=== PATIENT | female | born 1960 | race African-American/Black ===

== ENCOUNTER 2018-04-02 19:12 | Inpatient (IN) | payer MEDICARE, MEDICAID ==
[2018-04-02] MEDS ORDERED: NITROGLYCERIN 2% OINTMENT 1 GM PACKET TP ONE (20:19)
--- NOTE | 2018-04-02 21:07 | RADIOLOGY REPORT (SQ) ---
EXAM DESCRIPTION: XR CHEST 1 VIEW COMPLETED DATE/TME: 04/02/2018 20:09 CLINICAL HISTORY: 57 years, Female, sob No prior studies available at this institution for comparison. Findings: Heart is moderately enlarged. There is a right lower lobe consolidation. Mild right pleural effusion. No pneumothorax. IMPRESSION: Right lower lobe consolidation and mild right pleural effusion.
[2018-04-02 21:14] LABS: ABSOLUTE EOSINOPHILS # (AUTO) 0.1 10^3/uL (0.0-0.6); ABSOLUTE LYMPHOCYTES (AUTO) 0.7 10^3/uL (0.5-4.7); ABSOLUTE MONOCYTES (AUTO) 0.4 10^3/uL (0.1-1.4); ABSOLUTE NEUT (AUTO) 3.1 10^3/uL (1.7-8.2); BASOPHILS % (AUTO) 0.6 % (0-2); HEMATOCRIT 35.3 % (36.0-47.0); HEMOGLOBIN 11.5 g/dL (12.0-15.5); LYMPHOCYTES % (AUTO) 16.1 % (13-45); MEAN CORPUSCULAR HEMOGLOBIN 26.6 pg (27.0-33.4); MEAN CORPUSCULAR HGB CONC 32.6 g/dL (32.0-36.0); MEAN CORPUSCULAR VOLUME 82 fl (80-97); MONOCYTES % (AUTO) 8.2 % (3-13); PLATELET COUNT 220 10^3/uL (150-450); RED BLOOD COUNT 4.33 10^6/uL (3.72-5.28); RED CELL DISTRIBUTION WIDTH 20.8 % (11.5-14.0); SEGMENTED NEUTROPHILS % (AUTO) 72.1 % (42-78); TOTAL CELLS COUNTED % (AUTO) 100 %; WHITE BLOOD COUNT 4.3 10^3/uL (4.0-10.5)
--- NOTE | 2018-04-02 22:39 | EKG REPORT ---
SEVERITY:- ABNORMAL ECG - SINUS RHYTHM FIRST DEGREE AV BLOCK PROBABLE LEFT ATRIAL ABNORMALITY RBBB AND LAFB : Confirmed by: Soledad Peck 02-Apr-2018 22:38:20
[2018-04-02] MEDS ORDERED: NITROGLYCERIN 2% OINTMENT 1 GM PACKET ONE (22:59)
[2018-04-02] MEDS ORDERED: FUROSEMIDE INJ/PF 40 MG/4 ML SDV IV ONE (23:30)
[2018-04-02] MEDS ORDERED: ALPRAZOLAM 0.25 MG TABLET PO ONE (23:30)
[2018-04-02 23:39] LABS: ALANINE AMINOTRANSFERASE 32 U/L (9-52); ALBUMIN 3.9 g/dL (3.5-5.0); ALKALINE PHOSPHATASE 561 U/L (38-126); ANION GAP 15 (5-19); ASPARTATE AMINO TRANSFERASE 28 U/L (14-36); BILIRUBIN,DIRECT 0.5 mg/dL (0.0-0.4); BILIRUBIN,TOTAL 0.9 mg/dL (0.2-1.3); BLOOD UREA NITROGEN 49 mg/dL (7-20); CALCIUM 9.2 mg/dL (8.4-10.2); CARBON DIOXIDE 28 mmol/L (22-30); CHLORIDE 101 mmol/L (98-107); CREATINE KINASE 92 U/L (30-135); GLUCOSE 138 mg/dL (75-110); POTASSIUM 4.6 mmol/L (3.6-5.0); SODIUM 143.5 mmol/L (137-145); TOTAL PROTEIN 6.9 g/dL (6.3-8.2)
[2018-04-02 23:50] LABS: CREATINE KINASE MB 3.24 ng/mL (<4.55)
[2018-04-02 23:54] LABS: TROPONIN I 0.049 ng/mL
[2018-04-03] MEDS ORDERED: CLONIDINE HCL 0.2 MG TABLET PO ONE (00:06)
[2018-04-03] MEDS ORDERED: LABETALOL HCL INJ 20 MG/4 ML DISP.SYRIN IV ONE (00:07)
--- NOTE | 2018-04-03 00:18 | ER Document Report ---
ED General - General Chief Complaint: General Weakness Stated Complaint: GENERALIZED WEAKNESS Time Seen by Provider: 04/02/18 20:09 Mode of Arrival: Medic Information source: Patient Notes: This is a 57-year-old female with a history of hypertension, insulin requiring diabetes, end-stage renal disease (on hemodialysis) who recently relocated to this area. Patient is brought in by EMS for weakness and shortness of breath. Patient moved here over the weekend and had missed dialysis on Saturday. On Saturday (the day of presentation) the patient was dialyzed at [place] and she was dialyzed 3.5 L removed. Patient states she was short of breath after dialysis and was sent to the emergency room. Patient denies chest pain. O2 sats were noted to be in the upper 80s status post dialysis. TRAVEL OUTSIDE OF THE [place] IN LAST 30 DAYS: No - HPI Onset: Just prior to arrival Onset/Duration: Gradual Quality of pain: No pain Severity: None Pain Level: Denies Associated symptoms: Shortness of breath. denies: Chest pain, Fever Exacerbated by: Denies Relieved by: Denies Similar symptoms previously: Yes Recently seen / treated by doctor: Yes - Related Data Allergies/Adverse Reactions: No Known Allergies Allergy (Unverified 04/02/18 20:27) Past Medical History - General Information source: Patient, Relative - Social History Smoking Status: Never Smoker Cigarette use (# per day): No Chew tobacco use (# tins/day): No Frequency of alcohol use: None Drug Abuse: None Lives with: Family Family History: None Patient has suicidal ideation: No Patient has homicidal ideation: No - Past Medical History Cardiac Medical History: Reports: Hx Congestive Heart Failure, Hx Hypertension Renal/ Medical History: Denies: Hx Peritoneal Dialysis Past Surgical History: Reports: Hx Hysterectomy, Hx Vascular Surgery Review of Systems - Review of Systems Constitutional: denies: Chills, Fever EENT: No symptoms reported Cardiovascular: denies: Chest pain, Palpitations, Heart racing Respiratory: Short of breath Gastrointestinal: No symptoms reported Genitourinary: See HPI Female Genitourinary: No symptoms reported Musculoskeletal: No symptoms reported Skin: No symptoms reported Hematologic/Lymphatic: No symptoms reported Neurological/Psychological: No symptoms reported Physical Exam - Vital signs Vitals: Pulse Ox 87 L 04/02/18 19:15 Notes: Physical exam: GENERAL: Patient is alert, she does appear short of breath. Oxygen saturation is 92% on 2 L. HEAD: Atraumatic, normocephalic. EYES: Pupils equal round and reactive to light, extraocular movements intact, sclera anicteric, conjunctiva are normal. ENT: TMs normal, nares patent, oropharynx clear without exudates. Moist mucous membranes. NECK: Normal range of motion, supple without obvious mass or JVD. LUNGS: Decreased breath sounds at the right base. HEART: Regular rate and rhythm without murmurs, rubs or gallops. ABDOMEN: Soft, normoactive bowel sounds. No tenderness to palpation. No guarding, no rebound. No masses appreciated. EXTREMITIES: Normal range of motion, no pitting or edema. No clubbing or cyanosis. NEUROLOGICAL: Cranial nerves II through XII grossly intact. Normal speech, moving all extremities. PSYCH: Normal mood, normal affect. SKIN: Warm, Dry, normal turgor, no rashes or lesions noted. Bedside ultrasound: Shows a large right pleural effusion Course - Re-evaluation Re-evalutation: Note: Patient has been treated with supplemental oxygen, IV labetalol, IV Lasix, nitrates, clonidine. Right femoral triple-lumen was placed under ultrasound guidance. 04/03/18 01:10 [facility] was contacted for transfer: There are not accepting transfers at this time and they expect greater than 24 hours. [facility] in [place] was contacted for transfer: There waiting list is over 24 hours long. [facility] was contacted for transfer. I spoke to Rahul and the transfer is accepted but the wait may be 24 hours. Demographics for the patient was sent to [phone] I discussed the above with Dr. Jaime who will accept the patient to the [facility] until transfer comes through. The plan will be to continue blood pressure management, contacting interventional for possible fusion drainage tomorrow, cardiac monitoring and serial enzymes. 04/03/18 01:49 - Vital Signs Vital signs: Temp Pulse Resp BP Pulse Ox 97.6 F 29 H 168/85 H 93 04/02/18 21:11 04/03/18 01:31 04/03/18 01:31 04/03/18 01:31 - Laboratory Result Diagrams: 04/02/18 21:00 04/02/18 23:12 Laboratory results interpreted by me: 04/02/18 04/02/18 21:00 23:12 Hgb 11.5 L Hct 35.3 L MCH 26.6 L RDW 20.8 H BUN 49 H Creatinine 6.24 H Est GFR ( Amer) 8 L Est GFR (Non-Af Amer) 7 L Glucose 138 H Direct Bilirubin 0.5 H Alkaline Phosphatase 561 H - Diagnostic Test Radiology reviewed: Image reviewed, Reports reviewed - X-ray shows a large right pleural effusion - EKG Interpretation by Nh Rate: Normal Rhythm: NSR - EKG shows sinus rhythm with a ventricular rate of 82, left anterior hemiblock, right bundle branch block, no acute elevations or depressions. Procedures - Central Line Right Femoral Time completed: 00:17 Consent obtained: Yes Central line pre-insertion: Sterile PPE donned, Chloraprep applied, Sterile drapes applied Central line size (Fr.): 18 Central line lumen type: Triple Anesthetic type: 1% Lidocaine mL's of anesthesia: 4 Ultrasound guided: Yes CM at insertion site: 21 Line secured with sutures: Yes Central line post-insertion: Blood return from lumens, Biopatch applied, Sutured , Sterile dressing applied, Other - Patient confirmed with ultrasound. Number of attempts: 1 Complications: No Notes: 04/03/18 00:18 MSBT (maximum sterile barrier technique) followed including cap, mask, sterile gloves, large sterile sheet, hand hygiene, sterile ultrasound probe sleeve, sterile saline for probe visualization, liberal ChloraPrep for cutaneous antisepsis both during procedure set up and immediately before Biopatch application, line stabilization with suture and sterile Tegaderm placement. Critical Care Note - Critical Care Note Total time excluding time spent on procedures (mins): 60 Discharge - Discharge Clinical Impression: Dyspnea, Large right pleural effusion, Accelerated hypertension Condition: Stable Disposition: ADMITTED OBSERVATION Admitting Provider: Hospitalist - Dr. Jaime Unit Admitted: [facility]
[2018-04-03] MEDS ORDERED: NITROGLYCERIN 5 MG (0.2 MG/HR) PATCH.TD24 TD ONE (01:25)
[2018-04-03] MEDS ORDERED: LACTULOSE SYRUP 20 GM/30 ML UDCUP PO ONE (03:05)
[2018-04-03 03:55] LABS: ARTERIAL BLOOD BASE EXCESS 1.6 mmol/L; ARTERIAL BLOOD FIO2 30%; ARTERIAL BLOOD H2CO3 1.42 mmol/L (1.05-1.35); ARTERIAL BLOOD HCO3 27.2 mmol/L (20-24); ARTERIAL BLOOD O2 SATURATION 94.1 % (94-98); ARTERIAL BLOOD PCO2 47.3 mmHg (35-45); ARTERIAL BLOOD PH 7.38 (7.35-7.45); ARTERIAL BLOOD PO2 72.3 mmHg (80-100); ARTERIAL BLOOD TOTAL CO2 28.6 mmol/L (21-25)
[2018-04-03] MEDS ORDERED: KETOROLAC TROMETHAMINE 0.45% 4 DROP/0.4 ML DROPERETTE OU PRN (05:30)
[2018-04-03] MEDS: LANSOPRAZOLE 30 MG TAB.RAP.DR PO SCH (05:44)
[2018-04-03] MEDS: HYDRALAZINE HCL 50 MG TABLET PO SCH ×3 (05:44→17:33)
[2018-04-03] MEDS: CLONIDINE HCL 0.2 MG TABLET PO SCH ×3 (05:44→21:58)
[2018-04-03] MEDS: HEPARIN SOD (PORCINE) 5,000 UNIT/ML 1 ML SYRINGE SUBCUT SCH ×3 (05:44→21:57)
[2018-04-03] MEDS ORDERED: HYDRALAZINE HCL 10 MG TABLET PO SCH (06:00)
--- NOTE | 2018-04-03 06:01 | PDOC H&P ---
History of Present Illness Admission Date/PCP: 04/03/18 01:19 Patient complains of: Shortness of breath History of Present Illness: HAL MERCHANT is a 57 year old female with a past medical history of hypertension, diabetes, anxiety and end-stage renal failure hemodialysis dependent Saturday. Patient is unable to provide history and is accompanied by her son who has relocated her from [facility] to [facility] over the weekend. Per the patient's son she was dialyzed at [place] on Saturday with 3.5 L off. Patient subsequently developed shortness of breath with generalized weakness and brought to the emergency room for evaluation. She is found to have hypertensive emergency in the 200 systolic range and a large right-sided pleural effusion. She receives Nitropaste, clonidine, ER provider contacts [facility] as nephrology is unavailable at our facility. She is placed on a transfer list at [facility] and referred to the hospitalist for admission. She denies chest pain, palpitations, nausea or vomiting. Past Medical History Cardiac Medical History: Reports: Congestive Heart Failure, Hypertension Psychiatric Medical History: Reports: Depression - anxiety, General Anxiety Disorder Past Surgical History Past Surgical History: Reports: Hysterectomy, Vascular Surgery Social History Information Source: Relative, Emergency Med Personnel Lives with: Family Smoking Status: Never Smoker Frequency of Alcohol Use: None Hx Recreational Drug Use: No Drugs: None Hx Prescription Drug Abuse: No - Advance Directive Resuscitation Status: Full Code Family History Family History: Hypertension Parental Family History Reviewed: No Children Family History Reviewed: No Sibling(s) Family History Reviewed.: No Medication/Allergy Home Medications: Amlodipine Besylate 10 mg PO DAILY 04/03/18 Atorvastatin Calcium 20 mg PO DAILY 04/03/18 Diazepam 5 mg PO QIDP PRN 04/03/18 Dicyclomine HCl 20 mg PO ACHS 04/03/18 Ergocalciferol (Vitamin D2) [Vitamin D2] 50,000 unit PO SA 04/03/18 Ferric Citrate [Auryxia] 2 tab PO AC 04/03/18 Gabapentin 300 mg PO QHS 04/03/18 Hydralazine HCl 100 mg PO TID 04/03/18 Ketorolac Tromethamine 1 drop OU QIDP PRN 04/03/18 Loperamide HCl [Imodium A-D] 2 mg PO Q6HP PRN 04/03/18 Mirtazapine 15 mg PO QHS 04/03/18 Olanzapine [Zyprexa Zydis 5 Mg Odt Tablet] 5 mg PO QHS 04/03/18 Omeprazole 40 mg PO DAILY 04/03/18 Sevelamer Carbonate 800 mg PO AC 04/03/18 Allergies/Adverse Reactions: No Known Allergies Allergy (Unverified 04/02/18 20:27) Review of Systems ROS unobtainable: Due to mental status Physical Exam Vital Signs: Temp Pulse Resp BP Pulse Ox 97.7 F 63 32 H 153/72 H 95 04/03/18 03:39 04/03/18 03:39 04/03/18 03:39 04/03/18 03:39 04/03/18 03:39 Intake & Output 04/01/18 04/02/18 04/03/18 11:59 11:59 11:59 Intake Total 0 Output Total 0 Balance 0 Weight 74.7 kg General appearance: PRESENT: disheveled, obese, severe distress Head exam: PRESENT: atraumatic, normocephalic Eye exam: PRESENT: conjunctiva pink, EOMI, PERRLA. ABSENT: scleral icterus Ear exam: PRESENT: normal external ear exam Mouth exam: PRESENT: moist, tongue midline Neck exam: PRESENT: full ROM, JVD. ABSENT: lymphadenopathy Respiratory exam: PRESENT: accessory muscle use, crackles, decreased breath sounds, retraction, tachypnea. ABSENT: stridor, symmetrical Cardiovascular exam: PRESENT: gallop, +S1, +S2, systolic murmur Pulses: PRESENT: normal dorsalis pedis pul Vascular exam: PRESENT: normal capillary refill GI/Abdominal exam: PRESENT: normal bowel sounds, soft. ABSENT: distended, guarding, mass, organolmegaly, rebound, tenderness Rectal exam: PRESENT: deferred Extremities exam: PRESENT: full ROM, +1 edema. ABSENT: calf tenderness, clubbing, pedal edema Neurological exam: PRESENT: alert, altered, awake, oriented to person, oriented to place, oriented to time, CN II-XII grossly intact Psychiatric exam: PRESENT: anxious, unusual affect. ABSENT: homicidal ideation , suicidal ideation Skin exam: PRESENT: dry, intact, warm. ABSENT: cyanosis, rash Results Laboratory Results: 04/03/18 03:45 Carbonic Acid 1.42 H HCO3/H2CO3 Ratio 19:1 ABG pH 7.38 ABG pCO2 47.3 H ABG pO2 72.3 L ABG HCO3 27.2 H ABG O2 Saturation 94.1 ABG Base Excess 1.6 FiO2 30% Impressions: Chest X-Ray 04/02/18 20:09 IMPRESSION: Right lower lobe consolidation and mild right pleural effusion. Assessment & Plan - Diagnosis (1) Hypertensive emergency Is this a current diagnosis for this admission?: Yes Plan: IMCU admission, nitrates, optimize clonidine, hydralazine and Norvasc pending dialysis. (2) End stage renal failure on dialysis Is this a current diagnosis for this admission?: Yes Plan: Nephrology unavailable at [facility], patient remains accepted on transfer list at [facility]. (3) Pleural effusion on right Is this a current diagnosis for this admission?: Yes Plan: Consult ultrasound-guided thoracentesis, follow-up fluid analysis. (4) Diabetes Is this a current diagnosis for this admission?: Yes Plan: Humalog sliding scale. Obtain medication reconciliation - Time Time Spent: 50 to 70 Minutes - Inpatient Certification Medical Necessity: Need Close Monitoring Due to Risk of Patient Decompensation
[2018-04-03 06:22] LABS: INTERNATIONAL RATION (INR) 1.22
[2018-04-03 06:26] LABS: ANION GAP 11 (5-19); BLOOD UREA NITROGEN 49 mg/dL (7-20); CALCIUM 9.4 mg/dL (8.4-10.2); CARBON DIOXIDE 30 mmol/L (22-30); CHLORIDE 101 mmol/L (98-107); GLUCOSE 138 mg/dL (75-110); POTASSIUM 4.6 mmol/L (3.6-5.0); SODIUM 142.4 mmol/L (137-145)
[2018-04-03] MEDS: AMLODIPINE BESYLATE 5 MG TABLET PO SCH ×2 (11:02→17:33)
[2018-04-03] MEDS: SEVELAMER HCL 800 MG TABLET PO SCH ×4 (11:02→15:09)
--- NOTE | 2018-04-03 14:20 | RADIOLOGY REPORT (SQ) ---
EXAM DESCRIPTION: CHEST SINGLE VIEW COMPLETED DATE/TIME: 04/03/2018 1:53 pm REASON FOR STUDY: S/P RT THORACENTESIS COMPARISON: 04/02/2018. . EXAM PARAMETERS: NUMBER OF VIEWS: One view. TECHNIQUE: Single frontal radiographic view of the chest acquired. RADIATION DOSE: NA LIMITATIONS: None. FINDINGS: LUNGS AND PLEURA: Residual right pleural effusion with improvement. No pneumothorax. MEDIASTINUM AND HILAR STRUCTURES: No masses. Contour normal. HEART AND VASCULAR STRUCTURES: Cardiomegaly. No jaycee pulmonary edema. BONES: No acute findings. HARDWARE: None in the chest. OTHER: No other significant finding. IMPRESSION: No pneumothorax. Improved right pleural effusion. Cardiomegaly. TECHNICAL DOCUMENTATION: JOB ID: [id number] [employer]- All Rights Reserved Reading location - IP/workstation name: [email or web address]
[2018-04-03 14:40] LABS: FLUID APPEARANCE OPAQUE; FLUID COLOR PINK; FLUID SOURCE LUNG; FLUID TYPE PLEURAL; FLUID VISCOSITY SLIGHTLY VISCOUS
--- NOTE | 2018-04-03 15:29 | RADIOLOGY REPORT (SQ) ---
EXAM DESCRIPTION: U/S THORACENTESIS WITH IMAGING COMPLETED DATE/TIME: 04/03/2018 1:41 pm REASON FOR STUDY: large R pleural eff COMPARISON: None. LIMITATIONS: None. PROCEDURE: Procedure, risks, benefit, and alternative explained to patient who then gave written con sent. The posterior right chest wall was marked using ultrasound guidance. A time-out was called fo r correct marking verification. Chest prepped and draped using sterile technique. Local anesthesia a chieved using thick ml of 1% lidocaine injection. A 6fr Safe-T- Centesis set was introduced into the right pleural space. Fluid was aspirated. The catheter was removed and the entry site was covered with sterile bandage. No immediate complications noted. No pneumothorax on immediate post thoracente sis chest film, dictated separately. Images acquired during the procedure were stored on PACS. FINDINGS: ENTRY SITE: Right posterior pleural space FLUID VOLUME: 850 mL FLUID ANALYSIS: Yes sent for testing as per Dr. Jaime OTHER: Fluid sent to the lab for testing. IMPRESSION: SUCCESSFUL THORACENTESIS USING ULTRASOUND GUIDANCE. COMMENT: Patient medication list reviewed: Yes- Quality ID# [id number]:Eligible professional attests to doc umenting in the medical record they obtained, updated, or reviewed the patient's current medications. TECHNICAL DOCUMENTATION: JOB ID: [id number] [employer]- All Rights Reserved Reading location - IP/workstation name: [email or web address]
--- NOTE | 2018-04-03 16:01 | RADIOLOGY REPORT (SQ) ---
EXAM DESCRIPTION: CHEST SINGLE VIEW COMPLETED DATE/TIME: 04/03/2018 3:46 pm REASON FOR STUDY: 2 HOURS S/P RT THORACENTESIS COMPARISON: Chest films 04/02/2018, 04/03/2018 EXAM PARAMETERS: NUMBER OF VIEWS: One view. TECHNIQUE: Single frontal radiographic view of the chest acquired. RADIATION DOSE: NA LIMITATIONS: None. FINDINGS: 2 hours post thoracentesis. No pneumothorax. LUNGS AND PLEURA: Persistent collapse and consolidation in the right middle and lower lobe with eleva mohan right hemidiaphragm. No pneumothorax post right thoracentesis. Right upper lobe clear. Left lung clear. No left pleural effusion or pneumothorax. MEDIASTINUM AND HILAR STRUCTURES: No masses. Contour normal. HEART AND VASCULAR STRUCTURES: Marked cardiomegaly. BONES: No acute findings. HARDWARE: None in the chest. OTHER: No other significant finding. IMPRESSION: No pneumothorax post right thoracentesis. Persistent collapse and consolidation right middle and lower lobe with elevated right hemidiaphragm TECHNICAL DOCUMENTATION: JOB ID: [id number] [employer]- All Rights Reserved Reading location - IP/workstation name: [email or web address]
--- NOTE | 2018-04-03 16:27 | PDOC CONSULTATION ---
History of Present Illness Admission Date/PCP: 04/03/18 01:19 History of Present Illness: HAL MERCHANT is a 57 year old female with a past medical history of hypertension, diabetes, anxiety and end-stage renal failure, hemodialysis dependent on Saturday, Saturday, and Saturday. She was sent to the ER via EMS by the [facility]. Patient is a new patient to Dr. Yin and in. She suddenly transferred from [place], [place] to [facility] here. She was transferred over the weekend without having a manager social work for [facility] her. She missed dialysis on Saturday due to not having a center to dialyze at. She came in yesterday for her first dialysis treatment. When she was there she was found to have an oxygen saturation of 86. According to the nurse, she had diminished lung sounds in the bases of her lungs. She was placed on 2L of oxygen via [place]. At that time she was saturating at 92 and had 3.5L of fluid pulled off during dialysis. She was taken off the oxygen and saturation dropped to 86. She was altered at the time so she was sent to the ER via EMS. In the ER she was in a hypertensive emergency in the 200 systolic range and a large right-sided pleural effusion was seen on x-ray. She was given nitropaste and clonidine. Patient was brought to the IMCU and placed on bipap. Today she is scheduled to have a thoracentesis. At the time of examination she was short of breath. She denied chest pain, n/v/d/c. Later this afternoon according to her nurseTanesha, the patient is no longer having labored breathing after . Past Medical History Psychiatric Medical History: Reports: Depression - anxiety, General Anxiety Disorder Past Surgical History Past Surgical History: Reports: Hysterectomy, Vascular Surgery Social History Lives with: Family Smoking Status: Never Smoker Frequency of Alcohol Use: None Hx Recreational Drug Use: No Drugs: None Hx Prescription Drug Abuse: No - Advance Directive Resuscitation Status: Full Code Family History Parental Family History Reviewed: No Children Family History Reviewed: Unknown Sibling(s) Family History Reviewed.: Unknown Medication/Allergy Home Medications: Amlodipine Besylate 10 mg PO DAILY 04/03/18 Atorvastatin Calcium 20 mg PO DAILY 04/03/18 Diazepam 5 mg PO QIDP PRN 04/03/18 Dicyclomine HCl 20 mg PO ACHS 04/03/18 Ergocalciferol (Vitamin D2) [Vitamin D2] 50,000 unit PO SA 04/03/18 Ferric Citrate [Auryxia] 2 tab PO AC 04/03/18 Gabapentin 300 mg PO QHS 04/03/18 Hydralazine HCl 100 mg PO TID 04/03/18 Ketorolac Tromethamine 1 drop OU QIDP PRN 04/03/18 Loperamide HCl [Imodium A-D] 2 mg PO Q6HP PRN 04/03/18 Mirtazapine 15 mg PO QHS 04/03/18 Olanzapine [Zyprexa Zydis 5 Mg Odt Tablet] 5 mg PO QHS 04/03/18 Omeprazole 40 mg PO DAILY 04/03/18 Sevelamer Carbonate 800 mg PO AC 04/03/18 Allergies/Adverse Reactions: No Known Allergies Allergy (Unverified 04/03/18 09:39) Review of Systems Constitutional: ABSENT: chills, fever(s) Cardiovascular: PRESENT: dyspnea on exertion, orthropnea. ABSENT: chest pain, edema, palpitations Respiratory: PRESENT: cough, dyspnea. ABSENT: sputum Gastrointestinal: ABSENT: diarrhea, nausea, vomiting Genitourinary: ABSENT: dysuria Neurological: PRESENT: confusion, weakness. ABSENT: dizziness, numbness Physical Exam Vital Signs: Temp Pulse Resp BP Pulse Ox 97.6 F 62 23 H 168/91 H 97 04/03/18 11:49 04/03/18 11:49 04/03/18 14:20 04/03/18 11:49 04/03/18 14:20 Intake & Output 04/02/18 04/03/18 04/04/18 06:59 06:59 06:59 Intake Total 0 50 Output Total 0 Balance 0 50 Weight 74.7 kg General appearance: PRESENT: mild distress, well-developed, well-nourished Neck exam: ABSENT: JVD, tracheal deviation Respiratory exam: PRESENT: decreased breath sounds. ABSENT: clear to auscultation mai, crackles, rales, rhonchi, wheezes Cardiovascular exam: PRESENT: RRR, +S1, +S2 GI/Abdominal exam: PRESENT: soft. ABSENT: tenderness Extremities exam: ABSENT: pedal edema, tenderness, +1 edema, +2 edema Musculoskeletal exam: PRESENT: normal inspection. ABSENT: tenderness Neurological exam: PRESENT: altered, awake. ABSENT: oriented to person, oriented to place, oriented to situation Skin exam: PRESENT: dry, intact, warm. ABSENT: cyanosis Results Laboratory Results: 04/03/18 05:45 04/03/18 04/03/18 04/03/18 03:45 05:45 13:30 Carbonic Acid 1.42 H HCO3/H2CO3 Ratio 19:1 ABG pH 7.38 ABG pCO2 47.3 H ABG pO2 72.3 L ABG HCO3 27.2 H ABG O2 Saturation 94.1 ABG Base Excess 1.6 FiO2 30% Sodium 142.4 Potassium 4.6 Chloride 101 Carbon Dioxide 30 Anion Gap 11 BUN 49 H Creatinine 6.49 H Est GFR ( Amer) 8 L Est GFR (Non-Af Amer) 7 L Glucose 138 H Calcium 9.4 Fluid Type PLEURAL Fluid Source LUNG Fluid Color PINK Fluid Appearance OPAQUE Fluid Viscosity SLIGHTLY VISCOUS Fluid WBC 0 Fluid RBC [id number] 04/03/18 05:45 Troponin I 0.065 Impressions: Chest X-Ray 04/03/18 00:00 IMPRESSION: No pneumothorax. Improved right pleural effusion. Cardiomegaly. Assessment & Plan - Diagnosis (1) End stage renal failure on dialysis Is this a current diagnosis for this admission?: Yes Plan: after further evaluation there is no indication SUBSTATION MANAGER today. Will look to have her set up for SUBSTATION MANAGER tomorrow. (2) Hypertensive emergency Is this a current diagnosis for this admission?: Yes Plan: improving, will keep on monitoring, looks to recently had her clonidine increased. Recommend keeping bp between 140 to 160 systolic for the next few days and then decreasing her to 130s area. (3) Pleural effusion on right Is this a current diagnosis for this admission?: Yes Plan: getting a thoracentesis later this afternoon. Awaiting fluid analysis results. (4) Diabetes Is this a current diagnosis for this admission?: Yes
--- NOTE | 2018-04-03 16:36 | Progress Note ---
Provider Note Provider Note: Assumed care this morning. Patient was admitted earlier today for HTN urgency with blood pressures in the 200/100s and was also found to have a right sided pleural effusion. Saw patient this morning prior to thoracentesis. She complains of SOB but is saturating well on nasal cannula. Blood pressures have improved in the 160/90s. Switched to BIPAP and she slightly felt better. Patient re-evaluated after thoracentesis this afternoon and she is much more comfortable. Will send for pleural fluids studies. Will check an echocardiogram. Nephrology has seen patient. She is scheduled to get her next dialysis tomorrow.
--- NOTE | 2018-04-03 18:05 | XCELERA REPORT ---
[address] [address] Transthoracic Echocardiogram Report Name: HAL MERCHANT Age: 57 yrs Gender: Female : 1960 Patient Status: Inpatient Patient Location: [address] [place] [address] Study Date: 04/03/2018 02:31 PM Height: 64 in Weight: 164 lb BSA: 1.8 m2 Procedure: A complete two-dimensional transthoracic echocardiogram was performed (2D, M-mode, spectral and color flow Doppler). The study was technically adequate with some images being suboptimal in quality. Reason For Study: HTN emergency,congestion,hx of CHF Ordering Physician: CONNOR SOMMER Performed By: Ines Bartlett Interpretation Summary Left ventricular systolic function is low normal. There is moderate concentric left ventricular hypertrophy. Doppler measurements suggest pseudonormalized left ventricular relaxation, which is associated with grade II/IV or mild to moderate diastolic dysfunction The left ventricle is grossly normal size. Wall motion cannot be accurately commented on, but no definite regional wall motion abnormalities noted. The right ventricle is mildly dilated. The right ventricular systolic function is normal. The left atrium is mildly dilated. The right atrium is mildly dilated. There is a mild to moderate amount of mitral regurgitation There is no mitral valve stenosis. No aortic regurgitation is present. There is no aortic valve stenosis There is a mild to moderate amount of tricuspid regurgitation There is servere pulmonary hypertension by echo The aortic root is not well visualized but is probably normal size. The inferior vena cava appeared normal and decreased < 50% with respiration (RAP 10-15 mmHg) Small pericardial effusion. There are no echocardiographic or Doppler indications for cardiac tamponade MMode/2D Measurements & Calculations RVDd: 4.6 cm LVIDd: 5.3 cm FS: 36.5 % Ao root diam: 2.5 cm IVSd: 1.0 cm LVIDs: 3.4 cm EDV(Teich): 136.3 ml Ao root area: 5.0 cm2 LVPWd: 1.0 cm ESV(Teich): 46.7 ml LA dimension: 3.8 cm EF(Teich): 65.7 % Doppler Measurements & Calculations MV E max paul: MV P1/2t max paul: Ao V2 max: LV V1 max P.5 cm/sec 77.5 cm/sec 182.3 cm/sec 6.7 mmHg MV A max paul: MV P1/2t: 139.1 msec Ao max PG: LV V1 max: 119.9 cm/sec MVA(P1/2t): 1.6 cm2 13.3 mmHg 129.8 cm/sec MV E/A: 0.67 MV dec slope: 163.2 cm/sec2 MV dec time: 0.46 sec PA V2 max: PI end-d paul: TR max paul: MV P1/2t-pr_phl: 83.4 cm/sec 151.5 cm/sec 365.1 cm/sec 139.1 msec PA max P.8 mmHg TR max P.3 mmHg Left Ventricle The left ventricle is grossly normal size. There is moderate concentric left ventricular hypertrophy. Left ventricular systolic function is low normal. Doppler measurements suggest pseudonormalized left ventricular relaxation, which is associated with grade II/IV or mild to moderate diastolic dysfunction. Wall motion cannot be accurately commented on, but no definite regional wall motion abnormalities noted. Right Ventricle The right ventricle is mildly dilated. There is normal right ventricular wall thickness. The right ventricular systolic function is normal. Atria The right atrium is mildly dilated. The left atrium is mildly dilated. Interarterial septum not well visualized and not well dopplered. Cannot comment on ASD/PFO presence. Mitral Valve The mitral valve leaflets are sclerotic, but show no functional abnormalities. There is no mitral valve stenosis. There is a mild to moderate amount of mitral regurgitation. Aortic Valve The aortic valve is normal in structure and functions normally. There is no aortic valve stenosis. No aortic regurgitation is present. Tricuspid Valve The tricuspid valve is not well visualized, but is grossly normal. There is no tricuspid stenosis. There is a mild to moderate amount of tricuspid regurgitation. There is servere pulmonary hypertension by echo. Best estimated right ventricular systolic pressure is elevated at >60mmHg. Pulmonic Valve The pulmonic valve is not well visualized. Great Vessels The aortic root is not well visualized but is probably normal size. The inferior vena cava appeared normal and decreased < 50% with respiration (RAP 10-15 mmHg). Effusions Small pericardial effusion. There are no echocardiographic or Doppler indications for cardiac tamponade. : CONNOR SOMMER > Soledad Peck
--- NOTE | 2018-04-03 20:02 | PDOC CONSULTATION ---
Consultation Consult Date: 04/03/18 Attending physician:: CONNOR CANTU Consult reason:: Pleural effusion History of Present Illness Admission Date/PCP: 04/03/18 01:19 Patient complains of: Shortness of breath History of Present Illness: HAL MERCHANT is a 57 year old femalewith a past medical history of hypertension , diabetes, anxiety and end-stage renal failure hemodialysis dependent Saturday. Patient is unable to provide history and is accompanied by her son who has [facility] over the weekend. Per the patient's son she was dialyzed at [place] on Saturday with 3.5 L off. Patient subsequently developed shortness of breath with generalized weakness and brought to the emergency room for evaluation. She is found to have hypertensive emergency in the 200 systolic range and a large right-sided pleural effusion. She receives Nitropaste, clonidine, ER provider contacts tertiary [facility] as nephrology is unavailable at our facility. She is placed on a transfer list at [facility] and referred to the hospitalist for admission. She denies chest pain, palpitations, nausea or vomiting. Patient has been noted to have pleural effusion and underwent thoracentesis. I been asked to evaluate patient for possible underlying CHF. Patient did have a 2D echocardiogram, results of which were reviewed. Patient noted to have normal LVEF, moderate to severe pulmonary hypertension, chronic diastolic dysfunction. IVC noted to be borderline dilated and did not decrease in diameter adequately with respiration. This is suggestive of elevated right- sided pressure. Past Medical History Cardiac Medical History: Reports: Congestive Heart Failure, Hypertension Psychiatric Medical History: Reports: Depression - anxiety, General Anxiety Disorder Past Surgical History Past Surgical History: Reports: Hysterectomy, Vascular Surgery Social History Information Source: Patient Lives with: Family Smoking Status: Never Smoker Frequency of Alcohol Use: None Hx Recreational Drug Use: No Drugs: None Hx Prescription Drug Abuse: No - Advance Directive Resuscitation Status: Full Code Family History Family History: Hypertension Parental Family History Reviewed: Yes Children Family History Reviewed: Yes Sibling(s) Family History Reviewed.: Yes Medication/Allergy Home Medications: Amlodipine Besylate 10 mg PO DAILY 04/03/18 Atorvastatin Calcium 20 mg PO DAILY 04/03/18 Diazepam 5 mg PO QIDP PRN 04/03/18 Dicyclomine HCl 20 mg PO ACHS 04/03/18 Ergocalciferol (Vitamin D2) [Vitamin D2] 50,000 unit PO SA 04/03/18 Ferric Citrate [Auryxia] 2 tab PO AC 04/03/18 Gabapentin 300 mg PO QHS 04/03/18 Hydralazine HCl 100 mg PO TID 04/03/18 Ketorolac Tromethamine 1 drop OU QIDP PRN 04/03/18 Loperamide HCl [Imodium A-D] 2 mg PO Q6HP PRN 04/03/18 Mirtazapine 15 mg PO QHS 04/03/18 Olanzapine [Zyprexa Zydis 5 Mg Odt Tablet] 5 mg PO QHS 04/03/18 Omeprazole 40 mg PO DAILY 04/03/18 Sevelamer Carbonate 800 mg PO AC 04/03/18 Allergies/Adverse Reactions: No Known Allergies Allergy (Unverified 04/03/18 09:39) Review of Systems Review of Systems: Please see history of present illness and past medical history as wall. Constitutional: No fever or chills reported. Head : No recent chronic headaches, recent head injury. Eyes: No recent eye pain, diplopia, redness, discharge, acute visual changes. Ears: No recent chronic ear pain, acute hearing loss, ear discharge. Oral cavity: No recent ulcerations, bleeding, oral cavity discomfort. Neck: No recent acute neck pain reported. Hematologic: No recent easy bruising or bleeding. Lymphatic: No recent lymph node enlargement reported. Cardiovascular system review: See history of present illness. Respiratory system review: No hemoptysis or blood clots in the lungs reported. Mild Shortness of breath on exertion Gastrointestinal system review: Negative for any recent acute hematemesis, melena. Genitourinary system review: No recent acute or chronic hematuria, flank pain, UTI etc. reported. Skin system review: Negative for any recent abnormal bruising, no rash, no pruritus reported. Neurologic: No prior history of strokes, mini strokes, seizure disorder. Psychologic: No history of major psychosis or major depression reported. Musculoskeletal: Minor aches and pains reported. No acute joint swelling reported. Endocrine: No recent polyuria, polydipsia, recent heat or cold intolerance. Physical Exam Vital Signs: Temp Pulse Resp BP Pulse Ox 97.4 F 61 22 H 170/72 H 99 04/03/18 15:39 04/03/18 15:39 04/03/18 16:20 04/03/18 15:39 04/03/18 16:20 Intake & Output 04/02/18 04/03/18 04/04/18 06:59 06:59 06:59 Intake Total 0 50 Output Total 0 Balance 0 50 Weight 74.7 kg Exam: GENERAL: well-nourished and in no acute distress. Alert and oriented x3. Patient not very interested in conversation. She claims to be very weak and lethargic. HEAD: Atraumatic, normocephalic. EYES: Pupils equal round and reactive to light, extraocular movements intact, sclera anicteric, conjunctiva are normal. ENT: TMs normal, nares patent, oropharynx clear without exudates. Moist mucous membranes. No oral ulcerations or bleeding gums noted NECK: supple without lymphadenopathy. Trachea is central. No cervical or axillary lymphadenopathy noted. Carotids are 2+, JVD WNL LUNGS: Respiration seems nonlabored, no significant accessory muscle action noted. Right basal dullness, diminished breath sounds right base noted. Left side fairly clear. CHEST: Palpation of the chest wall shows no significant chest wall tenderness. HEART: [place] PATIENT ACCOUNT SPECIALIST, No PSH, 1/6 DIAMOND aortic area, 1/6 henry systolic murmur mitral area, no rubs, no gallops. ABDOMEN: Soft, no significant tenderness appreciated, normoactive bowel sounds. No guarding, no rebound. No rigidity noted . No masses appreciated. EXTREMITIES: Pedal pulses are 1-2+, no calf tenderness noted. No clubbing or cyanosis. Trace to 1+ pedal edema noted NEUROLOGICAL: Focused neurological exam showed no significant neurologic deficit. Normal speech, no focal weakness appreciated. Patient complains of generalized weakness and lethargy and did not really quite participating a full neurologic exam. PSYCH: Normal mood, normal affect. Judgment and insight not checked SKIN: No significant ecchymosis, skin is noted to be warm. MUSCULOSKELETAL EXAM: No significant acute joint swelling noted. Results Laboratory Results: 04/03/18 05:45 04/03/18 04/03/18 04/03/18 03:45 05:45 13:30 Carbonic Acid 1.42 H HCO3/H2CO3 Ratio 19:1 ABG pH 7.38 ABG pCO2 47.3 H ABG pO2 72.3 L ABG HCO3 27.2 H ABG O2 Saturation 94.1 ABG Base Excess 1.6 FiO2 30% Sodium 142.4 Potassium 4.6 Chloride 101 Carbon Dioxide 30 Anion Gap 11 BUN 49 H Creatinine 6.49 H Est GFR ( Amer) 8 L Est GFR (Non-Af Amer) 7 L Glucose 138 H Calcium 9.4 Fluid Type PLEURAL Fluid Source LUNG Fluid Color PINK Fluid Appearance OPAQUE Fluid Viscosity SLIGHTLY VISCOUS Fluid WBC 0 Fluid [place] [id number] 04/03/18 04/03/18 05:45 18:19 Troponin I 0.065 0.327 EKG Comments: Chest x-ray shows cardiomegaly, right-sided pleural effusion. Cannot rule out underlying atelectasis or pneumonia. Impressions: Chest X-Ray 04/03/18 00:00 IMPRESSION: No pneumothorax post right thoracentesis. Persistent collapse and consolidation right middle and lower lobe with elevated right hemidiaphragm Thoracentesis Ultrasound 04/03/18 00:00 IMPRESSION: SUCCESSFUL THORACENTESIS USING ULTRASOUND GUIDANCE. Assessment & Plan - Diagnosis (1) Pleural effusion on right Is this a current diagnosis for this admission?: Yes (2) Diabetes Qualifiers: Diabetes mellitus type: type 2 Diabetes mellitus manager terminal insulin use: unspecified assisted insulin use status Diabetes mellitus complication status : with unspecified complications Qualified Code(s): E11.8 - Type 2 diabetes mellitus with unspecified complications Is this a current diagnosis for this admission?: Yes (3) End stage renal failure on dialysis Is this a current diagnosis for this admission?: Yes (4) Hypertensive emergency Is this a current diagnosis for this admission?: Yes (5) Elevated troponin I level Is this a current diagnosis for this admission?: Yes - Notes Notes: Right-sided pleural effusion: Patient is status post thoracentesis, findings are pending. Cannot rule out underlying atelectasis, pneumonia etc. Would recommend a CT chest or CT angiogram for further evaluation and management. May consider pulmonary evaluation. Diabetes: Currently being well managed by hospitalist. End-stage renal disease on dialysis: Clinical exam suggest fluid overload. Recommend fluid removal on dialysis. Hypertensive emergency: Blood pressure is still high. Recommend adding nitrates and hydralazine. Elevated troponin I level: Agree with repeating EKGs. Currently can be explained by severe hypertension on presentation, possible right-sided CHF. Patient currently not complaining of chest pain. In the absence of significant EKG changes would not treat as ACS. Discussed with Dr. cantu. - Time Time Spent: 30 to 50 Minutes - More than 50% of the time spent coordinating care , discussing management plans with involved caregivers. Management plans discussed with involved personnels. Medical decision making was of moderate to high complexity, patient's has multiple comorbidities. Medications reviewed and adjusted accordingly: Yes
[2018-04-03] MEDS ORDERED: NITROGLYCERIN 2% OINTMENT 1 GM PACKET TP ONE (20:15)
--- NOTE | 2018-04-03 21:50 | EKG REPORT ---
SEVERITY:- ABNORMAL ECG - SINUS RHYTHM FIRST DEGREE AV BLOCK PROBABLE LEFT ATRIAL ABNORMALITY RIGHT BUNDLE BRANCH BLOCK : Confirmed by: Soledad Peck 03-Apr-2018 21:49:38
--- NOTE | 2018-04-03 21:50 | EKG REPORT ---
SEVERITY:- ABNORMAL ECG - SINUS RHYTHM FIRST DEGREE AV BLOCK PROBABLE LEFT ATRIAL ABNORMALITY RBBB AND LAFB : Confirmed by: Soledad Peck 03-Apr-2018 21:49:52
[2018-04-03] MEDS: OLANZAPINE 5 MG TAB.RAPDIS PO SCH (21:57)
[2018-04-03] MEDS: GABAPENTIN 300 MG CAPSULE PO SCH (21:58)
[2018-04-03] MEDS: MIRTAZAPINE 15 MG TABLET PO SCH (21:58)
[2018-04-03] MEDS: ATORVASTATIN CALCIUM 20 MG TABLET PO SCH (21:58)
[2018-04-04] MEDS: INSULIN LISPRO 100 UNIT/ML 3 ML VIAL SUBCUT SCH ×5 (00:51→15:37)
[2018-04-04] MEDS: HYDRALAZINE HCL 50 MG TABLET PO SCH ×4 (00:54→17:08)
[2018-04-04 01:10] LABS: CREATINE KINASE MB 2.87 ng/mL (<4.55); TROPONIN I 0.277 ng/mL
[2018-04-04] MEDS: LANSOPRAZOLE 30 MG TAB.RAP.DR PO SCH (06:07)
[2018-04-04] MEDS: HEPARIN SOD (PORCINE) 5,000 UNIT/ML 1 ML SYRINGE SUBCUT SCH ×3 (06:07→21:09)
[2018-04-04 06:10] LABS: HEMATOCRIT 32.5 % (36.0-47.0); HEMOGLOBIN 10.5 g/dL (12.0-15.5); MEAN CORPUSCULAR HEMOGLOBIN 26.6 pg (27.0-33.4); MEAN CORPUSCULAR HGB CONC 32.3 g/dL (32.0-36.0); MEAN CORPUSCULAR VOLUME 82 fl (80-97); PLATELET COUNT 144 10^3/uL (150-450); RED BLOOD COUNT 3.94 10^6/uL (3.72-5.28); RED CELL DISTRIBUTION WIDTH 20.3 % (11.5-14.0); WHITE BLOOD COUNT 3.4 10^3/uL (4.0-10.5)
[2018-04-04 06:29] LABS: ANION GAP 11 (5-19); BLOOD UREA NITROGEN 68 mg/dL (7-20); CALCIUM 8.9 mg/dL (8.4-10.2); CARBON DIOXIDE 29 mmol/L (22-30); CHLORIDE 100 mmol/L (98-107); GLUCOSE 112 mg/dL (75-110); POTASSIUM 5.5 mmol/L (3.6-5.0); SODIUM 139.7 mmol/L (137-145)
[2018-04-04 06:41] LABS: CREATINE KINASE MB 2.01 ng/mL (<4.55); TROPONIN I 0.247 ng/mL
[2018-04-04] MEDS: CLONIDINE HCL 0.2 MG TABLET PO SCH ×3 (08:11→21:08)
[2018-04-04] MEDS: SEVELAMER HCL 800 MG TABLET PO SCH ×3 (08:12→17:08)
[2018-04-04] MEDS: AMLODIPINE BESYLATE 5 MG TABLET PO SCH ×2 (11:07→17:08)
--- NOTE | 2018-04-04 12:45 | PDOC PROGRESS REPORT ---
Subjective Progress Note for:: 04/04/18 Reason For Visit: Patient seen on dialysis today .Undergoing dialysis without any issues. She is s /p Right Thoracentesis and feels better.Still drowsy but easily arousable and responds appropriately to questions. She denies any chest pains, dyspnea, fever or chills. Labs nd medications were reviewed with her nad treating lead designer. Physical Exam Vital Signs: Temp Pulse Resp BP Pulse Ox 97.3 F 66 22 H 133/66 H 97 04/04/18 07:32 04/04/18 07:32 04/04/18 07:32 04/04/18 07:32 04/04/18 07:32 Intake & Output 04/03/18 04/04/18 04/05/18 06:59 06:59 06:59 Intake Total 0 50 118 Output Total 0 0 Balance 0 50 118 Weight 74.7 kg 83.4 kg General appearance: PRESENT: no acute distress Respiratory exam: PRESENT: clear to auscultation mai, crackles. ABSENT: chest wall tenderness Cardiovascular exam: PRESENT: RRR, +S1, +S2 GI/Abdominal exam: PRESENT: soft. ABSENT: organomegaly, tenderness Extremities exam: ABSENT: pedal edema Neurological exam: PRESENT: altered, oriented to person, oriented to place Psychiatric exam: PRESENT: appropriate affect Skin exam: ABSENT: erythema, rash Results Laboratory Results: 04/04/18 05:55 04/04/18 05:55 04/03/18 04/04/18 04/04/18 13:30 05:55 05:55 WBC 3.4 L RBC 3.94 Hgb 10.5 L Hct 32.5 L MCV 82 MCH 26.6 L MCHC 32.3 RDW 20.3 H Plt Count 144 L Sodium 139.7 Potassium 5.5 H Chloride 100 Carbon Dioxide 29 Anion Gap 11 BUN 68 H Creatinine 8.31 H Est GFR ( Amer) 6 L Est GFR (Non-Af Amer) 5 L Glucose 112 H Calcium 8.9 Fluid Type PLEURAL Fluid Source LUNG Fluid Color PINK Fluid Appearance OPAQUE Fluid Viscosity SLIGHTLY VISCOUS Fluid WBC 0 Fluid RBC [id number] 04/03/18 04/03/18 04/03/18 05:45 18:19 18:19 Creatine Kinase CK-MB (CK-2) 3.07 Troponin I 0.065 0.327 04/03/18 04/04/1804/04/18 18:19 00:05 05:55 Creatine Kinase 60 48 CK-MB (CK-2) 2.87 Troponin I 0.277 04/04/18 05:55 Creatine Kinase CK-MB (CK-2) 2.01 Troponin I 0.247 Impressions: Chest X-Ray 04/03/18 00:00 IMPRESSION: No pneumothorax post right thoracentesis. Persistent collapse and consolidation right middle and lower lobe with elevated right hemidiaphragm Thoracentesis Ultrasound 04/03/18 00:00 IMPRESSION: SUCCESSFUL THORACENTESIS USING ULTRASOUND GUIDANCE. Assessment & Plan - Diagnosis (1) End stage renal failure on dialysis Is this a current diagnosis for this admission?: Yes Plan: Seen on dialysis. Its being supervised to ensure a safe and smooth procedure. Vs are stable .orders reviewed with treating lead designer. Plan to remove 3-4 L as tolerated. (2) Hypertension Plan: Controlled. (3) Diabetes Qualifiers: Diabetes mellitus type: type 2 Diabetes mellitus mcfp insulin use: unspecified terminologist insulin use status Diabetes mellitus complication status : with unspecified complications Qualified Code(s): E11.8 - Type 2 diabetes mellitus with unspecified complications Is this a current diagnosis for this admission?: Yes Plan: Adv tight sugar control. (4) Pleural effusion on right Is this a current diagnosis for this admission?: Yes Plan: S/P thoracentesis. (5) CHF (congestive heart failure) Plan: Diastolic with Pulmonary hypertension.
--- NOTE | 2018-04-04 13:26 | PDOC PROGRESS REPORT ---
Subjective Progress Note for:: 04/04/18 Subjective:: HAL MERCHANT is a 57 year old female with a past medical history of hypertension, diabetes, anxiety and end-stage renal failure hemodialysis dependent Saturday. Patient is unable to provide history and is accompanied by her son who has relocated her from [facility] to [facility] over the weekend. Per the patient's son she was dialyzed at [place] on Saturday with 3.5 L off. Patient subsequently developed shortness of breath with generalized weakness and brought to the emergency room for evaluation. She is found to have hypertensive emergency in the 200 systolic range and a large right-sided pleural effusion. She receives Nitropaste, clonidine, ER provider contacts tertiary care hospital as nephrology is unavailable at our facility. She is placed on a transfer list at [facility] and referred to the hospitalist for admission. Patient received dialysis today tolerated the procedure well. Currently complaining of abdominal pain in the midepigastric region consistent with heartburn. Denies any chest pain or pressure. Desires to eat. Patient seems somewhat drowsy but does perk up at times particularly when asking for food. Reason For Visit: PLEURAL EFF, HTN URGENCY, ESRD Physical Exam Vital Signs: Temp Pulse Resp BP Pulse Ox 97.3 F 66 22 H 133/66 H 97 04/04/18 07:32 04/04/18 07:32 04/04/18 07:32 04/04/18 07:32 04/04/18 07:32 Intake & Output 04/03/18 04/04/18 04/05/18 06:59 06:59 06:59 Intake Total 0 50 118 Output Total 0 0 Balance 0 50 118 Weight 74.7 kg 83.4 kg General appearance: PRESENT: no acute distress, well-developed, well-nourished Eye exam: PRESENT: conjunctiva pink, EOMI, PERRLA. ABSENT: scleral icterus Neck exam: ABSENT: carotid bruit, JVD, lymphadenopathy, thyromegaly Respiratory exam: PRESENT: clear to auscultation mai. ABSENT: rales, rhonchi, wheezes Cardiovascular exam: PRESENT: RRR. ABSENT: diastolic murmur, rubs, systolic murmur GI/Abdominal exam: PRESENT: normal bowel sounds, soft. ABSENT: distended, guarding, mass, organolmegaly, rebound, tenderness Extremities exam: PRESENT: full ROM, other - AV fistula right arm. ABSENT: calf tenderness, clubbing, pedal edema Neurological exam: PRESENT: alert - But somewhat sleepy responds to questions appropriately, awake, CN II-XII grossly intact. ABSENT: motor sensory deficit Skin exam: PRESENT: dry, intact, warm. ABSENT: cyanosis, rash Results Laboratory Results: 04/04/18 05:55 04/04/18 05:55 04/03/18 04/04/18 04/04/18 13:30 05:55 05:55 WBC 3.4 L RBC 3.94 Hgb 10.5 L Hct 32.5 L MCV 82 MCH 26.6 L MCHC 32.3 RDW 20.3 H Plt Count 144 L Sodium 139.7 Potassium 5.5 H Chloride 100 Carbon Dioxide 29 Anion Gap 11 BUN 68 H Creatinine 8.31 H Est GFR ( Amer) 6 L Est GFR (Non-Af Amer) 5 L Glucose 112 H Calcium 8.9 Fluid Type PLEURAL Fluid Source LUNG Fluid Color PINK Fluid Appearance OPAQUE Fluid Viscosity SLIGHTLY VISCOUS Fluid WBC 0 Fluid RBC [id number] 04/03/18 04/03/18 04/03/18 05:45 18:19 18:19 Creatine Kinase CK-MB (CK-2) 3.07 Troponin I 0.065 0.327 04/03/18 04/04/18 04/04/18 18:19 00:05 05:55 Creatine Kinase 60 48 CK-MB (CK-2) 2.87 Troponin I 0.277 04/04/18 05:55 Creatine Kinase CK-MB (CK-2) 2.01 Troponin I 0.247 Impressions: Chest X-Ray 04/03/18 00:00 IMPRESSION: No pneumothorax post right thoracentesis. Persistent collapse and consolidation right middle and lower lobe with elevated right hemidiaphragm Thoracentesis Ultrasound 04/03/18 00:00 IMPRESSION: SUCCESSFUL THORACENTESIS USING ULTRASOUND GUIDANCE. Assessment & Plan - Diagnosis (1) Acute on chronic diastolic heart failure Is this a current diagnosis for this admission?: Yes Plan: Patient improved status post dialysis now normotensive. Continue present medications anticipate discharge if patient remains stable in 24 hours. (2) Diabetes Qualifiers: Diabetes mellitus type: type 2 Diabetes mellitus termite technician insulin use: unspecified termite technician insulin use status Diabetes mellitus complication status : with unspecified complications Qualified Code(s): E11.8 - Type 2 diabetes mellitus with unspecified complications Is this a current diagnosis for this admission?: Yes Plan: Continue sliding scale coverage hemoglobin A1c (3) End stage renal failure on dialysis Is this a current diagnosis for this admission?: Yes Plan: Management as per nephrology (4) Hypertension Is this a current diagnosis for this admission?: Yes Plan: Currently normotensive status post dialysis continue current medications monitor and adjust going forward. (5) Pleural effusion on right Is this a current diagnosis for this admission?: Yes Plan: Status post thoracentesis 850 mL's pleural fluid removed (6) Dyspepsia Is this a current diagnosis for this admission?: Yes Plan: Begin Pepcid - Time Time Spent with patient: 25-34 minutes - Plan Summary Plan Summary: Consult physical therapy
--- NOTE | 2018-04-04 13:46 | RADIOLOGY REPORT (SQ) ---
EXAM DESCRIPTION: CHEST SINGLE VIEW COMPLETED DATE/TIME: 04/04/2018 1:36 pm REASON FOR STUDY: re-eval pleural effusion,s/p thoracentesis COMPARISON: 04/03/2016 EXAM PARAMETERS: NUMBER OF VIEWS: One view. TECHNIQUE: Single frontal radiographic view of the chest acquired. RADIATION DOSE: NA LIMITATIONS: None. FINDINGS: LUNGS AND PLEURA: Right pleural effusion is grossly unchanged. Underlying atelectasis or pneumonia cannot be excluded. MEDIASTINUM AND HILAR STRUCTURES: No masses. Contour normal. HEART AND VASCULAR STRUCTURES: Stable in appearance. BONES: No acute findings. HARDWARE: None in the chest. OTHER: No other significant finding. IMPRESSION: No interval change. TECHNICAL DOCUMENTATION: JOB ID: [id number] [employer]- All Rights Reserved Reading location - IP/workstation name: [email or web address]
[2018-04-04 13:51] LABS: CREATINE KINASE MB 2.08 ng/mL (<4.55); TROPONIN I 0.22 ng/mL
[2018-04-04] MEDS: FAMOTIDINE 20 MG TABLET PO SCH ×2 (17:07→21:08)
[2018-04-04] MEDS: ATORVASTATIN CALCIUM 20 MG TABLET PO SCH (21:08)
[2018-04-04] MEDS: GABAPENTIN 300 MG CAPSULE PO SCH (21:08)
[2018-04-04] MEDS: OLANZAPINE 5 MG TAB.RAPDIS PO SCH (21:08)
[2018-04-04] MEDS: MIRTAZAPINE 15 MG TABLET PO SCH (21:08)
--- NOTE | 2018-04-04 22:45 | PDOC PROGRESS REPORT ---
Subjective Progress Note for:: 04/04/18 Subjective:: Patient was seen on dialysis. Patient denied any chest, neck discomfort or any significant shortness of breath. Patient seems very reluctant to carry on any conversation. Patient is claiming generalized weakness. Reason For Visit: PLEURAL EFF, HTN URGENCY, ESRD Physical Exam Vital Signs: Temp Pulse Resp BP Pulse Ox 98.5 F 65 20 153/72 H 96 04/04/18 19:56 04/04/18 19:56 04/04/18 19:56 04/04/18 19:56 04/04/18 19:56 Intake & Output 04/03/18 04/04/18 04/05/18 06:59 06:59 06:59 Intake Total 0 50 592 Output Total 0 0 3500 Balance 0 50 -2908 Weight 74.7 kg 83.4 kg Exam: GENERAL: well-nourished and in no acute distress. Alert and oriented x3 HEAD: Atraumatic, normocephalic. EYES: KARIME, sclera anicteric, conjunctiva are normal. ENT: Moist mucous membranes. No oral ulcerations or bleeding gums noted. No obvious ear, nose or throat abnormalities noted. NECK: supple without lymphadenopathy. Trachea is central. No cervical or axillary lymphadenopathy noted. Carotids are 2+, JVD 10 cm. LUNGS: R basal significant dullness noted on percussion. Bibasal crackles noted. CHEST: Palpation of the chest wall shows no significant chest wall tenderness. 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 ABDOMEN: Soft, no significant tenderness appreciated, normoactive bowel sounds. No guarding, no rebound. No rigidity noted . No masses appreciated. EXTREMITIES: Pedal pulses are 1-2+, no calf tenderness noted. No clubbing or cyanosis. 1+ pedal edema noted NEUROLOGICAL: Focused neurological exam showed no significant neurologic deficit. Normal speech, no focal weakness appreciated. PSYCH: Normal mood, normal affect. Judgment and insight not checked SKIN: No significant ecchymosis, skin is noted to be warm. MUSCULOSKELETAL EXAM: No significant acute joint swelling noted. Results Laboratory Results: 04/04/18 05:55 04/04/18 05:55 04/04/18 04/04/18 04/04/18 05:55 05:55 05:55 WBC 3.4 L RBC 3.94 Hgb 10.5 L Hct 32.5 L MCV 82 MCH 26.6 L MCHC 32.3 RDW 20.3 H Plt Count 144 L Sodium 139.7 Potassium 5.5 H Chloride 100 Carbon Dioxide 29 Anion Gap 11 BUN 68 H Creatinine 8.31 H Est GFR ( Amer) 6 L Est GFR (Non-Af Amer) 5 L Glucose 112 H Calcium 8.9 TSH 4.00 04/03/18 04/03/18 04/03/18 05:45 18:19 18:19 Creatine Kinase CK-MB (CK-2) 3.07 Troponin I 0.065 0.327 04/03/18 04/04/18 04/04/18 18:19 00:05 05:55 Creatine Kinase 60 48 CK-MB (CK-2) 2.87 Troponin I 0.277 04/04/18 04/04/18 04/04/18 05:55 12:58 12:58 Creatine Kinase 49 CK-MB (CK-2) 2.01 2.08 Troponin I 0.247 0.220 EKG Comments: Sinus rhythm, left axis deviation, possible right bundle branch block pattern versus RVH ST-T wave changes are noted Impressions: Thoracentesis Ultrasound 04/03/18 00:00 IMPRESSION: SUCCESSFUL THORACENTESIS USING ULTRASOUND GUIDANCE. Chest X-Ray 04/04/18 07:00 IMPRESSION: No interval change. Assessment & Plan - Diagnosis (1) Pleural effusion on right Is this a current diagnosis for this admission?: Yes (2) Diabetes Qualifiers: Diabetes mellitus type: type 2 Diabetes mellitus skilled nursing insulin use: unspecified skilled nursing insulin use status Diabetes mellitus complication status : with unspecified complications Qualified Code(s): E11.8 - Type 2 diabetes mellitus with unspecified complications Is this a current diagnosis for this admission?: Yes (3) End stage renal failure on dialysis Is this a current diagnosis for this admission?: Yes (4) Hypertensive emergency Is this a current diagnosis for this admission?: Yes (5) Elevated troponin I level Is this a current diagnosis for this admission?: Yes - Notes Notes: Have scheduled patient for a nuclear stress test because of positive troponin I especially since patient has significant cardiac risk factors. Right-sided pleural effusion: Patient is status post thoracentesis, findings are pending. Cannot rule out underlying atelectasis, pneumonia etc. Would recommend a CT chest or CT angiogram for further evaluation and management. May consider pulmonary evaluation. Diabetes: Currently being well managed by hospitalist. End-stage renal disease on dialysis: Clinical exam suggest fluid overload. Recommend fluid removal on dialysis. Hypertensive emergency: Blood pressure is still high. Recommend adding nitrates and hydralazine. Elevated troponin I level: Agree with repeating EKGs. Currently can be explained by severe hypertension on presentation, possible right-sided CHF. Patient currently not complaining of chest pain. In the absence of significant EKG changes would not treat as ACS. - Time Time with patient: Greater than 35 minutes - More than 50% of the time spent coordinating care, discussing management plans with involved caregivers. Management plans discussed with involved personnels. Medical decision making was of moderate to high complexity, patient's has multiple comorbidities. Medications reviewed and adjusted accordingly: Yes
[2018-04-05] MEDS: HYDRALAZINE HCL 50 MG TABLET PO SCH ×4 (00:22→18:28)
[2018-04-05] MEDS: CLONIDINE HCL 0.2 MG TABLET PO SCH ×3 (05:08→22:51)
[2018-04-05] MEDS: LANSOPRAZOLE 30 MG TAB.RAP.DR PO SCH (05:08)
[2018-04-05] MEDS: HEPARIN SOD (PORCINE) 5,000 UNIT/ML 1 ML SYRINGE SUBCUT SCH ×3 (05:09→22:52)
[2018-04-05 05:31] LABS: ABSOLUTE EOSINOPHILS # (AUTO) 0.1 10^3/uL (0.0-0.6); ABSOLUTE LYMPHOCYTES (AUTO) 0.9 10^3/uL (0.5-4.7); ABSOLUTE MONOCYTES (AUTO) 0.5 10^3/uL (0.1-1.4); ABSOLUTE NEUT (AUTO) 2.8 10^3/uL (1.7-8.2); BASOPHILS % (AUTO) 0.7 % (0-2); EOSINOPHILS % (AUTO) 2.8 % (0-6); HEMATOCRIT 33.1 % (36.0-47.0); HEMOGLOBIN 10.7 g/dL (12.0-15.5); LYMPHOCYTES % (AUTO) 19.9 % (13-45); MEAN CORPUSCULAR HEMOGLOBIN 26.7 pg (27.0-33.4); MEAN CORPUSCULAR HGB CONC 32.4 g/dL (32.0-36.0); MEAN CORPUSCULAR VOLUME 82 fl (80-97); MONOCYTES % (AUTO) 10.6 % (3-13); PLATELET COUNT 140 10^3/uL (150-450); RED BLOOD COUNT 4.02 10^6/uL (3.72-5.28); RED CELL DISTRIBUTION WIDTH 19.8 % (11.5-14.0); TOTAL CELLS COUNTED % (AUTO) 100 %; WHITE BLOOD COUNT 4.3 10^3/uL (4.0-10.5)
[2018-04-05 05:52] LABS: ANION GAP 9 (5-19); CALCIUM 8.7 mg/dL (8.4-10.2); CARBON DIOXIDE 32 mmol/L (22-30); CHLORIDE 98 mmol/L (98-107); GLUCOSE 155 mg/dL (75-110); POTASSIUM 4.9 mmol/L (3.6-5.0); SODIUM 138.9 mmol/L (137-145)
[2018-04-05 06:44] LABS: BLOOD UREA NITROGEN 43 mg/dL (7-20)
[2018-04-05] MEDS: SEVELAMER HCL 800 MG TABLET PO SCH ×3 (10:59→18:28)
[2018-04-05] MEDS: INSULIN LISPRO 100 UNIT/ML 3 ML VIAL SUBCUT SCH ×3 (10:59→18:28)
[2018-04-05] MEDS: FAMOTIDINE 20 MG TABLET PO SCH ×2 (11:09→22:51)
[2018-04-05] MEDS: AMLODIPINE BESYLATE 5 MG TABLET PO SCH ×2 (11:09→18:28)
--- NOTE | 2018-04-05 11:57 | RADIOLOGY REPORT (SQ) ---
EXAM DESCRIPTION: CHEST SINGLE VIEW COMPLETED DATE/TIME: 04/05/2018 9:59 am REASON FOR STUDY: CHF follow-up pleural effusion follow-up COMPARISON: Concurrent CT chest and earlier EXAM PARAMETERS: NUMBER OF VIEWS: One view. TECHNIQUE: Single frontal radiographic view of the chest acquired. RADIATION DOSE: NA LIMITATIONS: None. FINDINGS: LUNGS AND PLEURA: Moderate size right pleural effusion with associated right basilar opaci ty, enlarged to prior chest radiograph grade. Blunting of the left costophrenic angle. Linear atele ctasis of the left lingula. No focal consolidation left lung. No pneumothorax. MEDIASTINUM AND HILAR STRUCTURES: No masses. Contour normal. HEART AND VASCULAR STRUCTURES: Heart normal in size. Normal vasculature. Calcifications of aortic k nob. BONES: No acute findings. HARDWARE: Vascular graft of the right axilla. OTHER: No other significant finding. IMPRESSION: 1. Moderate size right pleural effusion with associated right basilar opacity, enlarged since prior c hest radiograph. 2. Trace left pleural effusion. TECHNICAL DOCUMENTATION: JOB ID: [id number] [employer]- All Rights Reserved Reading location - IP/workstation name: [email or web address]
--- NOTE | 2018-04-05 13:03 | RADIOLOGY REPORT (SQ) ---
EXAM DESCRIPTION: CT CHEST WITHOUT COMPLETED DATE/TIME: 04/05/2018 10:54 am REASON FOR STUDY: Pleural effusion COMPARISON: None. TECHNIQUE: CT scan performed of the chest without intravenous contrast. Images reviewed with lung, soft tissue and bone windows. Reconstructed coronal and sagittal MPR images reviewed. All images st ored on PACS. All CT scanners at this facility use dose modulation, iterative reconstruction, and/or weight based d osing when appropriate to reduce radiation dose to as low as reasonably achievable (ALARA). [facility]: Dose Right [facility]: CareDose [facility]: Dose Right [facility]: Teradose 4D [facility]: [employer] RADIATION DOSE: CT Rad equipment meets quality standard of care and radiation dose reduction techniq ues were employed. CTDIvol: 9.1 mGy. DLP: 328 mGy-cm. mGy. LIMITATIONS: No technical limitations. FINDINGS: LUNGS AND PLEURA: Right pleural effusion volume estimated 2 L. There is compressive atele ctasis right lower lobe. Subsegmental atelectasis left lower lobe. HILAR AND MEDIASTINAL STRUCTURES: No identified masses or abnormal nodes. No obvious aneurysm. HEART AND VASCULAR STRUCTURES: Cardiomegaly. No pericardial effusion. UPPER ABDOMEN: No significant findings. Limited exam. THYROID AND OTHER SOFT TISSUES: No masses. No adenopathy. BONES: No acute findings. HARDWARE: None in the chest. OTHER: No other significant findings. IMPRESSION: Moderate right pleural effusion. TECHNICAL DOCUMENTATION: JOB ID: [id number] Quality ID # [id number]: Final reports with documentation of one or more dose reduction techniques (e.g., Au tomated exposure control, adjustment of the mA and/or kV according to patient size, use of iterative reconstruction technique) 2010 [employer]- All Rights Reserved Reading location - IP/workstation name: [email or web address]
[2018-04-05] MEDS ORDERED: AMINOPHYLLINE INJ/PF 250 MG/10 ML SDV IV ONE (14:05)
[2018-04-05] MEDS ORDERED: REGADENOSON INJ 0.4 MG/5 ML DISP.SYRIN IV ONE (14:05)
--- NOTE | 2018-04-05 14:19 | EKG REPORT ---
SEVERITY:- ABNORMAL ECG - SINUS RHYTHM FIRST DEGREE AV BLOCK PROBABLE LEFT ATRIAL ABNORMALITY RIGHT BUNDLE BRANCH BLOCK : Confirmed by: Soledad Peck 05-Apr-2018 14:18:47
--- NOTE | 2018-04-05 14:19 | EKG REPORT ---
SEVERITY:- ABNORMAL ECG - SINUS RHYTHM FIRST DEGREE AV BLOCK PROBABLE LEFT ATRIAL ABNORMALITY RIGHT BUNDLE BRANCH BLOCK : Confirmed by: Soledad Peck 05-Apr-2018 14:18:58
--- NOTE | 2018-04-05 15:25 | DRAGON STRESS TEST REPORT ---
INTRAVENOUS LEXISCAN CARDIOLITE STRESS TEST USING SINGLE PHOTON EMMISION COMPUTERIZED TOMOGRAPHIC. DATE OF PROCEDURE: February 03, 2018, INDICATION : Positive troponin I, chest discomfort CARDIAC RISK FACTORS: Diabetes, hypertension, end-stage renal disease difficult study. RESTING EKG: Sinus rhythm, left axis deviation, right bundle branch block STRESS EKG: No significant ST segment changes noted with LexiScan bolus REASON FOR TERMINATION: Protocol. PROCEDURE REPORT: Baseline heart rate 68 beats per minute with blood pressure of 142/75. Patient had no significant complaints. Patient was bolused with Lexiscan 0.4 mg intravenously followed by saline bolus. Heart rate at 2 minutes post bolus 83 with a blood pressure of 125/63. 3 minutes post bolus heart rate 80 with blood pressure of 129/59. No significant EKG changes were noted. Patient had no significant complaints during the procedure or postprocedure. CONCLUSIONS: Normal EKG and hemodynamic response to IV LexiScan. NUCLEAR DATA: At rest the patient was given 12.11 millicuries of technetium 99 sestamibi injected intravenously. As per protocol rest gated SPECT images were obtained. On day of stress test, the patient was given intravenous LexiScan at a dose of 0.4 mg in 5 mL intravenously, followed by flush with normal saline. Subsequently the stress dose of 27.6 millicuries of technetium 99 sestamibi was injected intravenously. As per protocol stress gated images were obtained. NUCLEAR INTERPRETATION: Both raw and processed data were used for interpretation. Visual, qualitative, computer-generated quantitative data was used. There was good myocardial uptake of technetium compound. Motion artifact and soft tissue attenuations were noted. Increased visceral uptake was noted. No definitive areas of transient perfusion defect noted, No definitive areas of fixed perfusion defect or scars noted. Mild decreased uptake was noted in the mid anterior wall in both rest and stress images which are felt to be related to breast attenuation artifact. No corresponding wall motion abnormalities were noted. A mild fixed defect however cannot be entirely ruled out. EKG gated imaging showed LV EF at 46 %, rest and stress gated EF similar visually. T. I D. ratio was 1.10. Lung heart ratio noted to be within normal limits 0.38. No significant extracardiac and abnormal radiotracer activities were noted. RV free wall uptake was noted to be WNL. IMPRESSION: Also refer to comments under nuclear interpretation. Also test results needs to be interpreted in the context of pretest probability. 1. No definitive areas of transient perfusion defect noted. 2. There is no definitive scintigraphic evidence of myocardial infarction/scar. 3. EKG gated imaging shows left ventricular ejection fraction of approx. 46 %. 4. Clinical correlation requested as worse disease and or balanced ischemia could be missed. In approximately 10% of the cases Lexiscan may not cause adequate vasodilatory stress. RECOMMENDATIONS: Aggressive risk factor modification and medical management. Further evaluation may be needed if continued symptoms or other high risk indicators are noted on clinical evaluation. Close cardiology follow-up is also recommended. Clinical correlation with echocardiogram derived ejection fraction. Inability to exercise by itself can lead to increased cardiovascular event risks. Consider cardiology consultation and or follow-up if clinically indicated. I am available for cardiology evaluation and consultation if requested by the physician primary care sports medicine, unless patient already has a life enrichment specialist. Dr. Laura Peck. MRCP Board certified in cardiology and sleep medicine. Board certified in nuclear cardiology, adult echocardiography. JOSE C
--- NOTE | 2018-04-05 15:52 | PDOC PROGRESS REPORT ---
Subjective Progress Note for:: 04/05/18 Subjective:: HAL MERCHANT is a 57 year old female with a past medical history of hypertension, CHF, diabetes, anxiety and end-stage renal failure hemodialysis dependent on MWF who was admitted for progressive SOB and generalized weakness. She was noted to be severely hypertensive with pulmonary congestion and was also noted to have a large right sided pleural effusion. She underwent right sided thoracentesis on 04/04/18 and had 850 cc drained. She had dialysis yesterday. She did get significant relief after the thoracentesis. No acute event overnight. She says her SOB has significantly improved after the thoracentesis but she says her breathing is not at her baseline yet. No chest pain or palpitations. She says she still feels very weak today. Reason For Visit: PLEURAL EFF, HTN URGENCY, ESRD Physical Exam Vital Signs: Temp Pulse Resp BP Pulse Ox 98.1 F 70 18 156/72 H 93 04/05/18 11:20 04/05/18 11:20 04/05/18 11:20 04/05/18 11:20 04/05/18 11:20 Intake & Output 04/04/18 04/05/18 04/06/18 06:59 06:59 06:59 Intake Total 50 1183 Output Total 0 3500 Balance 50 -2317 Weight 183 lb 13.848 oz 184 lb 1.376 oz General appearance: PRESENT: no acute distress, well-developed, well-nourished Head exam: PRESENT: atraumatic, normocephalic Eye exam: PRESENT: conjunctiva pink, EOMI, PERRLA. ABSENT: scleral icterus Ear exam: PRESENT: normal external ear exam Mouth exam: PRESENT: moist, tongue midline Neck exam: ABSENT: carotid bruit, JVD, lymphadenopathy, thyromegaly Respiratory exam: PRESENT: decreased breath sounds - decreased on the right mid to base, rales - occasional rales on the bases. ABSENT: rhonchi, wheezes Cardiovascular exam: PRESENT: RRR. ABSENT: diastolic murmur, rubs, systolic murmur Pulses: PRESENT: normal dorsalis pedis pul GI/Abdominal exam: PRESENT: normal bowel sounds, soft. ABSENT: distended, guarding, mass, organolmegaly, rebound, tenderness Rectal exam: PRESENT: deferred Neurological exam: PRESENT: alert, awake, oriented to person, oriented to place Results Laboratory Results: 04/05/18 05:10 04/05/18 05:10 04/05/18 04/05/18 05:10 05:10 WBC 4.3 RBC 4.02 Hgb 10.7 L Hct 33.1 L MCV 82 MCH 26.7 L MCHC 32.4 RDW 19.8 H Plt Count 140 L Seg Neutrophils % 66.0 Lymphocytes % 19.9 Monocytes % 10.6 Eosinophils % 2.8 Basophils % 0.7 Absolute Neutrophils 2.8 Absolute Lymphocytes 0.9 Absolute Monocytes 0.5 Absolute Eosinophils 0.1 Absolute Basophils 0.0 Sodium 138.9 Potassium 4.9 Chloride 98 Carbon Dioxide 32 H Anion Gap 9 BUN 43 H D Creatinine 6.09 H Est GFR ( Amer) 9 L Est GFR (Non-Af Amer) 7 L Glucose 155 H Calcium 8.7 Magnesium 2.1 04/03/18 04/03/18 04/03/18 05:45 18:19 18:19 Creatine Kinase CK-MB (CK-2) 3.07 Troponin I 0.065 0.327 04/03/18 04/04/18 04/04/18 18:19 00:05 05:55 Creatine Kinase 60 48 CK-MB (CK-2) 2.87 Troponin I 0.277 04/04/18 04/04/18 04/04/18 05:55 12:58 12:58 Creatine Kinase 49 CK-MB (CK-2) 2.01 2.08 Troponin I 0.247 0.220 Impressions: Thoracentesis Ultrasound 04/03/18 00:00 IMPRESSION: SUCCESSFUL THORACENTESIS USING ULTRASOUND GUIDANCE. Chest CT 04/05/18 00:00 IMPRESSION: Moderate right pleural effusion. Chest X-Ray 04/05/18 07:00 IMPRESSION: 1. Moderate size right pleural effusion with associated right basilar opacity, enlarged since prior chest radiograph. 2. Trace left pleural effusion. Assessment & Plan - Diagnosis (1) Hypertensive emergency Is this a current diagnosis for this admission?: Yes Plan: Blood pressures have improved. Continue amlodipine and hydrazine. Will add Lopressor. (2) Pleural effusion on right Is this a current diagnosis for this admission?: Yes Plan: Patient had thoracentesis on 04/04/18 and had 850 cc drained. Pleural effusion could be parapneumonic or CHF-related.Pleural fluid studies are still pending as pleural fluid LDH, albumin/protein are send out labs. Repeat chest x-ray today shows recurrence and increasing right sided pleural effusion. Patient is not in distress at this time and is saturating well on room air now. She says her breathing has significantly improved but is not at her baseline yet. Patient may need a repeat thoracentesis. Will continue to reassess respiratory status. (3) Pneumonia Qualifiers: Laterality: right Is this a current diagnosis for this admission?: Yes Plan: Initial chest x-ray showed right lower lobe consolidation. Patient has large right sided pleural effusion. She has been empirically started on Rocephin. (4) CHF (congestive heart failure) Is this a current diagnosis for this admission?: Yes Plan: Echo shows mildly low EF (50%) with grade 2 diastolic dysfunction. EF on nuclear study is 45%. Lopressor added. (5) End stage renal failure on dialysis Is this a current diagnosis for this admission?: Yes Plan: Nephrology following. She is getting dialysis MWF. (6) Elevated troponin I level Is this a current diagnosis for this admission?: Yes Plan: Troponins have trended down (max at 0.3). No signs of infarction on EKG. Patient is not complaining of any chest pain. Cardiology following. Stress test was negative. Elevated troponins were likely related to ESRD and demand from severe hypertension. 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 Continue sliding scale coverage for now. - Time Time Spent with patient: 25-34 minutes
[2018-04-05] MEDS ORDERED: CEFTRIAXONE 1 GM/D5W RTU 1 GM/50 ML RTUPB IV SCH (17:00)
[2018-04-05 17:17] LABS: ALBUMIN BODY FLUID 1.9 g/dL (.); TOTAL PROTEIN BODY FLUID 3.4 g/dL (.)
[2018-04-05] MEDS: CEFTRIAXONE SODIUM 1,000 MG in DEXTROSE 5%-WATER 50 ML IV SCH (18:29)
--- NOTE | 2018-04-05 19:42 | PDOC PROGRESS REPORT ---
Subjective Progress Note for:: 04/05/18 Subjective:: Patient today underwent nuclear stress test because of elevated troponin I. Patient was seen prior to nuclear stress test, during stress test and also afterwards. Patient denied any chest, neck discomfort or any significant shortness of breath. Patient seems very reluctant to carry on any conversation. Patient is claiming generalized weakness. Reason For Visit: PLEURAL EFF, HTN URGENCY, ESRD Physical Exam Vital Signs: Temp Pulse Resp BP Pulse Ox 97.5 F 64 18 137/62 H 93 04/05/18 15:28 04/05/18 15:28 04/05/18 15:28 04/05/18 15:28 04/05/18 15:28 Intake & Output 04/04/18 04/05/18 04/06/18 06:59 06:59 06:59 Intake Total 50 1183 50 Output Total 0 3500 Balance 50 -2317 50 Weight 83.4 kg 83.5 kg Exam: GENERAL: well-nourished and in no acute distress. Alert and oriented x3 patient still feels lethargic and sleepy. HEAD: Atraumatic, normocephalic. EYES: KARIME, sclera anicteric, conjunctiva are normal. ENT: Moist mucous membranes. No oral ulcerations or bleeding gums noted. No obvious ear, nose or throat abnormalities noted. NECK: supple without lymphadenopathy. Trachea is central. No cervical or axillary lymphadenopathy noted. Carotids are 2+, JVD WNL LUNGS: Breath sounds clear bilaterally. Right basal significant dullness noted on percussion. Diminished breath sounds right base. CHEST: Palpation of the chest wall shows no significant chest wall tenderness. 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 ABDOMEN: Soft, no significant tenderness appreciated, normoactive bowel sounds. No guarding, no rebound. No rigidity noted . No masses appreciated. EXTREMITIES: Pedal pulses are 1-2+, no calf tenderness noted. No clubbing or cyanosis. negative pedal edema noted NEUROLOGICAL: Focused neurological exam showed no significant neurologic deficit. Normal speech, no focal weakness appreciated. PSYCH: Normal mood, normal affect. Judgment and insight not checked. SKIN: No significant ecchymosis, skin is noted to be warm. MUSCULOSKELETAL EXAM: No significant acute joint swelling noted. Results Laboratory Results: 04/05/18 05:10 04/05/18 05:10 04/03/18 04/05/18 04/05/18 13:30 05:10 05:10 WBC 4.3 RBC 4.02 Hgb 10.7 L Hct 33.1 L MCV 82 MCH 26.7 L MCHC 32.4 RDW 19.8 H Plt Count 140 L Seg Neutrophils % 66.0 Lymphocytes % 19.9 Monocytes % 10.6 Eosinophils % 2.8 Basophils % 0.7 Absolute Neutrophils 2.8 Absolute Lymphocytes 0.9 Absolute Monocytes 0.5 Absolute Eosinophils 0.1 Absolute Basophils 0.0 Sodium 138.9 Potassium 4.9 Chloride 98 Carbon Dioxide 32 H Anion Gap 9 BUN 43 H D Creatinine 6.09 H Est GFR ( Amer) 9 L Est GFR (Non-Af Amer) 7 L Glucose 155 H Calcium 8.7 Magnesium 2.1 Fluid Total Protein 3.4 Fluid Albumin 1.9 Fluid LDH 123 04/03/18 04/03/18 04/03/18 05:45 18:19 18:19 Creatine Kinase CK-MB (CK-2) 3.07 Troponin I 0.065 0.327 04/03/18 04/04/18 04/04/18 18:19 00:05 05:55 Creatine Kinase 60 48 CK-MB (CK-2) 2.87 Troponin I 0.277 04/04/18 04/04/18 04/04/18 05:55 12:58 12:58 Creatine Kinase 49 CK-MB (CK-2) 2.01 2.08 Troponin I 0.247 0.220 EKG Comments: Showed sinus rhythm. Impressions: Thoracentesis Ultrasound 04/03/18 00:00 IMPRESSION: SUCCESSFUL THORACENTESIS USING ULTRASOUND GUIDANCE. Chest CT 04/05/18 00:00 IMPRESSION: Moderate right pleural effusion. Chest X-Ray 04/05/18 07:00 IMPRESSION: 1. Moderate size right pleural effusion with associated right basilar opacity, enlarged since prior chest radiograph. 2. Trace left pleural effusion. 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 EKG gated LVEF at 46%. Could be falsely low showing because of LVH. May consider repeat thoracentesis. 2D echo results were reviewed. Patient questions were answered regarding stress test and also 2D echocardiogram. Right-sided pleural effusion: Patient is status post thoracentesis, findings are pending. Cannot rule out underlying atelectasis, pneumonia etc. Would recommend a CT chest or CT angiogram for further evaluation and management. May consider pulmonary evaluation. Diabetes: Currently being well managed by hospitalist. End-stage renal disease on dialysis: Clinical exam suggest fluid overload. Recommend fluid removal on dialysis. Hypertensive emergency: Blood pressure is still high. Recommend adding nitrates and hydralazine. Elevated troponin I level: Agree with repeating EKGs. Currently can be explained by severe hypertension on presentation, possible right-sided CHF. Patient currently not complaining of chest pain. In the absence of significant EKG changes would not treat as ACS. Also note that nuclear stress test was negative. Discussed with Dr. cantu. - Time Time with patient: Greater than 35 minutes - Patient was seen multiple times. Total time exceeds 40 minutes. In the morning nuclear stress test procedure, risks benefits, alternatives were discussed. Patient seen during the stress test. Patient also seen after stress test when results were discussed with the patient in detail. Patient's questions were answered. Nuclear stress test results were discussed with the patient. Patient was informed that no definitive evidence of pharmacologic stress-induced ischemia noted. No definite fixed defects were noted. Patient informed that occasionally significant single vessel disease or balanced ischemia could be missed. However based on the current study results, would recommend aggressive risk factor modification and medical therapy. It may also be worthwhile to consider evaluation or empiric management of other causes of chest pain. Should no other cause be found and if persistent in having chest pain, then cardiac catheterization should be considered. Right now, recommendations are for aggressive risk factor modification and medical management. Medications reviewed and adjusted accordingly: Yes
[2018-04-05] MEDS: OLANZAPINE 5 MG TAB.RAPDIS PO SCH (22:51)
[2018-04-05] MEDS: GABAPENTIN 300 MG CAPSULE PO SCH (22:51)
[2018-04-05] MEDS: ATORVASTATIN CALCIUM 20 MG TABLET PO SCH (22:51)
[2018-04-05] MEDS: MIRTAZAPINE 15 MG TABLET PO SCH (22:51)
[2018-04-06] MEDS: HYDRALAZINE HCL 50 MG TABLET PO SCH ×4 (00:29→18:51)
[2018-04-06 06:01] LABS: ABSOLUTE EOSINOPHILS # (AUTO) 0.1 10^3/uL (0.0-0.6); ABSOLUTE LYMPHOCYTES (AUTO) 0.7 10^3/uL (0.5-4.7); ABSOLUTE MONOCYTES (AUTO) 0.5 10^3/uL (0.1-1.4); ABSOLUTE NEUT (AUTO) 3.2 10^3/uL (1.7-8.2); BASOPHILS % (AUTO) 0.5 % (0-2); EOSINOPHILS % (AUTO) 2.9 % (0-6); HEMATOCRIT 34.1 % (36.0-47.0); LYMPHOCYTES % (AUTO) 15.7 % (13-45); MEAN CORPUSCULAR HEMOGLOBIN 26.5 pg (27.0-33.4); MEAN CORPUSCULAR HGB CONC 32.4 g/dL (32.0-36.0); MEAN CORPUSCULAR VOLUME 82 fl (80-97); PLATELET COUNT 135 10^3/uL (150-450); RED BLOOD COUNT 4.17 10^6/uL (3.72-5.28); RED CELL DISTRIBUTION WIDTH 20.3 % (11.5-14.0); SEGMENTED NEUTROPHILS % (AUTO) 70.9 % (42-78); TOTAL CELLS COUNTED % (AUTO) 100 %; WHITE BLOOD COUNT 4.6 10^3/uL (4.0-10.5)
[2018-04-06 06:20] LABS: ALANINE AMINOTRANSFERASE 26 U/L (9-52); ALBUMIN 3.1 g/dL (3.5-5.0); ALKALINE PHOSPHATASE 418 U/L (38-126); ANION GAP 11 (5-19); ASPARTATE AMINO TRANSFERASE 15 U/L (14-36); BILIRUBIN,DIRECT 0.5 mg/dL (0.0-0.4); BILIRUBIN,TOTAL 0.5 mg/dL (0.2-1.3); BLOOD UREA NITROGEN 56 mg/dL (7-20); CALCIUM 8.2 mg/dL (8.4-10.2); CARBON DIOXIDE 30 mmol/L (22-30); CHLORIDE 96 mmol/L (98-107); GLUCOSE 159 mg/dL (75-110); SODIUM 137.4 mmol/L (137-145); TOTAL PROTEIN 5.4 g/dL (6.3-8.2)
[2018-04-06] MEDS: LANSOPRAZOLE 30 MG TAB.RAP.DR PO SCH (06:26)
[2018-04-06] MEDS: CLONIDINE HCL 0.2 MG TABLET PO SCH ×3 (06:26→22:53)
[2018-04-06] MEDS: INSULIN LISPRO 100 UNIT/ML 3 ML VIAL SUBCUT SCH ×3 (08:29→16:54)
[2018-04-06] MEDS: SEVELAMER HCL 800 MG TABLET PO SCH ×3 (08:29→17:21)
--- NOTE | 2018-04-06 09:15 | RADIOLOGY REPORT (SQ) ---
EXAM DESCRIPTION: CHEST SINGLE VIEW COMPLETED DATE/TIME: 04/06/2018 9:06 am REASON FOR STUDY: increased shortness of breath, pleural effusion COMPARISON: 04/05/2018 and early EXAM PARAMETERS: NUMBER OF VIEWS: One view. TECHNIQUE: Single frontal radiographic view of the chest acquired. RADIATION DOSE: NA LIMITATIONS: Patient's chin obscures a portion of the lung apices FINDINGS: LUNGS AND PLEURA: Unchanged moderate sized right pleural effusion with associated right ba silar opacity. Blunting of the left costophrenic angle, corresponding to atelectasis seen on prior C T. No new airspace opacities. No pneumothorax. MEDIASTINUM AND HILAR STRUCTURES: No masses. Contour normal. HEART AND VASCULAR STRUCTURES: Unchanged cardiomegaly. Calcifications of the aortic knob. Central p ulmonary vasculature is normal. BONES: No acute findings. HARDWARE: None in the chest. OTHER: No other significant finding. IMPRESSION: No interval change. TECHNICAL DOCUMENTATION: JOB ID: [id number] [employer]- All Rights Reserved Reading location - IP/workstation name: [email or web address]
[2018-04-06] MEDS: FAMOTIDINE 20 MG TABLET PO SCH ×2 (09:29→22:53)
[2018-04-06] MEDS: AMLODIPINE BESYLATE 5 MG TABLET PO SCH ×2 (09:29→18:51)
--- NOTE | 2018-04-06 10:28 | PDOC PROGRESS REPORT ---
Subjective Progress Note for:: 04/06/18 Subjective:: HAL MERCHANT is a 57 year old female with a past medical history of hypertension, CHF, diabetes, anxiety and end-stage renal failure hemodialysis dependent on MWF who was admitted for progressive SOB and generalized weakness. She was noted to be severely hypertensive with pulmonary congestion and was also noted to have a large right sided pleural effusion. She underwent right sided thoracentesis on 04/04/18 and had 850 cc drained. She had dialysis yesterday. She did get significant relief after the thoracentesis. Early this morning patient complained of worsening SOB. Repeat imaging does show recurrence of right sided pleural effusion. Will reconsult radiology for a repeat thoracentesis. Currently saturating well on BIPAP. Denies chest pain. Reason For Visit: PLEURAL EFF, HTN URGENCY, ESRD Physical Exam Vital Signs: Temp Pulse Resp BP Pulse Ox 97.7 F 73 21 H 150/72 H 99 04/06/18 07:56 04/06/18 07:56 04/06/18 08:00 04/06/18 07:56 04/06/18 08:00 Intake & Output 04/05/18 04/06/18 04/07/18 06:59 06:59 06:59 Intake Total 1183 524 Output Total 3500 Balance -2317 524 Weight 184 lb 1.376 oz 179 lb 3.773 oz General appearance: PRESENT: mild distress, thin Head exam: PRESENT: atraumatic, normocephalic Eye exam: PRESENT: conjunctiva pink, EOMI, PERRLA. ABSENT: scleral icterus Ear exam: PRESENT: normal external ear exam Mouth exam: PRESENT: moist, tongue midline Respiratory exam: PRESENT: decreased breath sounds - decreased breath sounds on the RLF mid to base, rhonchi - occasional rhonchi on the bases. ABSENT: rales, wheezes Cardiovascular exam: PRESENT: RRR, systolic murmur. ABSENT: diastolic murmur, rubs GI/Abdominal exam: PRESENT: normal bowel sounds, soft. ABSENT: distended, guarding, mass, organolmegaly, rebound, tenderness Rectal exam: PRESENT: deferred Neurological exam: PRESENT: alert, awake, oriented to person, oriented to place Results Laboratory Results: 04/06/18 05:45 04/06/18 05:45 04/03/18 04/06/18 04/06/18 13:30 05:45 05:45 WBC 4.6 RBC 4.17 Hgb 11.0 L Hct 34.1 L MCV 82 MCH 26.5 L MCHC 32.4 RDW 20.3 H Plt Count 135 L Seg Neutrophils % 70.9 Lymphocytes % 15.7 Monocytes % 10.0 Eosinophils % 2.9 Basophils % 0.5 Absolute Neutrophils 3.2 Absolute Lymphocytes 0.7 Absolute Monocytes 0.5 Absolute Eosinophils 0.1 Absolute Basophils 0.0 Sodium 137.4 Potassium 5.0 Chloride 96 L Carbon Dioxide 30 Anion Gap 11 BUN 56 H Creatinine 7.10 H Est GFR ( Amer) 7 L Est GFR (Non-Af Amer) 6 L Glucose 159 H Calcium 8.2 L Total Bilirubin 0.5 AST 15 ALT 26 Alkaline Phosphatase 418 H Total Protein 5.4 L Albumin 3.1 L Fluid Total Protein 3.4 Fluid Albumin 1.9 Fluid LDH 123 04/03/18 04/03/18 04/03/18 05:45 18:19 18:19 Creatine Kinase CK-MB (CK-2) 3.07 Troponin I 0.065 0.327 04/03/18 04/04/18 04/04/18 18:19 00:05 05:55 Creatine Kinase 60 48 CK-MB (CK-2) 2.87 Troponin I 0.277 04/04/18 04/04/18 04/04/18 05:55 12:58 12:58 Creatine Kinase 49 CK-MB (CK-2) 2.01 2.08 Troponin I 0.247 0.220 Impressions: Thoracentesis Ultrasound 04/03/18 00:00 IMPRESSION: SUCCESSFUL THORACENTESIS USING ULTRASOUND GUIDANCE. Chest CT 04/05/18 00:00 IMPRESSION: Moderate right pleural effusion. Chest X-Ray 04/06/18 08:27 IMPRESSION: No interval change. Assessment & Plan - Diagnosis (1) Hypertensive emergency Is this a current diagnosis for this admission?: Yes Plan: Resolved. Blood pressures have improved to the 150/90s. Continue amlodipine and hydrazine. Lopressor added. (2) Pleural effusion on right Is this a current diagnosis for this admission?: Yes Plan: Patient had thoracentesis on 04/04/18 and had 850 cc drained. Initial pleural fluid analysis is consistent with transudative effusion and could be CHF- related. Repeat chest x-ray today shows recurrence of right sided pleural effusion. She reports of worsening SOB today. Will reconsult radiology for repeat thoracentesis. (3) Pneumonia Qualifiers: Laterality: right Is this a current diagnosis for this admission?: Yes Plan: Initial chest x-ray showed right lower lobe consolidation. Patient has large right sided pleural effusion. She has been empirically started on Rocephin. (4) CHF (congestive heart failure) Is this a current diagnosis for this admission?: Yes Plan: Echo shows mildly low EF (50%) with grade 2 diastolic dysfunction. EF on nuclear study is 45%. Lopressor added. (5) End stage renal failure on dialysis Is this a current diagnosis for this admission?: Yes Plan: Nephrology following. She is getting dialysis MWF. (6) Elevated troponin I level Is this a current diagnosis for this admission?: Yes Plan: Troponins have trended down (max at 0.3). No signs of infarction on EKG. Patient is not complaining of any chest pain. Cardiology following. Stress test was negative. Elevated troponins were likely related to ESRD and demand from severe hypertension. (7) Diabetes Qualifiers: Diabetes mellitus type: type 2 Diabetes mellitus long term care pharmacist insulin use: unspecified long term care pharmacist insulin use status Diabetes mellitus complication status : with unspecified complications Qualified Code(s): E11.8 - Type 2 diabetes mellitus with unspecified complications Is this a current diagnosis for this admission?: Yes Plan: Hba1c is 7.9%. Continue sliding scale coverage for now. - Time Time Spent with patient: 25-34 minutes
[2018-04-06] MEDS: METOPROLOL TARTRATE 25 MG TABLET PO SCH ×2 (12:04→22:53)
--- NOTE | 2018-04-06 16:39 | RADIOLOGY REPORT (SQ) ---
EXAM DESCRIPTION: U/S THORACENTESIS WITH IMAGING COMPLETED DATE/TIME: 04/06/2018 4:30 pm REASON FOR STUDY: increasded shortness of breath. Pleural effusion COMPARISON: Chest x-ray dated 03/27/2018. LIMITATIONS: None. PROCEDURE: Procedure, risks, benefit, and alternative explained to patient who then gave written con sent. The posterior right chest wall was marked using ultrasound guidance. A time-out was called fo r correct marking verification. Chest prepped and draped using sterile technique. Local anesthesia a chieved using 8 ml of 1% lidocaine injection. A 6fr Safe-T- Centesis set was introduced into the rig ht pleural space. Fluid was aspirated. The catheter was removed and the entry site was covered with sterile bandage. No immediate complications noted. Images acquired during the procedure were stored on PACS. FINDINGS: ENTRY SITE: posterior right chest. FLUID VOLUME: 800 cc FLUID ANALYSIS: Alexandra colored OTHER: Therapeutic only IMPRESSION: SUCCESSFUL THORACENTESIS USING ULTRASOUND GUIDANCE. COMMENT: Patient medication list reviewed: Yes- Quality ID# [id number]:Eligible professional attests to doc umenting in the medical record they obtained, updated, or reviewed the patient's current medications. TECHNICAL DOCUMENTATION: JOB ID: [id number] [employer]- All Rights Reserved Reading location - IP/workstation name: [facility]-[email or web address]
--- NOTE | 2018-04-06 16:48 | PDOC PROGRESS REPORT ---
Subjective Progress Note for:: 04/06/18 Subjective:: Patient noted to be more short of breath than usual. Her last dialysis was on last Saturday. Patient could not tell how much fluid was removed. Patient had nuclear stress test yesterday. These results were reviewed. No significant ischemia noted. EKG gated imaging shows mildly depressed LVEF. Patient denied any chest, neck discomfort or any significant shortness of breath. Patient seems very reluctant to carry on any conversation. Patient is claiming generalized weakness. Reason For Visit: PLEURAL EFF, HTN URGENCY, ESRD Physical Exam Vital Signs: Temp Pulse Resp BP Pulse Ox 98.3 F 58 L 28 H 112/55 L 98 04/06/18 15:41 04/06/18 15:41 04/06/18 15:41 04/06/18 15:41 04/06/18 15:41 Intake & Output 04/05/18 04/06/18 04/07/18 06:59 06:59 06:59 Intake Total 1183 524 177 Output Total 3500 Balance -2317 524 177 Weight 83.5 kg 81.3 kg Exam: GENERAL: well-nourished and in mild respiratory distress. Alert and oriented x3 HEAD: Atraumatic, normocephalic. EYES: KARIME, sclera anicteric, conjunctiva are normal. ENT: Moist mucous membranes. No oral ulcerations or bleeding gums noted. No obvious ear, nose or throat abnormalities noted. NECK: supple without lymphadenopathy. Trachea is central. No cervical or axillary lymphadenopathy noted. Carotids are 2+, JVD up to angle of jaw. LUNGS: Diminished breath sounds right base with significant significant dullness noted on percussion. CHEST: Palpation of the chest wall shows no significant chest wall tenderness. 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 ABDOMEN: Soft, no significant tenderness appreciated, normoactive bowel sounds. No guarding, no rebound. No rigidity noted . No masses appreciated. EXTREMITIES: Pedal pulses are 1-2+, no calf tenderness noted. No clubbing or cyanosis. negative pedal edema noted NEUROLOGICAL: Focused neurological exam showed no significant neurologic deficit. Normal speech, no focal weakness appreciated. PSYCH: Normal mood, normal affect. Judgment and insight within normal limits. SKIN: No significant ecchymosis, skin is noted to be warm. MUSCULOSKELETAL EXAM: No significant acute joint swelling noted. Results Laboratory Results: 04/06/18 05:45 04/06/18 05:45 04/03/18 04/06/18 04/06/18 13:30 05:45 05:45 WBC 4.6 RBC 4.17 Hgb 11.0 L Hct 34.1 L MCV 82 MCH 26.5 L MCHC 32.4 RDW 20.3 H Plt Count 135 L Seg Neutrophils % 70.9 Lymphocytes % 15.7 Monocytes % 10.0 Eosinophils % 2.9 Basophils % 0.5 Absolute Neutrophils 3.2 Absolute Lymphocytes 0.7 Absolute Monocytes 0.5 Absolute Eosinophils 0.1 Absolute Basophils 0.0 Sodium 137.4 Potassium 5.0 Chloride 96 L Carbon Dioxide 30 Anion Gap 11 BUN 56 H Creatinine 7.10 H Est GFR ( Amer) 7 L Est GFR (Non-Af Amer) 6 L Glucose 159 H Calcium 8.2 L Total Bilirubin 0.5 AST 15 ALT 26 Alkaline Phosphatase 418 H Total Protein 5.4 L Albumin 3.1 L Fluid Total Protein 3.4 Fluid Albumin 1.9 Fluid LDH 123 04/03/18 04/03/18 04/03/18 05:45 18:19 18:19 Creatine Kinase CK-MB (CK-2) 3.07 Troponin I 0.065 0.327 04/03/18 04/04/18 04/04/18 18:19 00:05 05:55 Creatine Kinase 60 48 CK-MB (CK-2) 2.87 Troponin I 0.277 04/04/18 04/04/18 04/04/18 05:55 12:58 12:58 Creatine Kinase 49 CK-MB (CK-2) 2.01 2.08 Troponin I 0.247 0.220 EKG Comments: Telemetry shows sinus rhythm. No significant tacky or bradycardia arrhythmia noted. Impressions: Chest CT 04/05/18 00:00 IMPRESSION: Moderate right pleural effusion. Chest X-Ray 04/06/18 08:27 IMPRESSION: No interval change. 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 Diabetes mellitus complication status : with unspecified complications Qualified Code(s): E11.8 - Type 2 diabetes mellitus with unspecified complications Is this a current diagnosis for this admission?: Yes (3) End stage renal failure on dialysis Is this a current diagnosis for this admission?: Yes (4) Hypertensive emergency Is this a current diagnosis for this admission?: Yes (5) Elevated troponin I level Is this a current diagnosis for this admission?: Yes (6) CHF (congestive heart failure) Qualifiers: Heart failure type: diastolic Is this a current diagnosis for this admission?: Yes - Notes Notes: Congestive heart failure: Patient has elevated JVP. Patient also has severe pulmonary hypertension. Combination of diastolic heart failure and right-sided heart failure. Patient was noted to have excess fluid intake. Nurse instructed to limit fluid intake. Patient also instructed to limit fluid intake. Patient to definitely needs significant fluid removal on dialysis tomorrow. May need pressure support with levophed on Midodrin if needed for low blood pressure occurring during dialysis. Patient decompensate, may consider positive pressure noninvasive ventilation, urgent dialysis, vasodilator therapy with nitroglycerin etc. Right-sided pleural effusion: Patient to have repeat thoracentesis today. Chest x-ray shows right pleural effusion which seems large. May consider pulmonary evaluation. Diabetes: Currently being well managed by hospitalist. End-stage renal disease on dialysis: Clinical exam suggest fluid overload. Recommend fluid removal on dialysis. Hypertensive emergency: Blood pressure is still high. Recommend adding nitrates and hydralazine. Elevated troponin I level: Currently can be explained by severe hypertension on presentation, possible right-sided CHF. Patient currently not complaining of chest pain. Nuclear stress test also negative for any pharmacologic stress- induced ischemia. Discussed with Dr. cantu. - Time Time with patient: Greater than 35 minutes - More than 50% of the time spent coordinating care, discussing management plans with involved caregivers. Management plans discussed with involved personnels. Medical decision making was of moderate to high complexity, patient's has multiple comorbidities. Medications reviewed and adjusted accordingly: Yes
[2018-04-06] MEDS: CEFTRIAXONE SODIUM 1,000 MG in DEXTROSE 5%-WATER 50 ML IV SCH (17:20)
[2018-04-06] MEDS ORDERED: KETOROLAC TROMETHAMINE INJ/PF 30 MG/1 ML SDV IV ONE (17:36)
[2018-04-06] MEDS ORDERED: ACETAMINOPHEN 325 MG TABLET PO PRN (17:38)
--- NOTE | 2018-04-06 19:40 | RADIOLOGY REPORT (SQ) ---
EXAM DESCRIPTION: CHEST SINGLE VIEW COMPLETED DATE/TIME: 04/06/2018 4:39 pm REASON FOR STUDY: POST THORA COMPARISON: CT previous day. NUMBER OF VIEWS: One view. TECHNIQUE: Single frontal radiographic image of the chest acquired. LIMITATIONS: None. FINDINGS: LUNGS AND PLEURA: Decrease in volume of right pleural effusion. No pneumothorax. MEDIASTINUM AND HEART: Stable heart size and mediastinal structures. BONY STRUCTURES: No acute findings. HARDWARE: None. OTHER: No other significant finding. IMPRESSION: No pneumothorax. TECHNICAL DOCUMENTATION: JOB ID: [id number] Reading location - IP/workstation name[email or web address]
--- NOTE | 2018-04-06 19:42 | RADIOLOGY REPORT (SQ) ---
EXAM DESCRIPTION: CHEST SINGLE VIEW COMPLETED DATE/TIME: 04/06/2018 6:42 pm REASON FOR STUDY: POST THORA RIGHT SIDED 2 HOUR POST FOR 1830 COMPARISON: Earlier the same day. NUMBER OF VIEWS: One view. TECHNIQUE: Single frontal radiographic image of the chest acquired. LIMITATIONS: None. FINDINGS: LUNGS AND PLEURA: Stable appearance. No pneumothorax. MEDIASTINUM AND HEART: Stable heart size and mediastinal structures. BONY STRUCTURES: No acute findings. HARDWARE: None. OTHER: No other significant finding. IMPRESSION: No pneumothorax. TECHNICAL DOCUMENTATION: JOB ID: [id number] Reading location - IP/workstation name: [email or web address]
[2018-04-06] MEDS: ATORVASTATIN CALCIUM 20 MG TABLET PO SCH (22:53)
[2018-04-06] MEDS: GABAPENTIN 300 MG CAPSULE PO SCH (22:53)
[2018-04-06] MEDS: OLANZAPINE 5 MG TAB.RAPDIS PO SCH (22:54)
[2018-04-06] MEDS: MIRTAZAPINE 15 MG TABLET PO SCH (22:54)
[2018-04-07] MEDS: HYDRALAZINE HCL 50 MG TABLET PO SCH ×4 (05:18→17:34)
[2018-04-07] MEDS: LANSOPRAZOLE 30 MG TAB.RAP.DR PO SCH (05:28)
[2018-04-07] MEDS: CLONIDINE HCL 0.2 MG TABLET PO SCH ×3 (05:28→21:29)
[2018-04-07 06:17] LABS: ANION GAP 14 (5-19); BLOOD UREA NITROGEN 74 mg/dL (7-20); CALCIUM 8.6 mg/dL (8.4-10.2); CARBON DIOXIDE 27 mmol/L (22-30); CHLORIDE 95 mmol/L (98-107); GLUCOSE 152 mg/dL (75-110); POTASSIUM 5.4 mmol/L (3.6-5.0); SODIUM 135.5 mmol/L (137-145)
--- NOTE | 2018-04-07 06:55 | EKG REPORT ---
SEVERITY:- ABNORMAL ECG - SINUS RHYTHM FIRST DEGREE AV BLOCK PROBABLE LEFT ATRIAL ABNORMALITY RIGHT BUNDLE BRANCH BLOCK LATERAL INFARCT, OLD vs LAHB RELATED LAHB : Confirmed by: Soledad Peck 07-Apr-2018 06:55:02
[2018-04-07 08:53] LABS: HEMATOCRIT 33.8 % (36.0-47.0); MEAN CORPUSCULAR HEMOGLOBIN 26.7 pg (27.0-33.4); MEAN CORPUSCULAR HGB CONC 32.6 g/dL (32.0-36.0); MEAN CORPUSCULAR VOLUME 82 fl (80-97); PLATELET COUNT 155 10^3/uL (150-450); RED BLOOD COUNT 4.14 10^6/uL (3.72-5.28); RED CELL DISTRIBUTION WIDTH 20.3 % (11.5-14.0); WHITE BLOOD COUNT 5.3 10^3/uL (4.0-10.5)
[2018-04-07] MEDS: INSULIN LISPRO 100 UNIT/ML 3 ML VIAL SUBCUT SCH ×3 (09:53→17:33)
--- NOTE | 2018-04-07 11:48 | RADIOLOGY REPORT (SQ) ---
EXAM DESCRIPTION: U/S NON-OB PELVIS W/O DOP COMPLETED DATE/TIME: 04/07/2018 9:13 am REASON FOR STUDY: PAIN COMPARISON: None. TECHNIQUE: Dynamic and static grayscale images acquired of the pelvis via transabdominal approach an d recorded on PACS. Additional selected color Doppler and spectral images recorded. LIMITATIONS: None. FINDINGS: Patient reports prior hysterectomy. No abnormal soft tissue masses or fluid visualized in the pelvis. IMPRESSION: NO SONOGRAPHIC ABNORMALITY VISUALIZED IN THE PELVIS. TECHNICAL DOCUMENTATION: JOB ID: [id number] [employer]- All Rights Reserved Rev-10/25 Reading location - IP/workstation name: [facility]-[email or web address]
--- NOTE | 2018-04-07 11:50 | RADIOLOGY REPORT (SQ) ---
EXAM DESCRIPTION: U/S ABDOMEN COMPLETE W/DOPPLER COMPLETED DATE/TIME: 04/07/2018 9:20 am REASON FOR STUDY: significantly elevated alk phos COMPARISON: None. TECHNIQUE: Dynamic and static grayscale images acquired of the abdomen and recorded on PACS. Additio nal selected color Doppler and spectral images recorded. LIMITATIONS: None. FINDINGS: PANCREAS: No masses. Visualized pancreatic duct normal caliber. LIVER: No masses. Echotexture normal. LIVER VASCULATURE: Normal directional flow of the main portal vein and hepatic veins. GALLBLADDER: Contracted and poorly visualized. Marked thickening of the wall. ULTRASOUND-DETECTED VARGAS'S SIGN: Negative. INTRAHEPATIC DUCTS AND COMMON DUCT: CBD and intrahepatic ducts normal caliber. No filling defects. INFERIOR VENA CAVA: Normal flow. AORTA: No aneurysm. RIGHT KIDNEY: Normal size. Normal echogenicity. No solid or suspicious masses. No hydronephros is. No calcifications. LEFT KIDNEY: Normal size. Normal echogenicity. No solid or suspicious masses. No hydronephrosi s. No calcifications. SPLEEN: Normal size. No solid masses. PERITONEAL AND PLEURAL SPACES: No ascites. Large right pleural effusion. OTHER: No other significant finding. IMPRESSION: 1. LIMITED VISUALIZATION OF THE GALLBLADDER WHICH IS CONTRACTED. THERE IS MARKED THICKENING OF THE G ALLBLADDER WALL WHICH MAY BE ARTIFACT DUE TO CONTRACTION ALTHOUGH INFLAMMATORY PROCESS OR EDEMA CANNO T BE EXCLUDED. NO OTHER ABNORMAL FINDINGS IN THE VISUALIZED UPPER ABDOMEN. 2. LARGE RIGHT PLEURAL EFFUSION. TECHNICAL DOCUMENTATION: JOB ID: [id number] [employer]- All Rights Reserved Reading location - IP/workstation name: [email or web address]
[2018-04-07] MEDS: SEVELAMER HCL 800 MG TABLET PO SCH ×3 (13:04→17:34)
[2018-04-07] MEDS: AMLODIPINE BESYLATE 5 MG TABLET PO SCH ×2 (13:10→21:30)
[2018-04-07] MEDS: HEPARIN SOD (PORCINE) 5,000 UNIT/ML 1 ML SYRINGE SUBCUT SCH ×2 (13:10→21:30)
[2018-04-07] MEDS: METOPROLOL TARTRATE 25 MG TABLET PO SCH ×2 (13:10→21:29)
[2018-04-07] MEDS: FAMOTIDINE 20 MG TABLET PO SCH (13:10)
--- NOTE | 2018-04-07 14:20 | PDOC PROGRESS REPORT ---
Subjective Progress Note for:: 04/07/18 Reason For Visit: Seen today on dialysis.She is undergoing dialysis without any issues.She had another paracentesis yesterday.She denies any fever or chills.Labs and medications were reviewed with her and treating basket grader. Physical Exam Vital Signs: Temp Pulse Resp BP Pulse Ox 97.9 F 71 18 159/67 H 90 L 04/07/18 12:42 04/07/18 12:42 04/07/18 12:42 04/07/18 12:42 04/07/18 13:26 Intake & Output 04/06/18 04/07/18 04/08/18 06:59 06:59 06:59 Intake Total 524 751 177 Output Total 25 Balance 524 726 177 Weight 81.3 kg 76.6 kg General appearance: PRESENT: no acute distress Respiratory exam: PRESENT: clear to auscultation mai, crackles Cardiovascular exam: PRESENT: RRR, +S1, +S2 GI/Abdominal exam: PRESENT: soft. ABSENT: organomegaly, tenderness Extremities exam: PRESENT: pedal edema Neurological exam: PRESENT: alert, awake, oriented to person Psychiatric exam: PRESENT: depressed Skin exam: ABSENT: erythema, rash Results Laboratory Results: 04/07/18 08:30 04/07/18 05:35 04/07/18 04/07/18 04/07/18 05:35 05:35 08:30 WBC Cancelled 5.3 RBC Cancelled 4.14 Hgb Cancelled 11.0 L Hct Cancelled 33.8 L MCV Cancelled 82 MCH Cancelled 26.7 L MCHC Cancelled 32.6 RDW Cancelled 20.3 H Plt Count Cancelled 155 Sodium 135.5 L Potassium 5.4 H Chloride 95 L Carbon Dioxide 27 Anion Gap 14 BUN 74 H Creatinine 8.55 H Est GFR ( Amer) 6 L Est GFR (Non-Af Amer) 5 L Glucose 152 H Calcium 8.6 04/03/18 13:30 Pleural Fluid - Right Pleural Effusion Gram Stain - Final 04/03/18 13:30 Pleural Fluid - Right Pleural Effusion Body Fluid Culture - Final NO AEROBIC OR ANAEROBIC ORGANISMS RECOVERED 04/03/18 04/03/18 04/03/18 05:45 18:19 18:19 Creatine Kinase CK-MB (CK-2) 3.07 Troponin I 0.065 0.327 04/03/18 04/04/18 04/04/18 18:19 00:05 05:55 Creatine Kinase 60 48 CK-MB (CK-2) 2.87 Troponin I 0.277 04/04/18 04/04/18 04/04/18 05:55 12:58 12:58 Creatine Kinase 49 CK-MB (CK-2) 2.01 2.08 Troponin I 0.247 0.220 Impressions: Chest CT 04/05/18 00:00 IMPRESSION: Moderate right pleural effusion. Chest X-Ray 04/06/18 08:27 IMPRESSION: No interval change. Thoracentesis Ultrasound 04/06/18 10:02 IMPRESSION: SUCCESSFUL THORACENTESIS USING ULTRASOUND GUIDANCE. Pelvis Ultrasound 04/07/18 00:00 IMPRESSION: NO SONOGRAPHIC ABNORMALITY VISUALIZED IN THE PELVIS. Abdomen Ultrasound 04/07/18 17:42 IMPRESSION: 1. LIMITED VISUALIZATION OF THE GALLBLADDER WHICH IS CONTRACTED. THERE IS MARKED THICKENING OF THE GALLBLADDER WALL WHICH MAY BE ARTIFACT DUE TO CONTRACTION ALTHOUGH INFLAMMATORY PROCESS OR EDEMA CANNOT BE EXCLUDED. NO OTHER ABNORMAL FINDINGS IN THE VISUALIZED UPPER ABDOMEN. 2. LARGE RIGHT PLEURAL EFFUSION. Assessment & Plan - Diagnosis (1) End stage renal failure on dialysis Is this a current diagnosis for this admission?: Yes Plan: Seen on dialysis. Its being supervised to ensure a safe and smooth procedure. Vs are stable .orders reviewed with treating basket grader. Plan to remove 4-5 L as tolerated. (2) Hypertension Is this a current diagnosis for this admission?: Yes Plan: Uncontrolled.See response to UF and dialysis. 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 (4) Pleural effusion on right Is this a current diagnosis for this admission?: Yes Plan: S/P thoracentesis. (5) CHF (congestive heart failure) Qualifiers: Heart failure type: diastolic Is this a current diagnosis for this admission?: Yes Plan: Diastolic with Pulmonary hypertension. (6) Hyperkalemia Plan: Should respond to dialysis.Monitor.
--- NOTE | 2018-04-07 15:02 | PDOC PROGRESS REPORT ---
Subjective Progress Note for:: 04/07/18 Subjective:: HAL MERCHANT is a 57 year old female with a past medical history of hypertension, CHF, diabetes, anxiety and end-stage renal failure hemodialysis dependent on MWF who was admitted for progressive SOB and generalized weakness. She was noted to be severely hypertensive with pulmonary congestion and was also noted to have a large right sided pleural effusion. She underwent right sided thoracentesis on 04/04/18 and had 850 cc drained. She had dialysis on Saturday and had 3.5 L removed. She had recurrence of large right sided pleural effusion. She underwent a repeat thoracentesis yesterday 04/06/18 and had 800 cc drained. She did get significant relief after the 2nd thoracentesis. No acute event overnight. She went for dialysis this morning. She currently denies acute SOB and is saturating well on 2 lpm via NC but feels she is not at her baseline breathing status. She still complains of weakness. She denies chest pain. Denies abdominal pain, melena or hematochezia. Reason For Visit: PLEURAL EFF, HTN URGENCY, ESRD Physical Exam Vital Signs: Temp Pulse Resp BP Pulse Ox 98.3 F 67 20 147/63 H 99 04/07/18 07:33 04/07/18 07:33 04/07/18 07:33 04/07/18 07:33 04/07/18 07:33 Intake & Output 04/06/18 04/07/18 04/08/18 06:59 06:59 06:59 Intake Total 524 751 Output Total 25 Balance 524 726 Weight 179 lb 3.773 oz 168 lb 13.985 oz General appearance: PRESENT: no acute distress Head exam: PRESENT: atraumatic, normocephalic Eye exam: PRESENT: conjunctiva pink, EOMI, PERRLA. ABSENT: scleral icterus Ear exam: PRESENT: normal external ear exam Mouth exam: PRESENT: moist, tongue midline Neck exam: ABSENT: carotid bruit, JVD, lymphadenopathy, thyromegaly Respiratory exam: PRESENT: decreased breath sounds - decreased BS mid to base on the right lung field. ABSENT: rales, wheezes Cardiovascular exam: PRESENT: RRR. ABSENT: diastolic murmur, rubs, systolic murmur Pulses: PRESENT: normal dorsalis pedis pul GI/Abdominal exam: PRESENT: normal bowel sounds, soft. ABSENT: distended, guarding, mass, organolmegaly, rebound, tenderness Rectal exam: PRESENT: deferred Neurological exam: PRESENT: alert, awake, oriented to person, oriented to place , oriented to time Results Laboratory Results: 04/07/18 08:30 04/07/18 05:35 04/07/18 04/07/18 04/07/18 05:35 05:35 08:30 WBC Cancelled 5.3 RBC Cancelled 4.14 Hgb Cancelled 11.0 L Hct Cancelled 33.8 L MCV Cancelled 82 MCH Cancelled 26.7 L MCHC Cancelled 32.6 RDW Cancelled 20.3 H Plt Count Cancelled 155 Sodium 135.5 L Potassium 5.4 H Chloride 95 L Carbon Dioxide 27 Anion Gap 14 BUN 74 H Creatinine 8.55 H Est GFR ( Amer) 6 L Est GFR (Non-Af Amer) 5 L Glucose 152 H Calcium 8.6 04/03/18 04/03/18 04/03/18 05:45 18:19 18:19 Creatine Kinase CK-MB (CK-2) 3.07 Troponin I 0.065 0.327 04/03/18 04/04/18 04/04/18 18:19 00:05 05:55 Creatine Kinase 60 48 CK-MB (CK-2) 2.87 Troponin I 0.277 04/04/18 04/04/18 04/04/18 05:55 12:58 12:58 Creatine Kinase 49 CK-MB (CK-2) 2.01 2.08 Troponin I 0.247 0.220 Impressions: Chest CT 04/05/18 00:00 IMPRESSION: Moderate right pleural effusion. Chest X-Ray 04/06/18 08:27 IMPRESSION: No interval change. Thoracentesis Ultrasound 04/06/18 10:02 IMPRESSION: SUCCESSFUL THORACENTESIS USING ULTRASOUND GUIDANCE. Assessment & Plan - Diagnosis (1) Hypertensive emergency Is this a current diagnosis for this admission?: Yes Plan: Resolved. Blood pressures have improved to the 150-160/70s. Continue amlodipine , hydrazine and Lopressor added. (2) Pleural effusion on right Is this a current diagnosis for this admission?: Yes Plan: Patient had thoracentesis on 04/04/18 and had 850 cc drained. Pleural fluid analysis is consistent with transudative effusion and could be related to CHF or volume overload from ESRD. She had recurrence of right sided effusion and underwent a 2nd thoracentesis yesterday 04/06/18 and had 800 cc drained. She had dialysis today and had 4.8 L removed. She usually gets 3.5L out from her previous dialysis. Will repeat chest x-ray today and see if there is recurrence of right sided effusion. (3) Pneumonia Qualifiers: Laterality: right Is this a current diagnosis for this admission?: Yes Plan: Initial chest x-ray showed right lower lobe consolidation. Patient has large right sided pleural effusion. Continue Rocephin. (4) CHF (congestive heart failure) Qualifiers: Heart failure type: diastolic Is this a current diagnosis for this admission?: Yes Plan: Echo shows mildly low EF (50%) with grade 2 diastolic dysfunction. EF on nuclear study is 45%. Lopressor added. Patient is getting dialysis as well MWF. (5) End stage renal failure on dialysis Is this a current diagnosis for this admission?: Yes Plan: Nephrology following. She is getting dialysis MWF. (6) Elevated troponin I level Is this a current diagnosis for this admission?: Yes Plan: Troponins have trended down (max at 0.3). No signs of infarction on EKG. Patient is not complaining of any chest pain. Cardiology following. Stress test was pursued and was negative. Elevated troponins were likely related to ESRD and demand from severe hypertension. (7) Diabetes Qualifiers: Diabetes mellitus type: type 2 Diabetes mellitus mcfp insulin use: unspecified mcfp insulin use status Diabetes mellitus complication status : with unspecified complications Qualified Code(s): E11.8 - Type 2 diabetes mellitus with unspecified complications Is this a current diagnosis for this admission?: Yes Plan: Hba1c is 7.9%. Continue sliding scale coverage for now. Sugars are well- controlled. (8) Elevated alkaline phosphatase level Is this a current diagnosis for this admission?: Yes Plan: Patient has isolated elevation of ALP with other liver enzymes being normal. Sent out for subtyping of Alk Phos (intestinal, bone, hepatic isoenzymes). Will proceed with skeletal survey pending results of isoenzymes. Abdominal US also ordered. - Time Time Spent with patient: 25-34 minutes
[2018-04-07] MEDS: CEFTRIAXONE SODIUM 1,000 MG in DEXTROSE 5%-WATER 50 ML IV SCH (17:34)
[2018-04-07] MEDS ORDERED: DICYCLOMINE HCL 10 MG CAPSULE PO ONE (18:30)
[2018-04-07] MEDS: ATORVASTATIN CALCIUM 20 MG TABLET PO SCH (21:29)
[2018-04-07] MEDS: GABAPENTIN 300 MG CAPSULE PO SCH (21:29)
[2018-04-07] MEDS: OLANZAPINE 5 MG TAB.RAPDIS PO SCH (21:31)
[2018-04-07] MEDS: MIRTAZAPINE 15 MG TABLET PO SCH (21:31)
--- NOTE | 2018-04-07 23:19 | PDOC PROGRESS REPORT ---
Subjective Progress Note for:: 04/07/18 Subjective:: Patient was seen on dialysis. Patient denied any chest, neck discomfort or any significant shortness of breath. Patient seems very reluctant to carry on any conversation. Patient is claiming generalized weakness. Reason For Visit: PLEURAL EFF, HTN URGENCY, ESRD Physical Exam Vital Signs: Temp Pulse Resp BP Pulse Ox 98.3 F 67 20 147/63 H 99 04/07/18 07:33 04/07/18 07:33 04/07/18 07:33 04/07/18 07:33 04/07/18 07:33 Intake & Output 04/06/18 04/07/18 04/08/18 06:59 06:59 06:59 Intake Total 524 751 Output Total 25 Balance 524 726 Weight 81.3 kg 76.6 kg Exam: GENERAL: well-nourished and in mild respiratory distress. Alert and oriented x3 HEAD: Atraumatic, normocephalic. EYES: KARIME, sclera anicteric, conjunctiva are normal. ENT: Moist mucous membranes. No oral ulcerations or bleeding gums noted. No obvious ear, nose or throat abnormalities noted. NECK: supple without lymphadenopathy. Trachea is central. No cervical or axillary lymphadenopathy noted. Carotids are 2+, JVD up to 14cm. LUNGS: Diminished breath sounds right base with significant significant dullness noted on percussion. CHEST: Palpation of the chest wall shows no significant chest wall tenderness. 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 ABDOMEN: Soft, no significant tenderness appreciated, normoactive bowel sounds. No guarding, no rebound. No rigidity noted . No masses appreciated. EXTREMITIES: Pedal pulses are 1-2+, no calf tenderness noted. No clubbing or cyanosis. 1+ pedal edema noted NEUROLOGICAL: Focused neurological exam showed no significant neurologic deficit. Normal speech, no focal weakness appreciated. PSYCH: Normal mood, normal affect. Judgment and insight within normal limits. SKIN: No significant ecchymosis, skin is noted to be warm. MUSCULOSKELETAL EXAM: No significant acute joint swelling noted. Results Laboratory Results: 04/07/18 08:30 04/07/18 05:35 04/07/18 04/07/18 04/07/18 05:35 05:35 08:30 WBC Cancelled 5.3 RBC Cancelled 4.14 Hgb Cancelled 11.0 L Hct Cancelled 33.8 L MCV Cancelled 82 MCH Cancelled 26.7 L MCHC Cancelled 32.6 RDW Cancelled 20.3 H Plt Count Cancelled 155 Sodium 135.5 L Potassium 5.4 H Chloride 95 L Carbon Dioxide 27 Anion Gap 14 BUN 74 H Creatinine 8.55 H Est GFR ( Amer) 6 L Est GFR (Non-Af Amer) 5 L Glucose 152 H Calcium 8.6 04/03/18 04/03/18 04/03/18 05:45 18:19 18:19 Creatine Kinase CK-MB (CK-2) 3.07 Troponin I 0.065 0.327 04/03/18 04/04/18 04/04/18 18:19 00:05 05:55 Creatine Kinase 60 48 CK-MB (CK-2) 2.87 Troponin I 0.277 04/04/18 04/04/18 04/04/18 05:55 12:58 12:58 Creatine Kinase 49 CK-MB (CK-2) 2.01 2.08 Troponin I 0.247 0.220 EKG Comments: SR Impressions: Chest CT 04/05/18 00:00 IMPRESSION: Moderate right pleural effusion. Chest X-Ray 04/06/18 08:27 IMPRESSION: No interval change. Thoracentesis Ultrasound 04/06/18 10:02 IMPRESSION: SUCCESSFUL THORACENTESIS USING ULTRASOUND GUIDANCE. 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 insulin use: unspecified ocean transportation intermediary insulin use status Diabetes mellitus complication status : with unspecified complications Qualified Code(s): E11.8 - Type 2 diabetes mellitus with unspecified complications Is this a current diagnosis for this admission?: Yes (3) End stage renal failure on dialysis Is this a current diagnosis for this admission?: Yes (4) Hypertensive emergency Is this a current diagnosis for this admission?: Yes (5) Elevated troponin I level Is this a current diagnosis for this admission?: Yes - Notes Notes: Congestive heart failure: Patient has elevated JVP. Patient also has severe pulmonary hypertension. Combination of diastolic heart failure and right-sided heart failure. Patient was noted to have excess fluid intake. Nurse instructed to limit fluid intake. Patient also instructed to limit fluid intake. Patient to definitely needs significant fluid removal on dialysis. Dialysis nurse was instructed. May need pressure support with levophed on Midodrin if needed for low blood pressure occurring during dialysis. Right-sided pleural effusion: Patient to have repeat thoracentesis. U/S shows right pleural effusion which seems large. May consider pulmonary evaluation. Diabetes: Currently being well managed by hospitalist. End-stage renal disease on dialysis: Clinical exam suggest fluid overload. Recommend fluid removal on dialysis. Hypertensive emergency: Blood pressure is still high. Recommend adding nitrates and hydralazine. Elevated troponin I level: Currently can be explained by severe hypertension on presentation, possible right-sided CHF. Patient currently not complaining of chest pain. Nuclear stress test also negative for any pharmacologic stress- induced ischemia. Discussed with Dr. cantu. - Time Time with patient: Greater than 35 minutes - CODE STATUS was discussed, patient remains full code. Surrogate decision-maker unchanged. Multiple medical problems were addressed. More than 50% of the time spent coordinating care, discussing management plans with involved caregivers. Management plans discussed with involved personnels. Medical decision making was of moderate to high complexity, patient's has multiple comorbidities. Medications reviewed and adjusted accordingly: Yes
[2018-04-08] MEDS: HYDRALAZINE HCL 50 MG TABLET PO SCH ×5 (00:13→23:43)
[2018-04-08] MEDS: LANSOPRAZOLE 30 MG TAB.RAP.DR PO SCH (05:15)
[2018-04-08] MEDS: CLONIDINE HCL 0.2 MG TABLET PO SCH ×3 (05:16→23:02)
[2018-04-08] MEDS ORDERED: HYDROCODONE/ACETAMINOPHEN 5-325 MG TABLET PO ONE (05:53)
[2018-04-08] MEDS ORDERED: HYDROCODONE/ACETAMINOPHEN 5-325 MG TABLET ONE (06:16)
--- NOTE | 2018-04-08 07:31 | PDOC PROGRESS REPORT ---
Subjective Progress Note for:: 04/08/18 Subjective:: HAL MERCHANT is a 57 year old female with a past medical history of hypertension, CHF, diabetes, anxiety and end-stage renal failure on HD on MWF who was admitted for progressive SOB and generalized weakness. She was noted to be severely hypertensive with pulmonary congestion and large right sided pleural effusion. s/p right sided thoracentesis on 04/04/18 and had 850 cc drained. HD on 2017 and 04/07/2018. She had recurrence of large right sided pleural effusion. s/p repeat thoracentesis 04/06/18 and had 800 cc drained. She did get significant relief after the 2nd thoracentesis. 04/08/2018. No acute events overnight. On my encounter patient is comfortably resting in her bed and inquiring when she can go home. She did not seem to be in any acute distress. She is p.o. tolerant. She is complaining of persistent chronic gastric abdominal pain. She states that she has been worked up for gastroparesis and IBS as outpatient and both had been ruled out. She denies any nausea, vomiting, diarrhea, constipation, shortness of breath, chest pain or any urinary symptoms. Reason For Visit: PLEURAL EFF, HTN URGENCY, ESRD Physical Exam Vital Signs: Temp Pulse Resp BP Pulse Ox 98.6 F 64 16 152/63 H 93 04/08/18 04:26 04/08/18 04:26 04/08/18 04:26 04/08/18 04:26 04/08/18 04:26 Intake & Output 04/07/18 04/08/18 04/09/18 06:59 06:59 06:59 Intake Total 751 327 Output Total 25 9740 Balance 726 -6523 Weight 76.6 kg 73.9 kg General appearance: PRESENT: no acute distress, well-developed, well-nourished Head exam: PRESENT: atraumatic, normocephalic Eye exam: PRESENT: conjunctiva pink, EOMI, PERRLA. ABSENT: scleral icterus Ear exam: PRESENT: normal external ear exam Mouth exam: PRESENT: moist, tongue midline Neck exam: ABSENT: carotid bruit, JVD, lymphadenopathy, thyromegaly Respiratory exam: PRESENT: crackles - Left lower lobe., decreased breath sounds - Right lower lobe, unlabored. ABSENT: rales, rhonchi, wheezes Cardiovascular exam: PRESENT: RRR. ABSENT: diastolic murmur, rubs, systolic murmur Pulses: PRESENT: normal dorsalis pedis pul Vascular exam: PRESENT: normal capillary refill GI/Abdominal exam: PRESENT: normal bowel sounds, soft. ABSENT: distended, guarding, mass, organolmegaly, rebound, tenderness Rectal exam: PRESENT: deferred Extremities exam: PRESENT: full ROM. ABSENT: calf tenderness, clubbing, pedal edema Neurological exam: PRESENT: alert, awake, oriented to person, oriented to place , oriented to time, oriented to situation, CN II-XII grossly intact. ABSENT: motor sensory deficit Psychiatric exam: PRESENT: appropriate affect, normal mood. ABSENT: homicidal ideation, suicidal ideation Skin exam: PRESENT: dry, intact, warm. ABSENT: cyanosis, rash Results Laboratory Results: 04/07/18 08:30 04/07/18 05:35 04/07/18 04/07/18 05:35 08:30 WBC Cancelled 5.3 RBC Cancelled 4.14 Hgb Cancelled 11.0 L Hct Cancelled 33.8 L MCV Cancelled 82 MCH Cancelled 26.7 L MCHC Cancelled 32.6 RDW Cancelled 20.3 H Plt Count Cancelled 155 04/03/18 13:30 Pleural Fluid - Right Pleural Effusion Gram Stain - Final 04/03/18 13:30 Pleural Fluid - Right Pleural Effusion Body Fluid Culture - Final NO AEROBIC OR ANAEROBIC ORGANISMS RECOVERED 04/03/18 04/03/18 04/03/18 05:45 18:19 18:19 Creatine Kinase CK-MB (CK-2) 3.07 Troponin I 0.065 0.327 04/03/18 04/04/18 04/04/18 18:19 00:05 05:55 Creatine Kinase 60 48 CK-MB (CK-2) 2.87 Troponin I 0.277 04/04/18 04/04/18 04/04/18 05:55 12:58 12:58 Creatine Kinase 49 CK-MB (CK-2) 2.01 2.08 Troponin I 0.247 0.220 Impressions: Chest CT 04/05/18 00:00 IMPRESSION: Moderate right pleural effusion. Chest X-Ray 04/06/18 08:27 IMPRESSION: No interval change. Thoracentesis Ultrasound 04/06/18 10:02 IMPRESSION: SUCCESSFUL THORACENTESIS USING ULTRASOUND GUIDANCE. Pelvis Ultrasound 04/07/18 00:00 IMPRESSION: NO SONOGRAPHIC ABNORMALITY VISUALIZED IN THE PELVIS. Abdomen Ultrasound 04/07/18 17:42 IMPRESSION: 1. LIMITED VISUALIZATION OF THE GALLBLADDER WHICH IS CONTRACTED. THERE IS MARKED THICKENING OF THE GALLBLADDER WALL WHICH MAY BE ARTIFACT DUE TO CONTRACTION ALTHOUGH INFLAMMATORY PROCESS OR EDEMA CANNOT BE EXCLUDED. NO OTHER ABNORMAL FINDINGS IN THE VISUALIZED UPPER ABDOMEN. 2. LARGE RIGHT PLEURAL EFFUSION. Assessment & Plan - Diagnosis (1) Hypertensive emergency Is this a current diagnosis for this admission?: Yes Plan: Resolved. Blood pressures have improved to the 150-160/70s. Continue amlodipine , hydrazine and Lopressor added. (2) End stage renal failure on dialysis Is this a current diagnosis for this admission?: Yes Plan: On dialysis on MWF. Monitor volume status and electrolytes. Fluid restriction and renal diet. Negative fluid balance Nephrology following. (3) Pleural effusion on right Is this a current diagnosis for this admission?: Yes Plan: Recurrent. Pleural protein/serum protein 0.6, likely exudative could be a combination of volume overload due to CHF/ESRD or underlying malignancy. CT chest negative for any malignancy. Status post 2 thoracentesis on 04/03/2018 and 04/06/2018. Cytology on pleural fluid from thoracentesis on 03/24/2018 shows benign mesothelial cells, macrophages and blood, negative for inflammation, atypia or malignancy. Chest x-ray on 04/08/2018 positive for persistent right-sided pleural effusion. Consult pulmonology for further recommendation. (4) CHF (congestive heart failure) Qualifiers: Heart failure type: diastolic Is this a current diagnosis for this admission?: Yes Plan: Heart failure with preserved ejection fraction based on echo done on grade 04/03. Switch Lopressor 12.5 twice daily to carvedilol 12.5 twice daily for better blood pressure control. Up titrate as tolerated. Volume restriction, strict in and out, cardiac/renal/diabetic diet. Negative fluid balance Hemodialysis on MWF. (5) Diabetes Qualifiers: Diabetes mellitus type: type 2 Diabetes mellitus mcc insulin use: unspecified mcc insulin use status Diabetes mellitus complication status : with unspecified complications Qualified Code(s): E11.8 - Type 2 diabetes mellitus with unspecified complications Is this a current diagnosis for this admission?: Yes Plan: DM type II. Controlled. Hemoglobin A1c on admission 7.9%. Lantus 8 units nightly. Monitoring scale insulin. Diabetic/renal/cardiac diet. Follow-up with PCP. (6) Elevated alkaline phosphatase level Is this a current diagnosis for this admission?: Yes Plan: Unidentified cause. LFTs within normal limits. Pending labs for subtyping of Alk Phos (intestinal, bone, hepatic isoenzymes). Proceed with skeletal survey pending results of isoenzymes. Abdominal ultrasound inconclusive. (7) Pneumonia Qualifiers: Laterality: right Is this a current diagnosis for this admission?: Yes Plan: Likely community-acquired pneumonia. Chest x-ray on admission with right lower lobe consolidation and pleural effusion Cultures negative. Rocephin day 5. Saturating 93% on 2 L of supplemental oxygen. Respiratory rate 7-22 per minute (8) Anemia in CKD (chronic kidney disease) Qualifiers: Chronic kidney disease stage: on chronic dialysis Qualified Code(s): N18.6 - End stage renal disease; D63.1 - Anemia in chronic kidney disease; D63.1 - Anemia in chronic kidney disease; Z99.2 - Dependence on renal dialysis; Z99.2 - Dependence on renal dialysis; Z99.2 - Dependence on renal dialysis; Z99.2 - Dependence on renal dialysis Is this a current diagnosis for this admission?: Yes Plan: Normocytic. H&H stable. Denies any external sources of bleeding. Monitor H&H. Nephrology on board. (9) Hyperkalemia Is this a current diagnosis for this admission?: Yes Plan: Due to underlying end-stage renal disease. Potassium 5.0 today. CMP tomorrow. Hemodialysis Saturday. Nephrology following. Continue renal diet. (10) Secondary hyperparathyroidism (of renal origin) Is this a current diagnosis for this admission?: Yes Plan: On sevelamer. Nephrology following.
[2018-04-08] MEDS: INSULIN LISPRO 100 UNIT/ML 3 ML VIAL SUBCUT SCH ×3 (08:51→18:02)
[2018-04-08] MEDS: SEVELAMER HCL 800 MG TABLET PO SCH ×3 (08:51→18:02)
--- NOTE | 2018-04-08 09:03 | RADIOLOGY REPORT (SQ) ---
EXAM DESCRIPTION: CHEST SINGLE VIEW COMPLETED DATE/TIME: 04/08/2018 8:36 am REASON FOR STUDY: reassess pleural eff COMPARISON: 04/06/2018. EXAM PARAMETERS: NUMBER OF VIEWS: One view. TECHNIQUE: Single frontal radiographic view of the chest acquired. RADIATION DOSE: NA LIMITATIONS: None. FINDINGS: LUNGS AND PLEURA: Large right pleural effusion, unchanged. No pneumothorax. Possible sma ll left pleural effusion. MEDIASTINUM AND HILAR STRUCTURES: No masses. Contour normal. HEART AND VASCULAR STRUCTURES: Cardiomegaly unchanged. BONES: No acute findings. HARDWARE: None in the chest. Right axillary stent. OTHER: No other significant finding. IMPRESSION: LARGE RIGHT PLEURAL EFFUSION. NO SIGNIFICANT CHANGE. TECHNICAL DOCUMENTATION: JOB ID: [id number] [employer]- All Rights Reserved Reading location - IP/workstation name: [email or web address]
[2018-04-08] MEDS: FAMOTIDINE 20 MG TABLET PO SCH (09:55)
[2018-04-08] MEDS: METOPROLOL TARTRATE 25 MG TABLET PO SCH (09:55)
[2018-04-08] MEDS: AMLODIPINE BESYLATE 5 MG TABLET PO SCH ×2 (10:00→23:02)
[2018-04-08 10:21] LABS: ABSOLUTE EOSINOPHILS # (AUTO) 0.1 10^3/uL (0.0-0.6); ABSOLUTE MONOCYTES (AUTO) 0.5 10^3/uL (0.1-1.4); ABSOLUTE NEUT (AUTO) 3.4 10^3/uL (1.7-8.2); BASOPHILS % (AUTO) 0.5 % (0-2); EOSINOPHILS % (AUTO) 2.3 % (0-6); HEMATOCRIT 33.7 % (36.0-47.0); HEMOGLOBIN 10.7 g/dL (12.0-15.5); MEAN CORPUSCULAR HEMOGLOBIN 26.5 pg (27.0-33.4); MEAN CORPUSCULAR HGB CONC 31.9 g/dL (32.0-36.0); MEAN CORPUSCULAR VOLUME 83 fl (80-97); MONOCYTES % (AUTO) 9.9 % (3-13); PLATELET COUNT 158 10^3/uL (150-450); RED BLOOD COUNT 4.05 10^6/uL (3.72-5.28); SEGMENTED NEUTROPHILS % (AUTO) 68.3 % (42-78); TOTAL CELLS COUNTED % (AUTO) 100 %
[2018-04-08 10:41] LABS: ALANINE AMINOTRANSFERASE 23 U/L (9-52); ALBUMIN 3.2 g/dL (3.5-5.0); ALKALINE PHOSPHATASE 397 U/L (38-126); ANION GAP 12 (5-19); ASPARTATE AMINO TRANSFERASE 22 U/L (14-36); BILIRUBIN,DIRECT 0.6 mg/dL (0.0-0.4); BILIRUBIN,TOTAL 0.6 mg/dL (0.2-1.3); BLOOD UREA NITROGEN 59 mg/dL (7-20); CALCIUM 8.9 mg/dL (8.4-10.2); CARBON DIOXIDE 29 mmol/L (22-30); CHLORIDE 96 mmol/L (98-107); GLUCOSE 208 mg/dL (75-110)
[2018-04-08] MEDS: HEPARIN SOD (PORCINE) 5,000 UNIT/ML 1 ML SYRINGE SUBCUT SCH ×2 (14:47→23:03)
[2018-04-08] MEDS: CARVEDILOL 12.5 MG TABLET PO SCH ×2 (15:00→23:03)
[2018-04-08] MEDS: CEFTRIAXONE SODIUM 1,000 MG in DEXTROSE 5%-WATER 50 ML IV SCH (18:02)
--- NOTE | 2018-04-08 20:16 | PDOC PROGRESS REPORT ---
Subjective Progress Note for:: 04/08/18 Subjective:: Patient was seen this morning. At the time she was sitting up in her bed in no acute distress. She denies chest pain, SOB, diarrhea or constipation. She does have persistent nausea and vomiting from gastroparesis. Reason For Visit: PLEURAL EFF, HTN URGENCY, ESRD Physical Exam Vital Signs: Temp Pulse Resp BP Pulse Ox 98.3 F 61 16 121/62 98 04/08/18 15:07 04/08/18 15:07 04/08/18 15:07 04/08/18 15:07 04/08/18 15:07 Intake & Output 04/07/18 04/08/18 04/09/18 06:59 06:59 06:59 Intake Total 751 327 458 Output Total 25 4850 0 Balance 726 -0424 458 Weight 76.6 kg 73.9 kg General appearance: PRESENT: no acute distress, well-developed, well-nourished Mouth exam: PRESENT: moist, neck supple Neck exam: PRESENT: full ROM. ABSENT: JVD Respiratory exam: PRESENT: crackles, decreased breath sounds. ABSENT: accessory muscle use, clear to auscultation mai, rales, rhonchi, wheezes Cardiovascular exam: PRESENT: RRR, +S1, +S2 GI/Abdominal exam: PRESENT: soft. ABSENT: organomegaly, tenderness Extremities exam: ABSENT: pedal edema, tenderness, +1 edema, +2 edema Musculoskeletal exam: PRESENT: normal inspection. ABSENT: tenderness Neurological exam: PRESENT: alert, awake, oriented to person, oriented to place , oriented to time, oriented to situation Skin exam: PRESENT: dry, intact, warm Results Laboratory Results: 04/08/18 10:00 04/08/18 10:00 04/08/18 04/08/18 10:00 10:00 WBC 5.0 RBC 4.05 Hgb 10.7 L Hct 33.7 L MCV 83 MCH 26.5 L MCHC 31.9 L RDW 20.0 H Plt Count 158 Seg Neutrophils % 68.3 Lymphocytes % 19.0 Monocytes % 9.9 Eosinophils % 2.3 Basophils % 0.5 Absolute Neutrophils 3.4 Absolute Lymphocytes 1.0 Absolute Monocytes 0.5 Absolute Eosinophils 0.1 Absolute Basophils 0.0 Sodium 137.0 Potassium 5.0 Chloride 96 L Carbon Dioxide 29 Anion Gap 12 BUN 59 H Creatinine 6.89 H Est GFR ( Amer) 7 L Est GFR (Non-Af Amer) 6 L Glucose 208 H Calcium 8.9 Total Bilirubin 0.6 AST 22 ALT 23 Alkaline Phosphatase 397 H Total Protein 6.0 L Albumin 3.2 L 04/03/18 04/03/18 04/03/18 05:45 18:19 18:19 Creatine Kinase CK-MB (CK-2) 3.07 Troponin I 0.065 0.327 04/03/18 04/04/18 04/04/18 18:19 00:05 05:55 Creatine Kinase 60 48 CK-MB (CK-2) 2.87 Troponin I 0.277 04/04/18 04/04/18 04/04/18 05:55 12:58 12:58 Creatine Kinase 49 CK-MB (CK-2) 2.01 2.08 Troponin I 0.247 0.220 Impressions: Chest CT 04/05/18 00:00 IMPRESSION: Moderate right pleural effusion. Thoracentesis Ultrasound 04/06/18 10:02 IMPRESSION: SUCCESSFUL THORACENTESIS USING ULTRASOUND GUIDANCE. Pelvis Ultrasound 04/07/18 00:00 IMPRESSION: NO SONOGRAPHIC ABNORMALITY VISUALIZED IN THE PELVIS. Abdomen Ultrasound 04/07/18 17:42 IMPRESSION: 1. LIMITED VISUALIZATION OF THE GALLBLADDER WHICH IS CONTRACTED. THERE IS MARKED THICKENING OF THE GALLBLADDER WALL WHICH MAY BE ARTIFACT DUE TO CONTRACTION ALTHOUGH INFLAMMATORY PROCESS OR EDEMA CANNOT BE EXCLUDED. NO OTHER ABNORMAL FINDINGS IN THE VISUALIZED UPPER ABDOMEN. 2. LARGE RIGHT PLEURAL EFFUSION. Chest X-Ray 04/08/18 07:00 IMPRESSION: LARGE RIGHT PLEURAL EFFUSION. NO SIGNIFICANT CHANGE. Assessment & Plan - Diagnosis (1) End stage renal failure on dialysis Is this a current diagnosis for this admission?: Yes Plan: Will look to arrange for dialysis tomorrow and remove more fluid (2) Hypertensive emergency Is this a current diagnosis for this admission?: Yes Plan: currently varying, will look to see what her blood pressure is after more fluid is removed tomorrow. (3) Pleural effusion on right Is this a current diagnosis for this admission?: Yes Plan: per pulmanology (4) Diabetes Qualifiers: Diabetes mellitus type: type 2 Diabetes mellitus long line teamster insulin use: unspecified long line teamster insulin use status Diabetes mellitus complication status : with unspecified complications Qualified Code(s): E11.8 - Type 2 diabetes mellitus with unspecified complications Is this a current diagnosis for this admission?: Yes (5) CHF (congestive heart failure) Qualifiers: Heart failure type: diastolic Is this a current diagnosis for this admission?: Yes Plan: will look to remove more fluid tomorrow
--- NOTE | 2018-04-08 20:57 | Progress Note ---
Provider Note Provider Note: CARDIOLOGY PROGRESS NOTE by Dr. Sushma Velazquez on 04/08/2018. SUBJECTIVE: The patient states that her shortness of breath is much improved. She does have orthopnea. But no PND orthopnea or palpitations. There is no chest pain or discomfort. The patient denies any cough or sputum production. There is no arrhythmias seen on the monitor. Blood pressure still not optimally controlled. There is no TIA CVA symptoms. PHYSICAL EXAMINATION: The patient appears to be in no acute distress, but appears to be chronically ill. Selected Entries 04/08/18 11:04 Temperature 98.3 F Temperature Oral Source Pulse Rate 64 Respiratory 20 Rate Blood Pressure 161/68 H Blood Pressure 99 Mean BP Location Left Arm BP Position Sitting O2 Sat by Pulse 92 Oximetry Oxygen Delivery Room Air Method HEAD: Is atraumatic normocephalic. EYES: Pupils are equal round regular react to light accommodation. External ocular movements are normal. There is no clinical pallor. There is no scleral icterus. ENT is negative. Neck scratch that NECK: Is supple. There is no JVD. Carotids are equal there is no bruit there is no lymphadenopathy. Trachea is shifted to the left. There is no goiter. LUNGS: There is absent breath sounds in the right base in the right mid zone . There is no definite rales of CHF. HEART: S1-S2 is heard there is no S3 gallop there is no S4 gallop. There is systolic murmur left sternal border and the apex there is no rub. ABDOMEN: Is soft. Nontender. There is no hepato-splenomegaly. Bowel sounds well heard. EXTREMITIES: Femorals are diminished. There is no femoral bruits. There is no pedal edema. Leg pulses are diminished. There is no DVT or cellulitis. There is no calf tenderness. ENTERPRISE SERVICES MANAGER: The patient is conscious awake alert oriented times with no focal deficit. PSYCHIATRIC: The patient judgment and insight are intact her affect appears to be slightly withdrawn. 04/03/18 04/03/18 04/08/18 13:30 13:30 10:00 WBC 5.0 Hgb 10.7 L Hct 33.7 L Plt Count 158 Sodium Potassium Chloride Carbon Dioxide BUN Creatinine Est GFR ( Amer) Glucose Calcium Total Bilirubin Direct Bilirubin Neonat Total Bilirubin Neonat Direct Bilirubin Neonat Indirect Bili AST ALT Alkaline Phosphatase Total Protein Albumin Fluid Type PLEURAL Fluid Source LUNG Fluid Color PINK Fluid Appearance OPAQUE Fluid Viscosity SLIGHTLY VISCOUS Fluid WBC 0 Fluid RBC 05933 Fluid Total Protein 3.4 Fluid Albumin 1.9 Fluid LDH 123 04/08/18 10:00 WBC Hgb Hct Plt Count Sodium 137.0 Potassium 5.0 Chloride 96 L Carbon Dioxide 29 BUN 59 H Creatinine 6.89 H Est GFR ( Amer) 7 L Glucose 208 H Calcium 8.9 Total Bilirubin 0.6 Direct Bilirubin 0.6 H Neonat Total Bilirubin Not Reportable Neonat Direct Bilirubin Not Reportable Neonat Indirect Bili Not Reportable AST 22 ALT 23 Alkaline Phosphatase 397 H Total Protein 6.0 L Albumin 3.2 L Fluid Type Fluid Source Fluid Color Fluid Appearance Fluid Viscosity Fluid WBC Fluid RBC Fluid Total Protein Fluid Albumin Fluid LDH A chest X-ray: Shows a large right pleural effusion. No significant change. This probably is a recurrence after the patient's thoracentesis on 04/06/2001 8. IMPRESSION/RECOMMENDATION: 1. Recurrent pleural effusion on the right.? Etiology. This recurrences after the patient successful right pleural effusion thoracentesis on 06 April. 2 diabetes mellitus type 2. Continue antidiabetic medication. 3. Hypertension: Although the patient does not at present in hypertensive emergency, blood pressure not optimally controlled. 4. END-stage renal failure on dialysis: Continue dialysis. We will aggressively dialyze the patient to see if more fluid can be removed. 5. Elevated troponin I: This is secondary to supply demand mismatch. Note that the patient stress test was negative. This is not not a non-ST elevation [place]. Hence would treat the cause which is pleural effusion and the patient's end -stage renal disease by continuing her dialysis routine. The patient's LV ejection fraction is low normal. Her Cardiolite stress test was negative. She does have severe pulmonary hypertension by echocardiogram, which could be secondary to uncontrolled hypertension. I feel that the cardiac status is stable with other ongoing problems in other systems. Hence would recommend have the patient follow-up with a practice support specialist as an outpatient. Will sign off the case. Medications reviewed. Note 40 minutes spent on this patient more than 50% of time spent in direct patient care. Medical decision making is of moderate complexity. Note the patient is a full code. Her son is a surrogate healthcare decision maker. Thanking you for allowing me to participate in the care of this patient.
[2018-04-08] MEDS ORDERED: INSULIN GLARGINE,HUM.REC.ANLOG 1,000 UNIT/10 ML UNIT SUBCUT SCH ×2 (22:00)
[2018-04-08] MEDS: MIRTAZAPINE 15 MG TABLET PO SCH (23:03)
[2018-04-08] MEDS: ATORVASTATIN CALCIUM 20 MG TABLET PO SCH (23:03)
[2018-04-08] MEDS: GABAPENTIN 300 MG CAPSULE PO SCH (23:03)
[2018-04-08] MEDS: INSULIN GLARGINE,HUM.REC.ANLOG 300 UNIT/3 ML INSULN.PEN SUBCUT SCH (23:04)
[2018-04-08] MEDS: OLANZAPINE 5 MG TAB.RAPDIS PO SCH (23:07)
[2018-04-08 23:37] LABS: ALK PHOS BONE FRACTION 82 % (14-68); ALK PHOS LIVER FRACTION 15 % (18-85); ALKALINE PHOSPHATASE TOTAL 508 IU/L (39-117)
[2018-04-09] MEDS ORDERED: EPOETIN ALFA INJ 20000 UNIT/1 ML VIAL (RENAL) IV PRN (05:00)
[2018-04-09] MEDS: LANSOPRAZOLE 30 MG TAB.RAP.DR PO SCH (05:43)
[2018-04-09 06:34] LABS: ABSOLUTE EOSINOPHILS # (AUTO) 0.1 10^3/uL (0.0-0.6); ABSOLUTE MONOCYTES (AUTO) 0.5 10^3/uL (0.1-1.4); ABSOLUTE NEUT (AUTO) 3.8 10^3/uL (1.7-8.2); BASOPHILS % (AUTO) 0.4 % (0-2); EOSINOPHILS % (AUTO) 2.7 % (0-6); HEMATOCRIT 32.8 % (36.0-47.0); HEMOGLOBIN 10.6 g/dL (12.0-15.5); MEAN CORPUSCULAR HEMOGLOBIN 26.6 pg (27.0-33.4); MEAN CORPUSCULAR HGB CONC 32.2 g/dL (32.0-36.0); MEAN CORPUSCULAR VOLUME 83 fl (80-97); MONOCYTES % (AUTO) 9.2 % (3-13); PLATELET COUNT 149 10^3/uL (150-450); RED BLOOD COUNT 3.97 10^6/uL (3.72-5.28); RED CELL DISTRIBUTION WIDTH 19.9 % (11.5-14.0); SEGMENTED NEUTROPHILS % (AUTO) 69.7 % (42-78); TOTAL CELLS COUNTED % (AUTO) 100 %; WHITE BLOOD COUNT 5.4 10^3/uL (4.0-10.5)
[2018-04-09 06:51] LABS: ALANINE AMINOTRANSFERASE 20 U/L (9-52); ALBUMIN 3.1 g/dL (3.5-5.0); ALKALINE PHOSPHATASE 372 U/L (38-126); ANION GAP 14 (5-19); ASPARTATE AMINO TRANSFERASE 18 U/L (14-36); BILIRUBIN,DIRECT 0.4 mg/dL (0.0-0.4); BILIRUBIN,TOTAL 0.4 mg/dL (0.2-1.3); BLOOD UREA NITROGEN 68 mg/dL (7-20); CALCIUM 8.6 mg/dL (8.4-10.2); CARBON DIOXIDE 27 mmol/L (22-30); CHLORIDE 97 mmol/L (98-107); GLUCOSE 102 mg/dL (75-110); SODIUM 138.3 mmol/L (137-145); TOTAL PROTEIN 5.8 g/dL (6.3-8.2)
[2018-04-09] MEDS: CLONIDINE HCL 0.2 MG TABLET PO SCH ×4 (06:58→23:35)
[2018-04-09] MEDS: HYDRALAZINE HCL 50 MG TABLET PO SCH ×5 (06:58→23:42)
[2018-04-09 07:13] LABS: ALK PHOS INTESTINAL FRACTION 3 % (0-18)
[2018-04-09] MEDS: INSULIN LISPRO 100 UNIT/ML 3 ML VIAL SUBCUT SCH ×3 (08:59→18:26)
[2018-04-09] MEDS: FAMOTIDINE 20 MG TABLET PO SCH (09:06)
[2018-04-09] MEDS: AMLODIPINE BESYLATE 5 MG TABLET PO SCH ×2 (09:06→23:35)
[2018-04-09] MEDS: SEVELAMER HCL 800 MG TABLET PO SCH ×3 (09:06→18:31)
[2018-04-09] MEDS: CARVEDILOL 12.5 MG TABLET PO SCH ×2 (09:07→23:36)
[2018-04-09] MEDS: HEPARIN SOD (PORCINE) 5,000 UNIT/ML 1 ML SYRINGE SUBCUT SCH ×2 (09:07→23:35)
--- NOTE | 2018-04-09 09:14 | CONSULTATION REPORT E ---
Consultation Report NAME: HAL MERCHANT : 1960 AGE: 57Y DATE: 04/08/2018 326 A TO: JUANITA JEAN M.D. FROM: PHI NOLAN M.D. Requesting Physician The patient is a 57-year-old -Citizen Of [place] female who came in on 04/03/2018, about 5 days ago, for increased shortness of breath. The patient moved from [place], [place], down to [place]. She missed her dialysis. Consulted because of a pleural effusion. The patient had a thoracentesis done 3 days later, on 04/06/2018, showing opaque appearance of the viscous pleural effusion. White blood cell count was 0, RBC 11,300. The patient denies any fever or chills. Denies any increasing cough, purulent sputum production, or hemoptysis. She came in primarily for increased shortness of breath. After the thoracentesis, the patient felt better. The patient goes to dialysis 3 days a week, Saturday, Saturday, and Saturday. However, prior to this admission the patient missed her dialysis. PAST MEDICAL HISTORY: 1. History of congestive heart failure. 2. Hypertension. 3. Depression. 4. Anxiety. 5. History of chronic kidney disease on hemodialysis for the last 5-6 years. SOCIAL HISTORY: The patient lives with family. Never smoked. Denies any alcohol abuse or prescription drug abuse. FAMILY HISTORY: Hypertension. HOME MEDICATIONS: 1. Norvasc 10 mg p.o. daily. 2. Lipitor 20 mg p.o. daily. 3. Diazepam. 4. Dicyclomine. 5. Vitamin D. 7. Hydralazine. 8. Topiramate. 9. Mirtazapine. 10. Olanzapine. 11. Omeprazole. 12. Sevelamer carbonate. ALLERGIES: No known drug allergies. REVIEW OF SYSTEMS: CONSTITUTIONAL: No fever or chills. EYES: No conjunctival pallor or eye pain. HEAD/NECK: No neck pain. No neck injury. No headaches. Ears: No ear discharge. Nose/mouth/throat: No nasal discharge, no throat pain, no nosebleed. RESPIRATIONS: Complaint about increasing shortness of breath, but denies any paroxysmal nocturnal dyspnea or hemoptysis or chest tightness. CARDIAC: Denies any angina or heart attack. GASTROINTESTINAL: No nausea, vomiting, or diarrhea. GENITOURINARY: No dysuria. EXTREMITIES: No joint swelling. PHYSICAL EXAMINATION: GENERAL: The patient appears awake. Afebrile. Alert and oriented x3. VITAL SIGNS: Temperature 97.1, T-max of 98.6. Heart rate 60, blood pressure 121/55. Respirations 20, saturation 94% on nasal cannula. EYES: No conjunctival pallor. ENT: No ear drainage. No nasal discharge. HEAD/NECK: No scalp swelling, no neck tenderness, no neck pain. CHEST/LUNGS: No wheezing, no rhonchi, no coarse crackles. CARDIOVASCULAR: S1, S2. ABDOMEN: Flabby. Positive bowel sounds. Soft, nontender. EXTREMITIES: No joint swelling or cellulitis. LABORATORY: CBC done today showed white cells 5, hemoglobin 10.7, hematocrit 33.7, platelet count 758. Chemistry done today showed sodium 137, potassium 5, chloride 97, CO2 is 29, BUN 59, creatinine 6.89. Glucose 208. Calcium 8.1. Total bilirubin 0.6, direct bilirubin 0.6. SGOT 22, SGPT 23. Alkaline phosphatase 297. Total protein 6, albumin 3.2. Pleural fluid again was slightly viscous and opaque; single [place] [address]. Pleural fluid protein 3.4, albumin 1.9, and LDH is 123. Chemistries appeared unremarkable. Pleural fluid showed no signs of gross infection. Increased RBC count may be traumatic. ASSESSMENT: 1. PLEURAL EFFUSION RIGHT SIDE, MOST LIKELY RELATED TO CHRONIC KIDNEY DISEASE. -TRANSUDATIVE PLEURAL EFFUSION BY MODIFIED LIGHT"S CRITERIA AND NO APPARENT EVIDENCE OF PLEURAL INFECTION AT THIS TIME> THE PATIENT IS CURRENTLY ON HEMODIALYSIS. PLAN/RECOMMENDATIONS: 1. Will wait for the rest of the pleural fluid analysis, and wait for the cultures to come in. 2. Recommend to optimize hemodialysis. 3. Will follow the patient. DICTATING PHYSICIAN: JUANITA JEAN MD [facility] [id number] PHY#: [id number] ID: [id number] JOB#: [id number] ACCT: [id number] cc:JUANITA JEAN M.D. > [id number]
--- NOTE | 2018-04-09 10:33 | PDOC PROGRESS REPORT ---
Subjective Progress Note for:: 04/09/18 Subjective:: HAL MERCHANT is a 57 year old female with a past medical history of hypertension, CHF, diabetes, anxiety and end-stage renal failure on HD on MWF who was admitted for progressive SOB and generalized weakness. She was noted to be severely hypertensive with pulmonary congestion and large right sided pleural effusion. s/p right sided thoracentesis on 04/04/18 and had 850 cc drained. HD on 2017 and 04/07/2018. She had recurrence of large right sided pleural effusion. s/p repeat thoracentesis 04/06/18 and had 800 cc drained. She did get significant relief after the 2nd thoracentesis. 04/08/2018. No acute events overnight. On my encounter patient is comfortably resting in her bed and inquiring when she can go home. She did not seem to be in any acute distress. She is p.o. tolerant. She is complaining of persistent chronic gastric abdominal pain. She states that she has been worked up for gastroparesis and IBS as outpatient and both had been ruled out. She denies any nausea, vomiting, diarrhea, constipation, shortness of breath, chest pain or any urinary symptoms. 04/09/2018. No acute events overnight. Patient is resting comfortably in her bed in no apparent distress. Patient is said that she is having increasing shortness of breath on exertion. Her nausea vomiting has been controlled. He is p.o. tolerant. She denies any fever, chest pain, chills, abdominal pain, diarrhea, constipation or any urinary symptoms. Scheduled for hemodialysis today. Reason For Visit: PLEURAL EFF, HTN URGENCY, ESRD Physical Exam Vital Signs: Temp Pulse Resp BP Pulse Ox 97.6 F 60 16 137/69 H 100 04/09/18 08:02 04/09/18 08:02 04/09/18 08:02 04/09/18 08:02 04/09/18 08:02 Intake & Output 04/08/18 04/09/18 04/10/18 06:59 06:59 06:59 Intake Total 327 508 Output Total 4850 25 Balance -4523 483 Weight 73.9 kg 73.8 kg Respiratory exam: PRESENT: crackles - Left lower lobe, decreased breath sounds - Right lower lobe, symmetrical Results Laboratory Results: 04/09/18 05:45 04/09/18 05:45 04/08/18 04/08/18 04/09/18 10:00 10:00 05:45 WBC 5.0 5.4 RBC 4.05 3.97 Hgb 10.7 L 10.6 L Hct 33.7 L 32.8 L MCV 83 83 MCH 26.5 L 26.6 L MCHC 31.9 L 32.2 RDW 20.0 H 19.9 H Plt Count 158 149 L Seg Neutrophils % 68.3 69.7 Lymphocytes % 19.0 18.0 Monocytes % 9.9 9.2 Eosinophils % 2.3 2.7 Basophils % 0.5 0.4 Absolute Neutrophils 3.4 3.8 Absolute Lymphocytes 1.0 1.0 Absolute Monocytes 0.5 0.5 Absolute Eosinophils 0.1 0.1 Absolute Basophils 0.0 0.0 Sodium 137.0 Potassium 5.0 Chloride 96 L Carbon Dioxide 29 Anion Gap 12 BUN 59 H Creatinine 6.89 H Est GFR ( Amer) 7 L Est GFR (Non-Af Amer) 6 L Glucose 208 H Calcium 8.9 Total Bilirubin 0.6 AST 22 ALT 23 Alkaline Phosphatase 397 H Total Protein 6.0 L Albumin 3.2 L 04/09/18 05:45 WBC RBC Hgb Hct MCV MCH MCHC RDW Plt Count Seg Neutrophils % Lymphocytes % Monocytes % Eosinophils % Basophils % Absolute Neutrophils Absolute Lymphocytes Absolute Monocytes Absolute Eosinophils Absolute Basophils Sodium 138.3 Potassium 5.0 Chloride 97 L Carbon Dioxide 27 Anion Gap 14 BUN 68 H Creatinine 8.16 H Est GFR ( Amer) 6 L Est GFR (Non-Af Amer) 5 L Glucose 102 Calcium 8.6 Total Bilirubin 0.4 AST 18 ALT 20 Alkaline Phosphatase 372 H Total Protein 5.8 L Albumin 3.1 L 04/03/18 04/03/18 04/03/18 05:45 18:19 18:19 Creatine Kinase CK-MB (CK-2) 3.07 Troponin I 0.065 0.327 04/03/18 04/04/18 04/04/18 18:19 00:05 05:55 Creatine Kinase 60 48 CK-MB (CK-2) 2.87 Troponin I 0.277 04/04/18 04/04/18 04/04/18 05:55 12:58 12:58 Creatine Kinase 49 CK-MB (CK-2) 2.01 2.08 Troponin I 0.247 0.220 Impressions: Chest CT 04/05/18 00:00 IMPRESSION: Moderate right pleural effusion. Thoracentesis Ultrasound 04/06/18 10:02 IMPRESSION: SUCCESSFUL THORACENTESIS USING ULTRASOUND GUIDANCE. Pelvis Ultrasound 04/07/18 00:00 IMPRESSION: NO SONOGRAPHIC ABNORMALITY VISUALIZED IN THE PELVIS. Abdomen Ultrasound 04/07/18 17:42 IMPRESSION: 1. LIMITED VISUALIZATION OF THE GALLBLADDER WHICH IS CONTRACTED. THERE IS MARKED THICKENING OF THE GALLBLADDER WALL WHICH MAY BE ARTIFACT DUE TO CONTRACTION ALTHOUGH INFLAMMATORY PROCESS OR EDEMA CANNOT BE EXCLUDED. NO OTHER ABNORMAL FINDINGS IN THE VISUALIZED UPPER ABDOMEN. 2. LARGE RIGHT PLEURAL EFFUSION. Chest X-Ray 04/08/18 07:00 IMPRESSION: LARGE RIGHT PLEURAL EFFUSION. NO SIGNIFICANT CHANGE. Assessment & Plan - Diagnosis (1) Hypertensive emergency Is this a current diagnosis for this admission?: Yes Plan: Resolved. Blood pressures have improved to the 150-160/70s. Continue amlodipine , hydrazine switch Lopressor to carvedilol. (2) End stage renal failure on dialysis Is this a current diagnosis for this admission?: Yes Plan: On dialysis on MWF. Monitor volume status and electrolytes. Fluid restriction and renal diet. Negative fluid balance Nephrology following. (3) Pleural effusion on right Is this a current diagnosis for this admission?: Yes Plan: Recurrent. Pleural protein/serum protein 0.6, likely exudative could be a combination of volume overload due to CHF/ESRD or underlying malignancy. CT chest negative for any malignancy. Status post 2 thoracentesis on 04/03/2018 and 04/06/2018. Cytology on pleural fluid from thoracentesis on 03/24/2018 shows benign mesothelial cells, macrophages and blood, negative for inflammation, atypia or malignancy. Chest x-ray on 04/08/2018 positive for persistent right-sided pleural effusion. Pulmonary following. (4) CHF (congestive heart failure) Qualifiers: Heart failure type: diastolic Is this a current diagnosis for this admission?: Yes Plan: Heart failure with preserved ejection fraction based on echo done on grade 04/03. Switch Lopressor 12.5 twice daily to carvedilol 12.5 twice daily for better blood pressure control. Up titrate as tolerated. Volume restriction, strict in and out, cardiac/renal/diabetic diet. Negative fluid balance Hemodialysis on MWF. 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 Controlled. Fasting blood glucose 102. Hemoglobin A1c on admission 7.9%. Lantus 8 units nightly. Monitoring scale insulin. Diabetic/renal/cardiac diet. Follow-up with PCP. (6) Elevated alkaline phosphatase level Is this a current diagnosis for this admission?: Yes Plan: Unidentified cause. Improving. AST/ALT within normal limits. Alk phos improving Pending labs for subtyping of Alk Phos (intestinal, bone, hepatic isoenzymes). Proceed with skeletal survey pending results of isoenzymes. Abdominal ultrasound inconclusive. (7) Pneumonia Qualifiers: Laterality: right Is this a current diagnosis for this admission?: Yes Plan: Likely community-acquired pneumonia. Chest x-ray on admission with right lower lobe consolidation and pleural effusion Cultures negative. Rocephin day /. Saturating 100% on 2 L of supplemental oxygen. Respiratory rate 7-22 per minute (8) Anemia in CKD (chronic kidney disease) Qualifiers: Chronic kidney disease stage: on chronic dialysis Qualified Code(s): N18.6 - End stage renal disease; D63.1 - Anemia in chronic kidney disease; D63.1 - Anemia in chronic kidney disease; Z99.2 - Dependence on renal dialysis; Z99.2 - Dependence on renal dialysis; Z99.2 - Dependence on renal dialysis; Z99.2 - Dependence on renal dialysis Is this a current diagnosis for this admission?: Yes Plan: Normocytic. H&H stable. Procrit on hemodialysis days. Denies any external sources of bleeding. Monitor H&H. Nephrology on board. (9) Hyperkalemia Is this a current diagnosis for this admission?: Yes Plan: Due to underlying end-stage renal disease. Potassium 5.0 today. CMP tomorrow. Hemodialysis Saturday. Nephrology following. Continue renal diet. (10) Secondary hyperparathyroidism (of renal origin) Is this a current diagnosis for this admission?: Yes Plan: On sevelamer. Nephrology following. Renal diet
[2018-04-09] MEDS ORDERED: EPOETIN ALFA 5,000 UNIT in SYRINGE, DISPOSABLE, 1 EACH IV PRN (14:49)
--- NOTE | 2018-04-09 15:57 | PDOC PROGRESS REPORT ---
Subjective Progress Note for:: 04/09/18 Reason For Visit: Patient seen this morning on dialysis. She is undergoing dialysis without any issues. She still has some shortness of breath if she exerts but denies any history of orthopnea or chest pains. She has complaining of some weakness of her right hand. No complaints of any fever or chills. Labs and medications were reviewed with the patient in the treating dialysis nurse. Physical Exam Vital Signs: Temp Pulse Resp BP Pulse Ox 97.6 F 54 L 16 115/52 L 97 04/09/18 11:11 04/09/18 11:11 04/09/18 11:11 04/09/18 11:11 04/09/18 11:11 Intake & Output 04/08/18 04/09/18 04/10/18 06:59 06:59 06:59 Intake Total 327 508 222 Output Total 4850 25 Balance -4523 483 222 Weight 73.9 kg 73.8 kg General appearance: PRESENT: no acute distress Respiratory exam: PRESENT: clear to auscultation mai, crackles Cardiovascular exam: PRESENT: RRR, +S1, +S2 GI/Abdominal exam: PRESENT: soft. ABSENT: organomegaly, tenderness Extremities exam: PRESENT: pedal edema Neurological exam: PRESENT: alert, awake, oriented to person, oriented to place Psychiatric exam: PRESENT: anxious Skin exam: ABSENT: cyanosis, erythema, rash Results Laboratory Results: 04/09/18 05:45 04/09/18 05:45 04/09/18 04/09/18 05:45 05:45 WBC 5.4 RBC 3.97 Hgb 10.6 L Hct 32.8 L MCV 83 MCH 26.6 L MCHC 32.2 RDW 19.9 H Plt Count 149 L Seg Neutrophils % 69.7 Lymphocytes % 18.0 Monocytes % 9.2 Eosinophils % 2.7 Basophils % 0.4 Absolute Neutrophils 3.8 Absolute Lymphocytes 1.0 Absolute Monocytes 0.5 Absolute Eosinophils 0.1 Absolute Basophils 0.0 Sodium 138.3 Potassium 5.0 Chloride 97 L Carbon Dioxide 27 Anion Gap 14 BUN 68 H Creatinine 8.16 H Est GFR ( Amer) 6 L Est GFR (Non-Af Amer) 5 L Glucose 102 Calcium 8.6 Total Bilirubin 0.4 AST 18 ALT 20 Alkaline Phosphatase 372 H Total Protein 5.8 L Albumin 3.1 L 04/03/18 04/03/18 04/03/18 05:45 18:19 18:19 Creatine Kinase CK-MB (CK-2) 3.07 Troponin I 0.065 0.327 04/03/18 04/04/18 04/04/18 18:19 00:05 05:55 Creatine Kinase 60 48 CK-MB (CK-2) 2.87 Troponin I 0.277 04/04/18 04/04/18 04/04/18 05:55 12:58 12:58 Creatine Kinase 49 CK-MB (CK-2) 2.01 2.08 Troponin I 0.247 0.220 Impressions: Chest CT 04/05/18 00:00 IMPRESSION: Moderate right pleural effusion. Thoracentesis Ultrasound 04/06/18 10:02 IMPRESSION: SUCCESSFUL THORACENTESIS USING ULTRASOUND GUIDANCE. Pelvis Ultrasound 04/07/18 00:00 IMPRESSION: NO SONOGRAPHIC ABNORMALITY VISUALIZED IN THE PELVIS. Abdomen Ultrasound 04/07/18 17:42 IMPRESSION: 1. LIMITED VISUALIZATION OF THE GALLBLADDER WHICH IS CONTRACTED. THERE IS MARKED THICKENING OF THE GALLBLADDER WALL WHICH MAY BE ARTIFACT DUE TO CONTRACTION ALTHOUGH INFLAMMATORY PROCESS OR EDEMA CANNOT BE EXCLUDED. NO OTHER ABNORMAL FINDINGS IN THE VISUALIZED UPPER ABDOMEN. 2. LARGE RIGHT PLEURAL EFFUSION. Chest X-Ray 04/08/18 07:00 IMPRESSION: LARGE RIGHT PLEURAL EFFUSION. NO SIGNIFICANT CHANGE. Assessment & Plan - Diagnosis (1) End stage renal failure on dialysis Is this a current diagnosis for this admission?: Yes Plan: Seen on dialysis. Its being supervised to ensure a safe and smooth procedure. Vs are stable .orders reviewed with treating yarn rewinder. Plan to remove 4-5 L as tolerated. (2) Hypertension Is this a current diagnosis for this admission?: Yes Plan: Controlled.Continue current guidelines. (3) Diabetes Qualifiers: Diabetes mellitus type: type 2 Diabetes mellitus fci insulin use: unspecified fci insulin use status Diabetes mellitus complication status : with unspecified complications Qualified Code(s): E11.8 - Type 2 diabetes mellitus with unspecified complications Is this a current diagnosis for this admission?: Yes Plan: Adv tight sugar control. (4) Pleural effusion on right Is this a current diagnosis for this admission?: Yes Plan: S/P thoracentesis.Clinically it looks like she is reaccumulating and might need more thoracentesis. As per hospitalist. (5) CHF (congestive heart failure) Qualifiers: Heart failure type: diastolic Is this a current diagnosis for this admission?: Yes Plan: Diastolic with Pulmonary hypertension. (6) Hyperkalemia Is this a current diagnosis for this admission?: Yes Plan: Stable.Monitor.
[2018-04-09] MEDS: GABAPENTIN 300 MG CAPSULE PO SCH (23:34)
[2018-04-09] MEDS: MIRTAZAPINE 15 MG TABLET PO SCH (23:35)
[2018-04-09] MEDS: ATORVASTATIN CALCIUM 20 MG TABLET PO SCH (23:35)
[2018-04-09] MEDS: OLANZAPINE 5 MG TAB.RAPDIS PO SCH (23:35)
[2018-04-09] MEDS: INSULIN GLARGINE,HUM.REC.ANLOG 300 UNIT/3 ML INSULN.PEN SUBCUT SCH (23:35)
--- NOTE | 2018-04-09 23:37 | RADIOLOGY REPORT (SQ) ---
EXAM DESCRIPTION: CT HEAD WITHOUT IV CONTRAST COMPLETED DATE/TME: 04/09/2018 00:00 CLINICAL HISTORY: 57 years, Female, stroke sx COMPARISON: None. TECHNIQUE: 197 Images stored on PACS. All CT scanners at this facility use dose modulation, iterative reconstruction, and/or weight based dosing when appropriate to reduce radiation dose to as low as reasonably achievable (ALARA). [facility]: Dose Right [facility]: CareDose [facility]: Dose Right [facility]: Teradose 4D [facility]: Havkraft LIMITATIONS: None. FINDINGS: The globes are intact. The paranasal sinuses and mastoid air cells are unremarkable. No displaced or depressed skull fracture. No intra or extra-axial hemorrhage. CT is limited for evaluation of acute infarct. No CT evidence for large or territorial acute infarct. No mass or midline shift. IMPRESSION: Unremarkable unenhanced CT brain TECHNICAL DOCUMENTATION: Quality ID # 436: Final reports with documentation of one or more dose reduction techniques (e.g., Automated exposure control, adjustment of the mA and/or kV according to patient size, use of iterative reconstruction technique) 2010 [employer]- All Rights Reserved
[2018-04-10] MEDS: CLONIDINE HCL 0.2 MG TABLET PO SCH ×3 (06:21→22:35)
[2018-04-10] MEDS: HYDRALAZINE HCL 50 MG TABLET PO SCH ×3 (06:22→22:35)
[2018-04-10] MEDS: LANSOPRAZOLE 30 MG TAB.RAP.DR PO SCH (06:22)
[2018-04-10 06:46] LABS: ABSOLUTE EOSINOPHILS # (AUTO) 0.1 10^3/uL (0.0-0.6); ABSOLUTE LYMPHOCYTES (AUTO) 0.8 10^3/uL (0.5-4.7); ABSOLUTE MONOCYTES (AUTO) 0.5 10^3/uL (0.1-1.4); BASOPHILS % (AUTO) 0.6 % (0-2); EOSINOPHILS % (AUTO) 2.6 % (0-6); HEMATOCRIT 28.8 % (36.0-47.0); HEMOGLOBIN 9.3 g/dL (12.0-15.5); LYMPHOCYTES % (AUTO) 18.2 % (13-45); MEAN CORPUSCULAR HEMOGLOBIN 26.7 pg (27.0-33.4); MEAN CORPUSCULAR HGB CONC 32.1 g/dL (32.0-36.0); MEAN CORPUSCULAR VOLUME 83 fl (80-97); MONOCYTES % (AUTO) 10.9 % (3-13); PLATELET COUNT 131 10^3/uL (150-450); RED BLOOD COUNT 3.46 10^6/uL (3.72-5.28); RED CELL DISTRIBUTION WIDTH 20.1 % (11.5-14.0); SEGMENTED NEUTROPHILS % (AUTO) 67.7 % (42-78); TOTAL CELLS COUNTED % (AUTO) 100 %; WHITE BLOOD COUNT 4.4 10^3/uL (4.0-10.5)
[2018-04-10 06:56] LABS: ALANINE AMINOTRANSFERASE 18 U/L (9-52); ALBUMIN 3.1 g/dL (3.5-5.0); ALKALINE PHOSPHATASE 352 U/L (38-126); ANION GAP 11 (5-19); ASPARTATE AMINO TRANSFERASE 22 U/L (14-36); BILIRUBIN,DIRECT 0.5 mg/dL (0.0-0.4); BILIRUBIN,TOTAL 0.5 mg/dL (0.2-1.3); BLOOD UREA NITROGEN 51 mg/dL (7-20); CALCIUM 8.5 mg/dL (8.4-10.2); CARBON DIOXIDE 31 mmol/L (22-30); CHLORIDE 96 mmol/L (98-107); GLUCOSE 141 mg/dL (75-110); POTASSIUM 4.7 mmol/L (3.6-5.0); SODIUM 137.6 mmol/L (137-145)
[2018-04-10] MEDS: INSULIN LISPRO 100 UNIT/ML 3 ML VIAL SUBCUT SCH ×6 (07:56→15:55)
[2018-04-10] MEDS: SEVELAMER HCL 800 MG TABLET PO SCH ×3 (08:10→17:05)
--- NOTE | 2018-04-10 10:09 | RADIOLOGY REPORT (SQ) ---
EXAM DESCRIPTION: CHEST SINGLE VIEW COMPLETED DATE/TIME: 04/10/2018 8:56 am REASON FOR STUDY: Pleural effusion COMPARISON: 04/08/2018 EXAM PARAMETERS: NUMBER OF VIEWS: One view. TECHNIQUE: Single frontal radiographic view of the chest acquired. RADIATION DOSE: NA LIMITATIONS: None. FINDINGS: LUNGS AND PLEURA: Large right pleural effusion. MEDIASTINUM AND HILAR STRUCTURES: No masses. Contour normal. HEART AND VASCULAR STRUCTURES: Cardiomegaly. No jaycee pulmonary edema. BONES: No acute findings. HARDWARE: None in the chest. OTHER: No other significant finding. IMPRESSION: Large right pleural effusion. No significant interval change. TECHNICAL DOCUMENTATION: JOB ID: [id number] [employer]- All Rights Reserved Reading location - IP/workstation name: [email or web address]
[2018-04-10] MEDS: AMLODIPINE BESYLATE 5 MG TABLET PO SCH ×2 (10:48→22:34)
[2018-04-10] MEDS: CARVEDILOL 12.5 MG TABLET PO SCH ×2 (10:48→22:35)
[2018-04-10] MEDS: FAMOTIDINE 20 MG TABLET PO SCH (10:49)
[2018-04-10] MEDS: HEPARIN SOD (PORCINE) 5,000 UNIT/ML 1 ML SYRINGE SUBCUT SCH ×2 (10:49→22:36)
[2018-04-10] MEDS: LEVOFLOXACIN 250 MG TABLET PO SCH (10:54)
--- NOTE | 2018-04-10 15:37 | PDOC PROGRESS REPORT ---
Subjective Progress Note for:: 04/10/18 Subjective:: Patient was sitting up in her chair this afternoon. At the time she was eating lunch. She is still wearing oxygen. With the oxygen she denies SOB. The new x- ray from today shows a moderate to large pleural effusion. She denies worsening SOB, chest pain, n/v/d/c Reason For Visit: PLEURAL EFF, HTN URGENCY, ESRD Physical Exam Vital Signs: Temp Pulse Resp BP Pulse Ox 97.8 F 60 18 142/73 H 95 04/10/18 11:27 04/10/18 11:27 04/10/18 11:27 04/10/18 11:27 04/10/18 11:27 Intake & Output 04/09/18 04/10/18 04/11/18 06:59 06:59 06:59 Intake Total 508 796.25 237 Output Total 25 4200 Balance 483 -3403.75 237 Weight 73.8 kg 73 kg General appearance: PRESENT: no acute distress, well-developed, well-nourished Mouth exam: PRESENT: moist, neck supple Neck exam: PRESENT: full ROM. ABSENT: JVD Respiratory exam: PRESENT: crackles, decreased breath sounds, rales. ABSENT: clear to auscultation mai, prolonged expiratory phas Cardiovascular exam: PRESENT: RRR, +S1, +S2 GI/Abdominal exam: PRESENT: soft. ABSENT: organomegaly, tenderness Extremities exam: ABSENT: pedal edema, tenderness, +1 edema, +2 edema Musculoskeletal exam: PRESENT: normal inspection. ABSENT: tenderness Neurological exam: PRESENT: alert, awake, oriented to person, oriented to place , oriented to time, oriented to situation Skin exam: PRESENT: dry, intact, warm Results Laboratory Results: 04/10/18 06:25 04/10/18 06:25 04/10/18 04/10/18 06:25 06:25 WBC 4.4 RBC 3.46 L Hgb 9.3 L Hct 28.8 L MCV 83 MCH 26.7 L MCHC 32.1 RDW 20.1 H Plt Count 131 L Seg Neutrophils % 67.7 Lymphocytes % 18.2 Monocytes % 10.9 Eosinophils % 2.6 Basophils % 0.6 Absolute Neutrophils 3.0 Absolute Lymphocytes 0.8 Absolute Monocytes 0.5 Absolute Eosinophils 0.1 Absolute Basophils 0.0 Sodium 137.6 Potassium 4.7 Chloride 96 L Carbon Dioxide 31 H Anion Gap 11 BUN 51 H Creatinine 6.25 H Est GFR ( Amer) 8 L Est GFR (Non-Af Amer) 7 L Glucose 141 H Calcium 8.5 Total Bilirubin 0.5 AST 22 ALT 18 Alkaline Phosphatase 352 H Total Protein 6.0 L Albumin 3.1 L 04/03/18 04/03/18 04/03/18 05:45 18:19 18:19 Creatine Kinase CK-MB (CK-2) 3.07 Troponin I 0.065 0.327 04/03/18 04/04/18 04/04/18 18:19 00:05 05:55 Creatine Kinase 60 48 CK-MB (CK-2) 2.87 Troponin I 0.277 04/04/18 04/04/18 04/04/18 05:55 12:58 12:58 Creatine Kinase 49 CK-MB (CK-2) 2.01 2.08 Troponin I 0.247 0.220 Impressions: Chest CT 04/05/18 00:00 IMPRESSION: Moderate right pleural effusion. Thoracentesis Ultrasound 04/06/18 10:02 IMPRESSION: SUCCESSFUL THORACENTESIS USING ULTRASOUND GUIDANCE. Pelvis Ultrasound 04/07/18 00:00 IMPRESSION: NO SONOGRAPHIC ABNORMALITY VISUALIZED IN THE PELVIS. Abdomen Ultrasound 04/07/18 17:42 IMPRESSION: 1. LIMITED VISUALIZATION OF THE GALLBLADDER WHICH IS CONTRACTED. THERE IS MARKED THICKENING OF THE GALLBLADDER WALL WHICH MAY BE ARTIFACT DUE TO CONTRACTION ALTHOUGH INFLAMMATORY PROCESS OR EDEMA CANNOT BE EXCLUDED. NO OTHER ABNORMAL FINDINGS IN THE VISUALIZED UPPER ABDOMEN. 2. LARGE RIGHT PLEURAL EFFUSION. Head CT 04/09/18 00:00 IMPRESSION: Unremarkable unenhanced CT brain TECHNICAL DOCUMENTATION: Quality ID # 436: Final reports with documentation of one or more dose reduction techniques (e.g., Automated exposure control, adjustment of the mA and/or kV according to patient size, use of iterative reconstruction technique) 2010 [employer]- All Rights Reserved Chest X-Ray 04/10/18 06:00 IMPRESSION: Large right pleural effusion. No significant interval change. Assessment & Plan - Diagnosis (1) End stage renal failure on dialysis Is this a current diagnosis for this admission?: Yes Plan: will look to arrnage for dialysis tomorrow. 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
--- NOTE | 2018-04-10 16:10 | PDOC PROGRESS REPORT ---
Subjective Progress Note for:: 04/10/18 Subjective:: HAL MERCHANT is a 57 year old female with a past medical history of hypertension, CHF, diabetes, anxiety and end-stage renal failure on HD on MWF who was admitted for progressive SOB and generalized weakness. She was noted to be severely hypertensive with pulmonary congestion and large right sided pleural effusion. s/p right sided thoracentesis on 04/04/18 and had 850 cc drained. HD on 2017 and 04/07/2018. She had recurrence of large right sided pleural effusion. s/p repeat thoracentesis 04/06/18 and had 800 cc drained. She did get significant relief after the 2nd thoracentesis. 04/08/2018. No acute events overnight. On my encounter patient is comfortably resting in her bed and inquiring when she can go home. She did not seem to be in any acute distress. She is p.o. tolerant. She is complaining of persistent chronic gastric abdominal pain. She states that she has been worked up for gastroparesis and IBS as outpatient and both had been ruled out. She denies any nausea, vomiting, diarrhea, constipation, shortness of breath, chest pain or any urinary symptoms. 04/09/2018. No acute events overnight. Patient is resting comfortably in her bed in no apparent distress. Patient is said that she is having increasing shortness of breath on exertion. Her nausea vomiting has been controlled. He is p.o. tolerant. She denies any fever, chest pain, chills, abdominal pain, diarrhea, constipation or any urinary symptoms. Scheduled for hemodialysis today. 04/10/2018. She was complaining of visual changes overnight. A CT head was done which was negative. Upon my encounter patient did not have any visual changes anymore and had resolved. Saying that her shortness of breath and abdominal pain are improving. Denies any fever, chills, nausea, vomiting, diarrhea, constipation or any urinary symptoms. Reason For Visit: PLEURAL EFF, HTN URGENCY, ESRD Physical Exam Vital Signs: Temp Pulse Resp BP Pulse Ox 97.5 F 56 L 18 124/57 L 98 04/10/18 15:34 04/10/18 15:34 04/10/18 15:34 04/10/18 15:34 04/10/18 15:34 Intake & Output 04/09/18 04/10/1818 06:59 06:59 06:59 Intake Total 508 796.25 237 Output Total 25 4200 Balance 483 -3403.75 237 Weight 73.8 kg 73 kg General appearance: PRESENT: no acute distress, well-developed, well-nourished Respiratory exam: PRESENT: crackles - Left lower lung. Improving., decreased breath sounds - Right lower lung.. ABSENT: rales, rhonchi, wheezes Cardiovascular exam: PRESENT: RRR. ABSENT: diastolic murmur, rubs, systolic murmur GI/Abdominal exam: PRESENT: normal bowel sounds, soft, tenderness - Epigastric tenderness.. ABSENT: distended, guarding, mass, organolmegaly, rebound Neurological exam: PRESENT: alert, awake, oriented to person, oriented to place , oriented to time, oriented to situation, CN II-XII grossly intact. ABSENT: motor sensory deficit Skin exam: PRESENT: dry, intact, warm Results Laboratory Results: 04/10/18 06:25 04/10/18 06:25 04/10/18 04/10/18 06:25 06:25 WBC 4.4 RBC 3.46 L Hgb 9.3 L Hct 28.8 L MCV 83 MCH 26.7 L MCHC 32.1 RDW 20.1 H Plt Count 131 L Seg Neutrophils % 67.7 Lymphocytes % 18.2 Monocytes % 10.9 Eosinophils % 2.6 Basophils % 0.6 Absolute Neutrophils 3.0 Absolute Lymphocytes 0.8 Absolute Monocytes 0.5 Absolute Eosinophils 0.1 Absolute Basophils 0.0 Sodium 137.6 Potassium 4.7 Chloride 96 L Carbon Dioxide 31 H Anion Gap 11 BUN 51 H Creatinine 6.25 H Est GFR ( Amer) 8 L Est GFR (Non-Af Amer) 7 L Glucose 141 H Calcium 8.5 Total Bilirubin 0.5 AST 22 ALT 18 Alkaline Phosphatase 352 H Total Protein 6.0 L Albumin 3.1 L 04/03/18 04/03/18 04/03/18 05:45 18:19 18:19 Creatine Kinase CK-MB (CK-2) 3.07 Troponin I 0.065 0.327 04/03/18 04/04/18 04/04/18 18:19 00:05 05:55 Creatine Kinase 60 48 CK-MB (CK-2) 2.87 Troponin I 0.277 04/04/18 04/04/18 04/04/18 05:55 12:58 12:58 Creatine Kinase 49 CK-MB (CK-2) 2.01 2.08 Troponin I 0.247 0.220 Impressions: Chest CT 04/05/18 00:00 IMPRESSION: Moderate right pleural effusion. Thoracentesis Ultrasound 04/06/18 10:02 IMPRESSION: SUCCESSFUL THORACENTESIS USING ULTRASOUND GUIDANCE. Pelvis Ultrasound 04/07/18 00:00 IMPRESSION: NO SONOGRAPHIC ABNORMALITY VISUALIZED IN THE PELVIS. Abdomen Ultrasound 04/07/18 17:42 IMPRESSION: 1. LIMITED VISUALIZATION OF THE GALLBLADDER WHICH IS CONTRACTED. THERE IS MARKED THICKENING OF THE GALLBLADDER WALL WHICH MAY BE ARTIFACT DUE TO CONTRACTION ALTHOUGH INFLAMMATORY PROCESS OR EDEMA CANNOT BE EXCLUDED. NO OTHER ABNORMAL FINDINGS IN THE VISUALIZED UPPER ABDOMEN. 2. LARGE RIGHT PLEURAL EFFUSION. Head CT 04/09/18 00:00 IMPRESSION: Unremarkable unenhanced CT brain TECHNICAL DOCUMENTATION: Quality ID # 436: Final reports with documentation of one or more dose reduction techniques (e.g., Automated exposure control, adjustment of the mA and/or kV according to patient size, use of iterative reconstruction technique) 2010 [employer]- All Rights Reserved Chest X-Ray 04/10/18 06:00 IMPRESSION: Large right pleural effusion. No significant interval change. Assessment & Plan - Diagnosis (1) Hypertensive emergency Is this a current diagnosis for this admission?: Yes Plan: Resolved. Blood pressures have improved to the 150-160/70s. Continue amlodipine , hydrazine switch Lopressor to carvedilol. (2) End stage renal failure on dialysis Is this a current diagnosis for this admission?: Yes Plan: On dialysis on MWF. Monitor volume status and electrolytes. Fluid restriction and renal diet. Negative fluid balance Nephrology following. (3) Pleural effusion on right Is this a current diagnosis for this admission?: Yes Plan: Not improving. Recurrent. Pleural protein/serum protein 0.6, likely exudative could be a combination of volume overload due to CHF/ESRD or underlying malignancy. CT chest negative for any malignancy. Status post 2 thoracentesis on 04/03/2018 and 04/06/2018. Cytology on pleural fluid from thoracentesis on 03/24/2018 shows benign mesothelial cells, macrophages and blood, negative for inflammation, atypia or malignancy. Chest x-ray on 04/08/2018 positive for persistent right-sided pleural effusion. Pulmonary following. (4) CHF (congestive heart failure) Qualifiers: Heart failure type: diastolic Is this a current diagnosis for this admission?: Yes Plan: Heart failure with preserved ejection fraction based on echo done on grade 04/03. Switch Lopressor 12.5 twice daily to carvedilol 12.5 twice daily for better blood pressure control. Up titrate as tolerated. Start Lasix low-dose guided by her vitals. Volume restriction, strict in and out, cardiac/renal/diabetic diet. Negative fluid balance Hemodialysis on MWF. (5) Diabetes Qualifiers: Diabetes mellitus type: type 2 Diabetes mellitus residential insulin use: unspecified residential insulin use status Diabetes mellitus complication status : with unspecified complications Qualified Code(s): E11.8 - Type 2 diabetes mellitus with unspecified complications Is this a current diagnosis for this admission?: Yes Plan: DM type II. Controlled. Fasting blood glucose 102. Hemoglobin A1c on admission 7.9%. Lantus 8 units nightly. Monitoring scale insulin. Diabetic/renal/cardiac diet. Follow-up with PCP. (6) Elevated alkaline phosphatase level Is this a current diagnosis for this admission?: Yes Plan: Unidentified cause. Improving. AST/ALT within normal limits. Alk phos improving Pending labs for subtyping of Alk Phos (intestinal, bone, hepatic isoenzymes). Proceed with skeletal survey pending results of isoenzymes. Abdominal ultrasound inconclusive. (7) Pneumonia Qualifiers: Laterality: right Is this a current diagnosis for this admission?: Yes Plan: Likely community-acquired pneumonia. Chest x-ray on admission with right lower lobe consolidation and pleural effusion Cultures negative. Rocephin day 12/14. Saturating 100% on 2 L of supplemental oxygen. Respiratory rate 7-22 per minute (8) Anemia in CKD (chronic kidney disease) Qualifiers: Chronic kidney disease stage: on chronic dialysis Qualified Code(s): N18.6 - End stage renal disease; D63.1 - Anemia in chronic kidney disease; D63.1 - Anemia in chronic kidney disease; Z99.2 - Dependence on renal dialysis; Z99.2 - Dependence on renal dialysis; Z99.2 - Dependence on renal dialysis; Z99.2 - Dependence on renal dialysis Is this a current diagnosis for this admission?: Yes Plan: Normocytic. H&H stable. Procrit on hemodialysis days. Denies any external sources of bleeding. Monitor H&H. Nephrology on board. (9) Hyperkalemia Is this a current diagnosis for this admission?: Yes Plan: Due to underlying end-stage renal disease. Potassium 4.7 today. CMP tomorrow. Hemodialysis Saturday. Nephrology following. Continue renal diet. (10) Secondary hyperparathyroidism (of renal origin) Is this a current diagnosis for this admission?: Yes Plan: On sevelamer. Nephrology following. Renal diet
[2018-04-10] MEDS: FUROSEMIDE 20 MG TABLET PO SCH (17:05)
[2018-04-10] MEDS: GABAPENTIN 300 MG CAPSULE PO SCH (22:35)
[2018-04-10] MEDS: MIRTAZAPINE 15 MG TABLET PO SCH (22:35)
[2018-04-10] MEDS: ATORVASTATIN CALCIUM 20 MG TABLET PO SCH (22:35)
[2018-04-10] MEDS: INSULIN GLARGINE,HUM.REC.ANLOG 300 UNIT/3 ML INSULN.PEN SUBCUT SCH (22:36)
[2018-04-10] MEDS: OLANZAPINE 5 MG TAB.RAPDIS PO SCH (22:39)
[2018-04-11] MEDS: ACETAMINOPHEN 325 MG TABLET PO PRN (03:51)
[2018-04-11] MEDS ORDERED: EPOETIN ALFA INJ 20000 UNIT/1 ML VIAL (RENAL) IV PRN (05:00)
[2018-04-11] MEDS: LANSOPRAZOLE 30 MG TAB.RAP.DR PO SCH (05:34)
[2018-04-11] MEDS: HYDRALAZINE HCL 50 MG TABLET PO SCH ×3 (05:34→22:01)
[2018-04-11] MEDS: CLONIDINE HCL 0.2 MG TABLET PO SCH ×3 (05:34→22:00)
[2018-04-11 05:59] LABS: ABSOLUTE EOSINOPHILS # (AUTO) 0.1 10^3/uL (0.0-0.6); ABSOLUTE LYMPHOCYTES (AUTO) 0.8 10^3/uL (0.5-4.7); ABSOLUTE MONOCYTES (AUTO) 0.5 10^3/uL (0.1-1.4); ABSOLUTE NEUT (AUTO) 3.2 10^3/uL (1.7-8.2); BASOPHILS % (AUTO) 0.6 % (0-2); EOSINOPHILS % (AUTO) 3.1 % (0-6); HEMATOCRIT 32.3 % (36.0-47.0); HEMOGLOBIN 10.4 g/dL (12.0-15.5); LYMPHOCYTES % (AUTO) 17.8 % (13-45); MEAN CORPUSCULAR HEMOGLOBIN 26.9 pg (27.0-33.4); MEAN CORPUSCULAR HGB CONC 32.3 g/dL (32.0-36.0); MEAN CORPUSCULAR VOLUME 83 fl (80-97); MONOCYTES % (AUTO) 10.3 % (3-13); PLATELET COUNT 149 10^3/uL (150-450); RED BLOOD COUNT 3.88 10^6/uL (3.72-5.28); RED CELL DISTRIBUTION WIDTH 19.8 % (11.5-14.0); SEGMENTED NEUTROPHILS % (AUTO) 68.2 % (42-78); TOTAL CELLS COUNTED % (AUTO) 100 %; WHITE BLOOD COUNT 4.8 10^3/uL (4.0-10.5)
[2018-04-11 06:19] LABS: ALANINE AMINOTRANSFERASE 19 U/L (9-52); ALBUMIN 3.1 g/dL (3.5-5.0); ALKALINE PHOSPHATASE 357 U/L (38-126); ANION GAP 14 (5-19); ASPARTATE AMINO TRANSFERASE 19 U/L (14-36); BILIRUBIN,DIRECT 0.4 mg/dL (0.0-0.4); BILIRUBIN,TOTAL 0.4 mg/dL (0.2-1.3); BLOOD UREA NITROGEN 66 mg/dL (7-20); CALCIUM 8.5 mg/dL (8.4-10.2); CARBON DIOXIDE 28 mmol/L (22-30); CHLORIDE 97 mmol/L (98-107); GLUCOSE 164 mg/dL (75-110); POTASSIUM 4.7 mmol/L (3.6-5.0); SODIUM 139.2 mmol/L (137-145); TOTAL PROTEIN 5.7 g/dL (6.3-8.2)
[2018-04-11] MEDS: OXYCODONE-ACETAMINOPHEN 5-325 MG TABLET PO PRN (06:40)
[2018-04-11] MEDS: INSULIN LISPRO 100 UNIT/ML 3 ML VIAL SUBCUT SCH ×6 (07:06→17:54)
[2018-04-11] MEDS ORDERED: BISACODYL 5 MG TABEC PO PRN (08:12)
[2018-04-11] MEDS: SEVELAMER HCL 800 MG TABLET PO SCH ×3 (08:16→17:54)
--- NOTE | 2018-04-11 10:17 | PDOC PROGRESS REPORT ---
Subjective Progress Note for:: 04/11/18 Subjective:: HAL MERCHANT is a 57 year old female with a past medical history of hypertension, CHF, diabetes, anxiety and end-stage renal failure on HD on MWF who was admitted for progressive SOB and generalized weakness. She was noted to be severely hypertensive with pulmonary congestion and large right sided pleural effusion. s/p right sided thoracentesis on 04/04/18 and had 850 cc drained. HD on 2017 and 04/07/2018. She had recurrence of large right sided pleural effusion. s/p repeat thoracentesis 04/06/18 and had 800 cc drained. She did get significant relief after the 2nd thoracentesis. 04/08/2018. No acute events overnight. On my encounter patient is comfortably resting in her bed and inquiring when she can go home. She did not seem to be in any acute distress. She is p.o. tolerant. She is complaining of persistent chronic gastric abdominal pain. She states that she has been worked up for gastroparesis and IBS as outpatient and both had been ruled out. She denies any nausea, vomiting, diarrhea, constipation, shortness of breath, chest pain or any urinary symptoms. 04/09/2018. No acute events overnight. Patient is resting comfortably in her bed in no apparent distress. Patient is said that she is having increasing shortness of breath on exertion. Her nausea vomiting has been controlled. He is p.o. tolerant. She denies any fever, chest pain, chills, abdominal pain, diarrhea, constipation or any urinary symptoms. Scheduled for hemodialysis today. 04/10/2018. She was complaining of visual changes overnight. A CT head was done which was negative. Upon my encounter patient did not have any visual changes anymore and had resolved. Saying that her shortness of breath and abdominal pain are improving. Denies any fever, chills, nausea, vomiting, diarrhea, constipation or any urinary symptoms. 04/11/2018. No acute events overnight. On my encounter patient seems to be a little stressed. She stating that she is having left lower quadrant abdominal pain and she is also complaining of constipation. Last bowel movement 2 days ago. She is able to pass gas. Shortness of breath states the same still using supplemental oxygen. Denies any fever, chills, nausea, vomiting, diarrhea, constipation or any urinary symptoms. She still making some urine. last urination was yesterday. Reason For Visit: PLEURAL EFF, HTN URGENCY, ESRD Physical Exam Vital Signs: Temp Pulse Resp BP Pulse Ox 98.1 F 62 19 129/57 H 97 04/11/18 07:31 04/11/18 07:31 04/11/18 07:31 04/11/18 07:31 04/11/18 08:32 Intake & Output 04/10/18 04/11/18 04/12/18 06:59 06:59 06:59 Intake Total 796.25 587 Output Total 4200 Balance -3403.75 587 Weight 73 kg 73.9 kg General appearance: PRESENT: mild distress Respiratory exam: PRESENT: decreased breath sounds - Right lower lobe. ABSENT: rales, rhonchi, wheezes - Left lower lobe. GI/Abdominal exam: PRESENT: normal bowel sounds, soft, tenderness - Left lower quadrant. Extremities exam: PRESENT: full ROM. ABSENT: calf tenderness, clubbing, pedal edema Results Laboratory Results: 04/11/18 05:35 04/11/18 05:35 04/11/18 04/11/18 05:35 05:35 WBC 4.8 RBC 3.88 Hgb 10.4 L Hct 32.3 L MCV 83 MCH 26.9 L MCHC 32.3 RDW 19.8 H Plt Count 149 L Seg Neutrophils % 68.2 Lymphocytes % 17.8 Monocytes % 10.3 Eosinophils % 3.1 Basophils % 0.6 Absolute Neutrophils 3.2 Absolute Lymphocytes 0.8 Absolute Monocytes 0.5 Absolute Eosinophils 0.1 Absolute Basophils 0.0 Sodium 139.2 Potassium 4.7 Chloride 97 L Carbon Dioxide 28 Anion Gap 14 BUN 66 H Creatinine 7.20 H Est GFR ( Amer) 7 L Est GFR (Non-Af Amer) 6 L Glucose 164 H Calcium 8.5 Magnesium 2.2 Total Bilirubin 0.4 AST 19 ALT 19 Alkaline Phosphatase 357 H Total Protein 5.7 L Albumin 3.1 L 04/03/18 04/03/18 04/03/18 05:45 18:19 18:19 Creatine Kinase CK-MB (CK-2) 3.07 Troponin I 0.065 0.327 04/03/18 04/04/18 04/04/18 18:19 00:05 05:55 Creatine Kinase 60 48 CK-MB (CK-2) 2.87 Troponin I 0.277 04/04/18 04/04/18 04/04/18 05:55 12:58 12:58 Creatine Kinase 49 CK-MB (CK-2) 2.01 2.08 Troponin I 0.247 0.220 Impressions: Chest CT 04/05/18 00:00 IMPRESSION: Moderate right pleural effusion. Thoracentesis Ultrasound 04/06/18 10:02 IMPRESSION: SUCCESSFUL THORACENTESIS USING ULTRASOUND GUIDANCE. Pelvis Ultrasound 04/07/18 00:00 IMPRESSION: NO SONOGRAPHIC ABNORMALITY VISUALIZED IN THE PELVIS. Abdomen Ultrasound 04/07/18 17:42 IMPRESSION: 1. LIMITED VISUALIZATION OF THE GALLBLADDER WHICH IS CONTRACTED. THERE IS MARKED THICKENING OF THE GALLBLADDER WALL WHICH MAY BE ARTIFACT DUE TO CONTRACTION ALTHOUGH INFLAMMATORY PROCESS OR EDEMA CANNOT BE EXCLUDED. NO OTHER ABNORMAL FINDINGS IN THE VISUALIZED UPPER ABDOMEN. 2. LARGE RIGHT PLEURAL EFFUSION. Head CT 04/09/18 00:00 IMPRESSION: Unremarkable unenhanced CT brain TECHNICAL DOCUMENTATION: Quality ID # 436: Final reports with documentation of one or more dose reduction techniques (e.g., Automated exposure control, adjustment of the mA and/or kV according to patient size, use of iterative reconstruction technique) 2010 [employer]- All Rights Reserved Assessment & Plan - Diagnosis (1) Pleural effusion on right Is this a current diagnosis for this admission?: Yes Plan: Not improving. Recurrent. Pleural protein/serum protein 0.6, likely exudative could be a combination of volume overload due to CHF/ESRD or underlying malignancy. CT chest negative for any malignancy. Status post 2 thoracentesis on 04/03/2018 and 04/06/2018. Cytology on pleural fluid from thoracentesis on 03/24/2018 shows benign mesothelial cells, macrophages and blood, negative for inflammation, atypia or malignancy. Chest x-ray on 04/11/2018 positive for persistent right-sided pleural effusion. Dr. Claire from pulmonary consulted. Considering Bardex catheter placement (2) End stage renal failure on dialysis Is this a current diagnosis for this admission?: Yes Plan: On dialysis on MWF. Started on low-dose Lasix. Titrate up as tolerated guided by vitals. Monitor volume status and electrolytes. Fluid restriction and renal diet. Negative fluid balance Nephrology following. (3) CHF (congestive heart failure) Qualifiers: Heart failure type: diastolic Is this a current diagnosis for this admission?: Yes Plan: Heart failure with preserved ejection fraction based on echo done on grade 04/03. Switch Lopressor 12.5 twice daily to carvedilol 12.5 twice daily for better blood pressure control. Up titrate as tolerated. Start Lasix low-dose guided by her vitals. Volume restriction, strict in and out, cardiac/renal/diabetic diet. Negative fluid balance Hemodialysis on MWF. (4) Diabetes Qualifiers: Diabetes mellitus type: type 2 Diabetes mellitus alf insulin use: unspecified alf insulin use status Diabetes mellitus complication status : with unspecified complications Qualified Code(s): E11.8 - Type 2 diabetes mellitus with unspecified complications Is this a current diagnosis for this admission?: Yes Plan: DM type II. Controlled. Fasting blood glucose 164. Hemoglobin A1c on admission 7.9%. Increase Lantus to 9 units nightly. Continue sliding scale insulin. Diabetic/renal/cardiac diet. Follow-up with PCP. (5) Elevated alkaline phosphatase level Is this a current diagnosis for this admission?: Yes Plan: Unidentified cause. Improving. AST/ALT within normal limits. Alk phos improving Pending labs for subtyping of Alk Phos (intestinal, bone, hepatic isoenzymes). Proceed with skeletal survey pending results of isoenzymes. Abdominal ultrasound inconclusive. (6) Pneumonia Qualifiers: Laterality: right Is this a current diagnosis for this admission?: Yes Plan: Likely community-acquired pneumonia. Chest x-ray on admission with right lower lobe consolidation and pleural effusion Cultures negative. Rocephin day /. DC antibiotics. Saturating 100% on 2 L of supplemental oxygen. Respiratory rate 7-22 per minute (7) Anemia in CKD (chronic kidney disease) Qualifiers: Chronic kidney disease stage: on chronic dialysis Qualified Code(s): N18.6 - End stage renal disease; D63.1 - Anemia in chronic kidney disease; D63.1 - Anemia in chronic kidney disease; Z99.2 - Dependence on renal dialysis; Z99.2 - Dependence on renal dialysis; Z99.2 - Dependence on renal dialysis; Z99.2 - Dependence on renal dialysis Is this a current diagnosis for this admission?: Yes Plan: Normocytic. H&H stable. Procrit on hemodialysis days. Denies any external sources of bleeding. Monitor H&H. Nephrology on board. (8) Hyperkalemia Is this a current diagnosis for this admission?: Yes Plan: Due to underlying end-stage renal disease. Potassium 4.7 today. CMP tomorrow. Hemodialysis Saturday. Nephrology following. Continue renal diet. (9) Secondary hyperparathyroidism (of renal origin) Is this a current diagnosis for this admission?: Yes Plan: On sevelamer. Nephrology following. Renal diet (10) Chronic abdominal pain Is this a current diagnosis for this admission?: Yes Plan: As per patient she has had chronic abdominal pain which has been extensively evaluated but no answer has been found. Continue supportive measures. We will get a CT abdomen to rule out any acute abnormalities. (11) Hypertension Is this a current diagnosis for this admission?: Yes Plan: Controlled. She had initially presented with hypertensive urgency. Continue current meds. Uptitrate Lasix and decrease hydralazine as tolerated.
--- NOTE | 2018-04-11 10:48 | RADIOLOGY REPORT (SQ) ---
EXAM DESCRIPTION: CHEST SINGLE VIEW COMPLETED DATE/TIME: 04/11/2018 10:02 am REASON FOR STUDY: pleural effusion COMPARISON: 04/10/2018 EXAM PARAMETERS: NUMBER OF VIEWS: One view. TECHNIQUE: Single frontal radiographic view of the chest acquired. RADIATION DOSE: NA LIMITATIONS: None. FINDINGS: LUNGS AND PLEURA: Persistent large right pleural effusion with some decrease since the pr ior examination. Persistent airspace disease in the mid-lower lungs bilaterally. No pneumothorax. MEDIASTINUM AND HILAR STRUCTURES: No masses. Contour normal. HEART AND VASCULAR STRUCTURES: Cardiomegaly, unchanged finding. Normal vasculature. BONES: No acute findings. HARDWARE: None in the chest. OTHER: No other significant finding. IMPRESSION: 1. Since the prior examination dated 04/10/2018, some decrease in the persistent large r ight pleural effusion. No change in the airspace disease in the mid-lower lungs. TECHNICAL DOCUMENTATION: JOB ID: [id number] [employer]- All Rights Reserved Reading location - IP/workstation name: [email or web address]
--- NOTE | 2018-04-11 11:31 | RADIOLOGY REPORT (SQ) ---
EXAM DESCRIPTION: CT ABD/PELVIS NO ORAL OR IV COMPLETED DATE/TIME: 04/11/2018 11:06 am REASON FOR STUDY: Worsening chronic abdominal pain COMPARISON: CT chest examination dated 04/05/2018 TECHNIQUE: CT scan of the abdomen and pelvis performed without intravenous or oral contrast. Images reviewed with lung, soft tissue, and bone windows. Reconstructed coronal and sagittal MPR images revi ewed. All images stored on PACS. All CT scanners at this facility use dose modulation, iterative reconstruction, and/or weight based d osing when appropriate to reduce radiation dose to as low as reasonably achievable (ALARA). [facility]: Dose Right [facility]: CareDose [facility]: Dose Right [facility]: Teradose 4D [facility]: [employer] RADIATION DOSE: CT Rad equipment meets quality standard of care and radiation dose reduction techniq ues were employed. CTDIvol: 7.9 mGy. DLP: 440 mGy-cm. LIMITATIONS: None. FINDINGS: LOWER CHEST: Large right pleural effusion and compressive atelectatic changes in the mid and lower right lower lobes with associated air bronchograms. Mild atelectasis in the left lingula a nd left lower lobe. Mild to moderate pericardial effusion. These findings were identified on the pr ior CT chest study dated 04/05/2018. NON-CONTRASTED LIVER, SPLEEN, ADRENALS: Evaluation limited by lack of IV contrast. No identified sign ificant masses. PANCREAS: No masses. No peripancreatic inflammatory changes. GALLBLADDER: Very tiny gallstones are suggested. No inflammatory changes to suggest cholecystitis. RIGHT KIDNEY AND URETER: No suspicious masses. Assessment limited by lack of IV contrast. No signif icant calcifications. No hydronephrosis or hydroureter. LEFT KIDNEY AND URETER: No suspicious masses. Assessment limited by lack of IV contrast. No signifi cant calcifications. No hydronephrosis or hydroureter. AORTA AND RETROPERITONEUM: Mild atherosclerotic changes involving the abdominal aorta and pelvic vas culature. No aneurysm. No retroperitoneal masses or adenopathy. BOWEL AND PERITONEAL CAVITY: Constipation. No obvious masses or inflammatory changes. No free fluid . APPENDIX: Normal. PELVIS, BLADDER, AND ABDOMINAL WALL: Percutaneous catheter right hemipelvis. Prior hysterectomy. N o free fluid. Bladder normal. BONES: Diffuse sclerotic appearance to the osseous structures may be related to renal osteodystrophy in view the patient's given history. Schmorl's nodes along the superior endplates of L2, L3 and T10 vertebrae. OTHER: Small amount of perihepatic free fluid. Subcutaneous edematous changes in the abdomen and pel vis. IMPRESSION: 1. Small amount of free fluid in the right upper quadrant of the abdomen. 2. Very tiny gallstones are suggested. 3. Constipation. 4. No acute process in the abdomen or pelvis. 5. Additional findings as above. COMMENT: Quality ID # 436: Final reports with documentation of one or more dose reduction techniques (e.g., Automated exposure control, adjustment of the mA and/or kV according to patient size, use of iterative reconstruction technique) TECHNICAL DOCUMENTATION: JOB ID: [id number] [employer]- All Rights Reserved Reading location - IP/workstation name: [email or web address]
[2018-04-11] MEDS: FAMOTIDINE 20 MG TABLET PO SCH (11:48)
[2018-04-11] MEDS: DOCUSATE SODIUM 100 MG CAPSULE PO PRN (11:48)
[2018-04-11] MEDS: LEVOFLOXACIN 250 MG TABLET PO SCH (11:48)
[2018-04-11] MEDS: AMLODIPINE BESYLATE 5 MG TABLET PO SCH ×2 (11:48→22:00)
[2018-04-11] MEDS: CARVEDILOL 12.5 MG TABLET PO SCH ×2 (11:49→22:00)
[2018-04-11] MEDS: FUROSEMIDE 20 MG TABLET PO SCH ×2 (11:49→17:54)
[2018-04-11] MEDS: HEPARIN SOD (PORCINE) 5,000 UNIT/ML 1 ML SYRINGE SUBCUT SCH ×2 (11:51→22:01)
[2018-04-11] MEDS ORDERED: POLYETHYLENE GLYCOL 3350 POWDER 17 GM/1 PACKET PO ONE (14:13)
[2018-04-11] MEDS ORDERED: BISACODYL 5 MG TABEC PO SCH (14:15)
--- NOTE | 2018-04-11 14:35 | PDOC PROGRESS REPORT ---
Subjective Progress Note for:: 04/11/18 Subjective:: I am seeing the patient during dialysis treatment this afternoon. She still complains of shortness of breathing which is unchanged compared to the last few days. She has some dry cough. She has a new onset of left lower quadrant abdominal pain for which she has had abdominal CT scan showing constipation. She said her last bowel movement was last Saturday about 2 days ago. She denies any nausea or vomiting. She has some blurring of vision. She is eating okay. So far she is tolerating dialysis well without any problems or complications. Reason For Visit: PLEURAL EFF, HTN URGENCY, ESRD Physical Exam Vital Signs: Temp Pulse Resp BP Pulse Ox 97.7 F 61 18 140/67 H 94 04/11/18 11:28 04/11/18 11:28 04/11/18 11:28 04/11/18 11:28 04/11/18 11:28 Intake & Output 04/10/18 04/11/18 04/12/18 06:59 06:59 06:59 Intake Total 796.25 587 318 Output Total 4200 Balance -3403.75 587 318 Weight 73 kg 73.9 kg Vitals during dialysis: Blood pressure 122/64, blood flow rate of 450 mL/min and dialysate flow rate of 800 and more per minute. Exam: General appearance: PRESENT: no acute distress, cooperative, well-developed, well-nourished Head exam: PRESENT: atraumatic, normocephalic Eye exam: PRESENT: conjunctiva slightly pale, PERRLA. ABSENT: scleral icterus Neck exam: ABSENT: JVD Respiratory exam: PRESENT: Diminished breath sounds on right mid to lower lung menjivar compared to the left side. ABSENT: crackles, rales, rhonchi, unlabored, wheezes Cardiovascular exam: PRESENT: Regular rate rhythm -+S1, +S2. ABSENT: diastolic murmur, systolic murmur GI/Abdominal exam: PRESENT: normal bowel sounds, soft. Mild left lower quadrant tenderness ABSENT: guarding, mass Extremities exam: ABSENT: No edema Neurological exam: PRESENT: alert, awake, oriented to person, place and time. Skin exam: PRESENT: dry, warm, Cardiovascular exam: PRESENT: RRR, +S1, +S2 GI/Abdominal exam: PRESENT: soft. ABSENT: organomegaly, tenderness Results Laboratory Results: 04/11/18 05:35 04/11/18 05:35 04/11/18 04/11/18 05:35 05:35 WBC 4.8 RBC 3.88 Hgb 10.4 L Hct 32.3 L MCV 83 MCH 26.9 L MCHC 32.3 RDW 19.8 H Plt Count 149 L Seg Neutrophils % 68.2 Lymphocytes % 17.8 Monocytes % 10.3 Eosinophils % 3.1 Basophils % 0.6 Absolute Neutrophils 3.2 Absolute Lymphocytes 0.8 Absolute Monocytes 0.5 Absolute Eosinophils 0.1 Absolute Basophils 0.0 Sodium 139.2 Potassium 4.7 Chloride 97 L Carbon Dioxide 28 Anion Gap 14 BUN 66 H Creatinine 7.20 H Est GFR ( Amer) 7 L Est GFR (Non-Af Amer) 6 L Glucose 164 H Calcium 8.5 Magnesium 2.2 Total Bilirubin 0.4 AST 19 ALT 19 Alkaline Phosphatase 357 H Total Protein 5.7 L Albumin 3.1 L 04/03/18 04/03/18 04/03/18 05:45 18:19 18:19 Creatine Kinase CK-MB (CK-2) 3.07 Troponin I 0.065 0.327 04/03/18 04/04/18 04/04/18 18:19 00:05 05:55 Creatine Kinase 60 48 CK-MB (CK-2) 2.87 Troponin I 0.277 04/04/18 04/04/18 04/04/18 05:55 12:58 12:58 Creatine Kinase 49 CK-MB (CK-2) 2.01 2.08 Troponin I 0.247 0.220 Impressions: Chest CT 04/05/18 00:00 IMPRESSION: Moderate right pleural effusion. Thoracentesis Ultrasound 04/06/18 10:02 IMPRESSION: SUCCESSFUL THORACENTESIS USING ULTRASOUND GUIDANCE. Pelvis Ultrasound 04/07/18 00:00 IMPRESSION: NO SONOGRAPHIC ABNORMALITY VISUALIZED IN THE PELVIS. Abdomen Ultrasound 04/07/18 17:42 IMPRESSION: 1. LIMITED VISUALIZATION OF THE GALLBLADDER WHICH IS CONTRACTED. THERE IS MARKED THICKENING OF THE GALLBLADDER WALL WHICH MAY BE ARTIFACT DUE TO CONTRACTION ALTHOUGH INFLAMMATORY PROCESS OR EDEMA CANNOT BE EXCLUDED. NO OTHER ABNORMAL FINDINGS IN THE VISUALIZED UPPER ABDOMEN. 2. LARGE RIGHT PLEURAL EFFUSION. Head CT 04/09/18 00:00 IMPRESSION: Unremarkable unenhanced CT brain TECHNICAL DOCUMENTATION: Quality ID # 436: Final reports with documentation of one or more dose reduction techniques (e.g., Automated exposure control, adjustment of the mA and/or kV according to patient size, use of iterative reconstruction technique) 2010 [employer]- All Rights Reserved Abdomen/Pelvis CT 04/11/18 00:00 IMPRESSION: 1. Small amount of free fluid in the right upper quadrant of the abdomen. 2. Very tiny gallstones are suggested. 3. Constipation. 4. No acute process in the abdomen or pelvis. 5. Additional findings as above. Chest X-Ray 04/11/18 00:00 IMPRESSION: 1. Since the prior examination dated 04/10/2018, some decrease in the persistent large right pleural effusion. No change in the airspace disease in the mid-lower lungs. Assessment & Plan - Diagnosis (1) End stage renal failure on dialysis Is this a current diagnosis for this admission?: Yes Plan: We will do dialysis today for 3 hours, using the patient's AV fistula, with 2 potassium bath, blood flow rate of 450 mL per minute, dialysate flow rate of 800 mL per minute, ultrafiltration 4-5 L as tolerated, no heparin and no Procrit. We will try to do as much as ultrafiltration as we can to help the large pleural effusion although this is not really an effective way to treat it. We will continue to monitor the patient during dialysis treatment with our dialysis nurse monitoring patient. We will continue to support dialysis as long as the patient is here in the hospital. (2) Pleural effusion on right Is this a current diagnosis for this admission?: Yes Plan: Recurrent. Status post 2 thoracentesis already during this admission. Pulmonary has been consulted due to the recurrence for further treatment options. (3) CHF (congestive heart failure) Qualifiers: Heart failure type: diastolic Is this a current diagnosis for this admission?: Yes (4) Anemia in CKD (chronic kidney disease) Qualifiers: Chronic kidney disease stage: on chronic dialysis Qualified Code(s): N18.6 - End stage renal disease; D63.1 - Anemia in chronic kidney disease; D63.1 - Anemia in chronic kidney disease; Z99.2 - Dependence on renal dialysis; Z99.2 - Dependence on renal dialysis; Z99.2 - Dependence on renal dialysis; Z99.2 - Dependence on renal dialysis Is this a current diagnosis for this admission?: Yes Plan: No Procrit indicated today but we will give it as needed on dialysis. (5) Hypertension Is this a current diagnosis for this admission?: Yes Plan: Controlled. - Time Time with patient: 15-25 minutes
[2018-04-11] MEDS: INSULIN GLARGINE,HUM.REC.ANLOG 300 UNIT/3 ML INSULN.PEN SUBCUT SCH (21:59)
[2018-04-11] MEDS: OLANZAPINE 5 MG TAB.RAPDIS PO SCH (22:00)
[2018-04-11] MEDS: MIRTAZAPINE 15 MG TABLET PO SCH (22:00)
[2018-04-11] MEDS: GABAPENTIN 300 MG CAPSULE PO SCH (22:01)
[2018-04-11] MEDS: ATORVASTATIN CALCIUM 20 MG TABLET PO SCH (22:01)
[2018-04-12] MEDS: HYDRALAZINE HCL 50 MG TABLET PO SCH ×3 (05:39→21:07)
[2018-04-12] MEDS: CLONIDINE HCL 0.2 MG TABLET PO SCH ×3 (05:39→21:06)
[2018-04-12] MEDS: LANSOPRAZOLE 30 MG TAB.RAP.DR PO SCH (05:40)
[2018-04-12] MEDS: INSULIN LISPRO 100 UNIT/ML 3 ML VIAL SUBCUT SCH ×6 (08:14→17:19)
[2018-04-12] MEDS: SEVELAMER HCL 800 MG TABLET PO SCH ×3 (08:17→17:19)
[2018-04-12] MEDS: HEPARIN SOD (PORCINE) 5,000 UNIT/ML 1 ML SYRINGE SUBCUT SCH ×2 (10:34→21:08)
[2018-04-12] MEDS: CARVEDILOL 12.5 MG TABLET PO SCH ×2 (10:34→21:06)
[2018-04-12] MEDS: FAMOTIDINE 20 MG TABLET PO SCH (10:34)
[2018-04-12] MEDS: LEVOFLOXACIN 250 MG TABLET PO SCH (10:34)
[2018-04-12] MEDS: AMLODIPINE BESYLATE 5 MG TABLET PO SCH ×2 (10:34→21:07)
[2018-04-12] MEDS: FUROSEMIDE 20 MG TABLET PO SCH ×2 (10:34→17:19)
--- NOTE | 2018-04-12 15:35 | PDOC PROGRESS REPORT ---
Subjective Progress Note for:: 04/12/18 Subjective:: The patient is currently lying in bed. The patient states her shortness of breath overall is much improved. The patient denies any nausea, vomiting, diarrhea, shortness of breath, dizziness, chest pain, heart palpitations, fevers , or chills. The patient has remained afebrile. Blood pressures are in a much better range. The patient voices no other concerns at this time. Review of systems: The rest of the review of systems is negative. Reason For Visit: PLEURAL EFF, HTN URGENCY, ESRD Physical Exam Vital Signs: Temp Pulse Resp BP Pulse Ox 98.7 F 66 18 146/75 H 93 04/12/18 12:14 04/12/18 12:14 04/12/18 12:14 04/12/18 12:14 04/12/18 12:14 Intake & Output 04/10/18 04/11/18 04/12/18 23:59 23:59 23:59 Intake Total 924 868 276 Output Total 0 4300 Balance 924 -3432 276 Weight 73 kg 73.9 kg 71.2 kg On examination the patient is awake, alert, oriented, to person, place, time, and situation. Slightly delayed. The patient is verbal, conversational. Does not appear to be in any acute distress. Skin is warm and dry, no rash, not diaphoretic. HEENT: no JVD. CVS: Heart is regular, no rub. Chest: Is diminished to auscultation. Abdomen: Is soft, bowel sounds present. Extremities: There is no edema. Psychiatric: Odd affect. Neurological: Intact. Results Laboratory Results: 04/11/18 05:35 04/11/18 05:35 04/03/18 04/03/18 04/03/18 05:45 18:19 18:19 Creatine Kinase CK-MB (CK-2) 3.07 Troponin I 0.065 0.327 04/03/18 04/04/18 04/04/18 18:19 00:05 05:55 Creatine Kinase 60 48 CK-MB (CK-2) 2.87 Troponin I 0.277 04/04/18 04/04/18 04/04/18 05:55 12:58 12:58 Creatine Kinase 49 CK-MB (CK-2) 2.01 2.08 Troponin I 0.247 0.220 Impressions: Chest CT 04/05/18 00:00 IMPRESSION: Moderate right pleural effusion. Thoracentesis Ultrasound 04/06/18 10:02 IMPRESSION: SUCCESSFUL THORACENTESIS USING ULTRASOUND GUIDANCE. Pelvis Ultrasound 04/07/18 00:00 IMPRESSION: NO SONOGRAPHIC ABNORMALITY VISUALIZED IN THE PELVIS. Abdomen Ultrasound 04/07/18 17:42 IMPRESSION: 1. LIMITED VISUALIZATION OF THE GALLBLADDER WHICH IS CONTRACTED. THERE IS MARKED THICKENING OF THE GALLBLADDER WALL WHICH MAY BE ARTIFACT DUE TO CONTRACTION ALTHOUGH INFLAMMATORY PROCESS OR EDEMA CANNOT BE EXCLUDED. NO OTHER ABNORMAL FINDINGS IN THE VISUALIZED UPPER ABDOMEN. 2. LARGE RIGHT PLEURAL EFFUSION. Head CT 04/09/18 00:00 IMPRESSION: Unremarkable unenhanced CT brain TECHNICAL DOCUMENTATION: Quality ID # 436: Final reports with documentation of one or more dose reduction techniques (e.g., Automated exposure control, adjustment of the mA and/or kV according to patient size, use of iterative reconstruction technique) 2010 [employer]- All Rights Reserved Abdomen/Pelvis CT 04/11/18 00:00 IMPRESSION: 1. Small amount of free fluid in the right upper quadrant of the abdomen. 2. Very tiny gallstones are suggested. 3. Constipation. 4. No acute process in the abdomen or pelvis. 5. Additional findings as above. Chest X-Ray 04/11/18 00:00 IMPRESSION: 1. Since the prior examination dated 04/10/2018, some decrease in the persistent large right pleural effusion. No change in the airspace disease in the mid-lower lungs. Assessment & Plan - Time Time Spent with patient: 25-34 minutes Medications reviewed and adjusted accordingly: Yes Disposition: The patient is a full code. Pending patient's symptomatology and diagnostic findings will reevaluate in the a.m. the patient can be downgraded to a telemetry bed. - Plan Summary Plan Summary: Assessment & Plan - Diagnosis (1) Pleural effusion on right Is this a current diagnosis for this admission?: Yes Plan: I have spoken with the patient regarding fluid restriction due to be unable to tolerate fluid removal in HD. Recurrent. Pleural protein/serum protein 0.6, likely due to volume overload due to CHF/ESRD or underlying malignancy. CT chest negative for any malignancy. Status post 2 thoracentesis on 04/03/2018 and 04/06/2018. Cytology on pleural fluid from thoracentesis on 03/24/2018 shows benign mesothelial cells, macrophages and blood, negative for inflammation , atypia or malignancy. Chest x-ray on 04/11/2018 positive for persistent right- sided pleural effusion.Dr. Claire from pulmonary consulted. Considering catheter placement (2) End stage renal failure on dialysis Is this a current diagnosis for this admission?: Yes Plan: On dialysis on MWF. Monitor volume status and electrolytes. Fluid restriction and renal diet. Nephrology following. (3) CHF (congestive heart failure) Qualifiers: Heart failure type: diastolic Is this a current diagnosis for this admission?: Yes Plan: Heart failure with preserved ejection fraction based on echo done on grade 04/03. Switch Lopressor 12.5 twice daily to carvedilol 12.5 twice daily for better blood pressure control. Up titrate as tolerated. Volume restriction, strict in and out, cardiac/renal/diabetic diet. 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 Controlled. Fasting blood glucose 164. Hemoglobin A1c on admission 7.9%. Increase Lantus to 9 units nightly. Continue sliding scale insulin. Diabetic/renal/cardiac diet. Follow-up with PCP. (5) Elevated alkaline phosphatase level Is this a current diagnosis for this admission?: Yes Plan: Unidentified cause. Improving. AST/ALT within normal limits. Alk phos improving. Labs for subtyping of Alk Phos suggest bone. Proceed with skeletal survey given isoenzymes after HD Saturday. Abdominal ultrasound inconclusive. (6) Pneumonia Qualifiers: Laterality: right Is this a current diagnosis for this admission?: Yes Plan: Likely community-acquired pneumonia. Chest x-ray on admission with right lower lobe consolidation and pleural effusion Cultures negative. Rocephin day 12/14. DC antibiotics. Saturating 100% on 2 L of supplemental oxygen. Respiratory rate 7-22 per minute (7) Anemia in CKD (chronic kidney disease) Qualifiers: Chronic kidney disease stage: on chronic dialysis Qualified Code(s): N18.6 - End stage renal disease; D63.1 - Anemia in chronic kidney disease; D63.1 - Anemia in chronic kidney disease; Z99.2 - Dependence on renal dialysis; Z99.2 - Dependence on renal dialysis; Z99.2 - Dependence on renal dialysis; Z99.2 - Dependence on renal dialysis Is this a current diagnosis for this admission?: Yes Plan: Normocytic. H&H stable. Procrit on hemodialysis days. Denies any external sources of bleeding. Monitor H&H. Nephrology on board. (8) Hyperkalemia Is this a current diagnosis for this admission?: Yes Plan: Due to underlying end-stage renal disease. Resolved. (9) Secondary hyperparathyroidism (of renal origin) Is this a current diagnosis for this admission?: Yes Plan: On sevelamer. Nephrology following. Renal diet (10) Chronic abdominal pain Is this a current diagnosis for this admission?: Yes Plan: As per patient she has had chronic abdominal pain which has been extensively evaluated but no answer has been found. Continue supportive measures. (11) Hypertension Is this a current diagnosis for this admission?: Yes Plan: Controlled. She had initially presented with hypertensive urgency. Continue current meds. Uptitrate Lasix and decrease hydralazine as tolerated.
[2018-04-12] MEDS: GABAPENTIN 300 MG CAPSULE PO SCH (21:06)
[2018-04-12] MEDS: ATORVASTATIN CALCIUM 20 MG TABLET PO SCH (21:06)
[2018-04-12] MEDS: MIRTAZAPINE 15 MG TABLET PO SCH (21:07)
[2018-04-12] MEDS: INSULIN GLARGINE,HUM.REC.ANLOG 300 UNIT/3 ML INSULN.PEN SUBCUT SCH (22:46)
[2018-04-12] MEDS: OLANZAPINE 5 MG TAB.RAPDIS PO SCH (22:46)
[2018-04-13] MEDS: LANSOPRAZOLE 30 MG TAB.RAP.DR PO SCH (06:28)
[2018-04-13] MEDS: CLONIDINE HCL 0.2 MG TABLET PO SCH ×3 (06:28→21:24)
[2018-04-13] MEDS: HYDRALAZINE HCL 50 MG TABLET PO SCH ×3 (06:28→21:23)
[2018-04-13 07:29] LABS: HEMATOCRIT 32.2 % (36.0-47.0); HEMOGLOBIN 10.7 g/dL (12.0-15.5); MEAN CORPUSCULAR HEMOGLOBIN 27.6 pg (27.0-33.4); MEAN CORPUSCULAR HGB CONC 33.4 g/dL (32.0-36.0); MEAN CORPUSCULAR VOLUME 83 fl (80-97); PLATELET COUNT 168 10^3/uL (150-450); RED BLOOD COUNT 3.89 10^6/uL (3.72-5.28); RED CELL DISTRIBUTION WIDTH 19.9 % (11.5-14.0); WHITE BLOOD COUNT 5.4 10^3/uL (4.0-10.5)
[2018-04-13] MEDS: SEVELAMER HCL 800 MG TABLET PO SCH ×3 (07:37→17:55)
[2018-04-13] MEDS: INSULIN LISPRO 100 UNIT/ML 3 ML VIAL SUBCUT SCH ×6 (07:37→17:55)
[2018-04-13 07:55] LABS: ANION GAP 14 (5-19); BLOOD UREA NITROGEN 77 mg/dL (7-20); CARBON DIOXIDE 25 mmol/L (22-30); CHLORIDE 96 mmol/L (98-107); GLUCOSE 215 mg/dL (75-110); SODIUM 134.6 mmol/L (137-145)
--- NOTE | 2018-04-13 09:37 | PDOC PROGRESS REPORT ---
Subjective Progress Note for:: 04/13/18 Subjective:: HAL MERCHANT is a 57 year old female with a past medical history of hypertension, CHF, diabetes, anxiety and end-stage renal failure on HD on MWF who was admitted for progressive SOB and generalized weakness. She was noted to be severely hypertensive with pulmonary congestion and large right sided pleural effusion. s/p right sided thoracentesis on 04/04/18 and had 850 cc drained. HD on 2017 and 04/07/2018. She had recurrence of large right sided pleural effusion. s/p repeat thoracentesis 04/06/18 and had 800 cc drained. She did get significant relief after the 2nd thoracentesis. 04/08/2018. No acute events overnight. On my encounter patient is comfortably resting in her bed and inquiring when she can go home. She did not seem to be in any acute distress. She is p.o. tolerant. She is complaining of persistent chronic gastric abdominal pain. She states that she has been worked up for gastroparesis and IBS as outpatient and both had been ruled out. She denies any nausea, vomiting, diarrhea, constipation, shortness of breath, chest pain or any urinary symptoms. 04/09/2018. No acute events overnight. Patient is resting comfortably in her bed in no apparent distress. Patient is said that she is having increasing shortness of breath on exertion. Her nausea vomiting has been controlled. He is p.o. tolerant. She denies any fever, chest pain, chills, abdominal pain, diarrhea, constipation or any urinary symptoms. Scheduled for hemodialysis today. 04/10/2018. She was complaining of visual changes overnight. A CT head was done which was negative. Upon my encounter patient did not have any visual changes anymore and had resolved. Saying that her shortness of breath and abdominal pain are improving. Denies any fever, chills, nausea, vomiting, diarrhea, constipation or any urinary symptoms. 04/11/2018. No acute events overnight. On my encounter patient seems to be a little stressed. She stating that she is having left lower quadrant abdominal pain and she is also complaining of constipation. Last bowel movement 2 days ago. She is able to pass gas. Shortness of breath states the same still using supplemental oxygen. Denies any fever, chills, nausea, vomiting, diarrhea, constipation or any urinary symptoms. She still making some urine. last urination was yesterday. 04/13/2018. No acute events overnight. Patient is sitting comfortably in her bed without any supplemental oxygen stating that her shortness of breath is better and her abdominal pain is also controlled. Constipation has improved. Denies any fever, chills, nausea, vomiting, diarrhea, constipation or any urinary symptoms. Reason For Visit: PLEURAL EFF, HTN URGENCY, ESRD Physical Exam Vital Signs: Temp Pulse Resp BP Pulse Ox 97.6 F 60 16 135/61 H 91 L 04/13/18 07:50 04/13/18 07:50 04/13/18 07:50 04/13/18 07:50 04/13/18 07:50 Intake & Output 04/12/18 04/13/18 04/14/18 07:59 06:59 06:59 Intake Total Output Total Balance Weight General appearance: PRESENT: no acute distress, well-developed, well-nourished Head exam: PRESENT: atraumatic, normocephalic Eye exam: PRESENT: conjunctiva pink, EOMI, PERRLA. ABSENT: scleral icterus Ear exam: PRESENT: normal external ear exam Mouth exam: PRESENT: moist, tongue midline Neck exam: ABSENT: carotid bruit, JVD, lymphadenopathy, thyromegaly Respiratory exam: PRESENT: crackles - Left lower lobe, decreased breath sounds - Right lower lobe.. ABSENT: rales, rhonchi, wheezes Cardiovascular exam: PRESENT: RRR. ABSENT: diastolic murmur, rubs, systolic murmur Pulses: PRESENT: normal dorsalis pedis pul Vascular exam: PRESENT: normal capillary refill GI/Abdominal exam: PRESENT: normal bowel sounds, soft. ABSENT: distended, guarding, mass, organolmegaly, rebound, tenderness Rectal exam: PRESENT: deferred Extremities exam: PRESENT: full ROM. ABSENT: calf tenderness, clubbing, pedal edema Neurological exam: PRESENT: alert, awake, oriented to person, oriented to place , oriented to time, oriented to situation, CN II-XII grossly intact. ABSENT: motor sensory deficit Psychiatric exam: PRESENT: appropriate affect, normal mood. ABSENT: homicidal ideation, suicidal ideation Skin exam: PRESENT: dry, intact, warm. ABSENT: cyanosis, rash Results Laboratory Results: 04/13/18 06:45 04/13/18 06:45 04/13/18 04/13/18 06:45 06:45 WBC 5.4 RBC 3.89 Hgb 10.7 L Hct 32.2 L MCV 83 MCH 27.6 MCHC 33.4 RDW 19.9 H Plt Count 168 Sodium 134.6 L Potassium 5.0 Chloride 96 L Carbon Dioxide 25 Anion Gap 14 BUN 77 H Creatinine 7.30 H Est GFR ( Amer) 7 L Est GFR (Non-Af Amer) 6 L Glucose 215 H Calcium 9.0 Magnesium 2.3 04/03/18 04/03/18 04/03/18 05:45 18:19 18:19 Creatine Kinase CK-MB (CK-2) 3.07 Troponin I 0.065 0.327 04/03/18 04/04/18 04/04/18 18:19 00:05 05:55 Creatine Kinase 60 48 CK-MB (CK-2) 2.87 Troponin I 0.277 04/04/18 04/04/18 04/04/18 05:55 12:58 12:58 Creatine Kinase 49 CK-MB (CK-2) 2.01 2.08 Troponin I 0.247 0.220 Impressions: Chest CT 04/05/18 00:00 IMPRESSION: Moderate right pleural effusion. Thoracentesis Ultrasound 04/06/18 10:02 IMPRESSION: SUCCESSFUL THORACENTESIS USING ULTRASOUND GUIDANCE. Pelvis Ultrasound 04/07/18 00:00 IMPRESSION: NO SONOGRAPHIC ABNORMALITY VISUALIZED IN THE PELVIS. Abdomen Ultrasound 04/07/18 17:42 IMPRESSION: 1. LIMITED VISUALIZATION OF THE GALLBLADDER WHICH IS CONTRACTED. THERE IS MARKED THICKENING OF THE GALLBLADDER WALL WHICH MAY BE ARTIFACT DUE TO CONTRACTION ALTHOUGH INFLAMMATORY PROCESS OR EDEMA CANNOT BE EXCLUDED. NO OTHER ABNORMAL FINDINGS IN THE VISUALIZED UPPER ABDOMEN. 2. LARGE RIGHT PLEURAL EFFUSION. Head CT 04/09/18 00:00 IMPRESSION: Unremarkable unenhanced CT brain TECHNICAL DOCUMENTATION: Quality ID # 436: Final reports with documentation of one or more dose reduction techniques (e.g., Automated exposure control, adjustment of the mA and/or kV according to patient size, use of iterative reconstruction technique) 2010 [employer]- All Rights Reserved Abdomen/Pelvis CT 04/11/18 00:00 IMPRESSION: 1. Small amount of free fluid in the right upper quadrant of the abdomen. 2. Very tiny gallstones are suggested. 3. Constipation. 4. No acute process in the abdomen or pelvis. 5. Additional findings as above. Chest X-Ray 04/11/18 00:00 IMPRESSION: 1. Since the prior examination dated 04/10/2018, some decrease in the persistent large right pleural effusion. No change in the airspace disease in the mid-lower lungs. Assessment & Plan - Diagnosis (1) Pleural effusion on right Is this a current diagnosis for this admission?: Yes Plan: Not improving. Recurrent. Pleural protein/serum protein 0.6, likely exudative could be a combination of volume overload due to CHF/ESRD or underlying malignancy. CT chest negative for any malignancy. Status post 2 thoracentesis on 04/03/2018 and 04/06/2018. Cytology on pleural fluid from thoracentesis on 03/24/2018 shows benign mesothelial cells, macrophages and blood, negative for inflammation, atypia or malignancy. Chest x-ray on 04/12/2018 positive for persistent right-sided pleural effusion. Dr. Claire from pulmonary consulted. Pending Pleurx placement. (2) End stage renal failure on dialysis Is this a current diagnosis for this admission?: Yes Plan: On dialysis on MWF. Started on low-dose Lasix. Titrate up as tolerated guided by vitals. Monitor volume status and electrolytes. Fluid restriction and renal diet. Negative fluid balance Nephrology following. (3) CHF (congestive heart failure) Qualifiers: Heart failure type: diastolic Is this a current diagnosis for this admission?: Yes Plan: Heart failure with preserved ejection fraction based on echo done on grade 04/03. Switch Lopressor 12.5 twice daily to carvedilol 12.5 twice daily for better blood pressure control. Up titrate as tolerated. Start Lasix low-dose guided by her vitals. Volume restriction, strict in and out, cardiac/renal/diabetic diet. Negative fluid balance Hemodialysis on MWF. (4) Diabetes Qualifiers: Diabetes mellitus type: type 2 Diabetes mellitus intermediate project manager insulin use: unspecified intermediate project manager insulin use status Diabetes mellitus complication status : with unspecified complications Qualified Code(s): E11.8 - Type 2 diabetes mellitus with unspecified complications Is this a current diagnosis for this admission?: Yes Plan: DM type II. Controlled. Fasting blood glucose 215. Hemoglobin A1c on admission 7.9%. Increase Lantus to 7 units nightly. Continue sliding scale insulin. Diabetic/renal/cardiac diet. Follow-up with PCP. (5) Elevated alkaline phosphatase level Is this a current diagnosis for this admission?: Yes Plan: Predominantly alkaline phosphatase isoenzyme bone. LDH within normal limits. Pleural fluid cytology negative for malignancy. Will obtain PTH and GGT. Elevated alk phosphatase could be secondary to osteodystrophy caused by end- stage renal disease. Will proceed with with skeletal survey pending results of isoenzymes based on PTH and GGT level. Abdominal ultrasound inconclusive. (6) Pneumonia Qualifiers: Laterality: right Is this a current diagnosis for this admission?: Yes Plan: Likely community-acquired pneumonia. Chest x-ray on admission with right lower lobe consolidation and pleural effusion Cultures negative. Rocephin day 12/14. DC antibiotics. Saturating 91% on room air. (7) Anemia in CKD (chronic kidney disease) Qualifiers: Chronic kidney disease stage: on chronic dialysis Qualified Code(s): N18.6 - End stage renal disease; D63.1 - Anemia in chronic kidney disease; D63.1 - Anemia in chronic kidney disease; Z99.2 - Dependence on renal dialysis; Z99.2 - Dependence on renal dialysis; Z99.2 - Dependence on renal dialysis; Z99.2 - Dependence on renal dialysis Is this a current diagnosis for this admission?: Yes Plan: Normocytic. H&H stable. Procrit on hemodialysis days. Denies any external sources of bleeding. Monitor H&H. Nephrology on board. (8) Hyperkalemia Is this a current diagnosis for this admission?: Yes Plan: Due to underlying end-stage renal disease. Potassium 5.0 today. CMP tomorrow. Hemodialysis Saturday. Nephrology following. Continue renal diet. (9) Secondary hyperparathyroidism (of renal origin) Is this a current diagnosis for this admission?: Yes Plan: On sevelamer. Nephrology following. Renal diet (10) Chronic abdominal pain Is this a current diagnosis for this admission?: Yes Plan: Improved. As per patient she has had chronic abdominal pain which has been extensively evaluated but no answer has been found. Continue supportive measures. We will get a CT abdomen to rule out any acute abnormalities. (11) Hypertension Is this a current diagnosis for this admission?: Yes Plan: Controlled. She had initially presented with hypertensive urgency. Continue current meds. Uptitrate Lasix and decrease hydralazine as tolerated.
[2018-04-13] MEDS: FUROSEMIDE 20 MG TABLET PO SCH ×2 (10:21→17:55)
[2018-04-13] MEDS: LEVOFLOXACIN 250 MG TABLET PO SCH (10:21)
[2018-04-13] MEDS: AMLODIPINE BESYLATE 5 MG TABLET PO SCH ×2 (10:21→21:24)
[2018-04-13] MEDS: HEPARIN SOD (PORCINE) 5,000 UNIT/ML 1 ML SYRINGE SUBCUT SCH ×2 (10:22→21:22)
[2018-04-13] MEDS: CARVEDILOL 12.5 MG TABLET PO SCH ×2 (10:22→21:24)
[2018-04-13] MEDS: INSULIN GLARGINE,HUM.REC.ANLOG 300 UNIT/3 ML INSULN.PEN SUBCUT SCH ×2 (10:22→21:21)
[2018-04-13] MEDS: FAMOTIDINE 20 MG TABLET PO SCH (10:22)
--- NOTE | 2018-04-13 11:10 | RADIOLOGY REPORT (SQ) ---
EXAM DESCRIPTION: CHEST SINGLE VIEW COMPLETED DATE/TIME: 04/13/2018 10:51 am REASON FOR STUDY: follow up for Right pleural effusion COMPARISON: 04/11/2018. EXAM PARAMETERS: NUMBER OF VIEWS: One view. TECHNIQUE: Single frontal radiographic view of the chest acquired. RADIATION DOSE: NA LIMITATIONS: None. FINDINGS: LUNGS AND PLEURA: Moderate right pleural effusion which has decreased. Patchy basilar den sities. MEDIASTINUM AND HILAR STRUCTURES: No masses. Contour normal. HEART AND VASCULAR STRUCTURES: Stable cardiomegaly. BONES: No acute findings. HARDWARE: Right axillary stent. OTHER: No other significant finding. IMPRESSION: STABLE CARDIOMEGALY. INTERVAL DECREASE IN THE RIGHT PLEURAL EFFUSION. TECHNICAL DOCUMENTATION: JOB ID: [id number] [employer]- All Rights Reserved Reading location - IP/workstation name: [email or web address]
--- NOTE | 2018-04-13 18:27 | RADIOLOGY REPORT (SQ) ---
EXAM DESCRIPTION: CHEST SINGLE VIEW COMPLETED DATE/TIME: 04/13/2018 4:12 pm REASON FOR STUDY: Assess pleurex catheter placement COMPARISON: Earlier exam same date EXAM PARAMETERS: NUMBER OF VIEWS: One view. TECHNIQUE: Single frontal radiographic view of the chest acquired. RADIATION DOSE: NA LIMITATIONS: None. FINDINGS: LUNGS AND PLEURA: Slightly decreased right pleural effusion. No consolidation. Tiny righ t apical pneumothorax. MEDIASTINUM AND HILAR STRUCTURES: Stable. HEART AND VASCULAR STRUCTURES: Similar cardiomegaly. BONES: No acute findings. HARDWARE: Right-sided Pleurex catheter tip overlies the right medial apex. OTHER: No other significant finding. IMPRESSION: Right-sided Pleurex catheter tip overlies the right medial apex.Tiny right apical pneumo thorax.Slightly decreased right pleural effusion. No consolidation. TECHNICAL DOCUMENTATION: JOB ID: [id number] [place]-72 2010 [employer]- All Rights Reserved Reading location - IP/workstation name: [email or web address]
--- NOTE | 2018-04-13 18:51 | RADIOLOGY REPORT (SQ) ---
EXAM DESCRIPTION: U/S CHEST COMPLETED DATE/TIME: 04/13/2018 1:29 pm REASON FOR STUDY: CHEST TUBE PLACEMENT PLEURAL EFFUSION RT SIDE COMPARISON: None. TECHNIQUE: Dynamic and static grayscale images acquired of the localized site of clinical concern an d recorded on PACS. Additional selected color Doppler and spectral images recorded. SITE OF CONCERN: Right pleural space LIMITATIONS: None. FINDINGS: Large right pleural effusion is identified. OTHER: No other significant finding. IMPRESSION: Large right pleural effusion is identified. TECHNICAL DOCUMENTATION: JOB ID: [id number] [place]-[id number] 2010 [employer]- All Rights Reserved Reading location - IP/workstation name: [email or web address]
[2018-04-13 20:08] LABS: FLUID TYPE PLEURAL
[2018-04-13 20:10] LABS: FLUID APPEARANCE HAZY; FLUID COLOR ORANGE; FLUID SOURCE ABDOMEN
[2018-04-13 20:11] LABS: FLUID VISCOSITY HIGHLY VISCOUS
[2018-04-13] MEDS: OXYCODONE-ACETAMINOPHEN 5-325 MG TABLET PO PRN (21:23)
[2018-04-13] MEDS: OLANZAPINE 5 MG TAB.RAPDIS PO SCH (21:23)
[2018-04-13] MEDS: GABAPENTIN 300 MG CAPSULE PO SCH (21:23)
[2018-04-13] MEDS: ATORVASTATIN CALCIUM 20 MG TABLET PO SCH (21:24)
[2018-04-13] MEDS: MIRTAZAPINE 15 MG TABLET PO SCH (21:24)
--- NOTE | 2018-04-14 03:21 | OPERATIVE REPORT E ---
Operative Report NAME: HAL MERCHANT : 1960 AGE: 57Y DATE OF SURGERY: 04/13/2018 ROOM: 326 PREOPERATIVE DIAGNOSIS: Recurrent right pleural effusion. POSTOPERATIVE DIAGNOSIS: Recurrent right pleural effusion., OPERATION: Placement of right chest PleurX catheter on the right chest. SURGEON: EZIO WILSON M.D. ANESTHESIA: Local. INDICATION: This is a 57-year-old female on hemodialysis and noted to have recurrent right pleural effusion. This effusion has been tapped twice in the past week and is still persistent and, therefore, a PleurX catheter is in order to regularly aspirate the effusion. DESCRIPTION OF PROCEDURE: The patient was placed in the semi left lateral decubitus position. The patient did have a previous ultrasound of the right pleural effusion and it was marked for the most appropriate site for the catheter placement. Next, the right lower chest just below the right breast and laterally was then prepped and draped in the usual sterile fashion. Local anesthesia infiltrated around the area of the sixth intercostal space below the right breast. An 8-mm incision was then made. Next, a counterincision was then made laterally and caudally to about 8 cm towards the area of the sixth intercostal space. Local anesthesia infiltrated, and this time another 8-mm incision was made. The incision was then deepened down towards the area of the pleura. The 2 incisions interval was then anesthetized with 1% lidocaine. Next, a PleurX catheter was then tunneled through both incisions and the felt of the catheter was placed just underneath the skin towards the medial incision site. Next, the lateral incision was then punctured with a needle and the needle removed and a guidewire passed through the sheath towards the chest cavity. Prior to putting the needle, fluid was aspirated, indicating appropriate location. Next, the sheath was removed and a dilator placed over the guidewire. Prior to this, further anesthesia was infiltrated around the area of the pleura. Next, the dilator and sheath were then passed over the guidewire and the guidewire and the dilator were removed, and the catheter threaded through the sheath towards the chest cavity. The sheath was subsequently removed by splitting it and the catheter was placed towards the rib side with the use of smooth forceps. Following this, the catheter was aspirated of fluid easily. Next, the catheter was then anchored to the skin at the insertion site with 2-0 silk. The counterincision was then closed subcuticular using 4-0 Vicryl. Next, the catheter was then aspirated with a vacuum container, aspirating about 1100 mL of serosanguineous fluid. I believe the previous specimen was sent for cytology and apparently there was no evidence of tumor. At any rate, another specimen can be obtained easily with a PleurX tube if needed. Next, a PleurX cap was placed. Sterile dressings placed over the operative site. The patient tolerated procedure well. DICTATING PHYSICIAN: EZIO WILSON M.D. [id number] PHY#: [id number] ID: [id number] JOB#: [id number] ACCT: [id number] cc:EZIO WILSON M.D. >
[2018-04-14] MEDS: HYDRALAZINE HCL 50 MG TABLET PO SCH ×3 (05:08→21:19)
[2018-04-14] MEDS: LANSOPRAZOLE 30 MG TAB.RAP.DR PO SCH (05:08)
[2018-04-14] MEDS: CLONIDINE HCL 0.2 MG TABLET PO SCH ×3 (05:08→21:18)
[2018-04-14 05:32] LABS: HEMATOCRIT 31.2 % (36.0-47.0); HEMOGLOBIN 10.4 g/dL (12.0-15.5); MEAN CORPUSCULAR HEMOGLOBIN 27.3 pg (27.0-33.4); MEAN CORPUSCULAR HGB CONC 33.2 g/dL (32.0-36.0); MEAN CORPUSCULAR VOLUME 82 fl (80-97); PLATELET COUNT 150 10^3/uL (150-450); RED CELL DISTRIBUTION WIDTH 19.7 % (11.5-14.0); WHITE BLOOD COUNT 5.5 10^3/uL (4.0-10.5)
[2018-04-14] MEDS: OXYCODONE-ACETAMINOPHEN 5-325 MG TABLET PO PRN ×3 (05:32→17:29)
[2018-04-14 05:53] LABS: ANION GAP 17 (5-19); BLOOD UREA NITROGEN 91 mg/dL (7-20); CALCIUM 8.8 mg/dL (8.4-10.2); CARBON DIOXIDE 24 mmol/L (22-30); CHLORIDE 93 mmol/L (98-107); GLUCOSE 149 mg/dL (75-110); POTASSIUM 5.5 mmol/L (3.6-5.0); SODIUM 133.9 mmol/L (137-145)
[2018-04-14] MEDS: INSULIN LISPRO 100 UNIT/ML 3 ML VIAL SUBCUT SCH ×6 (11:22→17:30)
[2018-04-14] MEDS: SEVELAMER HCL 800 MG TABLET PO SCH ×3 (11:23→17:30)
[2018-04-14] MEDS: FUROSEMIDE 20 MG TABLET PO SCH ×2 (11:33→17:29)
[2018-04-14] MEDS: CARVEDILOL 12.5 MG TABLET PO SCH ×2 (11:34→21:19)
[2018-04-14] MEDS: AMLODIPINE BESYLATE 5 MG TABLET PO SCH ×2 (11:34→21:19)
[2018-04-14] MEDS: FAMOTIDINE 20 MG TABLET PO SCH (11:34)
[2018-04-14] MEDS: HEPARIN SOD (PORCINE) 5,000 UNIT/ML 1 ML SYRINGE SUBCUT SCH ×2 (11:35→21:21)
[2018-04-14] MEDS: LEVOFLOXACIN 250 MG TABLET PO SCH (11:38)
[2018-04-14 13:25] LABS: ANION GAP 13 (5-19); CALCIUM 8.8 mg/dL (8.4-10.2); CARBON DIOXIDE 30 mmol/L (22-30); CHLORIDE 95 mmol/L (98-107); GLUCOSE 103 mg/dL (75-110); SODIUM 137.8 mmol/L (137-145)
[2018-04-14 13:47] LABS: BLOOD UREA NITROGEN 43 mg/dL (7-20); POTASSIUM 4.2 mmol/L (3.6-5.0)
--- NOTE | 2018-04-14 15:58 | PDOC PROGRESS REPORT ---
Subjective Progress Note for:: 04/14/18 Subjective:: HAL MERCHANT is a 57 year old female with a past medical history of hypertension, CHF, diabetes, anxiety and end-stage renal failure on HD on MWF who was admitted for progressive SOB and generalized weakness. She was noted to be severely hypertensive with pulmonary congestion and large right sided pleural effusion. s/p right sided thoracentesis on 04/04/18 and had 850 cc drained. HD on 2017 and 04/07/2018. She had recurrence of large right sided pleural effusion. s/p repeat thoracentesis 04/06/18 and had 800 cc drained. She did get significant relief after the 2nd thoracentesis. 04/08/2018. No acute events overnight. On my encounter patient is comfortably resting in her bed and inquiring when she can go home. She did not seem to be in any acute distress. She is p.o. tolerant. She is complaining of persistent chronic gastric abdominal pain. She states that she has been worked up for gastroparesis and IBS as outpatient and both had been ruled out. She denies any nausea, vomiting, diarrhea, constipation, shortness of breath, chest pain or any urinary symptoms. 04/09/2018. No acute events overnight. Patient is resting comfortably in her bed in no apparent distress. Patient is said that she is having increasing shortness of breath on exertion. Her nausea vomiting has been controlled. He is p.o. tolerant. She denies any fever, chest pain, chills, abdominal pain, diarrhea, constipation or any urinary symptoms. Scheduled for hemodialysis today. 04/10/2018. She was complaining of visual changes overnight. A CT head was done which was negative. Upon my encounter patient did not have any visual changes anymore and had resolved. Saying that her shortness of breath and abdominal pain are improving. Denies any fever, chills, nausea, vomiting, diarrhea, constipation or any urinary symptoms. 04/11/2018. No acute events overnight. On my encounter patient seems to be a little stressed. She stating that she is having left lower quadrant abdominal pain and she is also complaining of constipation. Last bowel movement 2 days ago. She is able to pass gas. Shortness of breath states the same still using supplemental oxygen. Denies any fever, chills, nausea, vomiting, diarrhea, constipation or any urinary symptoms. She still making some urine. last urination was yesterday. 04/13/2018. No acute events overnight. Patient is sitting comfortably in her bed without any supplemental oxygen stating that her shortness of breath is better and her abdominal pain is also controlled. Constipation has improved. Denies any fever, chills, nausea, vomiting, diarrhea, constipation or any urinary symptoms. 04/14/2018. No acute events overnight. Patient is day 1 post Pleurx catheter placement on the right lung. She is saying that she is feeling much better since the catheter placement. He status post hemodialysis today. Comfortably in the bed not on supplemental oxygen. Very pleasant and cooperative with physical examination. Shortness of breath has improved she is p.o. tolerant. Denies any fever, chills, nausea, diarrhea, constipation urinary symptoms or any diarrhea. Abdominal pain is improving. Reason For Visit: PLEURAL EFF, HTN URGENCY, ESRD Physical Exam Vital Signs: Temp Pulse Resp BP Pulse Ox 97.7 F 59 L 17 127/58 H 90 L 04/14/18 11:33 04/14/18 15:29 04/14/18 11:33 04/14/18 15:29 04/14/18 15:29 Intake & Output 04/13/18 04/14/18 04/15/18 06:59 06:59 06:59 Intake Total 828 Output Total 0 Balance 828 Weight 68 kg General appearance: PRESENT: no acute distress, well-developed, well-nourished Respiratory exam: PRESENT: crackles - Left lower lobe, decreased breath sounds - Right lower lobe . Improving compared to yesterday., other. ABSENT: rales, rhonchi, wheezes GI/Abdominal exam: PRESENT: normal bowel sounds, soft. ABSENT: distended, guarding, mass, organolmegaly, rebound, tenderness Neurological exam: PRESENT: alert, awake, oriented to person, oriented to place , oriented to time, oriented to situation, CN II-XII grossly intact. ABSENT: motor sensory deficit Skin exam: PRESENT: dry, intact, warm. ABSENT: cyanosis, rash Results Laboratory Results: 04/14/18 05:20 04/14/18 12:50 04/13/18 04/13/18 04/14/18 16:30 16:30 05:20 WBC 5.5 RBC 3.80 Hgb 10.4 L Hct 31.2 L MCV 82 MCH 27.3 MCHC 33.2 RDW 19.7 H Plt Count 150 Sodium Potassium Chloride Carbon Dioxide Anion Gap BUN Creatinine Est GFR ( Amer) Est GFR (Non-Af Amer) Glucose Calcium Magnesium Total Protein 3.4 L Fluid Type PLEURAL Fluid Source ABDOMEN Fluid Color ORANGE Fluid Appearance HAZY Fluid Viscosity HIGHLY VISCOUS Fluid WBC 398 Fluid RBC [id number] 04/14/18 04/14/18 05:20 12:50 WBC RBC Hgb Hct MCV MCH MCHC RDW Plt Count Sodium 133.9 L 137.8 Potassium 5.5 H 4.2 D Chloride 93 L 95 L Carbon Dioxide 24 30 Anion Gap 17 13 BUN 91 H 43 H D Creatinine 9.48 H 4.75 H Est GFR ( Amer) 5 L 11 L Est GFR (Non-Af Amer) 4 L 9 L Glucose 149 H 103 Calcium 8.8 8.8 Magnesium 2.2 Total Protein Fluid Type Fluid Source Fluid Color Fluid Appearance Fluid Viscosity Fluid WBC Fluid RBC 04/03/18 04/03/18 04/03/18 05:45 18:19 18:19 Creatine Kinase CK-MB (CK-2) 3.07 Troponin I 0.065 0.327 04/03/18 04/04/18 04/04/18 18:19 00:05 05:55 Creatine Kinase 60 48 CK-MB (CK-2) 2.87 Troponin I 0.277 04/04/18 04/04/18 04/04/18 05:55 12:58 12:58 Creatine Kinase 49 CK-MB (CK-2) 2.01 2.08 Troponin I 0.247 0.220 Impressions: Chest CT 04/05/18 00:00 IMPRESSION: Moderate right pleural effusion. Thoracentesis Ultrasound 04/06/18 10:02 IMPRESSION: SUCCESSFUL THORACENTESIS USING ULTRASOUND GUIDANCE. Pelvis Ultrasound 04/07/18 00:00 IMPRESSION: NO SONOGRAPHIC ABNORMALITY VISUALIZED IN THE PELVIS. Abdomen Ultrasound 04/07/18 17:42 IMPRESSION: 1. LIMITED VISUALIZATION OF THE GALLBLADDER WHICH IS CONTRACTED. THERE IS MARKED THICKENING OF THE GALLBLADDER WALL WHICH MAY BE ARTIFACT DUE TO CONTRACTION ALTHOUGH INFLAMMATORY PROCESS OR EDEMA CANNOT BE EXCLUDED. NO OTHER ABNORMAL FINDINGS IN THE VISUALIZED UPPER ABDOMEN. 2. LARGE RIGHT PLEURAL EFFUSION. Head CT 04/09/18 00:00 IMPRESSION: Unremarkable unenhanced CT brain TECHNICAL DOCUMENTATION: Quality ID # 436: Final reports with documentation of one or more dose reduction techniques (e.g., Automated exposure control, adjustment of the mA and/or kV according to patient size, use of iterative reconstruction technique) 2010 [employer]- All Rights Reserved Abdomen/Pelvis CT 04/11/18 00:00 IMPRESSION: 1. Small amount of free fluid in the right upper quadrant of the abdomen. 2. Very tiny gallstones are suggested. 3. Constipation. 4. No acute process in the abdomen or pelvis. 5. Additional findings as above. Chest Ultrasound 04/13/18 00:00 IMPRESSION: Large right pleural effusion is identified. Chest X-Ray 04/13/18 00:00 IMPRESSION: Right-sided Pleurex catheter tip overlies the right medial apex.Tiny right apical pneumothorax.Slightly decreased right pleural effusion. No consolidation. Assessment & Plan - Diagnosis (1) Pleural effusion on right Is this a current diagnosis for this admission?: Yes Plan: Day 1 post Pleurx catheter placement on the right lung. Effusion has improved. Recurrent. Pleural protein/serum protein 0.6, likely exudative could be a combination of volume overload due to CHF/ESRD or underlying malignancy. CT chest negative for any malignancy. Status post 2 thoracentesis on 04/03/2018 and 04/06/2018 and pulse. Placement on 04/13/2018 Cytology on pleural fluid from thoracentesis on 03/24/2018 shows benign mesothelial cells, macrophages and blood, negative for inflammation, atypia or malignancy. Second cytology from fluid obtained from Pleurx on 04/13/2018 is pending. Chest x-ray post Pleurx placement shows improvement of the right-sided pleural effusion. Patient's family will be educated about Pleurx care. (2) End stage renal failure on dialysis Is this a current diagnosis for this admission?: Yes Plan: On dialysis on MWF. Started on low-dose Lasix. Titrate up as tolerated guided by vitals. Monitor volume status and electrolytes. Fluid restriction and renal diet. Negative fluid balance Nephrology following. (3) CHF (congestive heart failure) Qualifiers: Heart failure type: diastolic Is this a current diagnosis for this admission?: Yes Plan: Heart failure with preserved ejection fraction based on echo done on grade 04/03. Switch Lopressor 12.5 twice daily to carvedilol 12.5 twice daily for better blood pressure control. Up titrate as tolerated. Start Lasix low-dose guided by her vitals. Volume restriction, strict in and out, cardiac/renal/diabetic diet. Negative fluid balance Hemodialysis on MWF. 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 Controlled. Fasting blood glucose 129. Hemoglobin A1c on admission 7.9%. Increase Lantus to 7 units nightly. Continue sliding scale insulin. Diabetic/renal/cardiac diet. Follow-up with PCP. (5) Elevated alkaline phosphatase level Is this a current diagnosis for this admission?: Yes Plan: Predominantly alkaline phosphatase isoenzyme bone. LDH within normal limits. Pleural fluid cytology negative for malignancy. Will obtain PTH and GGT. Elevated alk phosphatase could be secondary to osteodystrophy caused by end- stage renal disease. Will proceed with with skeletal survey pending results of isoenzymes based on PTH and GGT level. Abdominal ultrasound inconclusive. (6) Pneumonia Qualifiers: Laterality: right Is this a current diagnosis for this admission?: Yes Plan: Likely community-acquired pneumonia. Chest x-ray on admission with right lower lobe consolidation and pleural effusion Cultures negative. Rocephin day 7/7. DC antibiotics. Saturating 91% on room air. (7) Anemia in CKD (chronic kidney disease) Qualifiers: Chronic kidney disease stage: on chronic dialysis Qualified Code(s): N18.6 - End stage renal disease; D63.1 - Anemia in chronic kidney disease; D63.1 - Anemia in chronic kidney disease; Z99.2 - Dependence on renal dialysis; Z99.2 - Dependence on renal dialysis; Z99.2 - Dependence on renal dialysis; Z99.2 - Dependence on renal dialysis Is this a current diagnosis for this admission?: Yes Plan: Normocytic. H&H stable. Procrit on hemodialysis days. Denies any external sources of bleeding. Monitor H&H. Nephrology on board. (8) Hyperkalemia Is this a current diagnosis for this admission?: Yes Plan: Due to underlying end-stage renal disease. Potassium 4.7 today . CMP tomorrow. Hemodialysis Saturday. Nephrology following. Continue renal diet. (9) Secondary hyperparathyroidism (of renal origin) Is this a current diagnosis for this admission?: Yes Plan: On sevelamer. Nephrology following. Renal diet (10) Chronic abdominal pain Is this a current diagnosis for this admission?: Yes Plan: Improved. As per patient she has had chronic abdominal pain which has been extensively evaluated but no answer has been found. Continue supportive measures. We will get a CT abdomen to rule out any acute abnormalities. (11) Hypertension Is this a current diagnosis for this admission?: Yes Plan: Controlled. She had initially presented with hypertensive urgency. Continue current meds. Uptitrate Lasix and decrease hydralazine as tolerated.
--- NOTE | 2018-04-14 19:14 | PDOC PROGRESS REPORT ---
Subjective Progress Note for:: 04/14/18 Subjective:: I saw the patient this morning on dialysis at around 8:45 AM. She was just given Percocet so she is somewhat somnolent. She underwent Pleurx catheter placement yesterday and her chest x-ray has significantly improved. She confirms that she is breathing much better today. She still complains of her right eye blurring of vision which she said she has been experiencing for 2 weeks. When I saw her this morning she was tolerating dialysis without any problems. Reason For Visit: PLEURAL EFF, HTN URGENCY, ESRD Physical Exam Vital Signs: Temp Pulse Resp BP Pulse Ox 97.8 F 59 L 16 121/56 L 95 04/14/18 16:26 04/14/18 16:26 04/14/18 16:26 04/14/18 16:26 04/14/18 16:26 Intake & Output 04/13/18 04/14/18 04/15/18 06:59 06:59 06:59 Intake Total 828 474 Output Total 0 650 Balance 828 -176 Weight 68 kg Vitals during dialysis treatment: Blood pressure 119/59, pulse rate of 54, blood flow rate of 450 mL/min and dialysate flow rate of 800 mL/min. Exam: General appearance: PRESENT: no acute distress, cooperative, well-developed, well-nourished Head exam: PRESENT: atraumatic, normocephalic Eye exam: PRESENT: conjunctiva slightly pale, PERRLA. ABSENT: scleral icterus Neck exam: ABSENT: JVD Respiratory exam: PRESENT: Diminished breath sounds. ABSENT: crackles, rales, rhonchi, unlabored, wheezes Cardiovascular exam: PRESENT: Regular rate rhythm -+S1, +S2. Grade 2/6 systolic murmur GI/Abdominal exam: PRESENT: normal bowel sounds, soft. ABSENT: guarding, mass, tenderness Extremities exam: Grade 1 bilateral lower extremities edema Neurological exam: PRESENT: alert, awake, oriented to person, place and time. Skin exam: PRESENT: dry, warm, Cardiovascular exam: PRESENT: RRR, +S1, +S2 GI/Abdominal exam: PRESENT: soft. ABSENT: organomegaly, tenderness Results Laboratory Results: 04/14/18 05:20 04/14/18 12:50 04/13/18 04/13/18 04/14/18 16:30 16:30 05:20 WBC 5.5 RBC 3.80 Hgb 10.4 L Hct 31.2 L MCV 82 MCH 27.3 MCHC 33.2 RDW 19.7 H Plt Count 150 Sodium Potassium Chloride Carbon Dioxide Anion Gap BUN Creatinine Est GFR ( Amer) Est GFR (Non-Af Amer) Glucose Calcium Magnesium Total Protein 3.4 L Fluid Type PLEURAL Fluid Source ABDOMEN Fluid Color ORANGE Fluid Appearance HAZY Fluid Viscosity HIGHLY VISCOUS Fluid WBC 398 Fluid RBC [id number] 04/14/18 04/14/18 05:20 12:50 WBC RBC Hgb Hct MCV MCH MCHC RDW Plt Count Sodium 133.9 L 137.8 Potassium 5.5 H 4.2 D Chloride 93 L 95 L Carbon Dioxide 24 30 Anion Gap 17 13 BUN 91 H 43 H D Creatinine 9.48 H 4.75 H Est GFR ( Amer) 5 L 11 L Est GFR (Non-Af Amer) 4 L 9 L Glucose 149 H 103 Calcium 8.8 8.8 Magnesium 2.2 Total Protein Fluid Type Fluid Source Fluid Color Fluid Appearance Fluid Viscosity Fluid WBC Fluid RBC 04/03/18 04/03/18 04/03/18 05:45 18:19 18:19 Creatine Kinase CK-MB (CK-2) 3.07 Troponin I 0.065 0.327 04/03/18 04/04/18 04/04/18 18:19 00:05 05:55 Creatine Kinase 60 48 CK-MB (CK-2) 2.87 Troponin I 0.277 04/04/18 04/04/18 04/04/18 05:55 12:58 12:58 Creatine Kinase 49 CK-MB (CK-2) 2.01 2.08 Troponin I 0.247 0.220 Impressions: Chest CT 04/05/18 00:00 IMPRESSION: Moderate right pleural effusion. Thoracentesis Ultrasound 04/06/18 10:02 IMPRESSION: SUCCESSFUL THORACENTESIS USING ULTRASOUND GUIDANCE. Pelvis Ultrasound 04/07/18 00:00 IMPRESSION: NO SONOGRAPHIC ABNORMALITY VISUALIZED IN THE PELVIS. Abdomen Ultrasound 04/07/18 17:42 IMPRESSION: 1. LIMITED VISUALIZATION OF THE GALLBLADDER WHICH IS CONTRACTED. THERE IS MARKED THICKENING OF THE GALLBLADDER WALL WHICH MAY BE ARTIFACT DUE TO CONTRACTION ALTHOUGH INFLAMMATORY PROCESS OR EDEMA CANNOT BE EXCLUDED. NO OTHER ABNORMAL FINDINGS IN THE VISUALIZED UPPER ABDOMEN. 2. LARGE RIGHT PLEURAL EFFUSION. Head CT 04/09/18 00:00 IMPRESSION: Unremarkable unenhanced CT brain TECHNICAL DOCUMENTATION: Quality ID # 436: Final reports with documentation of one or more dose reduction techniques (e.g., Automated exposure control, adjustment of the mA and/or kV according to patient size, use of iterative reconstruction technique) 2010 [employer]- All Rights Reserved Abdomen/Pelvis CT 04/11/18 00:00 IMPRESSION: 1. Small amount of free fluid in the right upper quadrant of the abdomen. 2. Very tiny gallstones are suggested. 3. Constipation. 4. No acute process in the abdomen or pelvis. 5. Additional findings as above. Chest Ultrasound 04/13/18 00:00 IMPRESSION: Large right pleural effusion is identified. Chest X-Ray 04/13/18 00:00 IMPRESSION: Right-sided Pleurex catheter tip overlies the right medial apex.Tiny right apical pneumothorax.Slightly decreased right pleural effusion. No consolidation. Assessment & Plan - Diagnosis (1) End stage renal failure on dialysis Is this a current diagnosis for this admission?: Yes Plan: We did dialysis today for 3 hours, using the patient's right AV fistula, with 2 potassium bath, blood flow rate of 450 mL per minute, dialysate flow rate of 800 mL per minute, ultrafiltration 4 L as tolerated, no heparin and no Procrit . Patient's hemodialysis went on uneventfully today. He seems to be more comfortable on dialysis after the Pleurx catheter placement. (2) Pleural effusion on right Is this a current diagnosis for this admission?: Yes Plan: Recurrent, status post 2 thoracentesis. Status post Pleurx catheter placement on 04/13/18. Currently improved radiographically and clinically. (3) CHF (congestive heart failure) Qualifiers: Heart failure type: diastolic Is this a current diagnosis for this admission?: Yes (4) Anemia in CKD (chronic kidney disease) Qualifiers: Chronic kidney disease stage: on chronic dialysis Qualified Code(s): N18.6 - End stage renal disease; D63.1 - Anemia in chronic kidney disease; D63.1 - Anemia in chronic kidney disease; Z99.2 - Dependence on renal dialysis; Z99.2 - Dependence on renal dialysis; Z99.2 - Dependence on renal dialysis; Z99.2 - Dependence on renal dialysis Is this a current diagnosis for this admission?: Yes Plan: Procrit on dialysis as needed. (5) Hypertension Is this a current diagnosis for this admission?: Yes Plan: Controlled. - Time Time with patient: 15-25 minutes
[2018-04-14] MEDS ORDERED: OXYCODONE HCL IR 5 MG TABLET PO ONE (20:45)
[2018-04-14] MEDS: ATORVASTATIN CALCIUM 20 MG TABLET PO SCH (21:19)
[2018-04-14] MEDS: GABAPENTIN 300 MG CAPSULE PO SCH (21:19)
[2018-04-14] MEDS: OLANZAPINE 5 MG TAB.RAPDIS PO SCH (21:19)
[2018-04-14] MEDS: MIRTAZAPINE 15 MG TABLET PO SCH (21:19)
[2018-04-14] MEDS: INSULIN GLARGINE,HUM.REC.ANLOG 300 UNIT/3 ML INSULN.PEN SUBCUT SCH (21:23)
[2018-04-15] MEDS: LANSOPRAZOLE 30 MG TAB.RAP.DR PO SCH (05:57)
[2018-04-15] MEDS: CLONIDINE HCL 0.2 MG TABLET PO SCH ×3 (05:57→21:29)
[2018-04-15] MEDS: HYDRALAZINE HCL 50 MG TABLET PO SCH ×3 (05:57→21:30)
[2018-04-15] MEDS: INSULIN LISPRO 100 UNIT/ML 3 ML VIAL SUBCUT SCH ×6 (08:40→16:43)
[2018-04-15] MEDS: CARVEDILOL 12.5 MG TABLET PO SCH ×2 (09:07→21:30)
[2018-04-15] MEDS: FUROSEMIDE 20 MG TABLET PO SCH ×2 (09:07→17:41)
[2018-04-15] MEDS: HEPARIN SOD (PORCINE) 5,000 UNIT/ML 1 ML SYRINGE SUBCUT SCH ×2 (09:07→21:29)
[2018-04-15] MEDS: FAMOTIDINE 20 MG TABLET PO SCH (09:07)
[2018-04-15] MEDS: AMLODIPINE BESYLATE 5 MG TABLET PO SCH ×2 (09:08→21:29)
[2018-04-15] MEDS: SEVELAMER HCL 800 MG TABLET PO SCH ×3 (09:08→16:43)
--- NOTE | 2018-04-15 10:41 | PROGRESS NOTE E ---
Progress Note NAME: HAL MERCHANT : 1960 AGE: 57Y DATE: 04/14/2018 ROOM: 326 SUBJECTIVE: The patient is a 57-year-old -[place] female with history of chronic kidney disease, on hemodialysis Saturday, Saturday, Saturday, presenting with chronic pleural effusion. She had 2 thoracenteses during this admission; however, per official record, the patient underwent Pleurx catheter placement today, seemed to tolerate the procedure very well. Denies any fever, chills, vomiting, diarrhea. Denies any increased cough or purulent sputum production or chest pain. The patient has had no fever for the last 24 to 48 hours with a temperature of 98.3, T-max of 98.4. OBJECTIVE: VITAL SIGNS: The blood pressure is 117/65, pulse rate 58, respiratory rate 16, saturation is 91% on room air. EYES: No jaundice or pallor. EARS, NOSE, AND THROAT: No ear drainage. No nasal discharge. CHEST AND LUNGS: No wheezing, no rhonchi, no coarse crackles. CARDIOVASCULAR: S1, S2 distinct. Normal rate and regular rhythm. ABDOMEN: Flabby. Positive bowel sounds. Soft, nondistended, nontender. EXTREMITIES: No joint swelling. No cellulitis. LABORATORY: CBC done today showed a white count of 5.5, hemoglobin 10.4, hematocrit 31.2, platelet count is 150. Chemistry done today showed sodium is 157.8, potassium is 4.2, chloride 95, CO2 is 30, BUN 43, creatinine 4.75, glucose 103, and calcium is 8.8. Chest x-ray done today after the Pleurx catheter placement showed improvement in the pleural effusion. The tip of the Pleurx catheter seemed to be all the way up to the right apex, may consider adjusting or redoing the Pleurx catheter a few centimeters. ASSESSMENT: Pleural effusion, obstructive, most likely due to chronic kidney disease. Status post Pleurx catheter placement. Agree with placement of the Pleurx catheter for home drainage. PLAN/RECOMMENDATIONS: 1. Patient has to be educated how to take care of the Pleurx catheter aseptically and how to drain the Pleurx catheter using aseptic techniques. 2. Recommend Pleurx catheter drainage vacuum container every other day or every day depending upon the drainage volume from the Pleurx catheter. 3. If the patient starts complaining about increased shortness of breath, fever, chills, increasing pain in the right chest, patient should be instructed to go back to the hospital for further evaluation for possible Pleurx catheter complications. 4. Recommend Pulmonary Clinic followup in 2 to 3 weeks after hospital discharge. DICTATING PHYSICIAN: JUANITA JEAN MD,MARGO,MPH [id number] PHY#: [id number] ID: [id number] JOB#: [id number] ACCT: [id number] cc: > MTDD
--- NOTE | 2018-04-15 15:15 | PDOC PROGRESS REPORT ---
Subjective Progress Note for:: 04/15/18 Subjective:: HAL MERCHANT is a 57 year old female with a past medical history of hypertension, CHF, diabetes, anxiety and end-stage renal failure hemodialysis dependent on MWF who was admitted for progressive SOB and generalized weakness. She was noted to be severely hypertensive with pulmonary congestion and was also noted to have a large right sided pleural effusion. She underwent right sided thoracentesis on 04/04/18 and had 850 cc drained. She was also continued on hemodialysis throughout this hospital course. She had recurrence of large right sided pleural effusion. She underwent a repeat thoracentesis on 04/06/18 and had 800 cc drained. She eventually underwent placement of a Pleur X catheter on 04/13/18 due to recurrent right sided pleural effusion. No acute event overnight. She denies acute SOB. She is currently saturating well on room air. She denies chest pain. Denies abdominal pain, melena or hematochezia. Patient has been evaluated by PT who has recommended SNF/rehab placement. Reason For Visit: PLEURAL EFF, HTN URGENCY, ESRD Physical Exam Vital Signs: Temp Pulse Resp BP Pulse Ox 98.7 F 64 16 138/61 H 95 04/15/18 12:23 04/15/18 12:23 04/15/18 12:23 04/15/18 12:23 04/15/18 12:23 Intake & Output 04/14/18 04/15/18 04/16/18 06:59 06:59 06:59 Intake Total 828 474 Output Total 0 4750 Balance 828 -4276 Weight 149 lb 14.629 oz 150 lb 5.684 oz General appearance: PRESENT: no acute distress, well-developed, well-nourished Head exam: PRESENT: atraumatic, normocephalic Eye exam: PRESENT: conjunctiva pink, EOMI, PERRLA. ABSENT: scleral icterus Ear exam: PRESENT: normal external ear exam Mouth exam: PRESENT: moist, tongue midline Neck exam: ABSENT: carotid bruit, JVD, lymphadenopathy, thyromegaly Respiratory exam: PRESENT: decreased breath sounds - Slightly decreased breath sounds on the right base, rhonchi. ABSENT: rales, wheezes Cardiovascular exam: PRESENT: RRR. ABSENT: diastolic murmur, rubs, systolic murmur Pulses: PRESENT: normal dorsalis pedis pul GI/Abdominal exam: PRESENT: normal bowel sounds, soft. ABSENT: distended, guarding, mass, organolmegaly, rebound, tenderness Rectal exam: PRESENT: deferred Neurological exam: PRESENT: alert, awake, oriented to person, oriented to place , oriented to time, oriented to situation, CN II-XII grossly intact. ABSENT: motor sensory deficit Results Laboratory Results: 04/14/18 05:20 04/14/18 12:50 04/13/18 04/13/18 04/13/18 16:30 16:30 16:30 Fluid Glucose 178 Fluid Total Protein Fluid LDH 162 Fluid Amylase 20 04/13/18 16:30 Fluid Glucose Fluid Total Protein 3.1 Fluid LDH Fluid Amylase 04/03/18 04/03/18 04/03/18 05:45 18:19 18:19 Creatine Kinase CK-MB (CK-2) 3.07 Troponin I 0.065 0.327 04/03/18 04/04/18 04/04/18 18:19 00:05 05:55 Creatine Kinase 60 48 CK-MB (CK-2) 2.87 Troponin I 0.277 04/04/18 04/04/18 04/04/18 05:55 12:58 12:58 Creatine Kinase 49 CK-MB (CK-2) 2.01 2.08 Troponin I 0.247 0.220 Impressions: Chest CT 04/05/18 00:00 IMPRESSION: Moderate right pleural effusion. Thoracentesis Ultrasound 04/06/18 10:02 IMPRESSION: SUCCESSFUL THORACENTESIS USING ULTRASOUND GUIDANCE. Pelvis Ultrasound 04/07/18 00:00 IMPRESSION: NO SONOGRAPHIC ABNORMALITY VISUALIZED IN THE PELVIS. Abdomen Ultrasound 04/07/18 17:42 IMPRESSION: 1. LIMITED VISUALIZATION OF THE GALLBLADDER WHICH IS CONTRACTED. THERE IS MARKED THICKENING OF THE GALLBLADDER WALL WHICH MAY BE ARTIFACT DUE TO CONTRACTION ALTHOUGH INFLAMMATORY PROCESS OR EDEMA CANNOT BE EXCLUDED. NO OTHER ABNORMAL FINDINGS IN THE VISUALIZED UPPER ABDOMEN. 2. LARGE RIGHT PLEURAL EFFUSION. Head CT 04/09/18 00:00 IMPRESSION: Unremarkable unenhanced CT brain TECHNICAL DOCUMENTATION: Quality ID # 436: Final reports with documentation of one or more dose reduction techniques (e.g., Automated exposure control, adjustment of the mA and/or kV according to patient size, use of iterative reconstruction technique) 2010 [employer] All Rights Reserved Abdomen/Pelvis CT 04/11/18 00:00 IMPRESSION: 1. Small amount of free fluid in the right upper quadrant of the abdomen. 2. Very tiny gallstones are suggested. 3. Constipation. 4. No acute process in the abdomen or pelvis. 5. Additional findings as above. Chest Ultrasound 04/13/18 00:00 IMPRESSION: Large right pleural effusion is identified. Chest X-Ray 04/13/18 00:00 IMPRESSION: Right-sided Pleurex catheter tip overlies the right medial apex.Tiny right apical pneumothorax.Slightly decreased right pleural effusion. No consolidation. Assessment & Plan - Diagnosis (1) Pleural effusion on right Is this a current diagnosis for this admission?: Yes Plan: Patient had thoracentesis on 04/04/18 and had 850 cc drained. Pleural fluid analysis is consistent with transudative effusion and could be related to CHF or volume overload from ESRD. She had recurrence of right sided effusion and underwent a 2nd thoracentesis on 04/06/18 and had 800 cc drained. Cytology is negative for malignancy x 2 and was only remarkable for benign mesothelial cells. She eventually underwent placement of PleurX catheter on 04/13/18. Discussed with nephrology, patient is only able to tolerate up to 4L of fluid removed during dialysis as she becomes hypotensive on attempts to remove more than 4L. (2) Hypertensive emergency Is this a current diagnosis for this admission?: Yes Plan: Resolved. Blood pressures running in the 140/70s. Continue amlodipine, hydralazine, Coreg and clonidine. (3) Pneumonia Qualifiers: Laterality: right Is this a current diagnosis for this admission?: Yes Plan: Resolved right sided pneumonia. Completed 7 days of Rocephin. (4) CHF (congestive heart failure) Qualifiers: Heart failure type: diastolic Is this a current diagnosis for this admission?: Yes Plan: Not in exacerbation. Echo shows mildly low EF (50%) with grade 2 diastolic dysfunction. EF on nuclear study is 45%. On Coreg. Patient is getting dialysis as well MWF. (5) End stage renal failure on dialysis Is this a current diagnosis for this admission?: Yes Plan: Nephrology following. She is getting dialysis MWF. (6) Elevated troponin I level Is this a current diagnosis for this admission?: Yes Plan: Troponins have trended down (max at 0.3). No signs of infarction on EKG. Patient is not complaining of any chest pain. Cardiology following. Stress test was pursued and was negative. Elevated troponins were likely related to ESRD and demand from severe hypertension. 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 Sugars are well-controlled with Lantus 7 u HS. (8) Elevated alkaline phosphatase level Is this a current diagnosis for this admission?: Yes Plan: Patient had isolated elevation of ALP with other liver enzymes being normal. Subtyping of Alk Phos (intestinal, bone, hepatic isoenzymes) showed elevated bone isoenzyme. Pending skeletal survey. If survey comes back negative, this elevation is likely from renal osteodystrophy. - Time Time Spent with patient: 15-24 minutes
--- NOTE | 2018-04-15 15:42 | RADIOLOGY REPORT (SQ) ---
EXAM DESCRIPTION: HUMERUS BILAT 2 OR MORE VIEWS COMPLETED DATE/TIME: 04/15/2018 3:32 pm REASON FOR STUDY: skeletal survey (ruling out MM) COMPARISON: None. NUMBER OF VIEWS: Two views. TECHNIQUE: Two radiographic images were acquired of the right and left humerus to include elbow and shoulder in at least one projection. LIMITATIONS: None. FINDINGS: MINERALIZATION: Normal. BONES: No acute fracture or dislocation. No worrisome bone lesions. SOFT TISSUES: Right axillary arterial stent. OTHER: No other significant finding. IMPRESSION: No acute abnormality. No lytic lesions are appreciated. TECHNICAL DOCUMENTATION: JOB ID: [id number] [employer]- All Rights Reserved Reading location - IP/workstation name: [email or web address]
--- NOTE | 2018-04-15 15:50 | RADIOLOGY REPORT (SQ) ---
EXAM DESCRIPTION: FEMUR BILATERAL 2 VIEWS COMPLETED DATE/TIME: 04/15/2018 3:32 pm REASON FOR STUDY: skeletal survey (ruling out MM) COMPARISON: None. NUMBER OF VIEWS: Two views. TECHNIQUE: Two radiographic images acquired of the right and left femur to include hip and knee in a t least one projection. LIMITATIONS: None. FINDINGS: MINERALIZATION: Normal. BONES: Cannot exclude some small lytic lesions in the proximal and distal left femur. No acute abnor mality. SOFT TISSUES: No obvious swelling or foreign body. OTHER: No other significant finding. IMPRESSION: Cannot exclude some small lytic lesions in the left femur. TECHNICAL DOCUMENTATION: JOB ID: [id number] [employer]- All Rights Reserved Reading location - IP/workstation name: [email or web address]
--- NOTE | 2018-04-15 15:53 | RADIOLOGY REPORT (SQ) ---
EXAM DESCRIPTION: PELVIS AP COMPLETED DATE/TIME: 04/15/2018 3:32 pm REASON FOR STUDY: skeletal survey (ruling out MM) COMPARISON: None. NUMBER OF VIEWS: One view TECHNIQUE: AP Pelvis LIMITATIONS: None. FINDINGS: MINERALIZATION: Normal. HIPS: No acute fracture or dislocation. No worrisome bone lesions. (small lytic lesions suggested in the proximal left femur on the femur series are not well appreciated on this study.) PELVIS AND SACRUM: No acute fracture or dislocation. No worrisome bone lesions. PUBIS AND ISCHIUM: No acute fracture. LOWER LUMBAR SPINE: No significant findings as visualized. SOFT TISSUES: Large amount of stool was present. OTHER: No other significant finding. IMPRESSION: 1. No significant abnormality in the bony pelvis. 2. Constipation. TECHNICAL DOCUMENTATION: JOB ID: [id number] [employer]- All Rights Reserved Reading location - IP/workstation name: [email or web address]
--- NOTE | 2018-04-15 15:55 | RADIOLOGY REPORT (SQ) ---
EXAM DESCRIPTION: CHEST SINGLE VIEW COMPLETED DATE/TIME: 04/15/2018 3:32 pm REASON FOR STUDY: pleural eff COMPARISON: 04/13/2018 EXAM PARAMETERS: NUMBER OF VIEWS: One view. TECHNIQUE: Single frontal radiographic view of the chest acquired. RADIATION DOSE: NA LIMITATIONS: None. FINDINGS: LUNGS AND PLEURA: No significant pleural effusion is suggested at this time. MEDIASTINUM AND HILAR STRUCTURES: No masses. Contour normal. HEART AND VASCULAR STRUCTURES: Cardiomegaly. No pulmonary edema. BONES: Scoliosis. HARDWARE: Right thoracotomy tube remains in place. OTHER: No other significant finding. IMPRESSION: Thoracotomy tube remains in place. No significant pleural fluid is suggested. Cardiome jo ann. Scoliosis. TECHNICAL DOCUMENTATION: JOB ID: [id number] [employer]- All Rights Reserved Reading location - IP/workstation name: [email or web address]
[2018-04-15] MEDS: MIRTAZAPINE 15 MG TABLET PO SCH (21:29)
[2018-04-15] MEDS: GABAPENTIN 300 MG CAPSULE PO SCH (21:29)
[2018-04-15] MEDS: ATORVASTATIN CALCIUM 20 MG TABLET PO SCH (21:29)
[2018-04-15] MEDS: OLANZAPINE 5 MG TAB.RAPDIS PO SCH (21:29)
[2018-04-15] MEDS: INSULIN GLARGINE,HUM.REC.ANLOG 300 UNIT/3 ML INSULN.PEN SUBCUT SCH (21:31)
[2018-04-15] MEDS ORDERED: DEXTROSE 50%-WATER SYRINGE 12.5 GM/25 ML DOSE IV PRN (21:35)
[2018-04-15] MEDS ORDERED: DEXTROSE 50%-WATER SYRINGE 25 GM/50 ML DOSE IV PRN (21:35)
[2018-04-15] MEDS ORDERED: DEXTROSE 40% GEL 15 GM TUBE PO PRN (21:35)
[2018-04-15] MEDS ORDERED: DEXTROSE 40% GEL 15 GM TUBE X 2 PO PRN (21:35)
[2018-04-15] MEDS ORDERED: GLUCAGON,HUMAN RECOMB 1 MG INJ IM PRN (21:35)
[2018-04-15] MEDS: DOCUSATE SODIUM 100 MG CAPSULE PO PRN (21:43)
[2018-04-15] MEDS: INSULIN GLARGINE,HUM.REC.ANLOG 1,000 UNIT/10 ML UNIT SUBCUT ONE ×2 (21:47→21:50)
[2018-04-16] MEDS: OXYCODONE-ACETAMINOPHEN 5-325 MG TABLET PO PRN ×2 (03:21→11:49)
[2018-04-16] MEDS ORDERED: NORMAL SALINE 1000 ML 1,000 ML IV PRN (05:00)
[2018-04-16] MEDS: LANSOPRAZOLE 30 MG TAB.RAP.DR PO SCH (05:29)
[2018-04-16] MEDS: HYDRALAZINE HCL 50 MG TABLET PO SCH ×4 (05:29→22:42)
[2018-04-16] MEDS: CLONIDINE HCL 0.2 MG TABLET PO SCH ×4 (05:29→22:43)
[2018-04-16 06:02] LABS: ABSOLUTE EOSINOPHILS # (AUTO) 0.2 10^3/uL (0.0-0.6); ABSOLUTE LYMPHOCYTES (AUTO) 0.8 10^3/uL (0.5-4.7); ABSOLUTE MONOCYTES (AUTO) 0.5 10^3/uL (0.1-1.4); ABSOLUTE NEUT (AUTO) 3.8 10^3/uL (1.7-8.2); BASOPHILS % (AUTO) 0.5 % (0-2); EOSINOPHILS % (AUTO) 3.2 % (0-6); HEMATOCRIT 30.8 % (36.0-47.0); HEMOGLOBIN 10.4 g/dL (12.0-15.5); LYMPHOCYTES % (AUTO) 15.2 % (13-45); MEAN CORPUSCULAR HEMOGLOBIN 27.7 pg (27.0-33.4); MEAN CORPUSCULAR HGB CONC 33.8 g/dL (32.0-36.0); MEAN CORPUSCULAR VOLUME 82 fl (80-97); MONOCYTES % (AUTO) 8.7 % (3-13); PLATELET COUNT 141 10^3/uL (150-450); RED BLOOD COUNT 3.75 10^6/uL (3.72-5.28); RED CELL DISTRIBUTION WIDTH 19.3 % (11.5-14.0); SEGMENTED NEUTROPHILS % (AUTO) 72.4 % (42-78); TOTAL CELLS COUNTED % (AUTO) 100 %; WHITE BLOOD COUNT 5.3 10^3/uL (4.0-10.5)
[2018-04-16 06:20] LABS: ANION GAP 17 (5-19); BLOOD UREA NITROGEN 80 mg/dL (7-20); CALCIUM 8.9 mg/dL (8.4-10.2); CARBON DIOXIDE 25 mmol/L (22-30); CHLORIDE 94 mmol/L (98-107); GLUCOSE 137 mg/dL (75-110); SODIUM 135.7 mmol/L (137-145)
--- NOTE | 2018-04-16 07:48 | PDOC PROGRESS REPORT ---
Subjective Progress Note for:: 04/16/18 Subjective:: I am seeing the patient on dialysis this morning. She is just complaining of soreness over the Pleurx catheter insertion site. Otherwise she does not really complain of shortness of breath and she is comfortable receiving dialysis. She did gain about 4 kg from Mondays dialysis so were trying as much ultrafiltration if not more today. Reason For Visit: PLEURAL EFF, HTN URGENCY, ESRD Physical Exam Vital Signs: Temp Pulse Resp BP Pulse Ox 98.1 F 65 18 118/56 L 94 04/16/18 03:57 04/16/18 03:57 04/16/18 03:57 04/16/18 03:57 04/16/18 03:57 Intake & Output 04/15/18 04/16/18 04/17/18 06:59 06:59 06:59 Intake Total 474 711 Output Total 4750 300 Balance -4276 411 Weight 68.2 kg 68.1 kg Vitals during dialysis: Blood pressure 121/65, pulse rate of 66, blood flow rate of 450 mL/min and dialysate flow rate of 800 mL/min. Exam: General appearance: PRESENT: no acute distress, cooperative, well-developed, well-nourished Head exam: PRESENT: atraumatic, normocephalic Eye exam: PRESENT: conjunctiva slightly pale, PERRLA. ABSENT: scleral icterus Neck exam: ABSENT: JVD Respiratory exam: PRESENT: Diminished breath sounds. Pleurx catheter in the right lower chest ABSENT: crackles, rales, rhonchi, unlabored, wheezes Cardiovascular exam: PRESENT: Regular rate rhythm -+S1, +S2. Grade 2/6 systolic murmur GI/Abdominal exam: PRESENT: normal bowel sounds, soft. ABSENT: guarding, mass, tenderness Extremities exam: ABSENT: No edema Neurological exam: PRESENT: alert, awake, oriented to person, place and time. Skin exam: PRESENT: dry, warm, Cardiovascular exam: PRESENT: RRR, +S1, +S2 GI/Abdominal exam: PRESENT: soft. ABSENT: organomegaly, tenderness Results Laboratory Results: 04/16/18 05:45 04/16/18 05:45 04/13/18 04/13/18 04/13/18 16:30 16:30 16:30 WBC RBC Hgb Hct MCV MCH MCHC RDW Plt Count Seg Neutrophils % Lymphocytes % Monocytes % Eosinophils % Basophils % Absolute Neutrophils Absolute Lymphocytes Absolute Monocytes Absolute Eosinophils Absolute Basophils Sodium Potassium Chloride Carbon Dioxide Anion Gap BUN Creatinine Est GFR ( Amer) Est GFR (Non-Af Amer) Glucose Calcium Fluid Glucose 178 Fluid Total Protein Fluid LDH 162 Fluid Amylase 20 04/13/18 04/16/18 04/16/18 16:30 05:45 05:45 WBC 5.3 RBC 3.75 Hgb 10.4 L Hct 30.8 L MCV 82 MCH 27.7 MCHC 33.8 RDW 19.3 H Plt Count 141 L Seg Neutrophils % 72.4 Lymphocytes % 15.2 Monocytes % 8.7 Eosinophils % 3.2 Basophils % 0.5 Absolute Neutrophils 3.8 Absolute Lymphocytes 0.8 Absolute Monocytes 0.5 Absolute Eosinophils 0.2 Absolute Basophils 0.0 Sodium 135.7 L Potassium 6.0 H* Chloride 94 L Carbon Dioxide 25 Anion Gap 17 BUN 80 H Creatinine 8.29 H Est GFR ( Amer) 6 L Est GFR (Non-Af Amer) 5 L Glucose 137 H Calcium 8.9 Fluid Glucose Fluid Total Protein 3.1 Fluid LDH Fluid Amylase 04/03/18 04/03/18 04/03/18 05:45 18:19 18:19 Creatine Kinase CK-MB (CK-2) 3.07 Troponin I 0.065 0.327 04/03/18 04/04/18 04/04/18 18:19 00:05 05:55 Creatine Kinase 60 48 CK-MB (CK-2) 2.87 Troponin I 0.277 04/04/18 04/04/18 04/04/18 05:55 12:58 12:58 Creatine Kinase 49 CK-MB (CK-2) 2.01 2.08 Troponin I 0.247 0.220 Impressions: Chest CT 04/05/18 00:00 IMPRESSION: Moderate right pleural effusion. Thoracentesis Ultrasound 04/06/18 10:02 IMPRESSION: SUCCESSFUL THORACENTESIS USING ULTRASOUND GUIDANCE. Pelvis Ultrasound 04/07/18 00:00 IMPRESSION: NO SONOGRAPHIC ABNORMALITY VISUALIZED IN THE PELVIS. Abdomen Ultrasound 04/07/18 17:42 IMPRESSION: 1. LIMITED VISUALIZATION OF THE GALLBLADDER WHICH IS CONTRACTED. THERE IS MARKED THICKENING OF THE GALLBLADDER WALL WHICH MAY BE ARTIFACT DUE TO CONTRACTION ALTHOUGH INFLAMMATORY PROCESS OR EDEMA CANNOT BE EXCLUDED. NO OTHER ABNORMAL FINDINGS IN THE VISUALIZED UPPER ABDOMEN. 2. LARGE RIGHT PLEURAL EFFUSION. Head CT 04/09/18 00:00 IMPRESSION: Unremarkable unenhanced CT brain TECHNICAL DOCUMENTATION: Quality ID # 436: Final reports with documentation of one or more dose reduction techniques (e.g., Automated exposure control, adjustment of the mA and/or kV according to patient size, use of iterative reconstruction technique) 2010 [employer]- All Rights Reserved Abdomen/Pelvis CT 04/11/18 00:00 IMPRESSION: 1. Small amount of free fluid in the right upper quadrant of the abdomen. 2. Very tiny gallstones are suggested. 3. Constipation. 4. No acute process in the abdomen or pelvis. 5. Additional findings as above. Chest Ultrasound 04/13/18 00:00 IMPRESSION: Large right pleural effusion is identified. Chest X-Ray 04/15/18 00:00 IMPRESSION: Thoracotomy tube remains in place. No significant pleural fluid is suggested. Cardiomegaly. Scoliosis. Femur X-Ray 04/15/18 00:00 IMPRESSION: Cannot exclude some small lytic lesions in the left femur. Humerus X-Ray 04/15/18 00:00 IMPRESSION: No acute abnormality. No lytic lesions are appreciated. Pelvis X-Ray 04/15/18 00:00 IMPRESSION: 1. No significant abnormality in the bony pelvis. 2. Constipation. Assessment & Plan - Diagnosis (1) End stage renal failure on dialysis Is this a current diagnosis for this admission?: Yes Plan: We will do dialysis today for 3.5 hours, using the patient's AV fistula, with one potassium bath for the first hour and then to potassium bath, blood flow rate of 450 mL per minute, dialysate flow rate of 800 mL per minute, ultrafiltration 4.5-5 L as tolerated, no heparin and no Procrit . Patient will be monitored toward by our dialysis nurse to make sure that she is tolerating ultrafiltration. (2) Pleural effusion on right Is this a current diagnosis for this admission?: Yes Plan: Recurrent, status post 2 thoracentesis. Status post Pleurx catheter placement on 04/13/18. Currently improved radiographically and clinically. (3) CHF (congestive heart failure) Qualifiers: Heart failure type: diastolic Is this a current diagnosis for this admission?: Yes (4) Anemia in CKD (chronic kidney disease) Qualifiers: Chronic kidney disease stage: on chronic dialysis Qualified Code(s): N18.6 - End stage renal disease; D63.1 - Anemia in chronic kidney disease; D63.1 - Anemia in chronic kidney disease; Z99.2 - Dependence on renal dialysis; Z99.2 - Dependence on renal dialysis; Z99.2 - Dependence on renal dialysis; Z99.2 - Dependence on renal dialysis Is this a current diagnosis for this admission?: Yes Plan: Procrit on dialysis as needed. She does not need Procrit today. (5) Hypertension Is this a current diagnosis for this admission?: Yes Plan: Controlled. - Time Time with patient: 15-25 minutes
[2018-04-16] MEDS: INSULIN LISPRO 100 UNIT/ML 3 ML VIAL SUBCUT SCH ×3 (11:37→17:20)
[2018-04-16] MEDS: SEVELAMER HCL 800 MG TABLET PO SCH ×3 (11:38→17:21)
[2018-04-16] MEDS: FUROSEMIDE 20 MG TABLET PO SCH ×2 (11:49→17:21)
[2018-04-16] MEDS: CARVEDILOL 12.5 MG TABLET PO SCH ×2 (11:50→22:42)
[2018-04-16] MEDS: FAMOTIDINE 20 MG TABLET PO SCH (11:50)
[2018-04-16] MEDS: AMLODIPINE BESYLATE 5 MG TABLET PO SCH ×2 (11:50→22:42)
[2018-04-16] MEDS: HEPARIN SOD (PORCINE) 5,000 UNIT/ML 1 ML SYRINGE SUBCUT SCH ×2 (11:57→22:40)
--- NOTE | 2018-04-16 15:14 | PDOC PROGRESS REPORT ---
Subjective Progress Note for:: 04/16/18 Subjective:: HAL MERCHANT is a 57 year old female with a past medical history of hypertension, CHF, diabetes, anxiety and end-stage renal failure hemodialysis dependent on MWF who was admitted for progressive SOB and generalized weakness. She was noted to be severely hypertensive with pulmonary congestion and was also noted to have a large right sided pleural effusion. She underwent right sided thoracentesis on 04/04/18 and had 850 cc drained. She was also continued on hemodialysis throughout this hospital course. She had recurrence of large right sided pleural effusion. She underwent a repeat thoracentesis on 04/06/18 and had 800 cc drained. She eventually underwent placement of a Pleur X catheter on 04/13/18 due to recurrent right sided pleural effusion. No acute event overnight. Patient just had dialysis this morning. She denies SOB. She is currently saturating well on room air. She denies chest pain. Denies abdominal pain, melena or hematochezia. She is deemed fit for discharge and is just awaiting SNF/rehab placement. Reason For Visit: PLEURAL EFF, HTN URGENCY, ESRD Physical Exam Vital Signs: Temp Pulse Resp BP Pulse Ox 98.2 F 72 16 123/62 98 04/16/18 12:52 04/16/18 12:52 04/16/18 12:52 04/16/18 12:52 04/16/18 12:52 Intake & Output 04/15/18 04/16/18 04/17/18 06:59 06:59 06:59 Intake Total 474 711 175 Output Total 4750 300 5000 Balance -4272 411 -2372 Weight 150 lb 5.684 oz 150 lb 2.157 oz General appearance: PRESENT: no acute distress, well-developed, well-nourished Head exam: PRESENT: atraumatic, normocephalic Eye exam: PRESENT: conjunctiva pink, EOMI, PERRLA. ABSENT: scleral icterus Ear exam: PRESENT: normal external ear exam Mouth exam: PRESENT: moist, tongue midline Neck exam: ABSENT: carotid bruit, JVD, lymphadenopathy, thyromegaly Respiratory exam: PRESENT: clear to auscultation mai. ABSENT: rales, rhonchi, wheezes Cardiovascular exam: PRESENT: RRR. ABSENT: diastolic murmur, rubs, systolic murmur Pulses: PRESENT: normal dorsalis pedis pul GI/Abdominal exam: PRESENT: normal bowel sounds, soft. ABSENT: distended, guarding, mass, organolmegaly, rebound, tenderness Rectal exam: PRESENT: deferred Neurological exam: PRESENT: alert, awake, oriented to person, oriented to place , oriented to time, oriented to situation, CN II-XII grossly intact. ABSENT: motor sensory deficit Results Laboratory Results: 04/16/18 05:45 04/16/18 05:45 04/16/18 04/16/18 05:45 05:45 WBC 5.3 RBC 3.75 Hgb 10.4 L Hct 30.8 L MCV 82 MCH 27.7 MCHC 33.8 RDW 19.3 H Plt Count 141 L Seg Neutrophils % 72.4 Lymphocytes % 15.2 Monocytes % 8.7 Eosinophils % 3.2 Basophils % 0.5 Absolute Neutrophils 3.8 Absolute Lymphocytes 0.8 Absolute Monocytes 0.5 Absolute Eosinophils 0.2 Absolute Basophils 0.0 Sodium 135.7 L Potassium 6.0 H* Chloride 94 L Carbon Dioxide 25 Anion Gap 17 BUN 80 H Creatinine 8.29 H Est GFR ( Amer) 6 L Est GFR (Non-Af Amer) 5 L Glucose 137 H Calcium 8.9 04/03/18 04/03/18 04/03/18 05:45 18:19 18:19 Creatine Kinase CK-MB (CK-2) 3.07 Troponin I 0.065 0.327 04/03/18 04/04/18 04/04/18 18:19 00:05 05:55 Creatine Kinase 60 48 CK-MB (CK-2) 2.87 Troponin I 0.277 04/04/18 04/04/18 04/04/18 05:55 12:58 12:58 Creatine Kinase 49 CK-MB (CK-2) 2.01 2.08 Troponin I 0.247 0.220 Impressions: Chest CT 04/05/18 00:00 IMPRESSION: Moderate right pleural effusion. Thoracentesis Ultrasound 04/06/18 10:02 IMPRESSION: SUCCESSFUL THORACENTESIS USING ULTRASOUND GUIDANCE. Pelvis Ultrasound 04/07/18 00:00 IMPRESSION: NO SONOGRAPHIC ABNORMALITY VISUALIZED IN THE PELVIS. Abdomen Ultrasound 04/07/18 17:42 IMPRESSION: 1. LIMITED VISUALIZATION OF THE GALLBLADDER WHICH IS CONTRACTED. THERE IS MARKED THICKENING OF THE GALLBLADDER WALL WHICH MAY BE ARTIFACT DUE TO CONTRACTION ALTHOUGH INFLAMMATORY PROCESS OR EDEMA CANNOT BE EXCLUDED. NO OTHER ABNORMAL FINDINGS IN THE VISUALIZED UPPER ABDOMEN. 2. LARGE RIGHT PLEURAL EFFUSION. Head CT 04/09/18 00:00 IMPRESSION: Unremarkable unenhanced CT brain TECHNICAL DOCUMENTATION: Quality ID # 436: Final reports with documentation of one or more dose reduction techniques (e.g., Automated exposure control, adjustment of the mA and/or kV according to patient size, use of iterative reconstruction technique) 2010 [employer]- All Rights Reserved Abdomen/Pelvis CT 04/11/18 00:00 IMPRESSION: 1. Small amount of free fluid in the right upper quadrant of the abdomen. 2. Very tiny gallstones are suggested. 3. Constipation. 4. No acute process in the abdomen or pelvis. 5. Additional findings as above. Chest Ultrasound 04/13/18 00:00 IMPRESSION: Large right pleural effusion is identified. Chest X-Ray 04/15/18 00:00 IMPRESSION: Thoracotomy tube remains in place. No significant pleural fluid is suggested. Cardiomegaly. Scoliosis. Femur X-Ray 04/15/18 00:00 IMPRESSION: Cannot exclude some small lytic lesions in the left femur. Humerus X-Ray 04/15/18 00:00 IMPRESSION: No acute abnormality. No lytic lesions are appreciated. Pelvis X-Ray 04/15/18 00:00 IMPRESSION: 1. No significant abnormality in the bony pelvis. 2. Constipation. Assessment & Plan - Diagnosis (1) Pleural effusion on right Is this a current diagnosis for this admission?: Yes Plan: Resolving. Patient had thoracentesis on 04/04/18 and had 850 cc drained. Pleural fluid analysis is consistent with transudative effusion likely related to her ESRD. She had recurrence of right sided effusion and underwent a 2nd thoracentesis on 04/06/18 and had 800 cc drained. Cytology is negative for malignancy x 2 and was only remarkable for benign mesothelial cells. She eventually underwent placement of PleurX catheter on 04/13/18. (2) Hypertensive emergency Is this a current diagnosis for this admission?: Yes Plan: Resolved. Blood pressures running in the 120/70s. Continue amlodipine, hydralazine, Coreg and clonidine. (3) Pneumonia Qualifiers: Laterality: right Is this a current diagnosis for this admission?: Yes Plan: Resolved right sided pneumonia. Completed 7 days of Rocephin. (4) CHF (congestive heart failure) Qualifiers: Heart failure type: diastolic Is this a current diagnosis for this admission?: Yes Plan: Not in exacerbation. Echo shows mildly low EF (50%) with grade 2 diastolic dysfunction. EF on nuclear study is 45%. On Coreg. Patient is getting dialysis as well MWF. (5) End stage renal failure on dialysis Is this a current diagnosis for this admission?: Yes Plan: Nephrology following. She is getting dialysis MWF. (6) Elevated troponin I level Is this a current diagnosis for this admission?: Yes Plan: Troponins have trended down. No signs of infarction on EKG. Patient is not complaining of any chest pain. Cardiology following. Stress test was pursued and was negative. Elevated troponins were likely related to ESRD and demand from severe hypertension. 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 Sugars are well-controlled with Lantus 7 u HS. (8) Elevated alkaline phosphatase level Is this a current diagnosis for this admission?: Yes Plan: Patient had isolated elevation of ALP with other liver enzymes being normal. 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 - Time Time Spent with patient: 15-24 minutes
[2018-04-16] MEDS: INSULIN LISPRO 100 UNIT/ML 3 ML VIAL SUBCUT PRN ×2 (17:21→22:40)
[2018-04-16] MEDS: INSULIN GLARGINE,HUM.REC.ANLOG 300 UNIT/3 ML INSULN.PEN SUBCUT SCH (22:38)
[2018-04-16] MEDS: ATORVASTATIN CALCIUM 20 MG TABLET PO SCH (22:42)
[2018-04-16] MEDS: MIRTAZAPINE 15 MG TABLET PO SCH (22:43)
[2018-04-16] MEDS: OLANZAPINE 5 MG TAB.RAPDIS PO SCH (22:43)
[2018-04-16] MEDS: GABAPENTIN 300 MG CAPSULE PO SCH (22:43)
[2018-04-17] MEDS: CLONIDINE HCL 0.2 MG TABLET PO SCH ×3 (05:06→22:07)
[2018-04-17] MEDS: LANSOPRAZOLE 30 MG TAB.RAP.DR PO SCH (05:06)
[2018-04-17] MEDS: HYDRALAZINE HCL 50 MG TABLET PO SCH ×3 (05:06→22:08)
[2018-04-17] MEDS: INSULIN LISPRO 100 UNIT/ML 3 ML VIAL SUBCUT SCH ×3 (09:05→17:19)
[2018-04-17] MEDS: CARVEDILOL 12.5 MG TABLET PO SCH ×2 (09:06→22:08)
[2018-04-17] MEDS: AMLODIPINE BESYLATE 5 MG TABLET PO SCH ×2 (09:07→22:08)
[2018-04-17] MEDS: FAMOTIDINE 20 MG TABLET PO SCH (09:07)
[2018-04-17] MEDS: FUROSEMIDE 20 MG TABLET PO SCH ×2 (09:07→17:19)
[2018-04-17] MEDS: SEVELAMER HCL 800 MG TABLET PO SCH ×3 (09:11→17:19)
[2018-04-17] MEDS: HEPARIN SOD (PORCINE) 5,000 UNIT/ML 1 ML SYRINGE SUBCUT SCH ×2 (09:12→22:18)
--- NOTE | 2018-04-17 10:07 | RADIOLOGY REPORT (SQ) ---
EXAM DESCRIPTION: CHEST 2 VIEWS COMPLETED DATE/TIME: 04/17/2018 8:15 am REASON FOR STUDY: pleural effusions COMPARISON: Chest films 04/13/2018, 04/15/2018 EXAM PARAMETERS: NUMBER OF VIEWS: two views TECHNIQUE: Digital Frontal and Lateral radiographic views of the chest acquired. RADIATION DOSE: NA LIMITATIONS: none FINDINGS: LUNGS AND PLEURA: On the right side, a small caliber PleurX chest tube is present with the tip over the apex right hemithorax. No pneumothorax or pleural effusion. No focal infiltrates. MEDIASTINUM AND HILAR STRUCTURES: No masses or contour abnormalities. HEART AND VASCULAR STRUCTURES: Stable massive cardiomegaly BONES: No acute findings. HARDWARE: Right axillary vascular stent. PleurX catheter tip over the posterior right lung apex OTHER: No other significant finding. IMPRESSION: PleurX catheter tip in the posterior apex right hemithorax. No residual pleural effusio n or pneumothorax. No focal infiltrates. Stable massive cardiomegaly TECHNICAL DOCUMENTATION: JOB ID: [id number] [employer]- All Rights Reserved Reading location - IP/workstation name: [email or web address]
[2018-04-17 12:22] LABS: ALANINE AMINOTRANSFERASE 24 U/L (9-52); ALKALINE PHOSPHATASE 338 U/L (38-126); ANION GAP 12 (5-19); ASPARTATE AMINO TRANSFERASE 22 U/L (14-36); BILIRUBIN,DIRECT 0.5 mg/dL (0.0-0.4); BILIRUBIN,TOTAL 0.5 mg/dL (0.2-1.3); BLOOD UREA NITROGEN 60 mg/dL (7-20); CALCIUM 9.2 mg/dL (8.4-10.2); CARBON DIOXIDE 28 mmol/L (22-30); CHLORIDE 93 mmol/L (98-107); GLUCOSE 127 mg/dL (75-110); POTASSIUM 4.8 mmol/L (3.6-5.0); SODIUM 133.2 mmol/L (137-145); TOTAL PROTEIN 5.7 g/dL (6.3-8.2)
--- NOTE | 2018-04-17 14:53 | PROGRESS NOTE E ---
Progress Note NAME: HAL MERCHANT : 1960 AGE: 57Y DATE: 04/16/2018 ROOM: 326 SUBJECTIVE: The patient is a 57-year-old -[place] female who came in for pleural effusion on the right side due to chronic kidney disease on hemodialysis. The patient had thoracentesis done during this admission uneventfully, and still presenting with pleural effusion. The patient underwent PleurX catheter placement. The patient is scheduled to be discharged to a residential in a few days. The patient seemed to have a better idea of how to take care of the PleurX catheter and how to drain the PleurX catheter, claims that she will ask her son to help her. Denies fever or chills. Denies any increasing cough,or hemoptysis. OBJECTIVE: GENERAL: The patient is awake and alert, oriented x3. Afebrile. Not in apparent respiratory distress. VITAL SIGNS: Temperature 98.2, with a T-max of 98.9. Blood pressure 133/62, heart rate 67, saturation of 98% on room air. HEENT: No conjunctival pallor. ENT: No ear drainage. CARDIOVASCULAR: S1S2 distinct; normal rate and regular rhythm. ABDOMEN: Flabby, positive bowel sounds. Soft, nondistended. EXTREMITIES: no erytyhema or cellulitis or joint swelling LABORATORY: CBC done today shows white count of 5.3, hemoglobin 10.4, hematocrit 30.8, platelet count 141. Chemistry done today showed sodium is 135, potassium 6.0, chloride 74, CO2 is 25, BUN 80, creatinine 8.29, glucose 137. Calcium 8.9. ASSESSMENT: 1. PLEURAL EFFUSION RIGHT SIDE. Recurrent due to chronic kidney disease, on hemodialysis. 2. STATUS POST TUNNELED PLEURAL CATHETER PLACEMENT. 3. CHRONIC KIDNEY DISEASE. On hemodialysis. PLAN: 1. The patient and family need education about how to take care of the catheter. This requires daily dressing over the PleurX catheter site. May require daily dressing, and chlorhexidine wipes daily on the surgery site. 2. The patient also needs help from the elementary school social worker to assist her to get supplies for the PleurX catheterto allow the patient to drain the pleural space daily. 3. Recommend pulmonary clinic followup in 3 weeks following hospital discharge. DICTATING PHYSICIAN: JUANITA JEAN MD,MARGO,MPH [id number] PHY#: [id number] ID: [id number] JOB#: [id number] ACCT: [id number] cc: > RIKKID
--- NOTE | 2018-04-17 16:14 | PDOC PROGRESS REPORT ---
Subjective Progress Note for:: 04/17/18 Subjective:: HAL MERCHANT is a 57 year old female with a past medical history of hypertension, CHF, diabetes, anxiety and end-stage renal failure hemodialysis dependent on MWF who was admitted for progressive SOB and generalized weakness. She was noted to be severely hypertensive with pulmonary congestion and was also noted to have a large right sided pleural effusion. She underwent right sided thoracentesis on 04/04/18 and had 850 cc drained. She was also continued on hemodialysis throughout this hospital course. She had recurrence of large right sided pleural effusion. She underwent a repeat thoracentesis on 04/06/18 and had 800 cc drained. She eventually underwent placement of a Pleur X catheter on 04/13/18 due to recurrent right sided pleural effusion. No acute event overnight. Patient just had dialysis this morning. She denies SOB. She is currently saturating well on room air. She denies chest pain. Denies abdominal pain, melena or hematochezia. Patient is just awaiting SNF/rehab placement. She was initially accepted at [facility] yesterday but unfortunately later refused her as they are not able to manage her Pleur X catheter. Reason For Visit: PLEURAL EFF, HTN URGENCY, ESRD Physical Exam Vital Signs: Temp Pulse Resp BP Pulse Ox 98.0 F 62 16 112/53 L 96 04/17/18 12:37 04/17/18 12:37 04/17/18 12:37 04/17/18 12:37 04/17/18 12:37 Intake & Output 04/16/18 04/17/18 04/18/18 06:59 06:59 06:59 Intake Total 711 775 375 Output Total 300 5200 0 Balance 411 -8803 375 Weight 150 lb 2.157 oz 153 lb 3.54 oz General appearance: PRESENT: no acute distress, well-developed, well-nourished Head exam: PRESENT: atraumatic, normocephalic Eye exam: PRESENT: conjunctiva pink, EOMI, PERRLA. ABSENT: scleral icterus Ear exam: PRESENT: normal external ear exam Mouth exam: PRESENT: moist, tongue midline Neck exam: ABSENT: carotid bruit, JVD, lymphadenopathy, thyromegaly Respiratory exam: PRESENT: clear to auscultation mai. ABSENT: rales, rhonchi, wheezes Cardiovascular exam: PRESENT: RRR. ABSENT: diastolic murmur, rubs, systolic murmur Pulses: PRESENT: normal dorsalis pedis pul GI/Abdominal exam: PRESENT: normal bowel sounds, soft. ABSENT: distended, guarding, mass, organolmegaly, rebound, tenderness Rectal exam: PRESENT: deferred Neurological exam: PRESENT: alert, awake, oriented to person, oriented to place , oriented to time, oriented to situation, CN II-XII grossly intact. ABSENT: motor sensory deficit Results Laboratory Results: 04/16/18 05:45 04/17/18 11:40 04/17/18 11:40 Sodium 133.2 L Potassium 4.8 Chloride 93 L Carbon Dioxide 28 Anion Gap 12 BUN 60 H Creatinine 6.01 H Est GFR ( Amer) 9 L Est GFR (Non-Af Amer) 7 L Glucose 127 H Calcium 9.2 Total Bilirubin 0.5 AST 22 ALT 24 Alkaline Phosphatase 338 H Total Protein 5.7 L Albumin 3.0 L 04/13/18 16:30 Pleural Fluid Gram Stain - Final 04/13/18 16:30 Pleural Fluid Body Fluid Culture - Final NO AEROBIC OR ANAEROBIC ORGANISMS RECOVERED 04/03/18 04/03/18 04/03/18 05:45 18:19 18:19 Creatine Kinase CK-MB (CK-2) 3.07 Troponin I 0.065 0.327 04/03/18 04/04/18 04/04/18 18:19 00:05 05:55 Creatine Kinase 60 48 CK-MB (CK-2) 2.87 Troponin I 0.277 04/04/18 04/04/18 04/04/18 05:55 12:58 12:58 Creatine Kinase 49 CK-MB (CK-2) 2.01 2.08 Troponin I 0.247 0.220 Impressions: Chest CT 04/05/18 00:00 IMPRESSION: Moderate right pleural effusion. Thoracentesis Ultrasound 04/06/18 10:02 IMPRESSION: SUCCESSFUL THORACENTESIS USING ULTRASOUND GUIDANCE. Pelvis Ultrasound 04/07/18 00:00 IMPRESSION: NO SONOGRAPHIC ABNORMALITY VISUALIZED IN THE PELVIS. Abdomen Ultrasound 04/07/18 17:42 IMPRESSION: 1. LIMITED VISUALIZATION OF THE GALLBLADDER WHICH IS CONTRACTED. THERE IS MARKED THICKENING OF THE GALLBLADDER WALL WHICH MAY BE ARTIFACT DUE TO CONTRACTION ALTHOUGH INFLAMMATORY PROCESS OR EDEMA CANNOT BE EXCLUDED. NO OTHER ABNORMAL FINDINGS IN THE VISUALIZED UPPER ABDOMEN. 2. LARGE RIGHT PLEURAL EFFUSION. Head CT 04/09/18 00:00 IMPRESSION: Unremarkable unenhanced CT brain TECHNICAL DOCUMENTATION: Quality ID # 436: Final reports with documentation of one or more dose reduction techniques (e.g., Automated exposure control, adjustment of the mA and/or kV according to patient size, use of iterative reconstruction technique) 2010 [employer]- All Rights Reserved Abdomen/Pelvis CT 04/11/18 00:00 IMPRESSION: 1. Small amount of free fluid in the right upper quadrant of the abdomen. 2. Very tiny gallstones are suggested. 3. Constipation. 4. No acute process in the abdomen or pelvis. 5. Additional findings as above. Chest Ultrasound 04/13/18 00:00 IMPRESSION: Large right pleural effusion is identified. Femur X-Ray 04/15/18 00:00 IMPRESSION: Cannot exclude some small lytic lesions in the left femur. Humerus X-Ray 04/15/18 00:00 IMPRESSION: No acute abnormality. No lytic lesions are appreciated. Pelvis X-Ray 04/15/18 00:00 IMPRESSION: 1. No significant abnormality in the bony pelvis. 2. Constipation. Chest X-Ray 04/17/18 06:00 IMPRESSION: PleurX catheter tip in the posterior apex right hemithorax. No residual pleural effusion or pneumothorax. No focal infiltrates. Stable massive cardiomegaly Assessment & Plan - Diagnosis (1) Pleural effusion on right Is this a current diagnosis for this admission?: Yes Plan: Resolving. Patient had thoracentesis on 04/04/18 and had 850 cc drained. Pleural fluid analysis is consistent with transudative effusion likely related to her ESRD. She had recurrence of right sided effusion and underwent a 2nd thoracentesis on 04/06/18 and had 800 cc drained. Cytology is negative for malignancy x 2 and was only remarkable for benign mesothelial cells. She eventually underwent placement of PleurX catheter on 04/13/18. (2) Hypertensive emergency Is this a current diagnosis for this admission?: Yes Plan: Resolved. Blood pressures running in the 117/60s. Continue amlodipine, hydralazine, Coreg and clonidine. (3) Pneumonia Qualifiers: Laterality: right Is this a current diagnosis for this admission?: Yes Plan: Resolved right sided pneumonia. Completed 7 days of Rocephin. (4) CHF (congestive heart failure) Qualifiers: Heart failure type: diastolic Is this a current diagnosis for this admission?: Yes Plan: Not in exacerbation. Echo shows mildly low EF (50%) with grade 2 diastolic dysfunction. EF on nuclear study is 45%. On Coreg. Patient is getting dialysis as well MWF. (5) End stage renal failure on dialysis Is this a current diagnosis for this admission?: Yes Plan: Nephrology following. She is getting dialysis MWF. (6) Elevated troponin I level Is this a current diagnosis for this admission?: Yes Plan: Troponins have trended down. No signs of infarction on EKG. Patient is not complaining of any chest pain. Cardiology following. Stress test was pursued and was negative. Elevated troponins were likely related to ESRD and demand from severe hypertension. 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 Sugars are well-controlled with Lantus 7 u HS. (8) Elevated alkaline phosphatase level Is this a current diagnosis for this admission?: Yes Plan: Patient had isolated elevation of ALP with other liver enzymes being normal. 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 She had questionable sclerotic bony lesions. Discussed with Dr. Millard who did recommend sending for SPEP and UPEP. Patient will see him outpatient to follow up on results. - Time Time Spent with patient: 15-24 minutes
[2018-04-17] MEDS: INSULIN LISPRO 100 UNIT/ML 3 ML VIAL SUBCUT PRN (17:20)
[2018-04-17] MEDS: MIRTAZAPINE 15 MG TABLET PO SCH (22:08)
[2018-04-17] MEDS: ATORVASTATIN CALCIUM 20 MG TABLET PO SCH (22:08)
[2018-04-17] MEDS: OLANZAPINE 5 MG TAB.RAPDIS PO SCH (22:08)
[2018-04-17] MEDS: GABAPENTIN 300 MG CAPSULE PO SCH (22:09)
[2018-04-17] MEDS: INSULIN GLARGINE,HUM.REC.ANLOG 300 UNIT/3 ML INSULN.PEN SUBCUT SCH (22:12)
[2018-04-18] MEDS ORDERED: NORMAL SALINE 1000 ML 1,000 ML IV PRN (05:00)
[2018-04-18 05:02] LABS: ABSOLUTE EOSINOPHILS # (AUTO) 0.1 10^3/uL (0.0-0.6); ABSOLUTE LYMPHOCYTES (AUTO) 0.8 10^3/uL (0.5-4.7); ABSOLUTE MONOCYTES (AUTO) 0.6 10^3/uL (0.1-1.4); BASOPHILS % (AUTO) 0.5 % (0-2); EOSINOPHILS % (AUTO) 3.2 % (0-6); HEMOGLOBIN 9.8 g/dL (12.0-15.5); LYMPHOCYTES % (AUTO) 17.4 % (13-45); MEAN CORPUSCULAR HGB CONC 32.9 g/dL (32.0-36.0); MEAN CORPUSCULAR VOLUME 82 fl (80-97); MONOCYTES % (AUTO) 12.3 % (3-13); PLATELET COUNT 141 10^3/uL (150-450); RED BLOOD COUNT 3.65 10^6/uL (3.72-5.28); RED CELL DISTRIBUTION WIDTH 19.4 % (11.5-14.0); SEGMENTED NEUTROPHILS % (AUTO) 66.6 % (42-78); TOTAL CELLS COUNTED % (AUTO) 100 %; WHITE BLOOD COUNT 4.5 10^3/uL (4.0-10.5)
[2018-04-18 05:19] LABS: ANION GAP 14 (5-19); BLOOD UREA NITROGEN 72 mg/dL (7-20); CALCIUM 8.9 mg/dL (8.4-10.2); CARBON DIOXIDE 27 mmol/L (22-30); CHLORIDE 91 mmol/L (98-107); GLUCOSE 167 mg/dL (75-110); POTASSIUM 5.1 mmol/L (3.6-5.0); SODIUM 131.8 mmol/L (137-145)
[2018-04-18] MEDS: CLONIDINE HCL 0.2 MG TABLET PO SCH ×3 (05:30→22:01)
[2018-04-18] MEDS: HYDRALAZINE HCL 50 MG TABLET PO SCH ×3 (05:30→22:00)
[2018-04-18] MEDS: LANSOPRAZOLE 30 MG TAB.RAP.DR PO SCH (06:01)
--- NOTE | 2018-04-18 09:35 | PDOC PROGRESS REPORT ---
Subjective Progress Note for:: 04/18/18 Reason For Visit: Patient seen today on dialysis. She is undergoing dialysis without any issues. She looks a lot better and feels accordingly. Breathing is a whole lot better as well according to patient. She has had a Pleurx catheter placed in the right lungs and is draining well. She denies any history of chest pains, fever or chills. Labs and medications were reviewed with the patient. Potassium was slightly high at 5.1. Dialysis orders were reviewed with the treating dialysis nurse. Physical Exam Vital Signs: Temp Pulse Resp BP Pulse Ox 98.5 F 63 20 109/55 L 97 04/18/18 03:38 04/18/18 06:02 04/18/18 03:38 04/18/18 06:02 04/18/18 03:38 Intake & Output 04/17/18 04/18/18 04/19/18 06:59 06:59 06:59 Intake Total 775 1325 Output Total 5200 250 Balance -4425 1075 Weight 69.5 kg 75 kg General appearance: PRESENT: no acute distress Respiratory exam: PRESENT: clear to auscultation mai, decreased breath sounds - Right lungs. Cardiovascular exam: PRESENT: RRR, +S1, +S2 GI/Abdominal exam: PRESENT: soft. ABSENT: organomegaly, tenderness Extremities exam: PRESENT: +1 edema Neurological exam: PRESENT: alert, awake, oriented to person, oriented to place Results Laboratory Results: 04/18/18 04:48 04/18/18 04:48 04/17/18 04/18/18 04/18/18 11:40 04:48 04:48 WBC 4.5 RBC 3.65 L Hgb 9.8 L Hct 30.0 L MCV 82 MCH 27.0 MCHC 32.9 RDW 19.4 H Plt Count 141 L Seg Neutrophils % 66.6 Lymphocytes % 17.4 Monocytes % 12.3 Eosinophils % 3.2 Basophils % 0.5 Absolute Neutrophils 3.0 Absolute Lymphocytes 0.8 Absolute Monocytes 0.6 Absolute Eosinophils 0.1 Absolute Basophils 0.0 Sodium 133.2 L 131.8 L Potassium 4.8 5.1 H Chloride 93 L 91 L Carbon Dioxide 28 27 Anion Gap 12 14 BUN 60 H 72 H Creatinine 6.01 H 7.18 H Est GFR ( Amer) 9 L 7 L Est GFR (Non-Af Amer) 7 L 6 L Glucose 127 H 167 H Calcium 9.2 8.9 Total Bilirubin 0.5 AST 22 ALT 24 Alkaline Phosphatase 338 H Total Protein 5.7 L Albumin 3.0 L 04/13/18 16:30 Pleural Fluid Gram Stain - Final 04/13/18 16:30 Pleural Fluid Body Fluid Culture - Final NO AEROBIC OR ANAEROBIC ORGANISMS RECOVERED 04/03/18 04/03/18 04/03/18 05:45 18:19 18:19 Creatine Kinase CK-MB (CK-2) 3.07 Troponin I 0.065 0.327 04/03/18 04/04/18 04/04/18 18:19 00:05 05:55 Creatine Kinase 60 48 CK-MB (CK-2) 2.87 Troponin I 0.277 04/04/18 04/04/18 04/04/18 05:55 12:58 12:58 Creatine Kinase 49 CK-MB (CK-2) 2.01 2.08 Troponin I 0.247 0.220 Impressions: Chest CT 04/05/18 00:00 IMPRESSION: Moderate right pleural effusion. Thoracentesis Ultrasound 04/06/18 10:02 IMPRESSION: SUCCESSFUL THORACENTESIS USING ULTRASOUND GUIDANCE. Pelvis Ultrasound 04/07/18 00:00 IMPRESSION: NO SONOGRAPHIC ABNORMALITY VISUALIZED IN THE PELVIS. Abdomen Ultrasound 04/07/18 17:42 IMPRESSION: 1. LIMITED VISUALIZATION OF THE GALLBLADDER WHICH IS CONTRACTED. THERE IS MARKED THICKENING OF THE GALLBLADDER WALL WHICH MAY BE ARTIFACT DUE TO CONTRACTION ALTHOUGH INFLAMMATORY PROCESS OR EDEMA CANNOT BE EXCLUDED. NO OTHER ABNORMAL FINDINGS IN THE VISUALIZED UPPER ABDOMEN. 2. LARGE RIGHT PLEURAL EFFUSION. Head CT 04/09/18 00:00 IMPRESSION: Unremarkable unenhanced CT brain TECHNICAL DOCUMENTATION: Quality ID # 436: Final reports with documentation of one or more dose reduction techniques (e.g., Automated exposure control, adjustment of the mA and/or kV according to patient size, use of iterative reconstruction technique) 2010 [employer]- All Rights Reserved Abdomen/Pelvis CT 04/11/18 00:00 IMPRESSION: 1. Small amount of free fluid in the right upper quadrant of the abdomen. 2. Very tiny gallstones are suggested. 3. Constipation. 4. No acute process in the abdomen or pelvis. 5. Additional findings as above. Chest Ultrasound 04/13/18 00:00 IMPRESSION: Large right pleural effusion is identified. Femur X-Ray 04/15/18 00:00 IMPRESSION: Cannot exclude some small lytic lesions in the left femur. Humerus X-Ray 04/15/18 00:00 IMPRESSION: No acute abnormality. No lytic lesions are appreciated. Pelvis X-Ray 04/15/18 00:00 IMPRESSION: 1. No significant abnormality in the bony pelvis. 2. Constipation. Chest X-Ray 04/17/18 06:00 IMPRESSION: PleurX catheter tip in the posterior apex right hemithorax. No residual pleural effusion or pneumothorax. No focal infiltrates. Stable massive cardiomegaly Assessment & Plan - Diagnosis (1) End stage renal failure on dialysis Is this a current diagnosis for this admission?: Yes Plan: Seen on dialysis. Plan dialysis for 4 hours. Potassium should respond to dialysis. Advised on proper diet.Its being supervised to ensure a safe and smooth procedure. Vs are stable .orders reviewed with treating music therapy teacher. Plan to remove 4-5 L as tolerated. (2) Hypertension Is this a current diagnosis for this admission?: Yes Plan: Controlled.Continue current guidelines. (3) Diabetes Qualifiers: Diabetes mellitus type: type 2 Diabetes mellitus technician terminal and repeater insulin use: unspecified technician terminal and repeater insulin use status Diabetes mellitus complication status : with unspecified complications Qualified Code(s): E11.8 - Type 2 diabetes mellitus with unspecified complications Is this a current diagnosis for this admission?: Yes Plan: Adv tight sugar control. (4) Pleural effusion on right Is this a current diagnosis for this admission?: Yes Plan: S/P thoracentesis.Currently has a Pleurx catheter in the right lungs and draining. Clinically much better. Anticipating discharge soon. (5) CHF (congestive heart failure) Qualifiers: Heart failure type: diastolic Is this a current diagnosis for this admission?: Yes Plan: Diastolic with Pulmonary hypertension.Stable. (6) Hyperkalemia Is this a current diagnosis for this admission?: Yes Plan: Advised on diet. Should respond to dialysis.Monitor.
[2018-04-18] MEDS ORDERED: EPOETIN ALFA 5,000 UNIT in SYRINGE, DISPOSABLE, 1 EACH IV PRN (10:00)
[2018-04-18] MEDS: INSULIN LISPRO 100 UNIT/ML 3 ML VIAL SUBCUT SCH ×3 (11:23→17:49)
[2018-04-18] MEDS: SEVELAMER HCL 800 MG TABLET PO SCH ×3 (11:23→17:52)
[2018-04-18] MEDS: AMLODIPINE BESYLATE 5 MG TABLET PO SCH ×2 (13:17→22:01)
[2018-04-18] MEDS: CARVEDILOL 12.5 MG TABLET PO SCH ×2 (13:17→22:01)
[2018-04-18] MEDS: FAMOTIDINE 20 MG TABLET PO SCH (13:18)
[2018-04-18] MEDS: FUROSEMIDE 20 MG TABLET PO SCH ×2 (13:18→17:52)
[2018-04-18] MEDS: HEPARIN SOD (PORCINE) 5,000 UNIT/ML 1 ML SYRINGE SUBCUT SCH ×2 (13:18→22:02)
--- NOTE | 2018-04-18 15:00 | PDOC TRANSFER SUMMARY ---
General Admission Date/PCP: 04/03/18 01:19 Resuscitation Status: Full Code - Transfer Diagnosis (1) Pleural effusion on right Is this a current diagnosis for this admission?: Yes (2) Hypertensive emergency Is this a current diagnosis for this admission?: Yes (3) Pneumonia Is this a current diagnosis for this admission?: Yes (4) CHF (congestive heart failure) Is this a current diagnosis for this admission?: Yes (5) End stage renal failure on dialysis Is this a current diagnosis for this admission?: Yes (6) Elevated troponin I level Is this a current diagnosis for this admission?: Yes (7) Diabetes Is this a current diagnosis for this admission?: Yes (8) Elevated alkaline phosphatase level Is this a current diagnosis for this admission?: Yes - Transfer Medications Home Medications: Amlodipine Besylate 10 mg PO DAILY 04/03/18 Atorvastatin Calcium 20 mg PO DAILY 04/03/18 Diazepam 5 mg PO QIDP PRN 04/03/18 Dicyclomine HCl 20 mg PO ACHS 04/03/18 Ergocalciferol (Vitamin D2) [Vitamin D2] 50,000 unit PO SA 04/03/18 Ferric Citrate [Auryxia] 2 tab PO AC 04/03/18 Gabapentin 300 mg PO QHS 04/03/18 Hydralazine HCl 100 mg PO TID 04/03/18 Ketorolac Tromethamine 1 drop OU QIDP PRN 04/03/18 Loperamide HCl [Imodium A-D] 2 mg PO Q6HP PRN 04/03/18 Mirtazapine 15 mg PO QHS 04/03/18 Olanzapine [Zyprexa Zydis 5 Mg Odt Tablet] 5 mg PO QHS 04/03/18 Omeprazole 40 mg PO DAILY 04/03/18 Sevelamer Carbonate 800 mg PO AC 04/03/18 Transfer Medications: Current Medications Acetaminophen (Tylenol 325 Mg Tablet) 650 mg PO Q8HP PRN PRN Reason: FOR PAIN Stop: 05/07/18 15:12 Last Admin: 04/11/18 03:51 Dose: 650 mg Amlodipine Besylate (Norvasc 5 Mg Tablet) 5 mg PO Q12 [facility] Stop: 05/07/18 21:59 Last Admin: 04/17/18 22:08 Dose: 5 mg Atorvastatin Calcium (Lipitor 20 Mg Tablet) 20 mg PO QHS [facility] Stop: 05/03/18 21:59 Last Admin: 04/17/18 22:08 Dose: 20 mg Bisacodyl (Dulcolax 5 Mg Tablet) 10 mg PO DAILYP [facility] Stop: 05/11/18 14:14 Carvedilol (Coreg 12.5 Mg Tablet) 12.5 mg PO Q12 [facility] Stop: 05/08/18 14:59 Last Admin: 04/17/18 22:08 Dose: 12.5 mg Clonidine (Catapres 0.2 Mg Tablet) 0.2 mg PO Q8 [facility] Stop: 05/03/18 05:59 Last Admin: 04/18/18 05:30 Dose: Not Given Dextrose (Dextrose Inj 50% Syringe (25 Gm/50 Ml)) 12.5 gm IV PRN PRN; Protocol PRN Reason: FOR BG 50-69 IN ALERT PATIENT Stop: 05/15/18 21:34 Dextrose (Dextrose Inj 50% Syringe (25 Gm/50 Ml)) 25 gm IV PRN PRN PRN Reason: Protocol Stop: 05/15/18 21:34 Docusate Sodium (Colace 100 Mg Capsule) 100 mg PO BIDP PRN PRN Reason: FOR CONSTIPATION Stop: 05/11/18 08:11 Last Admin: 04/15/18 21:43 Dose: 100 mg Famotidine (Pepcid 20 Mg Tablet) 20 mg PO DAILY [facility] Stop: 05/08/18 09:59 Last Admin: 04/17/18 09:07 Dose: 20 mg Furosemide (Lasix 20 Mg Tablet) 20 mg PO BID [facility] Stop: 05/10/18 17:59 Last Admin: 04/17/18 17:19 Dose: 20 mg Gabapentin (Neurontin 300 Mg Capsule) 300 mg PO QHS [facility] Stop: 05/03/18 21:59 Last Admin: 04/17/18 22:09 Dose: 300 mg Glucagon (Glucagen Inj 1 Mg Vial) 1 mg IM PRN PRN; Protocol PRN Reason: EVALUATE FOR BG < 70 Stop: 05/15/18 21:34 Glucose (Glutose 40% Gel 15 Gm Tube) 15 gm PO PRN PRN; Protocol PRN Reason: FOR BG 50-69 IN ALERT PATIENT Stop: 05/15/18 21:34 Glucose (Glutose 40% Gel 15 Gm Tube) 30 gm PO PRN PRN; Protocol PRN Reason: FOR BG < 50 IN ALERT PATIENT Stop: 05/15/18 21:34 Heparin Sodium (Porcine) (Heparin Flush 10 Unit/Ml 5 Ml Disp.Syrg) 30 unit IV Q8 [facility] Stop: 05/03/18 05:59 Last Admin: 04/18/18 05:32 Dose: Not Given Heparin Sodium (Porcine) (Heparin Flush 10 Unit/Ml 5 Ml Disp.Syrg) 30 unit IV .AFTER EACH USE PRN PRN Reason: AFTER EACH INTERMITTENT USE Stop: 05/03/18 04:17 Last Admin: 04/18/18 04:51 Dose: 30 unit Heparin Sodium (Porcine) (Heparin Inj 5,000 Units/Ml 1 Ml Syringe) 5,000 unit SUBCUT Q12 [facility] Stop: 05/05/18 21:59 Last Admin: 04/17/18 22:18 Dose: Not Given Hydralazine HCl (Apresoline 50 Mg Tablet) 100 mg PO Q8 [facility] Stop: 05/10/18 21:59 Last Admin: 04/18/18 05:30 Dose: Not Given Sodium Chloride (Nacl 0.9% 1000 Ml Iv Soln) 1,000 mls @ 0 mls/hr IV .DIALYSIS PRN; As Directed PRN Reason: THIS MED IS NOT "PRN" Stop: 04/18/18 23:59 Epoetin Lalo 5,000 unit/ (Syringe) 0.25 mls @ 0 mls/hr IV .DIALYSIS PRN; As Directed PRN Reason: THIS MED IS NOT "PRN" Stop: 04/18/18 23:59 Last Infusion: 04/18/18 11:11 Dose: Infused Influenza Virus Vaccine Quadrival (Fluarix Adlt Quad 2017- Vac 0.5 Ml Syr) 0.5 ml IM .DISCHARGE PRN PRN Reason: THIS MED IS NOT "PRN" Stop: 05/03/18 08:36 Insulin Glargine (Lantus Insulin Inj 300 Unit/3 Ml Pen) 7 unit SUBCUT QHS [facility] Stop: 05/16/18 21:59 Last Admin: 04/17/18 22:12 Dose: 7 units Insulin Human Lispro (Humalog Insulin 100 Unit/1 Ml 3 Ml Vial) 2 unit SUBCUT AC [facility] Stop: 05/10/18 07:59 Last Admin: 04/18/18 11:23 Dose: Not Given Insulin Human Lispro (Humalog Insulin 100 Unit/1 Ml 3 Ml Vial) 0 - 12 unit SUBCUT ACP PRN; Protocol PRN Reason: PER PROTOCOL Stop: 05/15/18 21:34 Last Admin: 04/17/18 17:20 Dose: 4 unit Ketorolac Tromethamine (Acuvail 0.45% Oph Soln 0.4 Ml/Dropperette) 1 drop OU QIDP PRN PRN Reason: DRY EYES Stop: 05/03/18 05:29 Lansoprazole (Prevacid 30 Mg Odt Tablet) 30 mg PO Q6AM [facility] Stop: 05/03/18 05:59 Last Admin: 04/18/18 06:01 Dose: 30 mg Mirtazapine (Remeron 15 Mg Tablet) 15 mg PO QHS [facility] Stop: 05/03/18 21:59 Last Admin: 04/17/18 22:08 Dose: 15 mg Olanzapine (Zyprexa Zydis 5 Mg Odt Tablet) 5 mg PO QHS [facility] Stop: 05/03/18 21:59 Last Admin: 04/17/18 22:08 Dose: 5 mg Sevelamer HCl (Renagel 800 Mg Tablet) 800 mg PO AC [facility] Stop: 05/03/18 07:59 Last Admin: 04/18/18 11:23 Dose: Not Given - Allergies Allergies/Adverse Reactions: No Known Allergies Allergy (Unverified 04/03/18 09:39) Hospital Course Hospital Course: HAL MERCHANT is a 57 year old female with a past medical history of hypertension, CHF, diabetes, anxiety and end-stage renal failure hemodialysis dependent on MWF who was admitted for progressive SOB and generalized weakness. She was noted to be severely hypertensive with pulmonary congestion and was also noted to have a large right sided pleural effusion. She underwent right sided thoracentesis on 04/04/18 and had 850 cc drained. She was also continued on hemodialysis throughout this hospital course. She had recurrence of large right sided pleural effusion. She underwent a repeat thoracentesis on 04/06/18 and had 800 cc drained. She eventually underwent placement of a Pleur X catheter on 04/13/18 due to recurrent right sided pleural effusion likely related to her ESRD. She was evaluated by PT who recommended SNF/rehab placement. She will be discharged to [facility] facility in [place]. (1) Pleural effusion on right Resolved. Patient had thoracentesis on 04/04/18 and had 850 cc drained. Pleural fluid analysis is consistent with transudative effusion likely related to her ESRD. She had recurrence of right sided effusion and underwent a 2nd thoracentesis on 04/06/18 and had 800 cc drained. Cytology was negative for malignancy x 2 and was only remarkable for benign mesothelial cells. She eventually underwent placement of PleurX catheter on 04/13/18. She will need Pleur X cath care. She will ff-up with pulmonology in 2 weeks for re-evaluation and reassess if PleurX can be removed. (2) Hypertensive emergency Resolved. Blood pressures running in the 117/60s. Continue amlodipine, hydralazine, Coreg and clonidine. (3) Pneumonia Resolved right sided pneumonia. Completed 7 days of Rocephin. (4) CHF (congestive heart failure) Not in exacerbation. Echo showed mildly low EF (50%) with grade 2 diastolic dysfunction. EF on nuclear study is 45%. On Coreg. Patient is getting dialysis as well MWF. (5) End stage renal failure on dialysis Nephrology following. She is getting dialysis MWF. (6) Elevated troponin I level Troponins have trended down. No signs of infarction on EKG. Patient is not complaining of any chest pain. Cardiology following. Stress test was pursued and was negative. Elevated troponins were likely related to ESRD and demand from severe hypertension. (7) Diabetes Hba1c is 7.9%. Sugars are well-controlled with Lantus 7 u HS. (8) Elevated alkaline phosphatase level Patient had isolated elevation of ALP with other liver enzymes being normal. 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 Physical Exam Vital Signs: Temp Pulse Resp BP Pulse Ox 98.5 F 63 20 109/55 L 97 04/18/18 03:38 04/18/18 06:02 04/18/18 03:38 04/18/18 06:02 04/18/18 03:38 Intake & Output 04/17/18 04/18/18 04/19/18 06:59 06:59 06:59 Intake Total 775 1325 0.25 Output Total 5200 250 Balance -4425 1075 0.25 Weight 153 lb 3.54 oz 165 lb 5.547 oz General appearance: PRESENT: no acute distress, well-developed, well-nourished Head exam: PRESENT: atraumatic, normocephalic Eye exam: PRESENT: conjunctiva pink, EOMI, PERRLA. ABSENT: scleral icterus Ear exam: PRESENT: normal external ear exam Mouth exam: PRESENT: moist, tongue midline Neck exam: ABSENT: carotid bruit, JVD, lymphadenopathy, thyromegaly Respiratory exam: PRESENT: clear to auscultation mai. ABSENT: rales, rhonchi, wheezes Cardiovascular exam: PRESENT: RRR. ABSENT: diastolic murmur, rubs, systolic murmur Pulses: PRESENT: normal dorsalis pedis pul GI/Abdominal exam: PRESENT: normal bowel sounds, soft. ABSENT: distended, guarding, mass, organolmegaly, rebound, tenderness Rectal exam: PRESENT: deferred Neurological exam: PRESENT: alert, awake, oriented to person, oriented to place , oriented to time, oriented to situation, CN II-XII grossly intact. ABSENT: motor sensory deficit Results Laboratory Results: 04/18/18 04:48 04/18/18 04:48 04/17/18 04/18/18 04/18/18 11:40 04:48 04:48 WBC 4.5 RBC 3.65 L Hgb 9.8 L Hct 30.0 L MCV 82 MCH 27.0 MCHC 32.9 RDW 19.4 H Plt Count 141 L Seg Neutrophils % 66.6 Lymphocytes % 17.4 Monocytes % 12.3 Eosinophils % 3.2 Basophils % 0.5 Absolute Neutrophils 3.0 Absolute Lymphocytes 0.8 Absolute Monocytes 0.6 Absolute Eosinophils 0.1 Absolute Basophils 0.0 Sodium 133.2 L 131.8 L Potassium 4.8 5.1 H Chloride 93 L 91 L Carbon Dioxide 28 27 Anion Gap 12 14 BUN 60 H 72 H Creatinine 6.01 H 7.18 H Est GFR ( Amer) 9 L 7 L Est GFR (Non-Af Amer) 7 L 6 L Glucose 127 H 167 H Calcium 9.2 8.9 Total Bilirubin 0.5 AST 22 ALT 24 Alkaline Phosphatase 338 H Total Protein 5.7 L Albumin 3.0 L 04/13/18 16:30 Pleural Fluid Gram Stain - Final 04/13/18 16:30 Pleural Fluid Body Fluid Culture - Final NO AEROBIC OR ANAEROBIC ORGANISMS RECOVERED 04/03/18 04/03/18 04/03/18 05:45 18:19 18:19 Creatine Kinase CK-MB (CK-2) 3.07 Troponin I 0.065 0.327 04/03/18 04/04/18 04/04/18 18:19 00:05 05:55 Creatine Kinase 60 48 CK-MB (CK-2) 2.87 Troponin I 0.277 04/04/18 04/04/18 04/04/18 05:55 12:58 12:58 Creatine Kinase 49 CK-MB (CK-2) 2.01 2.08 Troponin I 0.247 0.220 Impressions: Chest CT 04/05/18 00:00 IMPRESSION: Moderate right pleural effusion. Thoracentesis Ultrasound 04/06/18 10:02 IMPRESSION: SUCCESSFUL THORACENTESIS USING ULTRASOUND GUIDANCE. Pelvis Ultrasound 04/07/18 00:00 IMPRESSION: NO SONOGRAPHIC ABNORMALITY VISUALIZED IN THE PELVIS. Abdomen Ultrasound 04/07/18 17:42 IMPRESSION: 1. LIMITED VISUALIZATION OF THE GALLBLADDER WHICH IS CONTRACTED. THERE IS MARKED THICKENING OF THE GALLBLADDER WALL WHICH MAY BE ARTIFACT DUE TO CONTRACTION ALTHOUGH INFLAMMATORY PROCESS OR EDEMA CANNOT BE EXCLUDED. NO OTHER ABNORMAL FINDINGS IN THE VISUALIZED UPPER ABDOMEN. 2. LARGE RIGHT PLEURAL EFFUSION. Head CT 04/09/18 00:00 IMPRESSION: Unremarkable unenhanced CT brain TECHNICAL DOCUMENTATION: Quality ID # 436: Final reports with documentation of one or more dose reduction techniques (e.g., Automated exposure control, adjustment of the mA and/or kV according to patient size, use of iterative reconstruction technique) 2010 [employer]- All Rights Reserved Abdomen/Pelvis CT 04/11/18 00:00 IMPRESSION: 1. Small amount of free fluid in the right upper quadrant of the abdomen. 2. Very tiny gallstones are suggested. 3. Constipation. 4. No acute process in the abdomen or pelvis. 5. Additional findings as above. Chest Ultrasound 04/13/18 00:00 IMPRESSION: Large right pleural effusion is identified. Femur X-Ray 04/15/18 00:00 IMPRESSION: Cannot exclude some small lytic lesions in the left femur. Humerus X-Ray 04/15/18 00:00 IMPRESSION: No acute abnormality. No lytic lesions are appreciated. Pelvis X-Ray 04/15/18 00:00 IMPRESSION: 1. No significant abnormality in the bony pelvis. 2. Constipation. Chest X-Ray 04/17/18 06:00 IMPRESSION: PleurX catheter tip in the posterior apex right hemithorax. No residual pleural effusion or pneumothorax. No focal infiltrates. Stable massive cardiomegaly
--- NOTE | 2018-04-18 15:51 | Progress Note ---
Provider Note Provider Note: Patient will need and benefit from likely 30 days of rehab.
[2018-04-18] MEDS: INSULIN LISPRO 100 UNIT/ML 3 ML VIAL SUBCUT PRN (17:49)
[2018-04-18 18:37] LABS: A/G RATIO 1.2 (0.7-1.7); ALBUMIN 2 3.1 g/dL (2.9-4.4); ALPHA-2-GLOBULIN 2 0.5 g/dL (0.4-1.0); BETA GLOBULINS 0.7 g/dL (0.7-1.3); GAMMA GLOBULIN 1.1 g/dL (0.4-1.8); GLOBULIN TOTAL 2.6 g/dL (2.2-3.9); MONOCLONAL SPIKE Not Observed g/dL (Not Observ); PROTEIN TOTAL SERUM 5.7 g/dL (6.0-8.5)
[2018-04-18] MEDS: OLANZAPINE 5 MG TAB.RAPDIS PO SCH (22:01)
[2018-04-18] MEDS: GABAPENTIN 300 MG CAPSULE PO SCH (22:01)
[2018-04-18] MEDS: ATORVASTATIN CALCIUM 20 MG TABLET PO SCH (22:01)
[2018-04-18] MEDS: MIRTAZAPINE 15 MG TABLET PO SCH (22:01)
[2018-04-19] MEDS: INSULIN GLARGINE,HUM.REC.ANLOG 300 UNIT/3 ML INSULN.PEN SUBCUT SCH ×2 (00:07→22:22)
[2018-04-19] MEDS ORDERED: EPOETIN ALFA INJ 20000 UNIT/1 ML VIAL (RENAL) IV PRN (05:00)
[2018-04-19] MEDS: CLONIDINE HCL 0.2 MG TABLET PO SCH ×2 (05:14→13:04)
[2018-04-19] MEDS: HYDRALAZINE HCL 50 MG TABLET PO SCH ×3 (05:14→22:17)
[2018-04-19] MEDS: LANSOPRAZOLE 30 MG TAB.RAP.DR PO SCH (05:15)
[2018-04-19] MEDS: INSULIN LISPRO 100 UNIT/ML 3 ML VIAL SUBCUT SCH ×3 (08:00→16:58)
[2018-04-19] MEDS: SEVELAMER HCL 800 MG TABLET PO SCH ×3 (08:00→16:58)
[2018-04-19] MEDS: HEPARIN SOD (PORCINE) 5,000 UNIT/ML 1 ML SYRINGE SUBCUT SCH ×2 (09:42→22:23)
[2018-04-19] MEDS: AMLODIPINE BESYLATE 5 MG TABLET PO SCH ×2 (09:44→22:22)
[2018-04-19] MEDS: CARVEDILOL 12.5 MG TABLET PO SCH ×2 (09:44→22:21)
[2018-04-19] MEDS: FAMOTIDINE 20 MG TABLET PO SCH (09:45)
[2018-04-19] MEDS: FUROSEMIDE 20 MG TABLET PO SCH ×2 (09:45→17:00)
--- NOTE | 2018-04-19 16:36 | PDOC PROGRESS REPORT ---
Subjective Progress Note for:: 04/19/18 Subjective:: HAL MERCHANT is a 57 year old female with a past medical history of hypertension, CHF, diabetes, anxiety and end-stage renal failure hemodialysis dependent on MWF who was admitted for progressive SOB and generalized weakness. She was noted to be severely hypertensive with pulmonary congestion and was also noted to have a large right sided pleural effusion. She underwent right sided thoracentesis on 04/04/18 and had 850 cc drained. She was also continued on hemodialysis throughout this hospital course. She had recurrence of large right sided pleural effusion. She underwent a repeat thoracentesis on 04/06/18 and had 800 cc drained. She eventually underwent placement of a Pleur X catheter on 04/13/18 due to recurrent right sided pleural effusion. No acute event overnight. She denies SOB. She is currently saturating well on room air. She denies chest pain. Denies abdominal pain, melena or hematochezia. Patient was accepted by [facility] at [place] yesterday 04/18/18. 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 They will pick her up instead possibly on Saturday once they have made final arrangements of patient's outpatient dialysis. Reason For Visit: PLEURAL EFF, HTN URGENCY, ESRD Physical Exam Vital Signs: Temp Pulse Resp BP Pulse Ox 98.0 F 59 L 15 100/53 L 96 04/19/18 15:51 04/19/18 15:51 04/19/18 15:51 04/19/18 15:51 04/19/18 15:51 Intake & Output 04/18/18 04/19/18 04/20/18 06:59 06:59 06:59 Intake Total 1325 774.25 855 Output Total 250 4800 Balance 1075 -4025.75 855 Weight 165 lb 5.547 oz 154 lb 8.705 oz General appearance: PRESENT: no acute distress, thin Head exam: PRESENT: atraumatic, normocephalic Eye exam: PRESENT: conjunctiva pink, EOMI, PERRLA. ABSENT: scleral icterus Ear exam: PRESENT: normal external ear exam Mouth exam: PRESENT: moist, tongue midline Neck exam: ABSENT: carotid bruit, JVD, lymphadenopathy, thyromegaly Respiratory exam: PRESENT: clear to auscultation mai. ABSENT: rales, rhonchi, wheezes Cardiovascular exam: PRESENT: RRR. ABSENT: diastolic murmur, rubs, systolic murmur Pulses: PRESENT: normal dorsalis pedis pul GI/Abdominal exam: PRESENT: normal bowel sounds, soft. ABSENT: distended, guarding, mass, organolmegaly, rebound, tenderness Rectal exam: PRESENT: deferred Neurological exam: PRESENT: alert, awake, oriented to person, oriented to place , oriented to time, oriented to situation, CN II-XII grossly intact. ABSENT: motor sensory deficit Results Laboratory Results: 04/18/18 04:48 04/18/18 04:48 04/17/18 11:40 Total Protein 5.7 L Albumin 3.1 04/03/18 04/03/18 04/03/18 05:45 18:19 18:19 Creatine Kinase CK-MB (CK-2) 3.07 Troponin I 0.065 0.327 04/03/18 04/04/18 04/04/18 18:19 00:05 05:55 Creatine Kinase 60 48 CK-MB (CK-2) 2.87 Troponin I 0.277 04/04/18 04/04/18 04/04/18 05:55 12:58 12:58 Creatine Kinase 49 CK-MB (CK-2) 2.01 2.08 Troponin I 0.247 0.220 Impressions: Chest CT 04/05/18 00:00 IMPRESSION: Moderate right pleural effusion. Thoracentesis Ultrasound 04/06/18 10:02 IMPRESSION: SUCCESSFUL THORACENTESIS USING ULTRASOUND GUIDANCE. Pelvis Ultrasound 04/07/18 00:00 IMPRESSION: NO SONOGRAPHIC ABNORMALITY VISUALIZED IN THE PELVIS. Abdomen Ultrasound 04/07/18 17:42 IMPRESSION: 1. LIMITED VISUALIZATION OF THE GALLBLADDER WHICH IS CONTRACTED. THERE IS MARKED THICKENING OF THE GALLBLADDER WALL WHICH MAY BE ARTIFACT DUE TO CONTRACTION ALTHOUGH INFLAMMATORY PROCESS OR EDEMA CANNOT BE EXCLUDED. NO OTHER ABNORMAL FINDINGS IN THE VISUALIZED UPPER ABDOMEN. 2. LARGE RIGHT PLEURAL EFFUSION. Head CT 04/09/18 00:00 IMPRESSION: Unremarkable unenhanced CT brain TECHNICAL DOCUMENTATION: Quality ID # 436: Final reports with documentation of one or more dose reduction techniques (e.g., Automated exposure control, adjustment of the mA and/or kV according to patient size, use of iterative reconstruction technique) 2010 [employer]- All Rights Reserved Abdomen/Pelvis CT 04/11/18 00:00 IMPRESSION: 1. Small amount of free fluid in the right upper quadrant of the abdomen. 2. Very tiny gallstones are suggested. 3. Constipation. 4. No acute process in the abdomen or pelvis. 5. Additional findings as above. Chest Ultrasound 04/13/18 00:00 IMPRESSION: Large right pleural effusion is identified. Femur X-Ray 04/15/18 00:00 IMPRESSION: Cannot exclude some small lytic lesions in the left femur. Humerus X-Ray 04/15/18 00:00 IMPRESSION: No acute abnormality. No lytic lesions are appreciated. Pelvis X-Ray 04/15/18 00:00 IMPRESSION: 1. No significant abnormality in the bony pelvis. 2. Constipation. Chest X-Ray 04/17/18 06:00 IMPRESSION: PleurX catheter tip in the posterior apex right hemithorax. No residual pleural effusion or pneumothorax. No focal infiltrates. Stable massive cardiomegaly Assessment & Plan - Diagnosis (1) Pleural effusion on right Is this a current diagnosis for this admission?: Yes Plan: Resolving. Patient had thoracentesis on 04/04/18 and had 850 cc drained. Pleural fluid analysis is consistent with transudative effusion likely related to her ESRD. She had recurrence of right sided effusion and underwent a 2nd thoracentesis on 04/06/18 and had 800 cc drained. Cytology is negative for malignancy x 2 and was only remarkable for benign mesothelial cells. She eventually underwent placement of PleurX catheter on 04/13/18. (2) Hypertensive emergency Is this a current diagnosis for this admission?: Yes Plan: Resolved. Blood pressures running in the 117/60s. Continue amlodipine, hydralazine, Coreg and clonidine. (3) Pneumonia Qualifiers: Laterality: right Is this a current diagnosis for this admission?: Yes Plan: Resolved right sided pneumonia. Completed 7 days of Rocephin. (4) CHF (congestive heart failure) Qualifiers: Heart failure type: diastolic Is this a current diagnosis for this admission?: Yes Plan: Not in exacerbation. Echo shows mildly low EF (50%) with grade 2 diastolic dysfunction. EF on nuclear study is 45%. On Coreg. Patient is getting dialysis as well MWF. (5) End stage renal failure on dialysis Is this a current diagnosis for this admission?: Yes Plan: Nephrology following. She is getting dialysis MWF. (6) Elevated troponin I level Is this a current diagnosis for this admission?: Yes Plan: Troponins have trended down. No signs of infarction on EKG. Patient is not complaining of any chest pain. Cardiology following. Stress test was pursued and was negative. Elevated troponins were likely related to ESRD and demand from severe hypertension. (7) Diabetes Qualifiers: Diabetes mellitus type: type 2 Diabetes mellitus termite control representative insulin use: unspecified snf insulin use status Diabetes mellitus complication status : with unspecified complications Qualified Code(s): E11.8 - Type 2 diabetes mellitus with unspecified complications Is this a current diagnosis for this admission?: Yes Plan: Hba1c is 7.9%. Sugars are well-controlled with Lantus 7 u HS. (8) Elevated alkaline phosphatase level Is this a current diagnosis for this admission?: Yes Plan: Patient had isolated elevation of ALP with other liver enzymes being normal. 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 - Time Time Spent with patient: Less than 15 minutes
[2018-04-19] MEDS: INSULIN LISPRO 100 UNIT/ML 3 ML VIAL SUBCUT PRN (16:58)
[2018-04-19] MEDS: MIRTAZAPINE 15 MG TABLET PO SCH (22:17)
[2018-04-19] MEDS: GABAPENTIN 300 MG CAPSULE PO SCH (22:21)
[2018-04-19] MEDS: OLANZAPINE 5 MG TAB.RAPDIS PO SCH (22:22)
[2018-04-19] MEDS: ATORVASTATIN CALCIUM 20 MG TABLET PO SCH (22:22)
[2018-04-20] MEDS: CLONIDINE HCL 0.2 MG TABLET PO SCH ×4 (00:05→21:41)
[2018-04-20] MEDS: ACETAMINOPHEN 325 MG TABLET PO PRN (06:38)
[2018-04-20] MEDS: HYDRALAZINE HCL 50 MG TABLET PO SCH ×3 (06:45→21:40)
[2018-04-20] MEDS: LANSOPRAZOLE 30 MG TAB.RAP.DR PO SCH (06:46)
[2018-04-20] MEDS: INSULIN LISPRO 100 UNIT/ML 3 ML VIAL SUBCUT PRN ×3 (07:45→16:57)
[2018-04-20] MEDS: INSULIN LISPRO 100 UNIT/ML 3 ML VIAL SUBCUT SCH ×3 (07:45→16:56)
[2018-04-20] MEDS: SEVELAMER HCL 800 MG TABLET PO SCH ×3 (07:46→16:57)
[2018-04-20] MEDS: FUROSEMIDE 20 MG TABLET PO SCH ×2 (09:38→17:00)
[2018-04-20] MEDS: CARVEDILOL 12.5 MG TABLET PO SCH ×2 (09:38→21:42)
[2018-04-20] MEDS: HEPARIN SOD (PORCINE) 5,000 UNIT/ML 1 ML SYRINGE SUBCUT SCH ×2 (09:38→21:42)
[2018-04-20] MEDS: FAMOTIDINE 20 MG TABLET PO SCH (09:38)
[2018-04-20] MEDS: AMLODIPINE BESYLATE 5 MG TABLET PO SCH (09:38)
--- NOTE | 2018-04-20 12:13 | PDOC PROGRESS REPORT ---
Subjective Progress Note for:: 04/20/18 Subjective:: HAL MERCHANT is a 57 year old female with a past medical history of hypertension, CHF, diabetes, anxiety and end-stage renal failure hemodialysis dependent on MWF who was admitted for progressive SOB and generalized weakness. She was noted to be severely hypertensive with pulmonary congestion and was also noted to have a large right sided pleural effusion. She underwent right sided thoracentesis on 04/04/18 and had 850 cc drained. She was also continued on hemodialysis throughout this hospital course. She had recurrence of large right sided pleural effusion. She underwent a repeat thoracentesis on 04/06/18 and had 800 cc drained. She eventually underwent placement of a Pleur X catheter on 04/13/18 due to recurrent right sided pleural effusion. Patient was accepted by [facility] at [place] on 04/18/18. She was about to be transported by EMS when facility called and said they will cancel her garbage pick up man as they are not able to confirm where she could get her dialysis in the [place] area. They will pick her up instead possibly on Saturday once they have made final arrangements of patient's outpatient dialysis. No acute event overnight. She denies SOB. She is currently saturating well on room air. She is tolerating diet well. She denies chest pain. Denies abdominal pain, melena or hematochezia. Reason For Visit: PLEURAL EFF, HTN URGENCY, ESRD Physical Exam Vital Signs: Temp Pulse Resp BP Pulse Ox 98.6 F 65 15 113/50 L 94 04/20/18 07:30 04/20/18 07:30 04/20/18 07:30 04/20/18 07:30 04/20/18 08:05 Intake & Output 04/19/18 04/20/18 04/21/18 06:59 06:59 06:59 Intake Total 774.25 2616 Output Total 4800 350 Balance -4025.75 2266 Weight 154 lb 8.705 oz 157 lb 6.561 oz General appearance: PRESENT: no acute distress, thin Head exam: PRESENT: atraumatic, normocephalic Eye exam: PRESENT: conjunctiva pink, EOMI, PERRLA. ABSENT: scleral icterus Ear exam: PRESENT: normal external ear exam Mouth exam: PRESENT: moist, tongue midline Neck exam: ABSENT: carotid bruit, JVD, lymphadenopathy, thyromegaly Respiratory exam: PRESENT: clear to auscultation mai. ABSENT: rales, rhonchi, wheezes Cardiovascular exam: PRESENT: RRR. ABSENT: diastolic murmur, rubs, systolic murmur Pulses: PRESENT: normal dorsalis pedis pul GI/Abdominal exam: PRESENT: normal bowel sounds, soft. ABSENT: distended, guarding, mass, organolmegaly, rebound, tenderness Rectal exam: PRESENT: deferred Neurological exam: PRESENT: alert, awake, oriented to person, oriented to place , oriented to time, oriented to situation, CN II-XII grossly intact. ABSENT: motor sensory deficit Results Laboratory Results: 04/18/18 04:48 04/18/18 04:48 04/03/18 04/03/18 04/03/18 05:45 18:19 18:19 Creatine Kinase CK-MB (CK-2) 3.07 Troponin I 0.065 0.327 04/03/18 04/04/18 04/04/18 18:19 00:05 05:55 Creatine Kinase 60 48 CK-MB (CK-2) 2.87 Troponin I 0.277 04/04/18 04/04/18 04/04/18 05:55 12:58 12:58 Creatine Kinase 49 CK-MB (CK-2) 2.01 2.08 Troponin I 0.247 0.220 Impressions: Chest CT 04/05/18 00:00 IMPRESSION: Moderate right pleural effusion. Thoracentesis Ultrasound 04/06/18 10:02 IMPRESSION: SUCCESSFUL THORACENTESIS USING ULTRASOUND GUIDANCE. Pelvis Ultrasound 04/07/18 00:00 IMPRESSION: NO SONOGRAPHIC ABNORMALITY VISUALIZED IN THE PELVIS. Abdomen Ultrasound 04/07/18 17:42 IMPRESSION: 1. LIMITED VISUALIZATION OF THE GALLBLADDER WHICH IS CONTRACTED. THERE IS MARKED THICKENING OF THE GALLBLADDER WALL WHICH MAY BE ARTIFACT DUE TO CONTRACTION ALTHOUGH INFLAMMATORY PROCESS OR EDEMA CANNOT BE EXCLUDED. NO OTHER ABNORMAL FINDINGS IN THE VISUALIZED UPPER ABDOMEN. 2. LARGE RIGHT PLEURAL EFFUSION. Head CT 04/09/18 00:00 IMPRESSION: Unremarkable unenhanced CT brain TECHNICAL DOCUMENTATION: Quality ID # 436: Final reports with documentation of one or more dose reduction techniques (e.g., Automated exposure control, adjustment of the mA and/or kV according to patient size, use of iterative reconstruction technique) 2010 [employer]- All Rights Reserved Abdomen/Pelvis CT 04/11/18 00:00 IMPRESSION: 1. Small amount of free fluid in the right upper quadrant of the abdomen. 2. Very tiny gallstones are suggested. 3. Constipation. 4. No acute process in the abdomen or pelvis. 5. Additional findings as above. Chest Ultrasound 04/13/18 00:00 IMPRESSION: Large right pleural effusion is identified. Femur X-Ray 04/15/18 00:00 IMPRESSION: Cannot exclude some small lytic lesions in the left femur. Humerus X-Ray 04/15/18 00:00 IMPRESSION: No acute abnormality. No lytic lesions are appreciated. Pelvis X-Ray 04/15/18 00:00 IMPRESSION: 1. No significant abnormality in the bony pelvis. 2. Constipation. Chest X-Ray 04/17/18 06:00 IMPRESSION: PleurX catheter tip in the posterior apex right hemithorax. No residual pleural effusion or pneumothorax. No focal infiltrates. Stable massive cardiomegaly Assessment & Plan - Diagnosis (1) Pleural effusion on right Is this a current diagnosis for this admission?: Yes Plan: Resolved. Patient had thoracentesis on 04/04/18 and had 850 cc drained. Pleural fluid analysis is consistent with transudative effusion likely related to her ESRD. She had recurrence of right sided effusion and underwent a 2nd thoracentesis on 04/06/18 and had 800 cc drained. Cytology is negative for malignancy x 2 and was only remarkable for benign mesothelial cells. She eventually underwent placement of PleurX catheter on 04/13/18. (2) Hypertensive emergency Is this a current diagnosis for this admission?: Yes Plan: Resolved. Blood pressures running in the 115/50s. Continue hydralazine, Coreg and clonidine. Reduce amlodipine from 10 mg daily to 5 mg daily. (3) Pneumonia Qualifiers: Laterality: right Is this a current diagnosis for this admission?: Yes Plan: Resolved right sided pneumonia. Completed 7 days of Rocephin. (4) CHF (congestive heart failure) Qualifiers: Heart failure type: diastolic Is this a current diagnosis for this admission?: Yes Plan: Not in exacerbation. Echo shows mildly low EF (50%) with grade 2 diastolic dysfunction. EF on nuclear study is 45%. On Coreg. Patient is getting dialysis as well MWF. (5) End stage renal failure on dialysis Is this a current diagnosis for this admission?: Yes Plan: Nephrology following. She is getting dialysis MWF. (6) Elevated troponin I level Is this a current diagnosis for this admission?: Yes Plan: Troponins have trended down. No signs of infarction on EKG. Patient is not complaining of any chest pain. Cardiology following. Stress test was pursued and was negative. Elevated troponins were likely related to ESRD and demand from severe hypertension. (7) Diabetes Qualifiers: Diabetes mellitus type: type 2 Diabetes mellitus custodial insulin use: unspecified ferry terminal agent insulin use status Diabetes mellitus complication status : with unspecified complications Qualified Code(s): E11.8 - Type 2 diabetes mellitus with unspecified complications Is this a current diagnosis for this admission?: Yes Plan: Hba1c is 7.9%. Sugars are well-controlled with Lantus 7 u HS. (8) Elevated alkaline phosphatase level Is this a current diagnosis for this admission?: Yes Plan: Patient had isolated elevation of ALP with other liver enzymes being normal. 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 - Time Time Spent with patient: 15-24 minutes
[2018-04-20] MEDS: GABAPENTIN 300 MG CAPSULE PO SCH (21:41)
[2018-04-20] MEDS: OLANZAPINE 5 MG TAB.RAPDIS PO SCH (21:41)
[2018-04-20] MEDS: MIRTAZAPINE 15 MG TABLET PO SCH (21:41)
[2018-04-20] MEDS: ATORVASTATIN CALCIUM 20 MG TABLET PO SCH (21:42)
[2018-04-20] MEDS: INSULIN GLARGINE,HUM.REC.ANLOG 300 UNIT/3 ML INSULN.PEN SUBCUT SCH (21:43)
[2018-04-21 05:36] LABS: HEMATOCRIT 31.4 % (36.0-47.0); HEMOGLOBIN 10.2 g/dL (12.0-15.5); MEAN CORPUSCULAR HEMOGLOBIN 26.7 pg (27.0-33.4); MEAN CORPUSCULAR HGB CONC 32.5 g/dL (32.0-36.0); MEAN CORPUSCULAR VOLUME 82 fl (80-97); PLATELET COUNT 130 10^3/uL (150-450); RED BLOOD COUNT 3.81 10^6/uL (3.72-5.28); RED CELL DISTRIBUTION WIDTH 19.3 % (11.5-14.0); WHITE BLOOD COUNT 4.7 10^3/uL (4.0-10.5)
[2018-04-21] MEDS: HYDRALAZINE HCL 50 MG TABLET PO SCH ×3 (06:03→21:10)
[2018-04-21] MEDS: CLONIDINE HCL 0.2 MG TABLET PO SCH ×3 (06:04→21:10)
[2018-04-21] MEDS: LANSOPRAZOLE 30 MG TAB.RAP.DR PO SCH (06:06)
[2018-04-21 06:17] LABS: ANION GAP 15 (5-19); BLOOD UREA NITROGEN 98 mg/dL (7-20); CALCIUM 8.8 mg/dL (8.4-10.2); CARBON DIOXIDE 23 mmol/L (22-30); CHLORIDE 90 mmol/L (98-107); GLUCOSE 141 mg/dL (75-110); SODIUM 127.8 mmol/L (137-145)
[2018-04-21 06:40] LABS: POTASSIUM 6.6 mmol/L (3.6-5.0)
[2018-04-21] MEDS ORDERED: AMLODIPINE BESYLATE 5 MG TABLET PO SCH (10:00)
--- NOTE | 2018-04-21 11:41 | PDOC PROGRESS REPORT ---
Subjective Progress Note for:: 04/21/18 Reason For Visit: Patient was seen today in the hospital undergoing dialysis. She is undergoing dialysis without any issues. She complains of weakness but otherwise doing well. Breathing is stable. She denies any history of chest pains, fever or chills. Still has the Pleurx catheter. Labs and medications were reviewed with the patient. Physical Exam Vital Signs: Temp Pulse Resp BP Pulse Ox 97.6 F 61 18 115/67 92 04/21/18 03:09 04/21/18 07:00 04/21/18 03:09 04/21/18 03:09 04/21/18 03:09 Intake & Output 04/20/18 04/21/18 04/22/18 06:59 06:59 06:59 Intake Total 2616 1116 Output Total 350 75 Balance 2266 1041 Weight 71.4 kg 72 kg General appearance: PRESENT: no acute distress Respiratory exam: PRESENT: clear to auscultation mai, crackles Cardiovascular exam: PRESENT: RRR, +S1, +S2 GI/Abdominal exam: PRESENT: soft. ABSENT: organomegaly, tenderness Extremities exam: PRESENT: pedal edema Neurological exam: PRESENT: alert, awake, oriented to person, oriented to place Skin exam: ABSENT: cyanosis, erythema, mottled, rash Results Laboratory Results: 04/21/18 05:03 04/21/18 05:03 04/21/18 04/21/18 05:03 05:03 WBC 4.7 RBC 3.81 Hgb 10.2 L Hct 31.4 L MCV 82 MCH 26.7 L MCHC 32.5 RDW 19.3 H Plt Count 130 L Sodium 127.8 L Potassium 6.6 H* Chloride 90 L Carbon Dioxide 23 Anion Gap 15 BUN 98 H Creatinine 8.28 H Est GFR ( Amer) 6 L Est GFR (Non-Af Amer) 5 L Glucose 141 H Calcium 8.8 04/03/18 04/03/18 04/03/18 05:45 18:19 18:19 Creatine Kinase CK-MB (CK-2) 3.07 Troponin I 0.065 0.327 04/03/18 04/04/18 04/04/18 18:19 00:05 05:55 Creatine Kinase 60 48 CK-MB (CK-2) 2.87 Troponin I 0.277 04/04/18 04/04/18 04/04/18 05:55 12:58 12:58 Creatine Kinase 49 CK-MB (CK-2) 2.01 2.08 Troponin I 0.247 0.220 Impressions: Chest CT 04/05/18 00:00 IMPRESSION: Moderate right pleural effusion. Thoracentesis Ultrasound 04/06/18 10:02 IMPRESSION: SUCCESSFUL THORACENTESIS USING ULTRASOUND GUIDANCE. Pelvis Ultrasound 04/07/18 00:00 IMPRESSION: NO SONOGRAPHIC ABNORMALITY VISUALIZED IN THE PELVIS. Abdomen Ultrasound 04/07/18 17:42 IMPRESSION: 1. LIMITED VISUALIZATION OF THE GALLBLADDER WHICH IS CONTRACTED. THERE IS MARKED THICKENING OF THE GALLBLADDER WALL WHICH MAY BE ARTIFACT DUE TO CONTRACTION ALTHOUGH INFLAMMATORY PROCESS OR EDEMA CANNOT BE EXCLUDED. NO OTHER ABNORMAL FINDINGS IN THE VISUALIZED UPPER ABDOMEN. 2. LARGE RIGHT PLEURAL EFFUSION. Head CT 04/09/18 00:00 IMPRESSION: Unremarkable unenhanced CT brain TECHNICAL DOCUMENTATION: Quality ID # 436: Final reports with documentation of one or more dose reduction techniques (e.g., Automated exposure control, adjustment of the mA and/or kV according to patient size, use of iterative reconstruction technique) 2010 [employer]- All Rights Reserved Abdomen/Pelvis CT 04/11/18 00:00 IMPRESSION: 1. Small amount of free fluid in the right upper quadrant of the abdomen. 2. Very tiny gallstones are suggested. 3. Constipation. 4. No acute process in the abdomen or pelvis. 5. Additional findings as above. Chest Ultrasound 04/13/18 00:00 IMPRESSION: Large right pleural effusion is identified. Femur X-Ray 04/15/18 00:00 IMPRESSION: Cannot exclude some small lytic lesions in the left femur. Humerus X-Ray 04/15/18 00:00 IMPRESSION: No acute abnormality. No lytic lesions are appreciated. Pelvis X-Ray 04/15/18 00:00 IMPRESSION: 1. No significant abnormality in the bony pelvis. 2. Constipation. Chest X-Ray 04/17/18 06:00 IMPRESSION: PleurX catheter tip in the posterior apex right hemithorax. No residual pleural effusion or pneumothorax. No focal infiltrates. Stable massive cardiomegaly Assessment & Plan - Diagnosis (1) Hyperkalemia Is this a current diagnosis for this admission?: Yes Plan: Advised on diet. Should respond to dialysis.Monitor. (2) End stage renal failure on dialysis Is this a current diagnosis for this admission?: Yes Plan: Seen on dialysis. Plan dialysis for 4 hours. Potassium should respond to dialysis. Advised on proper diet.Its being supervised to ensure a safe and smooth procedure. Vs are stable .orders reviewed with treating coreroom foundry laborer. Plan to remove 4-5 L as tolerated. (3) Hypertension Is this a current diagnosis for this admission?: Yes Plan: Controlled.Continue current guidelines. (4) Diabetes Qualifiers: Diabetes mellitus type: type 2 Diabetes mellitus custodial insulin use: unspecified terminal system operator insulin use status Diabetes mellitus complication status : with unspecified complications Qualified Code(s): E11.8 - Type 2 diabetes mellitus with unspecified complications Is this a current diagnosis for this admission?: Yes Plan: Adv tight sugar control. (5) Pleural effusion on right Is this a current diagnosis for this admission?: Yes Plan: S/P thoracentesis.Currently has a Pleurx catheter in the right lungs and draining. Clinically much better. Anticipating discharge soon. (6) CHF (congestive heart failure) Qualifiers: Heart failure type: diastolic Is this a current diagnosis for this admission?: Yes Plan: Diastolic with Pulmonary hypertension.Stable.
[2018-04-21] MEDS ORDERED: EPOETIN ALFA 5,000 UNIT in SYRINGE, DISPOSABLE, 1 EACH IV ONE (12:00)
[2018-04-21] MEDS ORDERED: EPOETIN ALFA INJ 20000 UNIT/1 ML VIAL (RENAL) IV ONE (12:00)
[2018-04-21] MEDS: INSULIN LISPRO 100 UNIT/ML 3 ML VIAL SUBCUT SCH ×3 (12:36→17:39)
[2018-04-21] MEDS: SEVELAMER HCL 800 MG TABLET PO SCH ×3 (12:37→17:39)
[2018-04-21] MEDS: CARVEDILOL 12.5 MG TABLET PO SCH ×2 (12:38→21:10)
[2018-04-21] MEDS: HEPARIN SOD (PORCINE) 5,000 UNIT/ML 1 ML SYRINGE SUBCUT SCH ×2 (12:38→21:11)
[2018-04-21] MEDS: FUROSEMIDE 20 MG TABLET PO SCH ×2 (12:39→17:39)
[2018-04-21] MEDS: CALCITRIOL 0.25 MCG CAPSULE PO SCH (12:39)
[2018-04-21] MEDS: FAMOTIDINE 20 MG TABLET PO SCH (12:44)
--- NOTE | 2018-04-21 16:06 | PDOC PROGRESS REPORT ---
Subjective Progress Note for:: 04/21/18 Subjective:: HAL MERCHANT is a 57 year old female with a past medical history of hypertension, CHF, diabetes, anxiety and end-stage renal failure hemodialysis dependent on MWF who was admitted for progressive SOB and generalized weakness. She was noted to be severely hypertensive with pulmonary congestion and was also noted to have a large right sided pleural effusion. She underwent right sided thoracentesis on 04/04/18 and had 850 cc drained. She was also continued on hemodialysis throughout this hospital course. She had recurrence of large right sided pleural effusion. She underwent a repeat thoracentesis on 04/06/18 and had 800 cc drained. She eventually underwent placement of a Pleur X catheter on 04/13/18 due to recurrent right sided pleural effusion. Patient was accepted by [facility] at [place] on 04/18/18. 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 Still awaiting for receiving facility to accept patient pending arrangements of her outpatient dialysis. No acute event overnight. She denies SOB. She had dialysis this morning. She is currently saturating well on room air. She is tolerating diet well. She denies chest pain. Denies abdominal pain, melena or hematochezia. Reason For Visit: PLEURAL EFF, HTN URGENCY, ESRD Physical Exam Vital Signs: Temp Pulse Resp BP Pulse Ox 98.0 F 76 16 140/59 H 94 04/21/18 12:29 04/21/18 14:00 04/21/18 12:29 04/21/18 12:29 04/21/18 12:29 Intake & Output 04/20/18 04/21/18 04/22/18 06:59 06:59 06:59 Intake Total 2616 1116 0.25 Output Total 910 18 2076 Balance 2266 1041 -4899.75 Weight 157 lb 6.561 oz 158 lb 11.725 oz General appearance: PRESENT: no acute distress, well-developed, well-nourished Head exam: PRESENT: atraumatic, normocephalic Eye exam: PRESENT: conjunctiva pink, EOMI, PERRLA. ABSENT: scleral icterus Ear exam: PRESENT: normal external ear exam Mouth exam: PRESENT: moist, tongue midline Neck exam: ABSENT: carotid bruit, JVD, lymphadenopathy, thyromegaly Respiratory exam: PRESENT: clear to auscultation mai. ABSENT: rales, rhonchi, wheezes Cardiovascular exam: PRESENT: RRR. ABSENT: diastolic murmur, rubs, systolic murmur Pulses: PRESENT: normal dorsalis pedis pul GI/Abdominal exam: PRESENT: normal bowel sounds, soft. ABSENT: distended, guarding, mass, organolmegaly, rebound, tenderness Rectal exam: PRESENT: deferred Neurological exam: PRESENT: alert, awake, oriented to person, oriented to place , oriented to time, oriented to situation, CN II-XII grossly intact. ABSENT: motor sensory deficit Results Laboratory Results: 04/21/18 05:03 04/21/18 05:03 04/21/18 04/21/18 05:03 05:03 WBC 4.7 RBC 3.81 Hgb 10.2 L Hct 31.4 L MCV 82 MCH 26.7 L MCHC 32.5 RDW 19.3 H Plt Count 130 L Sodium 127.8 L Potassium 6.6 H* Chloride 90 L Carbon Dioxide 23 Anion Gap 15 BUN 98 H Creatinine 8.28 H Est GFR ( Amer) 6 L Est GFR (Non-Af Amer) 5 L Glucose 141 H Calcium 8.8 04/03/18 04/03/18 04/03/18 05:45 18:19 18:19 Creatine Kinase CK-MB (CK-2) 3.07 Troponin I 0.065 0.327 04/03/18 04/04/18 04/04/18 18:19 00:05 05:55 Creatine Kinase 60 48 CK-MB (CK-2) 2.87 Troponin I 0.277 04/04/18 04/04/18 04/04/18 05:55 12:58 12:58 Creatine Kinase 49 CK-MB (CK-2) 2.01 2.08 Troponin I 0.247 0.220 Impressions: Chest CT 04/05/18 00:00 IMPRESSION: Moderate right pleural effusion. Thoracentesis Ultrasound 04/06/18 10:02 IMPRESSION: SUCCESSFUL THORACENTESIS USING ULTRASOUND GUIDANCE. Pelvis Ultrasound 04/07/18 00:00 IMPRESSION: NO SONOGRAPHIC ABNORMALITY VISUALIZED IN THE PELVIS. Abdomen Ultrasound 04/07/18 17:42 IMPRESSION: 1. LIMITED VISUALIZATION OF THE GALLBLADDER WHICH IS CONTRACTED. THERE IS MARKED THICKENING OF THE GALLBLADDER WALL WHICH MAY BE ARTIFACT DUE TO CONTRACTION ALTHOUGH INFLAMMATORY PROCESS OR EDEMA CANNOT BE EXCLUDED. NO OTHER ABNORMAL FINDINGS IN THE VISUALIZED UPPER ABDOMEN. 2. LARGE RIGHT PLEURAL EFFUSION. Head CT 04/09/18 00:00 IMPRESSION: Unremarkable unenhanced CT brain TECHNICAL DOCUMENTATION: Quality ID # 436: Final reports with documentation of one or more dose reduction techniques (e.g., Automated exposure control, adjustment of the mA and/or kV according to patient size, use of iterative reconstruction technique) 2010 [employer]- All Rights Reserved Abdomen/Pelvis CT 04/11/18 00:00 IMPRESSION: 1. Small amount of free fluid in the right upper quadrant of the abdomen. 2. Very tiny gallstones are suggested. 3. Constipation. 4. No acute process in the abdomen or pelvis. 5. Additional findings as above. Chest Ultrasound 04/13/18 00:00 IMPRESSION: Large right pleural effusion is identified. Femur X-Ray 04/15/18 00:00 IMPRESSION: Cannot exclude some small lytic lesions in the left femur. Humerus X-Ray 04/15/18 00:00 IMPRESSION: No acute abnormality. No lytic lesions are appreciated. Pelvis X-Ray 04/15/18 00:00 IMPRESSION: 1. No significant abnormality in the bony pelvis. 2. Constipation. Chest X-Ray 04/17/18 06:00 IMPRESSION: PleurX catheter tip in the posterior apex right hemithorax. No residual pleural effusion or pneumothorax. No focal infiltrates. Stable massive cardiomegaly Assessment & Plan - Diagnosis (1) Pleural effusion on right Is this a current diagnosis for this admission?: Yes Plan: Resolved. Patient had thoracentesis on 04/04/18 and had 850 cc drained. Pleural fluid analysis is consistent with transudative effusion likely related to her ESRD. She had recurrence of right sided effusion and underwent a 2nd thoracentesis on 04/06/18 and had 800 cc drained. Cytology is negative for malignancy x 2 and was only remarkable for benign mesothelial cells. She eventually underwent placement of PleurX catheter on 04/13/18. (2) Hypertensive emergency Is this a current diagnosis for this admission?: Yes Plan: Resolved. Blood pressures running in the 140/90s. Continue hydralazine, Coreg and clonidine. Amlodipine was reduced from 10 mg daily to 5 mg daily yesterday as pressures were in the 110/50s the other night. (3) Pneumonia Qualifiers: Laterality: right Is this a current diagnosis for this admission?: Yes Plan: Resolved right sided pneumonia. Completed 7 days of Rocephin. (4) CHF (congestive heart failure) Qualifiers: Heart failure type: diastolic Is this a current diagnosis for this admission?: Yes Plan: Not in exacerbation. Echo shows mildly low EF (50%) with grade 2 diastolic dysfunction. EF on nuclear study is 45%. On Coreg. Patient is getting dialysis as well MWF. (5) End stage renal failure on dialysis Is this a current diagnosis for this admission?: Yes Plan: Nephrology following. She is getting dialysis MWF. (6) Elevated troponin I level Is this a current diagnosis for this admission?: Yes Plan: Troponins have trended down. No signs of infarction on EKG. Patient is not complaining of any chest pain. Cardiology following. Stress test was pursued and was negative. Elevated troponins were likely related to ESRD and demand from severe hypertension. 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 Sugars are well-controlled with Lantus 7 u HS. (8) Elevated alkaline phosphatase level Is this a current diagnosis for this admission?: Yes Plan: Patient had isolated elevation of ALP with other liver enzymes being normal. 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 - Time Time Spent with patient: Less than 15 minutes
[2018-04-21] MEDS: INSULIN LISPRO 100 UNIT/ML 3 ML VIAL SUBCUT PRN (17:40)
[2018-04-21] MEDS: MIRTAZAPINE 15 MG TABLET PO SCH (21:08)
[2018-04-21] MEDS: OLANZAPINE 5 MG TAB.RAPDIS PO SCH (21:10)
[2018-04-21] MEDS: GABAPENTIN 300 MG CAPSULE PO SCH (21:10)
[2018-04-21] MEDS: ATORVASTATIN CALCIUM 20 MG TABLET PO SCH (21:10)
[2018-04-21] MEDS: INSULIN GLARGINE,HUM.REC.ANLOG 300 UNIT/3 ML INSULN.PEN SUBCUT SCH (21:28)
[2018-04-22] MEDS: HYDRALAZINE HCL 50 MG TABLET PO SCH ×3 (05:23→21:57)
[2018-04-22] MEDS: CLONIDINE HCL 0.2 MG TABLET PO SCH ×3 (05:23→21:59)
[2018-04-22] MEDS: LANSOPRAZOLE 30 MG TAB.RAP.DR PO SCH (05:24)
[2018-04-22 05:44] LABS: ANION GAP 13 (5-19); BLOOD UREA NITROGEN 56 mg/dL (7-20); CARBON DIOXIDE 30 mmol/L (22-30); CHLORIDE 95 mmol/L (98-107); GLUCOSE 116 mg/dL (75-110); POTASSIUM 4.9 mmol/L (3.6-5.0)
[2018-04-22] MEDS: INSULIN LISPRO 100 UNIT/ML 3 ML VIAL SUBCUT SCH ×3 (07:35→17:56)
[2018-04-22] MEDS: SEVELAMER HCL 800 MG TABLET PO SCH ×3 (07:38→16:01)
[2018-04-22] MEDS: CALCITRIOL 0.25 MCG CAPSULE PO SCH (09:16)
[2018-04-22] MEDS: HEPARIN SOD (PORCINE) 5,000 UNIT/ML 1 ML SYRINGE SUBCUT SCH ×2 (09:16→21:59)
[2018-04-22] MEDS: FUROSEMIDE 20 MG TABLET PO SCH ×2 (09:17→17:56)
[2018-04-22] MEDS: FAMOTIDINE 20 MG TABLET PO SCH (09:17)
[2018-04-22] MEDS: CARVEDILOL 12.5 MG TABLET PO SCH ×2 (09:17→21:58)
[2018-04-22] MEDS: INSULIN LISPRO 100 UNIT/ML 3 ML VIAL SUBCUT PRN ×3 (11:23→22:01)
[2018-04-22] MEDS: ACETAMINOPHEN 325 MG TABLET PO PRN (16:00)
--- NOTE | 2018-04-22 20:38 | PDOC PROGRESS REPORT ---
Subjective Progress Note for:: 04/22/18 Subjective:: HAL MERCHANT is a 57 year old female with acute onset of dyspnea and generalized weakness with gradual progression since a recent renal dialysis treatment. She was unable to provide history in the emergency room, but her son provided information that she had received renal dialysis on the day prior to admission with 3.5 L of fluid removed. Shortly after her treatment she began to develop shortness of breath which had gradually worsened. The dyspnea had been accompanied by generalized weakness. In the emergency room she was found to have severe hypertension with a systolic blood pressure well over 200 and she was treated as a hypertensive emergency receiving Nitropaste and clonidine. Additionally she was found to have a right pleural effusion. After admission she did quite well with her blood pressure being controlled and her pleural effusion was evacuated and her dyspnea resolved. She has subsequently had several pleural evacuations with relief of dyspnea after each. Her blood pressure has been reasonably well controlled with oral agents and she will be discharged to an acute rehab facility 04/23/2018 after her dialysis. 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 04/22/2018: Patient states she is feeling well today. She has been tolerating her diet and has no pain. She feels like she can breathe a little bit better after they took the fluid off of her lung last night however she complains that she does have some discomfort because of the PleurX catheter. She is looking forward to being discharged as soon as possible. Reason For Visit: PLEURAL EFF, HTN URGENCY, ESRD Physical Exam Vital Signs: Temp Pulse Resp BP Pulse Ox 97.9 F 62 19 120/56 L 99 04/22/18 15:21 04/22/18 15:21 04/22/18 15:21 04/22/18 15:21 04/22/18 15:21 Intake & Output 04/20/18 04/21/18 04/22/18 23:59 23:59 23:59 Intake Total 1016 437.25 1291 Output Total 75 1840 575 Balance 941 -8435.75 716 Weight 71.4 kg 72 kg 70.4 kg General appearance: PRESENT: no acute distress, cooperative Head exam: PRESENT: atraumatic, normocephalic Eye exam: ABSENT: conjunctival injection, periorbital swelling, scleral icterus Ear exam: PRESENT: normal external ear exam. ABSENT: drainage Mouth exam: PRESENT: neck supple, tongue midline Neck exam: ABSENT: thyromegaly, tracheal deviation Respiratory exam: PRESENT: decreased breath sounds - Right base lower 1/4 of lung field., symmetrical, unlabored, other - Dullness to percussion in the right base posteriorly.. ABSENT: tachypnea Cardiovascular exam: PRESENT: RRR. ABSENT: clicks, gallop, rubs Vascular exam: PRESENT: normal capillary refill. ABSENT: pallor GI/Abdominal exam: PRESENT: normal bowel sounds, soft Rectal exam: PRESENT: deferred Extremities exam: ABSENT: joint swelling, pedal edema Musculoskeletal exam: PRESENT: full ROM, normal inspection Neurological exam: PRESENT: alert, oriented to person, oriented to place, oriented to time, oriented to situation Psychiatric exam: PRESENT: appropriate affect, normal mood Skin exam: ABSENT: jaundice, rash, urticaria Results Laboratory Results: 04/21/18 05:03 04/22/18 05:06 04/22/18 04/22/18 05:06 05:06 Sodium 138.0 Potassium 4.9 Chloride 95 L Carbon Dioxide 30 Anion Gap 13 BUN 56 H Creatinine 5.42 H Est GFR ( Amer) 10 L Est GFR (Non-Af Amer) 8 L Glucose 116 H Calcium 9.0 Phosphorus 4.1 04/03/18 04/03/18 04/03/18 05:45 18:19 18:19 Creatine Kinase CK-MB (CK-2) 3.07 Troponin I 0.065 0.327 04/03/18 04/04/18 04/04/18 18:19 00:05 05:55 Creatine Kinase 60 48 CK-MB (CK-2) 2.87 Troponin I 0.277 04/04/18 04/04/18 04/04/18 05:55 12:58 12:58 Creatine Kinase 49 CK-MB (CK-2) 2.01 2.08 Troponin I 0.247 0.220 Impressions: Chest CT 04/05/18 00:00 IMPRESSION: Moderate right pleural effusion. Thoracentesis Ultrasound 04/06/18 10:02 IMPRESSION: SUCCESSFUL THORACENTESIS USING ULTRASOUND GUIDANCE. Pelvis Ultrasound 04/07/18 00:00 IMPRESSION: NO SONOGRAPHIC ABNORMALITY VISUALIZED IN THE PELVIS. Abdomen Ultrasound 04/07/18 17:42 IMPRESSION: 1. LIMITED VISUALIZATION OF THE GALLBLADDER WHICH IS CONTRACTED. THERE IS MARKED THICKENING OF THE GALLBLADDER WALL WHICH MAY BE ARTIFACT DUE TO CONTRACTION ALTHOUGH INFLAMMATORY PROCESS OR EDEMA CANNOT BE EXCLUDED. NO OTHER ABNORMAL FINDINGS IN THE VISUALIZED UPPER ABDOMEN. 2. LARGE RIGHT PLEURAL EFFUSION. Head CT 04/09/18 00:00 IMPRESSION: Unremarkable unenhanced CT brain TECHNICAL DOCUMENTATION: Quality ID # 436: Final reports with documentation of one or more dose reduction techniques (e.g., Automated exposure control, adjustment of the mA and/or kV according to patient size, use of iterative reconstruction technique) 2010 [employer]- All Rights Reserved Abdomen/Pelvis CT 04/11/18 00:00 IMPRESSION: 1. Small amount of free fluid in the right upper quadrant of the abdomen. 2. Very tiny gallstones are suggested. 3. Constipation. 4. No acute process in the abdomen or pelvis. 5. Additional findings as above. Chest Ultrasound 04/13/18 00:00 IMPRESSION: Large right pleural effusion is identified. Femur X-Ray 04/15/18 00:00 IMPRESSION: Cannot exclude some small lytic lesions in the left femur. Humerus X-Ray 04/15/18 00:00 IMPRESSION: No acute abnormality. No lytic lesions are appreciated. Pelvis X-Ray 04/15/18 00:00 IMPRESSION: 1. No significant abnormality in the bony pelvis. 2. Constipation. Chest X-Ray 04/17/18 06:00 IMPRESSION: PleurX catheter tip in the posterior apex right hemithorax. No residual pleural effusion or pneumothorax. No focal infiltrates. Stable massive cardiomegaly Assessment & Plan - Diagnosis (1) Hypertensive emergency Is this a current diagnosis for this admission?: Yes Plan: Patient's initial blood pressure in the emergency room was greater than 200 systolic. She was treated with topical nitroglycerin paste and oral clonidine with good results. 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 At the present time her blood pressure is reasonably well controlled. Her hypertensive emergency has resolved. (2) Pleural effusion on right Is this a current diagnosis for this admission?: Yes Plan: Patient had thoracentesis on 04/04/18 and had 850 cc drained. Pleural fluid analysis is consistent with transudative effusion likely related to her ESRD. She had recurrence of right sided effusion and underwent a 2nd thoracentesis on 04/06/18 and had 800 cc drained. Cytology is negative for malignancy x 2 and was only remarkable for benign mesothelial cells. She eventually underwent placement of PleurX catheter on 04/13/18 has had several subsequent pleural evacuations using the PleurX catheter since that time. (3) Acute on chronic diastolic heart failure Is this a current diagnosis for this admission?: Yes Plan: Patient's acute on chronic diastolic heart failure was most likely due to her hypertensive emergency causing essentially pulmonary edema resulting in her severe dyspnea. Her dyspnea resolved as well as her symptoms of heart failure with the exception of her pleural effusion with treatment of her hypertension. Her acute exacerbation of heart failure is currently resolved. (4) End stage renal failure on dialysis Is this a current diagnosis for this admission?: Yes Plan: Nephrology following. She is getting dialysis MWF, currently but B will be switching to Saturday and Saturday dialysis at her new location. - Time Time Spent with patient: 15-24 minutes Anticipated discharge: Acute Rehab
[2018-04-22] MEDS: GABAPENTIN 300 MG CAPSULE PO SCH (21:57)
[2018-04-22] MEDS: OLANZAPINE 5 MG TAB.RAPDIS PO SCH (21:57)
[2018-04-22] MEDS: ATORVASTATIN CALCIUM 20 MG TABLET PO SCH (21:58)
[2018-04-22] MEDS: MIRTAZAPINE 15 MG TABLET PO SCH (22:00)
[2018-04-22] MEDS: INSULIN GLARGINE,HUM.REC.ANLOG 300 UNIT/3 ML INSULN.PEN SUBCUT SCH (22:00)
[2018-04-23] MEDS ORDERED: EPOETIN ALFA INJ 20000 UNIT/1 ML VIAL (RENAL) IV PRN (05:00)
[2018-04-23 06:35] LABS: HEMATOCRIT 31.7 % (36.0-47.0); HEMOGLOBIN 10.3 g/dL (12.0-15.5); MEAN CORPUSCULAR HEMOGLOBIN 26.9 pg (27.0-33.4); MEAN CORPUSCULAR HGB CONC 32.6 g/dL (32.0-36.0); MEAN CORPUSCULAR VOLUME 83 fl (80-97); PLATELET COUNT 144 10^3/uL (150-450); RED BLOOD COUNT 3.84 10^6/uL (3.72-5.28); RED CELL DISTRIBUTION WIDTH 19.2 % (11.5-14.0); WHITE BLOOD COUNT 4.5 10^3/uL (4.0-10.5)
[2018-04-23] MEDS: LANSOPRAZOLE 30 MG TAB.RAP.DR PO SCH (06:36)
[2018-04-23] MEDS: HYDRALAZINE HCL 50 MG TABLET PO SCH ×3 (06:52→22:49)
[2018-04-23] MEDS: CLONIDINE HCL 0.2 MG TABLET PO SCH ×3 (06:53→22:49)
[2018-04-23 07:22] LABS: ANION GAP 12 (5-19); BLOOD UREA NITROGEN 78 mg/dL (7-20); CALCIUM 8.8 mg/dL (8.4-10.2); CARBON DIOXIDE 28 mmol/L (22-30); CHLORIDE 93 mmol/L (98-107); GLUCOSE 178 mg/dL (75-110); POTASSIUM 5.5 mmol/L (3.6-5.0); SODIUM 133.3 mmol/L (137-145)
[2018-04-23] MEDS ORDERED: EPOETIN ALFA 5,000 UNIT in SYRINGE, DISPOSABLE, 1 EACH IV ONE (11:15)
[2018-04-23] MEDS: INSULIN LISPRO 100 UNIT/ML 3 ML VIAL SUBCUT SCH ×3 (12:44→16:52)
[2018-04-23] MEDS: HEPARIN SOD (PORCINE) 5,000 UNIT/ML 1 ML SYRINGE SUBCUT SCH ×2 (12:45→22:52)
[2018-04-23] MEDS: SEVELAMER HCL 800 MG TABLET PO SCH ×3 (12:45→16:53)
[2018-04-23] MEDS: CARVEDILOL 12.5 MG TABLET PO SCH ×2 (12:45→22:48)
[2018-04-23] MEDS: FUROSEMIDE 20 MG TABLET PO SCH ×2 (12:46→16:59)
[2018-04-23] MEDS: CALCITRIOL 0.25 MCG CAPSULE PO SCH (12:46)
[2018-04-23] MEDS: FAMOTIDINE 20 MG TABLET PO SCH (12:46)
--- NOTE | 2018-04-23 14:28 | PDOC PROGRESS REPORT ---
Subjective Progress Note for:: 04/23/18 Reason For Visit: Patient seen today on dialysis. She is undergoing dialysis without any issues. She denies any history of chest pain or shortness of breath. She is awaiting skilled nursing placement. Labs and medications were reviewed with the patient. Dialysis orders were reviewed with the treating dialysis nurse. Physical Exam Vital Signs: Temp Pulse Resp BP Pulse Ox 97.9 F 66 20 140/71 H 91 L 04/23/18 03:26 04/23/18 07:00 04/23/18 03:26 04/23/18 03:26 04/23/18 03:26 Intake & Output 04/22/18 04/23/18 04/24/18 06:59 06:59 06:59 Intake Total 817.25 961 0.25 Output Total 5475 400 3600 Balance -4657.75 561 -3599.75 Weight 70.4 kg 72.7 kg General appearance: PRESENT: no acute distress Respiratory exam: PRESENT: clear to auscultation mai. ABSENT: crackles Cardiovascular exam: PRESENT: RRR, +S1, +S2 GI/Abdominal exam: PRESENT: soft. ABSENT: organomegaly, tenderness Neurological exam: PRESENT: alert, awake, oriented to person, oriented to place Results Laboratory Results: 04/23/18 05:31 04/23/18 05:31 04/23/18 04/23/18 05:31 05:31 WBC 4.5 RBC 3.84 Hgb 10.3 L Hct 31.7 L MCV 83 MCH 26.9 L MCHC 32.6 RDW 19.2 H Plt Count 144 L Sodium 133.3 L Potassium 5.5 H Chloride 93 L Carbon Dioxide 28 Anion Gap 12 BUN 78 H Creatinine 6.52 H Est GFR ( Amer) 8 L Est GFR (Non-Af Amer) 7 L Glucose 178 H Calcium 8.8 04/03/18 04/03/18 04/03/18 05:45 18:19 18:19 Creatine Kinase CK-MB (CK-2) 3.07 Troponin I 0.065 0.327 04/03/18 04/04/18 04/04/18 18:19 00:05 05:55 Creatine Kinase 60 48 CK-MB (CK-2) 2.87 Troponin I 0.277 04/04/18 04/04/18 04/04/18 05:55 12:58 12:58 Creatine Kinase 49 CK-MB (CK-2) 2.01 2.08 Troponin I 0.247 0.220 Impressions: Chest CT 04/05/18 00:00 IMPRESSION: Moderate right pleural effusion. Thoracentesis Ultrasound 04/06/18 10:02 IMPRESSION: SUCCESSFUL THORACENTESIS USING ULTRASOUND GUIDANCE. Pelvis Ultrasound 04/07/18 00:00 IMPRESSION: NO SONOGRAPHIC ABNORMALITY VISUALIZED IN THE PELVIS. Abdomen Ultrasound 04/07/18 17:42 IMPRESSION: 1. LIMITED VISUALIZATION OF THE GALLBLADDER WHICH IS CONTRACTED. THERE IS MARKED THICKENING OF THE GALLBLADDER WALL WHICH MAY BE ARTIFACT DUE TO CONTRACTION ALTHOUGH INFLAMMATORY PROCESS OR EDEMA CANNOT BE EXCLUDED. NO OTHER ABNORMAL FINDINGS IN THE VISUALIZED UPPER ABDOMEN. 2. LARGE RIGHT PLEURAL EFFUSION. Head CT 04/09/18 00:00 IMPRESSION: Unremarkable unenhanced CT brain TECHNICAL DOCUMENTATION: Quality ID # 436: Final reports with documentation of one or more dose reduction techniques (e.g., Automated exposure control, adjustment of the mA and/or kV according to patient size, use of iterative reconstruction technique) 2010 [employer]- All Rights Reserved Abdomen/Pelvis CT 04/11/18 00:00 IMPRESSION: 1. Small amount of free fluid in the right upper quadrant of the abdomen. 2. Very tiny gallstones are suggested. 3. Constipation. 4. No acute process in the abdomen or pelvis. 5. Additional findings as above. Chest Ultrasound 04/13/18 00:00 IMPRESSION: Large right pleural effusion is identified. Femur X-Ray 04/15/18 00:00 IMPRESSION: Cannot exclude some small lytic lesions in the left femur. Humerus X-Ray 04/15/18 00:00 IMPRESSION: No acute abnormality. No lytic lesions are appreciated. Pelvis X-Ray 04/15/18 00:00 IMPRESSION: 1. No significant abnormality in the bony pelvis. 2. Constipation. Chest X-Ray 04/17/18 06:00 IMPRESSION: PleurX catheter tip in the posterior apex right hemithorax. No residual pleural effusion or pneumothorax. No focal infiltrates. Stable massive cardiomegaly Assessment & Plan - Diagnosis (1) Hyperkalemia Is this a current diagnosis for this admission?: Yes Plan: Advised on diet. Should respond to dialysis.Monitor. (2) End stage renal failure on dialysis Is this a current diagnosis for this admission?: Yes Plan: Seen on dialysis. Plan dialysis for 4 hours. Potassium should respond to dialysis. Advised on proper diet.Its being supervised to ensure a safe and smooth procedure. Vs are stable .orders reviewed with treating turret lathe machinist. Plan to remove 4-5 L as tolerated. (3) Hypertension Is this a current diagnosis for this admission?: Yes Plan: Controlled.Continue current guidelines. (4) Diabetes Qualifiers: Diabetes mellitus type: type 2 Diabetes mellitus prison insulin use: unspecified prison insulin use status Diabetes mellitus complication status : with unspecified complications Qualified Code(s): E11.8 - Type 2 diabetes mellitus with unspecified complications Is this a current diagnosis for this admission?: Yes Plan: Adv tight sugar control. (5) Pleural effusion on right Is this a current diagnosis for this admission?: Yes Plan: S/P thoracentesis.Currently has a Pleurx catheter in the right lungs and draining. Clinically much better. Anticipating discharge soon. (6) CHF (congestive heart failure) Qualifiers: Heart failure type: diastolic Is this a current diagnosis for this admission?: Yes Plan: Diastolic with Pulmonary hypertension.Stable.
[2018-04-23] MEDS: INSULIN LISPRO 100 UNIT/ML 3 ML VIAL SUBCUT PRN ×2 (16:52→22:50)
--- NOTE | 2018-04-23 18:02 | PDOC PROGRESS REPORT ---
Subjective Progress Note for:: 04/23/18 Subjective:: HAL MERCHANT is a 57 year old female with acute onset of dyspnea and generalized weakness with gradual progression since a recent renal dialysis treatment. She was unable to provide history in the emergency room, but her son provided information that she had received renal dialysis on the day prior to admission with 3.5 L of fluid removed. Shortly after her treatment she began to develop shortness of breath which had gradually worsened. The dyspnea had been accompanied by generalized weakness. In the emergency room she was found to have severe hypertension with a systolic blood pressure well over 200 and she was treated as a hypertensive emergency receiving Nitropaste and clonidine. Additionally she was found to have a right pleural effusion. After admission she did quite well with her blood pressure being controlled and her pleural effusion was evacuated and her dyspnea resolved. She has subsequently had several pleural evacuations with relief of dyspnea after each. Her blood pressure has been reasonably well controlled with oral agents and she will be discharged to an acute rehab facility 04/23/2018 after her dialysis. This was done at the request of the patient's briquetter operator. 04/22/2018: Patient states she is feeling well today. She has been tolerating her diet and has no pain. She feels like she can breathe a little bit better after they took the fluid off of her lung last night however she complains that she does have some discomfort because of the PleurX catheter. She is looking forward to being discharged as soon as possible. 04/23/2018: Patient states she is continuing to feel well and is looking forward to leaving today. She had her dialysis earlier this morning and feels well. Discharge planning is instructed that the patient is ready to be transferred however now the medical collections at [facility] must evidently approve her transfer and he/she may not be available to do so today. Patient will therefore most likely spend another unnecessary day in the hospital. Reason For Visit: PLEURAL EFF, HTN URGENCY, ESRD Physical Exam Vital Signs: Temp Pulse Resp BP Pulse Ox 98.4 F 75 19 142/59 H 96 04/23/18 15:48 04/23/18 15:48 04/23/18 15:48 04/23/18 15:48 04/23/18 15:48 Intake & Output 04/21/18 04/22/18 04/23/18 23:59 23:59 23:59 Intake Total 437.25 1291 150.25 Output Total 4900 975 3600 Balance -4462.75 316 -9016.75 Weight 72 kg 70.4 kg 72.7 kg General appearance: PRESENT: no acute distress, cooperative Head exam: PRESENT: atraumatic, normocephalic Eye exam: PRESENT: conjunctiva pink, EOMI Ear exam: PRESENT: normal external ear exam. ABSENT: drainage Mouth exam: PRESENT: neck supple, tongue midline Neck exam: ABSENT: thyromegaly, tracheal deviation Respiratory exam: PRESENT: decreased breath sounds - Decreased breath sounds right base, symmetrical, unlabored Cardiovascular exam: PRESENT: RRR. ABSENT: clicks, diastolic murmur, gallop, rubs, systolic murmur Vascular exam: PRESENT: normal capillary refill. ABSENT: pallor GI/Abdominal exam: PRESENT: normal bowel sounds, soft Rectal exam: PRESENT: deferred Extremities exam: ABSENT: joint swelling, pedal edema Musculoskeletal exam: PRESENT: full ROM, normal inspection Neurological exam: PRESENT: alert, oriented to person, oriented to place, oriented to time, oriented to situation, CN II-XII grossly intact. ABSENT: motor sensory deficit Psychiatric exam: PRESENT: appropriate affect, normal mood Skin exam: PRESENT: dry, intact, warm Results Laboratory Results: 04/23/18 05:31 04/23/18 05:31 04/23/18 04/23/18 05:31 05:31 WBC 4.5 RBC 3.84 Hgb 10.3 L Hct 31.7 L MCV 83 MCH 26.9 L MCHC 32.6 RDW 19.2 H Plt Count 144 L Sodium 133.3 L Potassium 5.5 H Chloride 93 L Carbon Dioxide 28 Anion Gap 12 BUN 78 H Creatinine 6.52 H Est GFR ( Amer) 8 L Est GFR (Non-Af Amer) 7 L Glucose 178 H Calcium 8.8 04/03/18 04/03/18 04/03/18 05:45 18:19 18:19 Creatine Kinase CK-MB (CK-2) 3.07 Troponin I 0.065 0.327 04/03/18 04/04/18 04/04/18 18:19 00:05 05:55 Creatine Kinase 60 48 CK-MB (CK-2) 2.87 Troponin I 0.277 04/04/18 04/04/18 04/04/18 05:55 12:58 12:58 Creatine Kinase 49 CK-MB (CK-2) 2.01 2.08 Troponin I 0.247 0.220 Impressions: Chest CT 04/05/18 00:00 IMPRESSION: Moderate right pleural effusion. Thoracentesis Ultrasound 04/06/18 10:02 IMPRESSION: SUCCESSFUL THORACENTESIS USING ULTRASOUND GUIDANCE. Pelvis Ultrasound 04/07/18 00:00 IMPRESSION: NO SONOGRAPHIC ABNORMALITY VISUALIZED IN THE PELVIS. Abdomen Ultrasound 04/07/18 17:42 IMPRESSION: 1. LIMITED VISUALIZATION OF THE GALLBLADDER WHICH IS CONTRACTED. THERE IS MARKED THICKENING OF THE GALLBLADDER WALL WHICH MAY BE ARTIFACT DUE TO CONTRACTION ALTHOUGH INFLAMMATORY PROCESS OR EDEMA CANNOT BE EXCLUDED. NO OTHER ABNORMAL FINDINGS IN THE VISUALIZED UPPER ABDOMEN. 2. LARGE RIGHT PLEURAL EFFUSION. Head CT 04/09/18 00:00 IMPRESSION: Unremarkable unenhanced CT brain TECHNICAL DOCUMENTATION: Quality ID # 436: Final reports with documentation of one or more dose reduction techniques (e.g., Automated exposure control, adjustment of the mA and/or kV according to patient size, use of iterative reconstruction technique) 2010 [employer]- All Rights Reserved Abdomen/Pelvis CT 04/11/18 00:00 IMPRESSION: 1. Small amount of free fluid in the right upper quadrant of the abdomen. 2. Very tiny gallstones are suggested. 3. Constipation. 4. No acute process in the abdomen or pelvis. 5. Additional findings as above. Chest Ultrasound 04/13/18 00:00 IMPRESSION: Large right pleural effusion is identified. Femur X-Ray 04/15/18 00:00 IMPRESSION: Cannot exclude some small lytic lesions in the left femur. Humerus X-Ray 04/15/18 00:00 IMPRESSION: No acute abnormality. No lytic lesions are appreciated. Pelvis X-Ray 04/15/18 00:00 IMPRESSION: 1. No significant abnormality in the bony pelvis. 2. Constipation. Chest X-Ray 04/17/18 06:00 IMPRESSION: PleurX catheter tip in the posterior apex right hemithorax. No residual pleural effusion or pneumothorax. No focal infiltrates. Stable massive cardiomegaly Assessment & Plan - Diagnosis (1) Hypertensive emergency Is this a current diagnosis for this admission?: Yes Plan: Patient's initial blood pressure in the emergency room was greater than 200 systolic. She was treated with topical nitroglycerin paste and oral clonidine with good results. She was continued on treatment throughout her hospital course following the recommendations of her briquetter operator. At the present time her blood pressure is reasonably well controlled. Her hypertensive emergency has resolved. (2) Pleural effusion on right Is this a current diagnosis for this admission?: Yes Plan: Patient had thoracentesis on 04/04/18 and had 850 cc drained. Pleural fluid analysis is consistent with transudative effusion likely related to her ESRD. She had recurrence of right sided effusion and underwent a 2nd thoracentesis on 04/06/18 and had 800 cc drained. Cytology is negative for malignancy x 2 and was only remarkable for benign mesothelial cells. She eventually underwent placement of PleurX catheter on 04/13/18 has had several subsequent pleural evacuations using the PleurX catheter since that time. (3) Acute on chronic diastolic heart failure Is this a current diagnosis for this admission?: Yes Plan: Patient's acute on chronic diastolic heart failure was most likely due to her hypertensive emergency causing essentially pulmonary edema resulting in her severe dyspnea. Her dyspnea resolved as well as her symptoms of heart failure with the exception of her pleural effusion with treatment of her hypertension. Her acute exacerbation of heart failure is currently resolved. (4) End stage renal failure on dialysis Is this a current diagnosis for this admission?: Yes Plan: Nephrology following. She is getting dialysis MWF, currently but B will be switching to Saturday and Saturday dialysis at her new location. - Time Time Spent with patient: Less than 15 minutes Medications reviewed and adjusted accordingly: No Anticipated discharge: Acute Rehab - [place] Within: within 24 hours, when bed available
[2018-04-23] MEDS: MIRTAZAPINE 15 MG TABLET PO SCH (22:49)
[2018-04-23] MEDS: OLANZAPINE 5 MG TAB.RAPDIS PO SCH (22:49)
[2018-04-23] MEDS: ATORVASTATIN CALCIUM 20 MG TABLET PO SCH (22:49)
[2018-04-23] MEDS: GABAPENTIN 300 MG CAPSULE PO SCH (22:49)
[2018-04-23] MEDS: INSULIN GLARGINE,HUM.REC.ANLOG 300 UNIT/3 ML INSULN.PEN SUBCUT SCH (22:52)
[2018-04-24 05:44] LABS: ANION GAP 13 (5-19); CALCIUM 9.4 mg/dL (8.4-10.2); CARBON DIOXIDE 30 mmol/L (22-30); CHLORIDE 96 mmol/L (98-107); GLUCOSE 113 mg/dL (75-110); POTASSIUM 4.9 mmol/L (3.6-5.0); SODIUM 139.3 mmol/L (137-145)
[2018-04-24 05:56] LABS: BLOOD UREA NITROGEN 50 mg/dL (7-20)
[2018-04-24] MEDS: LANSOPRAZOLE 30 MG TAB.RAP.DR PO SCH (06:25)
[2018-04-24] MEDS: HYDRALAZINE HCL 50 MG TABLET PO SCH ×3 (06:25→21:15)
[2018-04-24] MEDS: CLONIDINE HCL 0.2 MG TABLET PO SCH ×3 (06:26→21:15)
[2018-04-24] MEDS: INSULIN LISPRO 100 UNIT/ML 3 ML VIAL SUBCUT SCH ×3 (09:09→17:13)
[2018-04-24] MEDS: CALCITRIOL 0.25 MCG CAPSULE PO SCH (09:10)
[2018-04-24] MEDS: FAMOTIDINE 20 MG TABLET PO SCH (09:10)
[2018-04-24] MEDS: SEVELAMER HCL 800 MG TABLET PO SCH ×3 (09:10→17:13)
[2018-04-24] MEDS: FUROSEMIDE 20 MG TABLET PO SCH ×2 (09:10→17:13)
[2018-04-24] MEDS: HEPARIN SOD (PORCINE) 5,000 UNIT/ML 1 ML SYRINGE SUBCUT SCH ×2 (09:10→21:15)
[2018-04-24] MEDS: CARVEDILOL 12.5 MG TABLET PO SCH ×2 (09:11→21:15)
[2018-04-24] MEDS: INSULIN LISPRO 100 UNIT/ML 3 ML VIAL SUBCUT PRN ×2 (12:17→21:23)
--- NOTE | 2018-04-24 17:21 | PDOC PROGRESS REPORT ---
Subjective Progress Note for:: 04/24/18 Subjective:: HAL MERCHANT is a 57 year old female with acute onset of dyspnea and generalized weakness with gradual progression since a recent renal dialysis treatment. She was unable to provide history in the emergency room, but her son provided information that she had received renal dialysis on the day prior to admission with 3.5 L of fluid removed. Shortly after her treatment she began to develop shortness of breath which had gradually worsened. The dyspnea had been accompanied by generalized weakness. In the emergency room she was found to have severe hypertension with a systolic blood pressure well over 200 and she was treated as a hypertensive emergency receiving Nitropaste and clonidine. Additionally she was found to have a right pleural effusion. After admission she did quite well with her blood pressure being controlled and her pleural effusion was evacuated and her dyspnea resolved. She has subsequently had several pleural evacuations with relief of dyspnea after each. Her blood pressure has been reasonably well controlled with oral agents and she will be discharged to an acute rehab facility 04/23/2018 after her dialysis. This was done at the request of the patient's setter automatic spinning lathe. 04/22/2018: Patient states she is feeling well today. She has been tolerating her diet and has no pain. She feels like she can breathe a little bit better after they took the fluid off of her lung last night however she complains that she does have some discomfort because of the PleurX catheter. She is looking forward to being discharged as soon as possible. 04/23/2018: Patient states she is continuing to feel well and is looking forward to leaving today. She had her dialysis earlier this morning and feels well. Discharge planning is instructed that the patient is ready to be transferred however now the adjunct faculty for medical terminology at [facility] must evidently approve her transfer and he/she may not be available to do so today. Patient will therefore most likely spend another unnecessary day in the hospital. 04/24/2018: Hal states she would really like to either go home or get to the rehab hospital. She says she is tired of staying in this room and "wants to just be some place else". She continues to work with physical therapy but is not at the point where she would be safe to be at home on her own for an extended period of time which would be the case if she were to return to live with her son. Therefore we are forced to wait for the dialysis arrangements to be finalized such that the patient can be transferred to [facility]. Reason For Visit: PLEURAL EFF, HTN URGENCY, ESRD Physical Exam Vital Signs: Temp Pulse Resp BP Pulse Ox 98.0 F 66 20 132/62 H 96 04/24/18 15:29 04/24/18 15:29 04/24/18 15:29 04/24/18 15:29 04/24/18 15:29 Intake & Output 04/22/18 04/23/18 04/24/18 23:59 23:59 23:59 Intake Total 1291 624.25 736 Output Total 975 3850 0 Balance 316 -3225.75 736 Weight 70.4 kg 72.7 kg 72 kg General appearance: PRESENT: no acute distress, cooperative Head exam: PRESENT: atraumatic, normocephalic Eye exam: ABSENT: conjunctival injection, scleral icterus Ear exam: PRESENT: normal external ear exam Mouth exam: PRESENT: neck supple, tongue midline Neck exam: ABSENT: thyromegaly, tracheal deviation Respiratory exam: PRESENT: decreased breath sounds - Right base shows dullness to percussion and decreased breath sounds., symmetrical, unlabored Cardiovascular exam: PRESENT: RRR. ABSENT: clicks, gallop, rubs Vascular exam: PRESENT: normal capillary refill. ABSENT: pallor GI/Abdominal exam: PRESENT: normal bowel sounds, soft Rectal exam: PRESENT: deferred Extremities exam: ABSENT: joint swelling, pedal edema Musculoskeletal exam: ABSENT: deformity, dislocation Neurological exam: PRESENT: alert, oriented to person, oriented to place, oriented to time, oriented to situation, CN II-XII grossly intact. ABSENT: motor sensory deficit Psychiatric exam: PRESENT: appropriate affect, normal mood Skin exam: PRESENT: dry, intact, warm Results Laboratory Results: 04/23/18 05:31 04/24/18 04:54 04/24/18 04:54 Sodium 139.3 Potassium 4.9 Chloride 96 L Carbon Dioxide 30 Anion Gap 13 BUN 50 H D Creatinine 4.98 H Est GFR ( Amer) 11 L Est GFR (Non-Af Amer) 9 L Glucose 113 H Calcium 9.4 04/03/18 04/03/18 04/03/18 05:45 18:19 18:19 Creatine Kinase CK-MB (CK-2) 3.07 Troponin I 0.065 0.327 04/03/18 04/04/18 04/04/18 18:19 00:05 05:55 Creatine Kinase 60 48 CK-MB (CK-2) 2.87 Troponin I 0.277 04/04/18 04/04/18 04/04/18 05:55 12:58 12:58 Creatine Kinase 49 CK-MB (CK-2) 2.01 2.08 Troponin I 0.247 0.220 Impressions: Chest CT 04/05/18 00:00 IMPRESSION: Moderate right pleural effusion. Thoracentesis Ultrasound 04/06/18 10:02 IMPRESSION: SUCCESSFUL THORACENTESIS USING ULTRASOUND GUIDANCE. Pelvis Ultrasound 04/07/18 00:00 IMPRESSION: NO SONOGRAPHIC ABNORMALITY VISUALIZED IN THE PELVIS. Abdomen Ultrasound 04/07/18 17:42 IMPRESSION: 1. LIMITED VISUALIZATION OF THE GALLBLADDER WHICH IS CONTRACTED. THERE IS MARKED THICKENING OF THE GALLBLADDER WALL WHICH MAY BE ARTIFACT DUE TO CONTRACTION ALTHOUGH INFLAMMATORY PROCESS OR EDEMA CANNOT BE EXCLUDED. NO OTHER ABNORMAL FINDINGS IN THE VISUALIZED UPPER ABDOMEN. 2. LARGE RIGHT PLEURAL EFFUSION. Head CT 04/09/18 00:00 IMPRESSION: Unremarkable unenhanced CT brain TECHNICAL DOCUMENTATION: Quality ID # 436: Final reports with documentation of one or more dose reduction techniques (e.g., Automated exposure control, adjustment of the mA and/or kV according to patient size, use of iterative reconstruction technique) 2010 [employer]- All Rights Reserved Abdomen/Pelvis CT 04/11/18 00:00 IMPRESSION: 1. Small amount of free fluid in the right upper quadrant of the abdomen. 2. Very tiny gallstones are suggested. 3. Constipation. 4. No acute process in the abdomen or pelvis. 5. Additional findings as above. Chest Ultrasound 04/13/18 00:00 IMPRESSION: Large right pleural effusion is identified. Femur X-Ray 04/15/18 00:00 IMPRESSION: Cannot exclude some small lytic lesions in the left femur. Humerus X-Ray 04/15/18 00:00 IMPRESSION: No acute abnormality. No lytic lesions are appreciated. Pelvis X-Ray 04/15/18 00:00 IMPRESSION: 1. No significant abnormality in the bony pelvis. 2. Constipation. Chest X-Ray 04/17/18 06:00 IMPRESSION: PleurX catheter tip in the posterior apex right hemithorax. No residual pleural effusion or pneumothorax. No focal infiltrates. Stable massive cardiomegaly Assessment & Plan - Diagnosis (1) Hypertensive emergency Is this a current diagnosis for this admission?: Yes Plan: Patient's initial blood pressure in the emergency room was greater than 200 systolic. She was treated with topical nitroglycerin paste and oral clonidine with good results. She was continued on treatment throughout her hospital course following the recommendations of her setter automatic spinning lathe. At the present time her blood pressure is reasonably well controlled. Her hypertensive emergency has resolved. (2) Pleural effusion on right Is this a current diagnosis for this admission?: Yes Plan: Patient had thoracentesis on 04/04/18 and had 850 cc drained. Pleural fluid analysis is consistent with transudative effusion likely related to her ESRD. She had recurrence of right sided effusion and underwent a 2nd thoracentesis on 04/06/18 and had 800 cc drained. Cytology is negative for malignancy x 2 and was only remarkable for benign mesothelial cells. She eventually underwent placement of PleurX catheter on 04/13/18 has had several subsequent pleural evacuations using the PleurX catheter since that time. (3) Acute on chronic diastolic heart failure Is this a current diagnosis for this admission?: Yes Plan: Patient's acute on chronic diastolic heart failure was most likely due to her hypertensive emergency causing essentially pulmonary edema resulting in her severe dyspnea. Her dyspnea resolved as well as her symptoms of heart failure with the exception of her pleural effusion with treatment of her hypertension. Her acute exacerbation of heart failure is currently resolved. (4) End stage renal failure on dialysis Is this a current diagnosis for this admission?: Yes Plan: Nephrology following. She is getting dialysis MWF, currently but B will be switching to Saturday and Saturday dialysis at her new location. - Time Time Spent with patient: Less than 15 minutes Anticipated discharge: Acute Rehab
[2018-04-24] MEDS: GABAPENTIN 300 MG CAPSULE PO SCH (21:14)
[2018-04-24] MEDS: ATORVASTATIN CALCIUM 20 MG TABLET PO SCH (21:14)
[2018-04-24] MEDS: OLANZAPINE 5 MG TAB.RAPDIS PO SCH (21:15)
[2018-04-24] MEDS: MIRTAZAPINE 15 MG TABLET PO SCH (21:15)
[2018-04-24] MEDS: INSULIN GLARGINE,HUM.REC.ANLOG 300 UNIT/3 ML INSULN.PEN SUBCUT SCH (21:19)
[2018-04-25] MEDS ORDERED: EPOETIN ALFA INJ 20000 UNIT/1 ML VIAL (RENAL) IV PRN (05:00)
[2018-04-25] MEDS: HYDRALAZINE HCL 50 MG TABLET PO SCH ×3 (05:16→21:40)
[2018-04-25] MEDS: CLONIDINE HCL 0.2 MG TABLET PO SCH ×3 (05:17→21:40)
[2018-04-25] MEDS: LANSOPRAZOLE 30 MG TAB.RAP.DR PO SCH (05:17)
[2018-04-25 05:44] LABS: HEMATOCRIT 32.3 % (36.0-47.0); HEMOGLOBIN 10.6 g/dL (12.0-15.5); MEAN CORPUSCULAR HEMOGLOBIN 27.1 pg (27.0-33.4); MEAN CORPUSCULAR HGB CONC 32.8 g/dL (32.0-36.0); MEAN CORPUSCULAR VOLUME 83 fl (80-97); PLATELET COUNT 176 10^3/uL (150-450); RED BLOOD COUNT 3.91 10^6/uL (3.72-5.28); RED CELL DISTRIBUTION WIDTH 19.2 % (11.5-14.0); WHITE BLOOD COUNT 4.7 10^3/uL (4.0-10.5)
[2018-04-25 06:08] LABS: ANION GAP 14 (5-19); BLOOD UREA NITROGEN 68 mg/dL (7-20); CALCIUM 9.1 mg/dL (8.4-10.2); CARBON DIOXIDE 28 mmol/L (22-30); CHLORIDE 93 mmol/L (98-107); GLUCOSE 131 mg/dL (75-110); POTASSIUM 5.5 mmol/L (3.6-5.0); SODIUM 135.4 mmol/L (137-145)
--- NOTE | 2018-04-25 08:47 | PDOC PROGRESS REPORT ---
Subjective Progress Note for:: 04/25/18 Subjective:: I am seeing patient on dialysis this morning. She is very comfortable she is not even on oxygen anymore she tells me that she is ready to get out of the hospital. She is tolerating dialysis well without any problems so far. She is just waiting for the dialysis unit in [place] her her to be accepted as a patient while she is on rehab in [place]. She will be monitored throughout dialysis treatment today. Reason For Visit: PLEURAL EFF, HTN URGENCY, ESRD Physical Exam Vital Signs: Temp Pulse Resp BP Pulse Ox 97.8 F 67 18 156/66 H 97 04/25/18 07:22 04/25/18 07:22 04/25/18 07:22 04/25/18 07:22 04/25/18 07:22 Intake & Output 04/24/18 04/25/18 04/26/18 06:59 06:59 06:59 Intake Total 796.25 988 Output Total 3850 260 Balance -3053.75 728 Weight 72 kg 70.2 kg Vitals during dialysis: Blood pressure 157/76, heart rate of 65, blood flow rate 450 mL/min, dialysate flow rate of 800 mL/min. Exam: General appearance: PRESENT: no acute distress, cooperative, well-developed, well-nourished Head exam: PRESENT: atraumatic, normocephalic Eye exam: PRESENT: conjunctiva pink, PERRLA. ABSENT: scleral icterus Neck exam: ABSENT: JVD Respiratory exam: PRESENT: Diminished breath sounds. ABSENT: crackles, rales, rhonchi, unlabored, wheezes Cardiovascular exam: PRESENT: Regular rate rhythm -+S1, +S2. ABSENT: diastolic murmur, systolic murmur GI/Abdominal exam: PRESENT: normal bowel sounds, soft. ABSENT: guarding, mass, tenderness Extremities exam: Mild trace bilateral lower extremity edema Neurological exam: PRESENT: alert, awake, oriented to person, place and time. Skin exam: PRESENT: dry, warm, Cardiovascular exam: PRESENT: RRR, +S1, +S2 GI/Abdominal exam: PRESENT: soft. ABSENT: organomegaly, tenderness Results Laboratory Results: 04/25/18 05:02 04/25/18 05:02 04/25/18 04/25/18 05:02 05:02 WBC 4.7 RBC 3.91 Hgb 10.6 L Hct 32.3 L MCV 83 MCH 27.1 MCHC 32.8 RDW 19.2 H Plt Count 176 Sodium 135.4 L Potassium 5.5 H Chloride 93 L Carbon Dioxide 28 Anion Gap 14 BUN 68 H Creatinine 6.61 H Est GFR ( Amer) 8 L Est GFR (Non-Af Amer) 6 L Glucose 131 H Calcium 9.1 04/03/18 04/03/18 04/03/18 05:45 18:19 18:19 Creatine Kinase CK-MB (CK-2) 3.07 Troponin I 0.065 0.327 04/03/18 04/04/18 04/04/18 18:19 00:05 05:55 Creatine Kinase 60 48 CK-MB (CK-2) 2.87 Troponin I 0.277 04/04/18 04/04/18 04/04/18 05:55 12:58 12:58 Creatine Kinase 49 CK-MB (CK-2) 2.01 2.08 Troponin I 0.247 0.220 Impressions: Chest CT 04/05/18 00:00 IMPRESSION: Moderate right pleural effusion. Thoracentesis Ultrasound 04/06/18 10:02 IMPRESSION: SUCCESSFUL THORACENTESIS USING ULTRASOUND GUIDANCE. Pelvis Ultrasound 04/07/18 00:00 IMPRESSION: NO SONOGRAPHIC ABNORMALITY VISUALIZED IN THE PELVIS. Abdomen Ultrasound 04/07/18 17:42 IMPRESSION: 1. LIMITED VISUALIZATION OF THE GALLBLADDER WHICH IS CONTRACTED. THERE IS MARKED THICKENING OF THE GALLBLADDER WALL WHICH MAY BE ARTIFACT DUE TO CONTRACTION ALTHOUGH INFLAMMATORY PROCESS OR EDEMA CANNOT BE EXCLUDED. NO OTHER ABNORMAL FINDINGS IN THE VISUALIZED UPPER ABDOMEN. 2. LARGE RIGHT PLEURAL EFFUSION. Head CT 04/09/18 00:00 IMPRESSION: Unremarkable unenhanced CT brain TECHNICAL DOCUMENTATION: Quality ID # 436: Final reports with documentation of one or more dose reduction techniques (e.g., Automated exposure control, adjustment of the mA and/or kV according to patient size, use of iterative reconstruction technique) 2010 [employer]- All Rights Reserved Abdomen/Pelvis CT 04/11/18 00:00 IMPRESSION: 1. Small amount of free fluid in the right upper quadrant of the abdomen. 2. Very tiny gallstones are suggested. 3. Constipation. 4. No acute process in the abdomen or pelvis. 5. Additional findings as above. Chest Ultrasound 04/13/18 00:00 IMPRESSION: Large right pleural effusion is identified. Femur X-Ray 04/15/18 00:00 IMPRESSION: Cannot exclude some small lytic lesions in the left femur. Humerus X-Ray 04/15/18 00:00 IMPRESSION: No acute abnormality. No lytic lesions are appreciated. Pelvis X-Ray 04/15/18 00:00 IMPRESSION: 1. No significant abnormality in the bony pelvis. 2. Constipation. Chest X-Ray 04/17/18 06:00 IMPRESSION: PleurX catheter tip in the posterior apex right hemithorax. No residual pleural effusion or pneumothorax. No focal infiltrates. Stable massive cardiomegaly Assessment & Plan - Diagnosis (1) End stage renal failure on dialysis Is this a current diagnosis for this admission?: Yes Plan: We will do dialysis today for 3-1/2 hours, using the patient's AV fistula, with 2 potassium bath, blood flow rate of 450 mL per minute, dialysate flow rate of 800 mL per minute, ultrafiltration 4-4.5 L as tolerated, no heparin and no Procrit during dialysis. Patient will be continuously monitored throughout dialysis treatment by our dialysis nurse. (2) Pleural effusion on right Is this a current diagnosis for this admission?: Yes Plan: Recurrent, status post 2 thoracentesis. Status post Pleurx catheter placement on 04/13/18. Currently improved radiographically and clinically. (3) CHF (congestive heart failure) Qualifiers: Heart failure type: diastolic Is this a current diagnosis for this admission?: Yes (4) Anemia in CKD (chronic kidney disease) Qualifiers: Chronic kidney disease stage: on chronic dialysis Qualified Code(s): N18.6 - End stage renal disease; D63.1 - Anemia in chronic kidney disease; D63.1 - Anemia in chronic kidney disease; Z99.2 - Dependence on renal dialysis; Z99.2 - Dependence on renal dialysis; Z99.2 - Dependence on renal dialysis; Z99.2 - Dependence on renal dialysis Is this a current diagnosis for this admission?: Yes Plan: Procrit on dialysis as needed. She does not need Procrit today. (5) Hypertension Is this a current diagnosis for this admission?: Yes Plan: Controlled. - Notes Notes: From nephrology standpoint patient can be safely discharged to rehab as soon as the dialysis unit in [place] accepted her as a patient. - Time Time with patient: 15-25 minutes
[2018-04-25] MEDS: INSULIN LISPRO 100 UNIT/ML 3 ML VIAL SUBCUT SCH ×3 (09:42→18:52)
[2018-04-25] MEDS: SEVELAMER HCL 800 MG TABLET PO SCH ×3 (09:42→18:51)
[2018-04-25] MEDS: FUROSEMIDE 20 MG TABLET PO SCH ×2 (13:08→18:51)
[2018-04-25] MEDS: CARVEDILOL 12.5 MG TABLET PO SCH ×2 (13:08→21:39)
[2018-04-25] MEDS: CALCITRIOL 0.25 MCG CAPSULE PO SCH (13:08)
[2018-04-25] MEDS: HEPARIN SOD (PORCINE) 5,000 UNIT/ML 1 ML SYRINGE SUBCUT SCH ×2 (13:08→21:39)
[2018-04-25] MEDS: FAMOTIDINE 20 MG TABLET PO SCH (13:08)
--- NOTE | 2018-04-25 16:48 | PDOC PROGRESS REPORT ---
Subjective Progress Note for:: 04/25/18 Subjective:: HAL MERCHANT is a 57 year old female with acute onset of dyspnea and generalized weakness with gradual progression since a recent renal dialysis treatment. She was unable to provide history in the emergency room, but her son provided information that she had received renal dialysis on the day prior to admission with 3.5 L of fluid removed. Shortly after her treatment she began to develop shortness of breath which had gradually worsened. The dyspnea had been accompanied by generalized weakness. In the emergency room she was found to have severe hypertension with a systolic blood pressure well over 200 and she was treated as a hypertensive emergency receiving Nitropaste and clonidine. Additionally she was found to have a right pleural effusion. After admission she did quite well with her blood pressure being controlled and her pleural effusion was evacuated and her dyspnea resolved. She has subsequently had several pleural evacuations with relief of dyspnea after each. Her blood pressure has been reasonably well controlled with oral agents and she will be discharged to an acute rehab facility 04/23/2018 after her dialysis. This was done at the request of the patient's insurance instructor. 04/22/2018: Patient states she is feeling well today. She has been tolerating her diet and has no pain. She feels like she can breathe a little bit better after they took the fluid off of her lung last night however she complains that she does have some discomfort because of the PleurX catheter. She is looking forward to being discharged as soon as possible. 04/23/2018: Patient states she is continuing to feel well and is looking forward to leaving today. She had her dialysis earlier this morning and feels well. Discharge planning is instructed that the patient is ready to be transferred however now the medical officer psychiatry at [facility] must evidently approve her transfer and he/she may not be available to do so today. Patient will therefore most likely spend another unnecessary day in the hospital. 04/24/2018: Hal states she would really like to either go home or get to the rehab hospital. She says she is tired of staying in this room and "wants to just be some place else". She continues to work with physical therapy but is not at the point where she would be safe to be at home on her own for an extended period of time which would be the case if she were to return to live with her son. Therefore we are forced to wait for the dialysis arrangements to be finalized such that the patient can be transferred to [facility]. 04/25/2018: Hal was seen while her hemodialysis was being performed today. She states she is feeling about the same as yesterday but was a little tired and perhaps a little short of wind this morning although she is feeling better after having completed a good portion of her dialysis. She was hoping that I was coming to tell her that her transfer was going through although discharge planning has been working on an alternative site in [place] to accept her in transfer for acute rehabilitation and continuation of her chronic dialysis therapy. Evidently the cost of the PleurX collection bottles is exceptionally prohibitive ($1500 each) and this is making it difficult to place patient for her care. Reason For Visit: PLEURAL EFF, HTN URGENCY, ESRD Physical Exam Vital Signs: Temp Pulse Resp BP Pulse Ox 98.0 F 68 18 137/50 H 100 04/25/18 15:25 04/25/18 15:25 04/25/18 15:25 04/25/18 15:25 04/25/18 15:25 Intake & Output 04/23/18 04/24/18 04/25/18 23:59 23:59 23:59 Intake Total 624.25 1310 237 Output Total 3850 0 4760 Balance -3225.75 1310 -4523 Weight 72.7 kg 72 kg 70.2 kg General appearance: PRESENT: no acute distress, cooperative Head exam: PRESENT: atraumatic, normocephalic Respiratory exam: PRESENT: decreased breath sounds - Breath sounds are decreased and there is dullness to percussion in the right posterior base although exam was essentially unchanged over the last several days., symmetrical , unlabored Cardiovascular exam: PRESENT: RRR. ABSENT: clicks, gallop, rubs Vascular exam: PRESENT: normal capillary refill. ABSENT: pallor - [id number] GI/Abdominal exam: PRESENT: normal bowel sounds, soft Rectal exam: PRESENT: deferred Extremities exam: ABSENT: joint swelling, pedal edema Musculoskeletal exam: ABSENT: deformity, dislocation Neurological exam: PRESENT: alert, oriented to person, oriented to place, oriented to time, oriented to situation - [id number] Psychiatric exam: PRESENT: appropriate affect, normal mood - [id number] Skin exam: PRESENT: dry, intact - [id number], warm Results Laboratory Results: 04/25/18 05:02 04/25/18 05:02 04/25/18 04/25/18 05:02 05:02 WBC 4.7 RBC 3.91 Hgb 10.6 L Hct 32.3 L MCV 83 MCH 27.1 MCHC 32.8 RDW 19.2 H Plt Count 176 Sodium 135.4 L Potassium 5.5 H Chloride 93 L Carbon Dioxide 28 Anion Gap 14 BUN 68 H Creatinine 6.61 H Est GFR ( Amer) 8 L Est GFR (Non-Af Amer) 6 L Glucose 131 H Calcium 9.1 04/03/18 04/03/18 04/03/18 05:45 18:19 18:19 Creatine Kinase CK-MB (CK-2) 3.07 Troponin I 0.065 0.327 04/03/18 04/04/18 04/04/18 18:19 00:05 05:55 Creatine Kinase 60 48 CK-MB (CK-2) 2.87 Troponin I 0.277 04/04/18 04/04/18 04/04/18 05:55 12:58 12:58 Creatine Kinase 49 CK-MB (CK-2) 2.01 2.08 Troponin I 0.247 0.220 Impressions: Chest CT 04/05/18 00:00 IMPRESSION: Moderate right pleural effusion. Thoracentesis Ultrasound 04/06/18 10:02 IMPRESSION: SUCCESSFUL THORACENTESIS USING ULTRASOUND GUIDANCE. Pelvis Ultrasound 04/07/18 00:00 IMPRESSION: NO SONOGRAPHIC ABNORMALITY VISUALIZED IN THE PELVIS. Abdomen Ultrasound 04/07/18 17:42 IMPRESSION: 1. LIMITED VISUALIZATION OF THE GALLBLADDER WHICH IS CONTRACTED. THERE IS MARKED THICKENING OF THE GALLBLADDER WALL WHICH MAY BE ARTIFACT DUE TO CONTRACTION ALTHOUGH INFLAMMATORY PROCESS OR EDEMA CANNOT BE EXCLUDED. NO OTHER ABNORMAL FINDINGS IN THE VISUALIZED UPPER ABDOMEN. 2. LARGE RIGHT PLEURAL EFFUSION. Head CT 04/09/18 00:00 IMPRESSION: Unremarkable unenhanced CT brain TECHNICAL DOCUMENTATION: Quality ID # 436: Final reports with documentation of one or more dose reduction techniques (e.g., Automated exposure control, adjustment of the mA and/or kV according to patient size, use of iterative reconstruction technique) 2010 [employer]- All Rights Reserved Abdomen/Pelvis CT 04/11/18 00:00 IMPRESSION: 1. Small amount of free fluid in the right upper quadrant of the abdomen. 2. Very tiny gallstones are suggested. 3. Constipation. 4. No acute process in the abdomen or pelvis. 5. Additional findings as above. Chest Ultrasound 04/13/18 00:00 IMPRESSION: Large right pleural effusion is identified. Femur X-Ray 04/15/18 00:00 IMPRESSION: Cannot exclude some small lytic lesions in the left femur. Humerus X-Ray 04/15/18 00:00 IMPRESSION: No acute abnormality. No lytic lesions are appreciated. Pelvis X-Ray 04/15/18 00:00 IMPRESSION: 1. No significant abnormality in the bony pelvis. 2. Constipation. Chest X-Ray 04/17/18 06:00 IMPRESSION: PleurX catheter tip in the posterior apex right hemithorax. No residual pleural effusion or pneumothorax. No focal infiltrates. Stable massive cardiomegaly Assessment & Plan - Diagnosis (1) Hypertensive emergency Is this a current diagnosis for this admission?: Yes Plan: Patient's initial blood pressure in the emergency room was greater than 200 systolic. She was treated with topical nitroglycerin paste and oral clonidine with good results. She was continued on treatment throughout her hospital course following the recommendations of her insurance instructor. At the present time her blood pressure is reasonably well controlled. Her hypertensive emergency has resolved. (2) Pleural effusion on right Is this a current diagnosis for this admission?: Yes (3) Acute on chronic diastolic heart failure Is this a current diagnosis for this admission?: Yes Plan: Patient's acute on chronic diastolic heart failure was most likely due to her hypertensive emergency causing essentially pulmonary edema resulting in her severe dyspnea. Her dyspnea resolved as well as her symptoms of heart failure with the exception of her pleural effusion with treatment of her hypertension. Her acute exacerbation of heart failure is currently resolved. (4) End stage renal failure on dialysis Is this a current diagnosis for this admission?: Yes Plan: Nephrology following. She is getting dialysis MWF, currently but B will be switching to Saturday and Saturday dialysis at her new location. 04/25/2018: The patient is continuing on her inpatient renal dialysis on Saturday while she is here at [facility]. - Time Time Spent with patient: Less than 15 minutes Medications reviewed and adjusted accordingly: No Within: when bed available
[2018-04-25] MEDS: INSULIN LISPRO 100 UNIT/ML 3 ML VIAL SUBCUT PRN (18:52)
[2018-04-25] MEDS: GABAPENTIN 300 MG CAPSULE PO SCH (21:39)
[2018-04-25] MEDS: ATORVASTATIN CALCIUM 20 MG TABLET PO SCH (21:39)
[2018-04-25] MEDS: OLANZAPINE 5 MG TAB.RAPDIS PO SCH (21:40)
[2018-04-25] MEDS: MIRTAZAPINE 15 MG TABLET PO SCH (21:40)
[2018-04-25] MEDS: INSULIN GLARGINE,HUM.REC.ANLOG 300 UNIT/3 ML INSULN.PEN SUBCUT SCH (21:41)
[2018-04-26] MEDS: CLONIDINE HCL 0.2 MG TABLET PO SCH ×2 (05:15→15:52)
[2018-04-26] MEDS: HYDRALAZINE HCL 50 MG TABLET PO SCH ×2 (05:15→15:53)
[2018-04-26] MEDS: LANSOPRAZOLE 30 MG TAB.RAP.DR PO SCH (05:15)
[2018-04-26] MEDS: INSULIN LISPRO 100 UNIT/ML 3 ML VIAL SUBCUT SCH ×3 (09:32→18:29)
[2018-04-26] MEDS: CALCITRIOL 0.25 MCG CAPSULE PO SCH (09:39)
[2018-04-26] MEDS: SEVELAMER HCL 800 MG TABLET PO SCH ×3 (09:39→15:53)
[2018-04-26] MEDS: FUROSEMIDE 20 MG TABLET PO SCH ×2 (09:39→18:49)
[2018-04-26] MEDS: DOCUSATE SODIUM 100 MG CAPSULE PO PRN (09:39)
[2018-04-26] MEDS: FAMOTIDINE 20 MG TABLET PO SCH (09:40)
[2018-04-26] MEDS: CARVEDILOL 12.5 MG TABLET PO SCH (09:40)
[2018-04-26] MEDS: HEPARIN SOD (PORCINE) 5,000 UNIT/ML 1 ML SYRINGE SUBCUT SCH (09:40)
--- NOTE | 2018-04-26 11:35 | PDOC DISCHARGE SUMMARY ---
General - Admit/Disc Date/PCP Admission Date/Primary Care Provider: 04/03/18 01:19 Discharge Date: 04/26/18 - Discharge Diagnosis (1) Hypertensive emergency Is this a current diagnosis for this admission?: Yes Summary: Patient's initial blood pressure in the emergency room was greater than 200 systolic. She was treated with topical nitroglycerin paste and oral clonidine with good results. She was continued on treatment throughout her hospital course following the recommendations of her elementary principal. At the present time her blood pressure is reasonably well controlled. Her hypertensive emergency has resolved. She is discharged home on an a proven antihypertensive as well as a proven congestive heart failure therapeutic medication regimen. (2) Pleural effusion on right Is this a current diagnosis for this admission?: Yes Summary: Patient's right pleural effusion was well managed with thoracentesis initially and with subsequent placement of a PleurX drainage system. She will continue to use the PleurX system on an outpatient basis with the assistance of her family and home health care supervision. (3) Acute on chronic diastolic heart failure Is this a current diagnosis for this admission?: Yes Summary: Patient's acute on chronic diastolic heart failure was most likely due to her hypertensive emergency causing essentially pulmonary edema resulting in her severe dyspnea. Her dyspnea resolved as well as her symptoms of heart failure with the exception of her pleural effusion with treatment of her hypertension. Her acute exacerbation of heart failure is currently resolved. She is discharged on a proven stable congestive heart failure therapeutic regimen. (4) End stage renal failure on dialysis Is this a current diagnosis for this admission?: Yes Summary: Nephrology following. She is getting dialysis MWF, currently but B will be switching to Saturday and Saturday dialysis at her new location. 04/25/2018: The patient is continuing on her inpatient renal dialysis on Saturday while she is here at [facility] and she will resume her normal outpatient hemodialysis with her usual dialysis center on her usual days and times (MWF). - Additional Information Resuscitation Status: Full Code Discharge Diet: As Tolerated, Other (Comments) - Renal diet for dialysis Discharge Activity: Activity As Tolerated, Walk Frequently Prescriptions: Amlodipine Besylate [Norvasc 5 mg Tablet] 5 mg PO DAILY #30 tablet Bisacodyl [Dulcolax 5 mg Tablet] 10 mg PO DAILYP #30 tabec Carvedilol [Coreg 12.5 mg Tablet] 12.5 mg PO Q12 #60 tablet Cholecalciferol (Vitamin D3) [Vitamin D3 2000 unit Tablet] 2,000 unit PO DAILY # 30 tablet Clonidine HCl [Catapres 0.2 mg Tablet] 0.2 mg PO Q8 #90 tablet Furosemide [Lasix 20 mg Tablet] 20 mg PO BID #60 tablet Hydralazine HCl [Apresoline 50 mg Tablet] 100 mg PO Q8 #90 tablet Insulin Glargine,Hum.rec.anlog [Lantus Insulin 100 Unit/mL] 7 unit SUBCUT QHS # 2 insuln.pen Home Medications: Atorvastatin Calcium 20 mg PO DAILY 04/03/18 Ferric Citrate [Auryxia] 2 tab PO AC 04/03/18 Gabapentin 300 mg PO QHS 04/03/18 Ketorolac Tromethamine 1 drop OU QIDP PRN 04/03/18 Mirtazapine 15 mg PO QHS 04/03/18 Olanzapine [Zyprexa Zydis 5 mg Odt Tablet] 5 mg PO QHS 04/03/18 Omeprazole 40 mg PO DAILY 04/03/18 Sevelamer Carbonate 800 mg PO AC 04/03/18 Acetaminophen [Tylenol 325 mg Tablet] 650 mg PO Q8HP PRN tablet 04/18/18 Amlodipine Besylate [Norvasc 5 mg Tablet] 5 mg PO DAILY #30 tablet 04/18/18 Bisacodyl [Dulcolax 5 mg Tablet] 10 mg PO DAILYP #30 tabec 04/18/18 Carvedilol [Coreg 12.5 mg Tablet] 12.5 mg PO Q12 #60 tablet 04/18/18 Cholecalciferol (Vitamin D3) [Vitamin D3 2000 unit Tablet] 2,000 unit PO DAILY # 30 tablet 04/18/18 Clonidine HCl [Catapres 0.2 mg Tablet] 0.2 mg PO Q8 #90 tablet 04/18/18 Epoetin Lalo [Procrit Inj 20,000 Unit/1 ml Vial (Renal)] 5,000 unit IV .DIALYSIS PRN ml 04/18/18 Furosemide [Lasix 20 mg Tablet] 20 mg PO BID #60 tablet 04/18/18 Hydralazine HCl [Apresoline 50 mg Tablet] 100 mg PO Q8 #90 tablet 04/18/18 Insulin Glargine,Hum.rec.anlog [Lantus Insulin 100 Unit/mL] 7 unit SUBCUT [facility] # 2 insuln.pen 04/18/18 History of Present Illness Patient complains of: Dyspnea History of Present Illness: HAL MERCHANT is a 57 year old female with acute onset of dyspnea and generalized weakness with gradual progression since a recent renal dialysis treatment. She was unable to provide history in the emergency room, but her son provided information that she had received renal dialysis on the day prior to admission with 3.5 L of fluid removed. Shortly after her treatment she began to develop shortness of breath which had gradually worsened. The dyspnea had been accompanied by generalized weakness. In the emergency room she was found to have severe hypertension with a systolic blood pressure well over 200 and she was treated as a hypertensive emergency receiving Nitropaste and clonidine. Additionally she was found to have a right pleural effusion. Hospital Course Hospital Course: After admission she did quite well with her blood pressure being controlled and her pleural effusion was evacuated and her dyspnea resolved. She has subsequently had several pleural evacuations with relief of dyspnea after each. She had a PleurX tube placed and has successfully managed to drain her accumulated right pleural effusion a regular basis providing excellent relief of her dyspnea. The plan had been made for her to go to acute rehabilitation center however numerous problems prevented that transfer. 04/22/2018: Patient states she is feeling well today. She has been tolerating her diet and has no pain. She feels like she can breathe a little bit better after they took the fluid off of her lung last night however she complains that she does have some discomfort because of the PleurX catheter. She is looking forward to being discharged as soon as possible. 04/23/2018: Patient states she is continuing to feel well and is looking forward to leaving today. She had her dialysis earlier this morning and feels well. Discharge planning is instructed that the patient is ready to be transferred however now the medical driver at [facility] must evidently approve her transfer and he/she may not be available to do so today. Patient will therefore most likely spend another unnecessary day in the hospital. 04/24/2018: Hal states she would really like to either go home or get to the rehab hospital. She says she is tired of staying in this room and "wants to just be some place else". She continues to work with physical therapy but is not at the point where she would be safe to be at home on her own for an extended period of time which would be the case if she were to return to live with her son. Therefore we are forced to wait for the dialysis arrangements to be finalized such that the patient can be transferred to [facility]. 04/25/2018: Hal was seen while her hemodialysis was being performed today. She states she is feeling about the same as yesterday but was a little tired and perhaps a little short of wind this morning although she is feeling better after having completed a good portion of her dialysis. She was hoping that I was coming to tell her that her transfer was going through although discharge planning has been working on an alternative site in [place] to accept her in transfer for acute rehabilitation and continuation of her chronic dialysis therapy. Evidently the cost of the PleurX collection bottles is exceptionally prohibitive ($1500 each) and this is making it difficult to place patient for her care. 04/26/2018: Patient will be discharged home in improved and stable condition today, as she is feeling quite well and we have arranged for her to have her Pleurx drainage managed by a local home health agency. Her family will be instructed in use of the Pleurx tube for drainage when they come to pick her up and she will be followed by home health starting on Saturday. Additionally she should have home health physical therapy to assist with her reconditioning and home health homemaker service to aid in her activities of daily living and other in-home needs. She will continue to follow with her usual dialysis center and maintain her Saturday and Saturday dialysis. She is quite happy to be going home today she has been very tired to be in the hospital for the last several days. Family is expected to pick her up sometime this afternoon or early evening. Physical Exam Vital Signs: Temp Pulse Resp BP Pulse Ox 97.9 F 62 16 155/65 H 98 04/26/18 08:04 04/26/18 08:04 04/26/18 08:04 04/26/18 08:04 04/26/18 08:04 Intake & Output 04/24/18 04/25/18 04/26/18 23:59 23:59 23:59 Intake Total 1310 711 Output Total 0 4760 200 Balance 1310 -4049 -200 Weight 72 kg 70.2 kg 73.5 kg General appearance: PRESENT: no acute distress, cooperative Head exam: PRESENT: atraumatic, normocephalic Eye exam: PRESENT: conjunctiva pink, EOMI Ear exam: PRESENT: normal external ear exam Mouth exam: PRESENT: neck supple Respiratory exam: PRESENT: decreased breath sounds - Slightly decreased breath sounds in the right base posteriorly and laterally with dullness to percussion. , symmetrical, unlabored. ABSENT: prolonged expiratory phas, rales, rhonchi, wheezes Cardiovascular exam: PRESENT: RRR. ABSENT: clicks, gallop, rubs Vascular exam: PRESENT: normal capillary refill. ABSENT: pallor GI/Abdominal exam: PRESENT: normal bowel sounds, soft Rectal exam: PRESENT: deferred Extremities exam: ABSENT: joint swelling, pedal edema Musculoskeletal exam: PRESENT: full ROM, normal inspection Neurological exam: PRESENT: alert, oriented to person, oriented to place, oriented to time, oriented to situation, CN II-XII grossly intact. ABSENT: motor sensory deficit Psychiatric exam: PRESENT: appropriate affect, normal mood Skin exam: PRESENT: dry, intact, warm Results Laboratory Results: 04/25/18 05:02 04/25/18 05:02 04/03/18 04/03/18 04/03/18 05:45 18:19 18:19 Creatine Kinase CK-MB (CK-2) 3.07 Troponin I 0.065 0.327 04/03/18 04/04/18 04/04/18 18:19 00:05 05:55 Creatine Kinase 60 48 CK-MB (CK-2) 2.87 Troponin I 0.277 04/04/18 04/04/18 04/04/18 05:55 12:58 12:58 Creatine Kinase 49 CK-MB (CK-2) 2.01 2.08 Troponin I 0.247 0.220 Impressions: Chest CT 04/05/18 00:00 IMPRESSION: Moderate right pleural effusion. Thoracentesis Ultrasound 04/06/18 10:02 IMPRESSION: SUCCESSFUL THORACENTESIS USING ULTRASOUND GUIDANCE. Pelvis Ultrasound 04/07/18 00:00 IMPRESSION: NO SONOGRAPHIC ABNORMALITY VISUALIZED IN THE PELVIS. Abdomen Ultrasound 04/07/18 17:42 IMPRESSION: 1. LIMITED VISUALIZATION OF THE GALLBLADDER WHICH IS CONTRACTED. THERE IS MARKED THICKENING OF THE GALLBLADDER WALL WHICH MAY BE ARTIFACT DUE TO CONTRACTION ALTHOUGH INFLAMMATORY PROCESS OR EDEMA CANNOT BE EXCLUDED. NO OTHER ABNORMAL FINDINGS IN THE VISUALIZED UPPER ABDOMEN. 2. LARGE RIGHT PLEURAL EFFUSION. Head CT 04/09/18 00:00 IMPRESSION: Unremarkable unenhanced CT brain TECHNICAL DOCUMENTATION: Quality ID # 436: Final reports with documentation of one or more dose reduction techniques (e.g., Automated exposure control, adjustment of the mA and/or kV according to patient size, use of iterative reconstruction technique) 2010 [employer]- All Rights Reserved Abdomen/Pelvis CT 04/11/18 00:00 IMPRESSION: 1. Small amount of free fluid in the right upper quadrant of the abdomen. 2. Very tiny gallstones are suggested. 3. Constipation. 4. No acute process in the abdomen or pelvis. 5. Additional findings as above. Chest Ultrasound 04/13/18 00:00 IMPRESSION: Large right pleural effusion is identified. Femur X-Ray 04/15/18 00:00 IMPRESSION: Cannot exclude some small lytic lesions in the left femur. Humerus X-Ray 04/15/18 00:00 IMPRESSION: No acute abnormality. No lytic lesions are appreciated. Pelvis X-Ray 04/15/18 00:00 IMPRESSION: 1. No significant abnormality in the bony pelvis. 2. Constipation. Chest X-Ray 04/17/18 06:00 IMPRESSION: PleurX catheter tip in the posterior apex right hemithorax. No residual pleural effusion or pneumothorax. No focal infiltrates. Stable massive cardiomegaly Qualifiers - * PATIENT BEING DISCHARGED WITH ANY OF THE FOLLOWING DIAGNOSIS: Heart Failure HF Pt being discharged on ACEI for LVEF less than 40%?: No Reason(s) for not prescribing ACEI:: Medical Contraindication - Chronic renal failure stage V on dialysis HF Pt being discharged on ARBS for LVEF less than 40%?: No Reason(s) for not prescribing ARBS:: Medical Contraindication - Chronic renal failure stage V on dialysis HF Pt with Afib discharged with Warfarin?: No Reason(s) for not prescribing Warfarin:: Not indicated - Patient does not have A. fib HF Pt discharged on evidence-based Beta Derrick:: Yes Plan Discharge Plan: Discharged home with [facility], physical therapy and homemaker services, in improved and stable condition Time Spent: Greater than 30 Minutes
[2018-04-26] MEDS: INSULIN LISPRO 100 UNIT/ML 3 ML VIAL SUBCUT PRN (12:54)
[2018-04-26 18:19] VITALS: BP 122/55
== END 2018-04-26 19:00 | disposition home health service (06) | DRG 186 ==
LOC: ER 19:12 → EH 04-03 01:19 → OBSVTOIN 04-03 01:19 → 3S 04-03 02:09
PROVIDERS: ADMIT Internal Medicine; ATTEND Internal Medicine
PROC: 0W993ZX Drainage of Right Pleural Cavity, Percutaneous Approach, Diagnostic (ICD-10-PCS; principal; 2018-04-03)
PROC: 5A09557 Assistance with Respiratory Ventilation, Greater than 96 Consecutive Hours, Continuous Positive Airway Pressure (ICD-10-PCS; 2018-04-03)
PROC: B54BZZA Ultrasonography of Right Lower Extremity Veins, Guidance (ICD-10-PCS; 2018-04-03)
PROC: 06HM33Z Insertion of Infusion Device into Right Femoral Vein, Percutaneous Approach (ICD-10-PCS; 2018-04-03)
PROC: 5A1D70Z Performance of Urinary Filtration, Intermittent, Less than 6 Hours Per Day (ICD-10-PCS; 2018-04-04)
PROC: 0W993ZX Drainage of Right Pleural Cavity, Percutaneous Approach, Diagnostic (ICD-10-PCS; 2018-04-06)
PROC: 5A1D70Z Performance of Urinary Filtration, Intermittent, Less than 6 Hours Per Day (ICD-10-PCS; 2018-04-07)
PROC: 5A1D70Z Performance of Urinary Filtration, Intermittent, Less than 6 Hours Per Day (ICD-10-PCS; 2018-04-09)
PROC: 5A1D70Z Performance of Urinary Filtration, Intermittent, Less than 6 Hours Per Day (ICD-10-PCS; 2018-04-11)
PROC: 0W9930Z Drainage of Right Pleural Cavity with Drainage Device, Percutaneous Approach (ICD-10-PCS; 2018-04-13)
PROC: 5A1D70Z Performance of Urinary Filtration, Intermittent, Less than 6 Hours Per Day (ICD-10-PCS; 2018-04-14)
PROC: 5A1D70Z Performance of Urinary Filtration, Intermittent, Less than 6 Hours Per Day (ICD-10-PCS; 2018-04-16)
PROC: 5A1D70Z Performance of Urinary Filtration, Intermittent, Less than 6 Hours Per Day (ICD-10-PCS; 2018-04-18)
PROC: 5A1D70Z Performance of Urinary Filtration, Intermittent, Less than 6 Hours Per Day (ICD-10-PCS; 2018-04-21)
PROC: 5A1D70Z Performance of Urinary Filtration, Intermittent, Less than 6 Hours Per Day (ICD-10-PCS; 2018-04-23)
PROC: 5A1D70Z Performance of Urinary Filtration, Intermittent, Less than 6 Hours Per Day (ICD-10-PCS; 2018-04-25)
DX: J90 Pleural effusion, not elsewhere classified (principal); N18.6 End stage renal disease; J96.01 Acute respiratory failure with hypoxia; I50.33 Acute on chronic diastolic (congestive) heart failure; J18.9 Pneumonia, unspecified organism; I16.1 Hypertensive emergency; I13.2 Hypertensive heart and chronic kidney disease with heart failure and with stage 5 chronic kidney disease, or end stage renal disease; N25.81 Secondary hyperparathyroidism of renal origin; K59.00 Constipation, unspecified; K80.80 Other cholelithiasis without obstruction; E11.22 Type 2 diabetes mellitus with diabetic chronic kidney disease; I27.20 Pulmonary hypertension, unspecified; F41.1 Generalized anxiety disorder; F32.9 Major depressive disorder, single episode, unspecified; E87.5 Hyperkalemia; D63.1 Anemia in chronic kidney disease; Z90.710 Acquired absence of both cervix and uterus; Z99.2 Dependence on renal dialysis; Z79.899 Other long term (current) drug therapy; Z82.49 Family history of ischemic heart disease and other diseases of the circulatory system
CPT/HCPCS: 32555; 36415; 70450; 71045; 71046; 71250; 72170; 73552; 74176; 76604; 76700; 76856; 78452; 80048; 80053; 82042; 82150; 82550; 82553; 82803; 82945; 82962; 82977; 83036; 83615; 83735; 83970; 84080; 84100; 84155; 84157; 84165; 84443; 84484; 85025; 85027; 85610; 87070; 87075; 87205; 88305; 89050; 93005; 93010; 93017; 93306; 93976; 94660; 94799; 96374; 96375; 99291; A4300; A9500; C1751; C1769; G8978-GP; G8979-GP; J0280; J0696; J1642; J1644; J1815; J1885; J1940; J2785; J3490; Q4081; Q9969

== ENCOUNTER 2018-05-31 15:42 | Inpatient (IN) | payer MEDICARE, MEDICAID ==
[2018-05-31 16:36] LABS: ABSOLUTE EOSINOPHILS # (AUTO) 0.1 10^3/uL (0.0-0.6); ABSOLUTE LYMPHOCYTES (AUTO) 0.8 10^3/uL (0.5-4.7); ABSOLUTE MONOCYTES (AUTO) 0.4 10^3/uL (0.1-1.4); ABSOLUTE NEUT (AUTO) 4.4 10^3/uL (1.7-8.2); BASOPHILS % (AUTO) 0.5 % (0-2); EOSINOPHILS % (AUTO) 1.6 % (0-6); HEMATOCRIT 31.5 % (36.0-47.0); HEMOGLOBIN 9.8 g/dL (12.0-15.5); LYMPHOCYTES % (AUTO) 13.3 % (13-45); MEAN CORPUSCULAR HEMOGLOBIN 26.9 pg (27.0-33.4); MEAN CORPUSCULAR HGB CONC 31.2 g/dL (32.0-36.0); MEAN CORPUSCULAR VOLUME 86 fl (80-97); MONOCYTES % (AUTO) 7.2 % (3-13); PLATELET COUNT 169 10^3/uL (150-450); RED BLOOD COUNT 3.65 10^6/uL (3.72-5.28); RED CELL DISTRIBUTION WIDTH 17.1 % (11.5-14.0); SEGMENTED NEUTROPHILS % (AUTO) 77.4 % (42-78); TOTAL CELLS COUNTED % (AUTO) 100 %; WHITE BLOOD COUNT 5.6 10^3/uL (4.0-10.5)
[2018-05-31] MEDS ORDERED: OXYCODONE-ACETAMINOPHEN 5-325 MG TABLET PO ONE ×2 (16:38→17:03)
--- NOTE | 2018-05-31 16:42 | ER Document Report ---
ED General - General Chief Complaint: Abdominal Cramping Stated Complaint: ABDOMINAL PAIN Time Seen by Provider: 05/31/18 16:04 TRAVEL OUTSIDE OF THE [place] IN LAST 30 DAYS: No - HPI Notes: Patient is a 57-year-old female that presents to the emergency department for chief complaint of abdominal pain. Patient reports abdominal pain after dialysis. Her dialysis was yesterday and she did have a complete treatment. She has a peritoneal dialysis patient. She states she has been doing PD for many years and has frequently had abdominal pain afterwards. She states she used to be on pain management but recently moved down here a few months ago and has not seen a pain management doctor. She does not know the medicine pain management used to give her. HPI is limited because patient is not cooperative. She is writhing around and attempting to roll out of bed. She is not answering questions clearly and continues to state " please just admit me to the hospital and give me pain meds". Past Medical History: Diabetes, CKD, GERD, hyperlipidemia Past Surgical History: Peritoneal dialysis insertion Social History: Denies drugs alcohol and tobacco Family History: Reviewed and noncontributory for presenting illness Allergies: Reviewed, see documented allergy list. REVIEW OF SYSTEMS: CONSTITUTIONAL : No fever No chills No diaphoresis No recent illness EENT: No vision changes No congestion No sore throat CARDIOVASCULAR: No chest pain No palpitations RESPIRATORY: No shortness of breath No cough No difficulty breathing GASTROINTESTINAL: abdominal pain No nausea vomiting No diarrhea GENITOURINARY: No dysuria No hematuria No difficulty urinating MUSCULOSKELETAL: No back pain No leg pain No arm pain SKIN: No rashes No lesions LYMPHATIC: No swollen, enlarged glands. NEUROLOGICAL: No lightheadedness No headache No weakness No paresthesias PSYCHIATRIC: No anxiety No depression PHYSICAL EXAMINATION: Vital signs reviewed, nursing noted reviewed. GENERAL: Well-appearing, well-nourished and in no acute distress. HEAD: Atraumatic, normocephalic. EYES: Eyes appear normal, extraocular movements intact, sclera anicteric, conjunctiva are normal. ENT: nares patent, oropharynx clear without exudates. Moist mucous membranes. NECK: Normal range of motion, supple without lymphadenopathy LUNGS: Breath sounds clear to auscultation bilaterally and equal. No wheezes rales or rhonchi. HEART: Regular rate and rhythm without murmurs ABDOMEN: Soft, nontender, normoactive bowel sounds. No rebound, guarding, or rigidity. No masses appreciated. Peritoneal dialysis catheter clean, dry, intact in right side of abdomen. EXTREMITIES: Nontender, good range of motion, no pitting or edema. NEUROLOGICAL: No focal neurological deficits. Moves all extremities spontaneously Motor and sensory grossly intact on exam. PSYCH: Agitated, disheveled SKIN: Warm, Dry, normal turgor, no rashes or lesions noted on exposed skin - Related Data Allergies/Adverse Reactions: hydromorphone [From Dilaudid] Allergy (Verified 05/31/18 15:42) morphine Allergy (Verified 05/31/18 15:42) Past Medical History - Social History Smoking Status: Never Smoker Family History: Hypertension - Past Medical History Cardiac Medical History: Reports: Hx Congestive Heart Failure, Hx Hypertension Renal/ Medical History: Denies: Hx Peritoneal Dialysis Psychiatric Medical History: Reports: Hx Depression - anxiety Past Surgical History: Reports: Hx Hysterectomy, Hx Vascular Surgery Physical Exam - Vital signs Vitals: Pulse Ox 98 05/31/18 17:02 Course - Re-evaluation Re-evalutation: 05/31/18 16:41 Vitals reviewed. Nursing notes reviewed. Patient is very agitated and attempting to roll on the floor. She was half out of the cot when I entered the room and refused to assist nurses on getting herself back into the cot. She was stating that she could not get back in however after encouragement she was able to stand and crawl back onto the cot. Patient is not fully answering questions and keeps repeating please screaming at me to admit her to the hospital and give her pain medication. On multiple occasion she has been witnessed putting her f vinnie in her throat to induce vomiting. When I asked her why she is doing that she said because her abdomen hurts, I then asked if it was helping and she said no. Patient's abdominal exam is soft and nontender she is distracted during abdominal exam and has no peritoneal signs. She has no leukocytosis. Patient's anemia is consistent with her renal failure. Patient has mild elevation in her troponin however she has had no complaint of chest pain. Her elevated troponin is likely secondary to her renal insufficiency. Patient's glucose is elevated greater than 700. She is not acidotic. She has been noncompliant with her home insulin per her son who is now at bedside. I did discuss her care with Dr. Wong who had recently taking care of this patient. He states she has an underlying history of dementia. Patient was given Haldol and continue to be very noncompliant and combative in the emergency room. She did remove 1 of her IVs which was difficult to get placed. She was then given a dose of Geodon which has greatly improved her symptoms. She is now resting comfortably and wakes easily to verbal stimuli. Patient was started on insulin infusion for her hyperglycemia. She was given 2 L of IV normal saline. She received Zofran and pain medication. Dr. Kennedy will admit her to the ICU for further management. Laboratory 05/31/18 05/31/18 05/31/18 16:19 16:19 16:35 WBC 5.6 RBC 3.65 L Hgb 9.8 L Hct 31.5 L MCV 86 MCH 26.9 L MCHC 31.2 L RDW 17.1 H Plt Count 169 Seg Neutrophils % 77.4 Lymphocytes % 13.3 Monocytes % 7.2 Eosinophils % 1.6 Basophils % 0.5 Absolute Neutrophils 4.4 Absolute Lymphocytes 0.8 Absolute Monocytes 0.4 Absolute Eosinophils 0.1 Absolute Basophils 0.0 Sodium 132.9 L Potassium 4.1 Chloride 91 L Carbon Dioxide 26 Anion Gap 16 BUN 48 H Creatinine 5.17 H Est GFR ( Amer) 10 L Est GFR (Non-Af Amer) 9 L Glucose 739 H* Calcium 10.0 Total Bilirubin 0.8 Direct Bilirubin 0.6 H Neonat Total Bilirubin Not Reportable Neonat Direct Bilirubin Not Reportable Neonat Indirect Bili Not Reportable AST 23 ALT 22 Alkaline Phosphatase 741 H Troponin I 0.059 Total Protein 7.1 Albumin 3.9 Lipase 96.1 05/31/18 19:[address] Yin, nephrology, regarding patient's peritoneal dialysis. He states that he will not be here over the weekend and does not feel comfortable putting phone consultation orders and on a patient going to the ICU. This makes it impossible for us to keep the patient at this facility since she is requiring daily peritoneal dialysis. Patient has technically been admitted to the [facility] and has been evaluated by the hospitalist. I am being told that since she is an inpatient that the hospitalist service is the one that needs to coordinate her being transferred. I have talked to Dr. Hopkins already at [facility] who has accepted the patient for transport. I talked to Dr. Jaime who is now on for the hospitalist service. He will file patients EMTALA paperwork and continue with transport orders. Patient is still in the emergency room at this time. She is stable for transportation. - Vital Signs Vital signs: Temp Pulse Resp BP Pulse Ox 98 05/31/18 20:20 - Laboratory Result Diagrams: 05/31/18 16:19 05/31/18 16:19 Laboratory results interpreted by me: 05/31/18 05/31/18 05/31/18 16:19 16:19 16:19 RBC 3.65 L Hgb 9.8 L Hct 31.5 L MCH 26.9 L MCHC 31.2 L RDW 17.1 H Sodium 132.9 L Chloride 91 L BUN 48 H Creatinine 5.17 H Est GFR ( Amer) 10 L Est GFR (Non-Af Amer) 9 L Glucose 739 H* Hemoglobin A1c % 9.2 H Direct Bilirubin 0.6 H Alkaline Phosphatase 741 H - EKG Interpretation by Me Additional EKG results interpreted by me: 05/31/18 19:44 Interpreted by myself 1939: Normal sinus rhythm, rate 93, right bundle branch block, new left anterior fascicular block compared with 04/07/18, LVH, no ST elevation Procedures - Additional Procedures IV insertion Time performed: 20:05 Notes: 05/31/18 20:05 Ultrasound-guided peripheral IV placed in left arm just proximal to antecubital fossa. Linear probe used. One attempt. Good blood return and flushed easily. Patient tolerated well with no immediate complications. Secured in place with tape. Critical Care Note - Critical Care Note Total time excluding time spent on procedures (mins): 90 Comments: Critical care time 35 exclusive from separate billable procedures for a patient requiring complex medical decision making, and high potential for clinical deterioration. Time spent obtaining history from patient or surrogate, discussions with consultants, development of treatment plan with patient or surrogate, evaluation of patient's response to treatment, examination of patient, ordering and performing treatments and interventions, ordering and review of laboratory studies, re-evaluation of patient's condition, ordering and review of radiographic studies and review of old charts Discharge - Discharge Clinical Impression: HHNC (hyperglycemic hyperosmolar nonketotic coma), Elevated troponin, Metabolic encephalopathy, Combative behavior Abdominal pain Qualifiers: Abdominal location: generalized Qualified Code(s): R10.84 - Generalized abdominal pain Condition: Stable Disposition: [facility]
[2018-05-31 16:50] LABS: ALANINE AMINOTRANSFERASE 22 U/L (9-52); ALBUMIN 3.9 g/dL (3.5-5.0); ALKALINE PHOSPHATASE 741 U/L (38-126); ANION GAP 16 (5-19); ASPARTATE AMINO TRANSFERASE 23 U/L (14-36); BILIRUBIN,DIRECT 0.6 mg/dL (0.0-0.4); BILIRUBIN,TOTAL 0.8 mg/dL (0.2-1.3); BLOOD UREA NITROGEN 48 mg/dL (7-20); CARBON DIOXIDE 26 mmol/L (22-30); CHLORIDE 91 mmol/L (98-107); LIPASE 96.1 U/L (23-300); POTASSIUM 4.1 mmol/L (3.6-5.0); SODIUM 132.9 mmol/L (137-145); TOTAL PROTEIN 7.1 g/dL (6.3-8.2)
[2018-05-31 16:59] LABS: GLUCOSE 739 mg/dL (75-110)
[2018-05-31] MEDS ORDERED: NORMAL SALINE 1000 ML 1,000 ML IV ONE ×4 (17:01→22:22)
[2018-05-31] MEDS ORDERED: ONDANSETRON HCL INJ/PF 4 MG/2 ML SDV IV ONE (17:02)
[2018-05-31] MEDS ORDERED: NORMAL SALINE 100 ML with INSULIN REGULAR, HUMAN 100 UNIT IV PRN ×4 (17:02→19:01)
[2018-05-31] MEDS ORDERED: HALOPERIDOL 5 MG TABLET PO ONE (17:20)
[2018-05-31] MEDS ORDERED: INSULIN REG, HUMAN 100 UNIT/ML 3 ML VIAL (PYX) ONE (17:49)
[2018-05-31] MEDS ORDERED: ZIPRASIDONE MESYLATE INJ/PF 20 MG SDV IM ONE (18:14)
[2018-05-31 18:16] LABS: VENOUS BLOOD BASE EXCESS 0.5 mmol/L; VENOUS BLOOD HCO3 25.3 mmol/L (20-32); VENOUS BLOOD PCO2 41.3 mmHg (35-63); VENOUS BLOOD PH 7.41 (7.30-7.42)
--- NOTE | 2018-05-31 18:54 | RADIOLOGY REPORT (SQ) ---
EXAM DESCRIPTION: CHEST SINGLE VIEW COMPLETED DATE/TIME: 05/31/2018 6:37 pm REASON FOR STUDY: assess effusion COMPARISON: 04/17/2018 EXAM PARAMETERS: NUMBER OF VIEWS: One view. TECHNIQUE: Single frontal radiographic view of the chest acquired. RADIATION DOSE: NA LIMITATIONS: None. FINDINGS: LUNGS AND PLEURA: Opacity at the right base. Minimal right pleural effusion. No focal fi ndings in the left lung. MEDIASTINUM AND HILAR STRUCTURES: No masses. Contour normal. HEART AND VASCULAR STRUCTURES: Heart enlarged. Vascular congestion. BONES: No acute findings. HARDWARE: None in the chest. OTHER: No other significant finding. IMPRESSION: Parenchymal opacity right lung with minimal right effusion. Vascular congestion and cardiac enlargement. TECHNICAL DOCUMENTATION: JOB ID: [id number] [employer]- All Rights Reserved Reading location - IP/workstation name: [email or web address]
[2018-05-31] MEDS ORDERED: GLUCAGON,HUMAN RECOMB 1 MG INJ IM PRN (19:01)
[2018-05-31] MEDS ORDERED: DEXTROSE 40% GEL 15 GM TUBE PO PRN ×2 (19:01)
[2018-05-31] MEDS ORDERED: DEXTROSE 50%-WATER 25 GM/50 ML DISP.SYRIN IV PRN ×2 (19:01)
[2018-05-31] MEDS ORDERED: ACETAMINOPHEN 325 MG TABLET PO PRN (19:05)
[2018-05-31] MEDS ORDERED: TRAMADOL HCL 50 MG TABLET PO PRN (19:05)
--- NOTE | 2018-05-31 19:12 | PDOC H&P ---
History of Present Illness Admission Date/PCP: 05/31/18 17:45 CONRADO SOTOMAYOR MD History of Present Illness: HAL MERCHANT is a 57 year old female with a past medical history of hyperte nsion, CHF, diabetes, anxiety, end-stage renal failure on daily peritoneal dialysis, recurrent right sided pleural effusions likely related to ESRD S/P Pleur X cath placement who was brought in due to abdominal pain. Patient's son/DPOA says that patient was apparently fine/at baseline yesterday morning. She went for her hemodialysis around 12 nn and when she was back home, she started complaining of left lower quadrant pain around 7 pm. This persisted today hence patient was brought to the ER. Patient had some nausea but no vomiting. No diarrhea per son. No fever or chills. No hematemesis, melena or hematochezia. In the ER, she was noted to have severe hyperglycemia with a sugar in the 700s and is more consistent with HSS rather than DKA. His son does say patient has been uncompliant with her insulin at home. In the ER, she is complaining of LLQ pain. She points to her LLQ and hypogastric area. No peritoneal signs on abdominal exam. Son says she had left hip pain before requiring steroid shots on the left hip in March this year. No tenderness on left hip flexion. Past Medical History Cardiac Medical History: Reports: Congestive Heart Failure, Hypertension Psychiatric Medical History: Reports: Depression - anxiety Past Surgical History Past Surgical History: Reports: Hysterectomy, Vascular Surgery Social History Smoking Status: Former Smoker Frequency of Alcohol Use: None Hx Recreational Drug Use: No Drugs: None Hx Prescription Drug Abuse: No Family History Family History: Hypertension Parental Family History Reviewed: Yes - no premature CAD Children Family History Reviewed: No Sibling(s) Family History Reviewed.: No Medication/Allergy Home Medications: Atorvastatin Calcium 20 mg PO DAILY 04/03/18 Ferric Citrate [Auryxia] 2 tab PO AC 04/03/18 Gabapentin 300 mg PO QHS 04/03/18 Ketorolac Tromethamine 1 drop OU QIDP PRN 04/03/18 Mirtazapine 15 mg PO QHS 04/03/18 Olanzapine [Zyprexa Zydis 5 mg Odt Tablet] 5 mg PO QHS 04/03/18 Omeprazole 40 mg PO DAILY 04/03/18 Sevelamer Carbonate 800 mg PO AC 04/03/18 Acetaminophen [Tylenol 325 mg Tablet] 650 mg PO Q8HP PRN tablet 04/18/18 Amlodipine Besylate [Norvasc 5 mg Tablet] 5 mg PO DAILY #30 tablet 04/18/18 Bisacodyl [Dulcolax 5 mg Tablet] 10 mg PO DAILYP #30 tabec 04/18/18 Carvedilol [Coreg 12.5 mg Tablet] 12.5 mg PO Q12 #60 tablet 04/18/18 Cholecalciferol (Vitamin D3) [Vitamin D3 2000 unit Tablet] 2,000 unit PO DAILY #30 tablet 04/18/18 Clonidine HCl [Catapres 0.2 mg Tablet] 0.2 mg PO Q8 #90 tablet 04/18/18 Epoetin Lalo [Procrit Inj 20,000 Unit/1 ml Vial (Renal)] 5,000 unit IV .DIALYSIS PRN ml 04/18/18 Furosemide [Lasix 20 mg Tablet] 20 mg PO BID #60 tablet 04/18/18 Hydralazine HCl [Apresoline 50 mg Tablet] 100 mg PO Q8 #90 tablet 04/18/18 Insulin Glargine,Hum.rec.anlog [Lantus Insulin 100 Unit/mL] 7 unit SUBCUT QHS #2 insuln.pen 04/18/18 Allergies/Adverse Reactions: hydromorphone [From Dilaudid] Allergy (Verified 05/31/18 15:42) morphine Allergy (Verified 05/31/18 15:42) Review of Systems All systems: reviewed and no additional remarkable complaints except as stated - as mentioned in HPI Physical Exam Vital Signs: Intake & Output 05/30/18 05/31/18 06/01/18 06:59 06:59 06:59 Weight 165 lb Results Laboratory Results: 05/31/18 16:19 05/31/18 16:19 05/31/18 05/31/18 05/31/18 16:19 16:19 18:00 WBC 5.6 RBC 3.65 L Hgb 9.8 L Hct 31.5 L MCV 86 MCH 26.9 L MCHC 31.2 L RDW 17.1 H Plt Count 169 Seg Neutrophils % 77.4 Lymphocytes % 13.3 Monocytes % 7.2 Eosinophils % 1.6 Basophils % 0.5 Absolute Neutrophils 4.4 Absolute Lymphocytes 0.8 Absolute Monocytes 0.4 Absolute Eosinophils 0.1 Absolute Basophils 0.0 VBG pH 7.41 VBG pCO2 41.3 VBG HCO3 25.3 VBG Base Excess 0.5 Sodium 132.9 L Potassium 4.1 Chloride 91 L Carbon Dioxide 26 Anion Gap 16 BUN 48 H Creatinine 5.17 H Est GFR ( Amer) 10 L Est GFR (Non-Af Amer) 9 L Glucose 739 H* Calcium 10.0 Total Bilirubin 0.8 AST 23 ALT 22 Alkaline Phosphatase 741 H Total Protein 7.1 Albumin 3.9 Lipase 96.1 05/31/18 16:35 Troponin I 0.059 Assessment & Plan - Diagnosis (1) hyperglyemic hyerosmolar state Is this a current diagnosis for this admission?: Yes Plan: Give another liter of normal saline bolus after first bolus in ER then switch to NS at 150 cc/hr. Start insulin drip at 7 u/hr. Sugar checks qhourly. BMP q4. (2) Abdominal pain Qualifiers: Abdominal location: generalized Qualified Code(s): R10.84 - Generalized abdominal pain Is this a current diagnosis for this admission?: Yes Plan: Patient is complaining of LLQ pain. No peritoneal signs. No diarrhea. Will order a CT of the abdomen and pelvis. Son does say she has history of left hip pain and had 2 steroid injections on the left hip last March. Will order a hip x- ray as well. (3) ESRD (end stage renal disease) on dialysis Is this a current diagnosis for this admission?: Yes Plan: Patient completed her dialysis yesterday. (4) Chronic diastolic (congestive) heart failure Is this a current diagnosis for this admission?: Yes Plan: Not in exacerbation. She had a recent echo which showed low normal EF of 50% and grade 2 diastolic dysfunction. - Time Time Spent: 30 to 50 Minutes
--- NOTE | 2018-05-31 20:38 | RADIOLOGY REPORT (SQ) ---
EXAM DESCRIPTION: CT ABD/PELVIS NO ORAL OR IV COMPLETED DATE/TIME: 05/31/2018 8:25 pm REASON FOR STUDY: persistent abd pain COMPARISON: 04/11/2018 TECHNIQUE: CT scan of the abdomen and pelvis performed without intravenous or oral contrast. Images reviewed with lung, soft tissue, and bone windows. Reconstructed coronal and sagittal MPR images revi ewed. All images stored on PACS. All CT scanners at this facility use dose modulation, iterative reconstruction, and/or weight based d osing when appropriate to reduce radiation dose to as low as reasonably achievable (ALARA). [facility]: Dose Right [facility]: CareDose [facility]: Dose Right [facility]: Teradose 4D [facility]: Smart [employer]tv RADIATION DOSE: CT Rad equipment meets quality standard of care and radiation dose reduction techniq ues were employed. CTDIvol: 8.5 mGy. DLP: 421 mGy-cm.mGy. LIMITATIONS: None. FINDINGS: LOWER CHEST: Unchanged moderate right pleural effusion. Cardiomegaly with small pericardi al effusion. NON-CONTRASTED LIVER, SPLEEN, ADRENALS: Evaluation limited by lack of IV contrast. No identified sign ificant masses. PANCREAS: No masses. No peripancreatic inflammatory changes. GALLBLADDER: No identified stones by CT criteria. No inflammatory changes to suggest cholecystitis. RIGHT KIDNEY AND URETER: No suspicious masses. Assessment limited by lack of IV contrast. No signif icant calcifications. No hydronephrosis or hydroureter. LEFT KIDNEY AND URETER: No suspicious masses. Assessment limited by lack of IV contrast. No signifi cant calcifications. No hydronephrosis or hydroureter. AORTA AND RETROPERITONEUM: No aneurysm. No retroperitoneal masses or adenopathy. BOWEL AND PERITONEAL CAVITY: No obvious masses or inflammatory changes. No free fluid. APPENDIX: Normal. PELVIS, BLADDER, AND ABDOMINAL WALL:No abnormal masses. No free fluid. Bladder normal. Status posthy sterectomy. BONES: No significant findings. OTHER: No other significant finding. IMPRESSION: 1. No noncontrast CT findings to explain acute abdominal pain. 2. Unchanged moderate right pleural effusion, cardiomegaly, and small pericardial effusion. COMMENT: Quality ID # [id number]: Final reports with documentation of one or more dose reduction techniques (e.g., Automated exposure control, adjustment of the mA and/or kV according to patient size, use of iterative reconstruction technique) TECHNICAL DOCUMENTATION: JOB ID: [id number] [employer]- All Rights Reserved Reading location - IP/workstation name: [email or web address]
--- NOTE | 2018-05-31 20:51 | RADIOLOGY REPORT (SQ) ---
EXAM DESCRIPTION: HIP LEFT AP/LATERAL COMPLETED DATE/TIME: 05/31/2018 8:39 pm REASON FOR STUDY: left groin pain COMPARISON: None. NUMBER OF VIEWS: Two views. TECHNIQUE: AP pelvis and additional frog-leg view of the left hip. LIMITATIONS: None. FINDINGS: MINERALIZATION: Normal. LEFT HIP: Mild superior joint space loss and osteophytosis. RIGHT HIP: Mild superior joint space loss and osteophytosis. PUBIS AND ISCHIUM: No fracture. PELVIS: No fracture. SACRUM: No fracture or dislocation. No worrisome bone lesions. LOWER LUMBAR SPINE: No fracture or dislocation. No worrisome bone lesions. No significant disc disea se. SOFT TISSUES: No findings. OTHER: No other significant finding. IMPRESSION: No fracture or dislocation of the left hip. Mild osteoarthritis. TECHNICAL DOCUMENTATION: JOB ID: [id number] [employer]- All Rights Reserved Reading location - IP/workstation name: [email or web address]
--- NOTE | 2018-05-31 21:44 | Operative Report ---
Nonrecallable Operative Report DATE OF SURGERY: 05/31/18 PREOPERATIVE DIAGNOSIS: 1. Phlebosclerosis. 2. Diabetic ketoacidosis POSTOPERATIVE DIAGNOSIS: Same as above OPERATION: 1. Ultrasound-guided central venous puncture. 2. Left internal jugular vein central line placement. SURGEON: RALPH BOATENG ANESTHESIA: Local TISSUE REMOVED OR ALTERED: None COMPLICATIONS: None apparent ESTIMATED BLOOD LOSS: Minimal PROCEDURE: Drains/implants: Left internal jugular vein central line at 15 cm. Procedure in detail: After informed consent was obtained from the patient's family, the patient was laid in the Trendelenburg position. The area of the left neck was prepped and draped in a normal sterile fashion. An ultrasound was used to identify the left internal jugular vein. It was compressible with normal flow. An access needle was used to cannulate the left internal jugular vein. This was done under direct ultrasonic guidance. Dark venous, nonpulsatile blood was returned to the syringe. The wire was inserted into the vein easily. The wire was confirmed to be within the lumen of the vein using the ultrasound device. The catheter was slid over the wire using a modified Seldinger technique. The catheter was sutured to the skin. A dressing was fashioned, and the procedure was concluded. The catheter was aspirated and flushed x3. All sponge, instrument, and needle counts were correct. Condition: Critical.
[2018-05-31] MEDS ORDERED: HEPARIN SOD (PORCINE) 5,000 UNIT/ML 1 ML SYRINGE SUBCUT SCH (22:00)
[2018-05-31 22:22] LABS: ANION GAP 14 (5-19); BLOOD UREA NITROGEN 51 mg/dL (7-20); CALCIUM 9.8 mg/dL (8.4-10.2); CARBON DIOXIDE 26 mmol/L (22-30); CHLORIDE 93 mmol/L (98-107); POTASSIUM 4.1 mmol/L (3.6-5.0); SODIUM 132.5 mmol/L (137-145)
--- NOTE | 2018-05-31 22:23 | RADIOLOGY REPORT (SQ) ---
EXAM DESCRIPTION: AP view of the chest CLINICAL HISTORY:57 years Female, post central line placement Comparison: May 31, 2018 1833 hours FINDINGS: Interval placement of left IJ central line which crosses the midline and terminates at the confluence of the innominate veins. No pneumothorax. Right chest tube and right upper extremity stents again noted. Cardiomegaly and right basilar opacities remain. IMPRESSION: Interval placement of left IJ central line. No pneumothorax.
[2018-05-31 22:32] LABS: GLUCOSE 767 mg/dL (75-110)
[2018-05-31 22:49] VITALS: BP 191/102
--- NOTE | 2018-06-01 07:37 | EKG REPORT ---
SEVERITY:- ABNORMAL ECG - SINUS RHYTHM PROBABLE LEFT ATRIAL ABNORMALITY RBBB AND LAFB LVH BY VOLTAGE : Confirmed by: Sascha Davison MD 01-Jun-2018 07:36:52
== END 2018-05-31 23:20 | disposition short-term general hospital (02) | DRG 637 ==
LOC: ER 15:42 → EH 17:45
PROVIDERS: ADMIT Internal Medicine; ATTEND Internal Medicine
PROC: 05HN33Z Insertion of Infusion Device into Left Internal Jugular Vein, Percutaneous Approach (ICD-10-PCS; principal; 2018-05-31)
PROC: B544ZZA Ultrasonography of Left Jugular Veins, Guidance (ICD-10-PCS; 2018-05-31)
DX: E11.00 Type 2 diabetes mellitus with hyperosmolarity without nonketotic hyperglycemic-hyperosmolar coma (NKHHC) (principal); N18.6 End stage renal disease; I50.32 Chronic diastolic (congestive) heart failure; I13.2 Hypertensive heart and chronic kidney disease with heart failure and with stage 5 chronic kidney disease, or end stage renal disease; E11.22 Type 2 diabetes mellitus with diabetic chronic kidney disease; F41.9 Anxiety disorder, unspecified; F91.9 Conduct disorder, unspecified; Z79.4 Long term (current) use of insulin; Z91.14 Patient's other noncompliance with medication regimen; Z90.710 Acquired absence of both cervix and uterus; Z87.891 Personal history of nicotine dependence; Z79.899 Other long term (current) drug therapy; Z88.6 Allergy status to analgesic agent; Z78.1 Physical restraint status; Z82.49 Family history of ischemic heart disease and other diseases of the circulatory system
CPT/HCPCS: 36415; 71045; 74176; 80048; 80053; 82803; 82962; 83036; 83605; 83690; 84484; 85025; 93005; 93010; 96374; 99291; 99292; C1751; J2405; J3486; J7030

== ENCOUNTER 2018-06-10 01:53 | Inpatient (IN) | payer MEDICARE, MEDICAID ==
[2018-06-10] MEDS ORDERED: ACETAMINOPHEN 325 MG TABLET PO ONE (04:18)
[2018-06-10] MEDS ORDERED: OXYCODONE HCL IR 5 MG TABLET PO ONE (04:18)
--- NOTE | 2018-06-10 05:24 | ER Document Report ---
ED Medical Screen (RME) - General Chief Complaint: Rib Pain Stated Complaint: RIDE SIDE PAIN,CATHETER PROBLEM Time Seen by Provider: 06/10/18 03:36 Notes: 57 year old female with a past medical history of hypertension, CHF, diabetes, anxiety, end-stage renal failure on daily peritoneal dialysis, recurrent right sided pleural effusions likely related to ESRD S/P Pleur X cath placement in April 2018 presents to the emergency department for severe pain at the site of her catheter. Patient's temperature presentation 100.6, SPO2 92% on room air. TRAVEL OUTSIDE OF THE [place] IN LAST 30 DAYS: No - Related Data Allergies/Adverse Reactions: hydromorphone [From Dilaudid] Allergy (Verified 05/31/18 15:42) morphine Allergy (Verified 05/31/18 15:42) Past Medical History - Past Medical History Cardiac Medical History: Reports: Hx Congestive Heart Failure, Hx Hypertension Endocrine Medical History: Reports: Hx Diabetes Mellitus Type 2 Renal/ Medical History: Denies: Hx Peritoneal Dialysis Psychiatric Medical History: Reports: Hx Depression - anxiety Past Surgical History: Reports: Hx Hysterectomy, Hx Vascular Surgery Physical Exam - Vital signs Vitals: Temp Pulse BP Pulse Ox 100.6 F H 94 139/91 H 92 06/10/18 02:17 06/10/18 02:17 06/10/18 02:17 06/10/18 02:17 - Abdominal Inspection: Other - Pleurx cathete on right anterior axillary line at the level of ribs 7 or 8. No erythema around the site. No purulent drainage. Patient with severe pain with minimal manipulation of the catheter after taking the dressing off. Distension: No distension Course - Re-evaluation Re-evalutation: 06/10/18 05:23 I have greeted and performed a rapid initial assessment of this patient. A comprehensive ED assessment and evaluation of the patient, analysis of test results and completion of medical decision making process will be conducted by an additional ED providers. - Vital Signs Vital signs: Temp Pulse Resp BP Pulse Ox 100.6 F H 94 139/91 H 92 06/10/18 02:17 06/10/18 02:17 06/10/18 02:17 06/10/18 02:17 Doctor's Discharge - Discharge Referrals: CONRADO SOTOMAYOR MD [Primary Care Provider] - Follow up as needed
--- NOTE | 2018-06-10 05:42 | RADIOLOGY REPORT (SQ) ---
EXAM DESCRIPTION: XR CHEST 1 VIEW COMPLETED DATE/TME: 06/10/2018 04:21 CLINICAL HISTORY: Respiratory Distress. 57 years Female, dyspnea COMPARISON: 05/31/18 NUMBER OF VIEWS/TECHNIQUE: 1/AP FINDINGS: Bilateral lower thoracic opacity/effusion. Right axillary stent. Severe cardiac silhouette enlargement. Atherosclerotic vascular disease. Right chest tube. No pneumothorax. Stable bony thorax. IMPRESSION: Interval line/tube modification.
[2018-06-10 05:58] LABS: VENOUS BLOOD BASE EXCESS 4.9 mmol/L; VENOUS BLOOD HCO3 29.4 mmol/L (20-32); VENOUS BLOOD PH 7.44 (7.30-7.42)
[2018-06-10 06:16] LABS: ALANINE AMINOTRANSFERASE 27 U/L (9-52); ALBUMIN 2.6 g/dL (3.5-5.0); ALKALINE PHOSPHATASE 364 U/L (38-126); ANION GAP 9 (5-19); ASPARTATE AMINO TRANSFERASE 31 U/L (14-36); BILIRUBIN,DIRECT 0.6 mg/dL (0.0-0.4); BILIRUBIN,TOTAL 0.6 mg/dL (0.2-1.3); BLOOD UREA NITROGEN 54 mg/dL (7-20); CALCIUM 8.7 mg/dL (8.4-10.2); CARBON DIOXIDE 28 mmol/L (22-30); CHLORIDE 98 mmol/L (98-107); GLUCOSE 220 mg/dL (75-110); POTASSIUM 5.1 mmol/L (3.6-5.0); SODIUM 135.1 mmol/L (137-145); TOTAL PROTEIN 5.4 g/dL (6.3-8.2)
--- NOTE | 2018-06-10 06:37 | ER Document Report ---
ED General - General Chief Complaint: Rib Pain Stated Complaint: RIDE SIDE PAIN,CATHETER PROBLEM Time Seen by Provider: 06/10/18 03:36 Notes: 57-year-old female with end-stage renal disease Saturday dialysis right-sided Pleurx catheter presents with pain in her right chest at the catheter site. This is been constant for 2 days. Son states that maybe she is more sluggish than usual. She is relatively listless and does not give a full history. Son says that she has not noted fever. Every 5 days he takes at about 500 cc from the Pleurx catheter, continues to do so and denies changes in color or smell. Followed by Dr. Bobby and Dr. Yin TRAVEL OUTSIDE OF THE [place] IN LAST 30 DAYS: No - Related Data Allergies/Adverse Reactions: hydromorphone [From Dilaudid] Allergy (Verified 05/31/18 15:42) morphine Allergy (Verified 05/31/18 15:42) Past Medical History - General Information source: Patient, Relative - Social History Smoking Status: Never Smoker Family History: Hypertension - Past Medical History Cardiac Medical History: Reports: Hx Congestive Heart Failure, Hx Hypertension Endocrine Medical History: Reports: Hx Diabetes Mellitus Type 2 Renal/ Medical History: Denies: Hx Peritoneal Dialysis Psychiatric Medical History: Reports: Hx Depression - anxiety Past Surgical History: Reports: Hx Hysterectomy, Hx Vascular Surgery Review of Systems - Review of Systems Notes: REVIEW OF SYSTEMS Mental status PHYSICAL EXAMINATION General: Tonically ill Head: Atraumatic, normocephalic ENT: Mouth normal, oropharynx very dry, no exudates or tonsillar enlargement Eyes: Conjunctiva normal, pupils equal, lids normal Neck: No JVD, supple, no guarding CVS: Normal rate, regular rhythm, no murmurs Resp: No resp distress, equal and normal breath sounds bilaterally. Pleurx catheter at the right chest with no apparent drainage or erythema. GI: Nondistended, soft, no tenderness to palpation, no rebound or guarding Ext: No deformities, no edema, normal range of motion in upper and lower ext Back: No CVA or midline TTP Skin: No rash, warm Lymphatic: No lymphadeopathy noted Neuro: Closed opens to voice slurred speech slow to respond symmetric face. Physical Exam - Vital signs Vitals: Temp Pulse BP Pulse Ox 100.6 F H 94 139/91 H 92 06/10/18 02:17 06/10/18 02:17 06/10/18 02:17 06/10/18 02:17 Course - Re-evaluation Re-evalutation: 06/10/18 06:37 Patient with end-stage renal disease and Pleurx catheter presents with sluggishness pain at the catheter site. Noted to be febrile with heart rate of 94. Concern for sepsis pneumonia infected pleural effusion UTI, uremia. Sepsis workup was initiated by the rapid medical evaluation team. 06/10/18 14:21 Chest x-ray shows effusions not worse than before. Labs are essentially unremarkable. I attempted multiple times to express fluid from the pleural catheter. Radiology did not accept my sterile container so I replaced it into a 2. I discussed with Dr. Andrade for admissionantibiotics were not given based on the lack of source of infection at this time. - Vital Signs Vital signs: Temp Pulse Resp BP Pulse Ox 98.3 F 67 12 118/57 L 100 06/10/18 12:03 06/10/18 12:03 06/10/18 12:03 06/10/18 12:03 06/10/18 12:03 - Laboratory Result Diagrams: 06/10/18 06:40 06/10/18 05:21 Laboratory results interpreted by me: 06/10/18 06/10/18 06/10/18 05:21 05:21 06:40 RBC 2.63 L Hgb 7.0 L Hct 21.2 L MCH 26.5 L RDW 16.7 H VBG pH 7.44 H Sodium 135.1 L Potassium 5.1 H BUN 54 H Creatinine 5.63 H Est GFR ( Amer) 9 L Est GFR (Non-Af Amer) 8 L Glucose 220 H Direct Bilirubin 0.6 H Alkaline Phosphatase 364 H Total Protein 5.4 L Albumin 2.6 L - Diagnostic Test Radiology reviewed: Image reviewed, Reports reviewed Discharge - Discharge Clinical Impression: Systemic inflammatory response syndrome (SIRS) Condition: Fair Disposition: ADMITTED INPATIENT Admitting Provider: Raymond Ribeiro Admitted: Medical Floor
[2018-06-10 07:26] LABS: ABSOLUTE EOSINOPHILS # (AUTO) 0.1 10^3/uL (0.0-0.6); ABSOLUTE MONOCYTES (AUTO) 0.7 10^3/uL (0.1-1.4); ABSOLUTE NEUT (AUTO) 4.3 10^3/uL (1.7-8.2); BASOPHILS % (AUTO) 0.7 % (0-2); EOSINOPHILS % (AUTO) 1.1 % (0-6); HEMATOCRIT 21.2 % (36.0-47.0); LYMPHOCYTES % (AUTO) 16.3 % (13-45); MEAN CORPUSCULAR HEMOGLOBIN 26.5 pg (27.0-33.4); MEAN CORPUSCULAR HGB CONC 32.9 g/dL (32.0-36.0); MONOCYTES % (AUTO) 12.1 % (3-13); PLATELET COUNT 223 10^3/uL (150-450); RED BLOOD COUNT 2.63 10^6/uL (3.72-5.28); RED CELL DISTRIBUTION WIDTH 16.7 % (11.5-14.0); SEGMENTED NEUTROPHILS % (AUTO) 69.8 % (42-78); TOTAL CELLS COUNTED % (AUTO) 100 %; WHITE BLOOD COUNT 6.1 10^3/uL (4.0-10.5)
[2018-06-10 07:32] LABS: A TYPE INFLUENZA AG NEGATIVE (NEGATIVE); B INFLUENZA AG NEGATIVE (NEGATIVE)
[2018-06-10 07:44] LABS: MEAN CORPUSCULAR VOLUME 81 fl (80-97)
[2018-06-10 09:50] LABS: FLUID APPEARANCE CLOUDY; FLUID COLOR RED; FLUID SOURCE LUNG; FLUID TYPE PLEURAL; FLUID VISCOSITY LIQUID
[2018-06-10] MEDS ORDERED: IPRATROPIUM/ALBUTEROL 0.5-2.5 MG/3 ML AMPUL NEB PRN (10:55)
[2018-06-10] MEDS ORDERED: NORMAL SALINE 1000 ML 1,000 ML IV PRN (10:55)
[2018-06-10] MEDS ORDERED: ONDANSETRON HCL INJ/PF 4 MG/2 ML SDV IV PRN (10:58)
[2018-06-10] MEDS ORDERED: DEXTROSE 40% GEL 15 GM TUBE PO PRN ×2 (10:59)
[2018-06-10] MEDS ORDERED: GLUCAGON,HUMAN RECOMB 1 MG INJ IM PRN (10:59)
[2018-06-10] MEDS ORDERED: DEXTROSE 50%-WATER 25 GM/50 ML DISP.SYRIN IV PRN ×2 (10:59)
[2018-06-10] MEDS ORDERED: CEFTRIAXONE 1 GM/D5W RTU 1 GM/50 ML RTUPB IV SCH (11:00)
[2018-06-10] MEDS ORDERED: NORMAL SALINE 250 ML IV PRN ×2 (11:28)
[2018-06-10] MEDS ORDERED: FUROSEMIDE INJ/PF 40 MG/4 ML SDV IV PRN (11:28)
[2018-06-10] MEDS ORDERED: (PENDING PHARMACY ID) (Ferric Citrate [Auryxia] 420 MG) PO SCH (12:15)
[2018-06-10] MEDS ORDERED: (PENDING PHARMACY ID) (Cholecalciferol (Vitamin D3) [Vitamin D3 2000 Unit Tablet] 2,000 UN PO SCH (12:15)
--- NOTE | 2018-06-10 12:26 | PDOC H&P ---
History of Present Illness Admission Date/PCP: 06/10/18 07:44 CONRADO SOTOMAYOR MD Patient complains of: Right-sided chest pain and catheter problems History of Present Illness: HAL MERCHANT is a 57 year old female This is a 57-year-old patient with end-stage renal disease on hemodialysis had a history of the congestive heart failure with recurrent pleural effusions had a right-sided chest catheter was placed and patient's son is taking care of the catheter at home Son stated that the patient's may be more sluggish than usual and patient is pretty much kind of a more sleepy but answers all questions appropriately patient's said that patient had a 5 days he takes about 500 cc from the pleural cath and continues to drain it denied any change in the color smell patient's more irritation on the catheter site The emergency department patient's had 100.4 fever Patient's a pleural cath was not draining chest x-ray still consistent with the bilateral effusions Is denied any chest pain denied any shortness of the breath Was just admitted in the 05/31 and the hospitalist service for the hyperglycemia and a complaint of left lower quadrant pain Patient is denied any abdominal pain Patient's is a noncompliance with the medication at home Patient saw in the ER alert awake but little sleepy but answers all questions appropriately Discussed with the general surgery about the pleural cath issue he is going to flush Start the patient on IV antibiotics on a setting of the fever and lethargic Get the fluid cultures and a urine culture blood culture Discussed with the patient's nephrologysee the patient's some issue the dialysis bed in the hospital right now but she will talk to nursing supravaginal to figure out Reviewed the patient's pleural cath report with the fluid suggest no malignancy Patient is denied any history of the smoking history of any cancer Past Medical History Cardiac Medical History: Reports: Congestive Heart Failure, Hypertension Endocrine Medical History: Reports: Diabetes Mellitus Type 2 Renal/ Medical History: Reports: End Stage Renal Disease Psychiatric Medical History: Reports: Depression - anxiety Past Surgical History Past Surgical History: Reports: Hysterectomy, Vascular Surgery Social History Smoking Status: Never Smoker Frequency of Alcohol Use: None Hx Recreational Drug Use: No Drugs: None Hx Prescription Drug Abuse: No Family History Family History: Reviewed & Not Pertinent, Hypertension Parental Family History Reviewed: Yes Children Family History Reviewed: Yes Sibling(s) Family History Reviewed.: Yes Medication/Allergy Home Medications: Amlodipine Besylate [Norvasc 5 mg Tablet] 5 mg PO DAILY 06/10/18 Atorvastatin Calcium [Lipitor 20 mg Tablet] 20 mg PO QHS 06/10/18 Atropine Sulfate [Atropine 1% Oph Soln 5 ml] 1 drop OD DAILY 06/10/18 Carvedilol [Coreg 12.5 mg Tablet] 12.5 mg PO Q12 06/10/18 Cholecalciferol (Vitamin D3) [Vitamin D3 2000 unit Tablet] 2,000 unit PO DAILY 06/10/18 Clonidine HCl [Catapres 0.2 mg Tablet] 0.2 mg PO Q8 06/10/18 Ferric Citrate [Auryxia] 420 mg PO MEALS 06/10/18 Furosemide [Lasix 20 mg Tablet] 20 mg PO BID 06/10/18 Gabapentin [Neurontin 300 mg Capsule] 300 mg PO DAILY 06/10/18 Hydralazine HCl 100 mg PO Q8 06/10/18 Insulin Glargine,Hum.rec.anlog [Lantus Insulin 100 Unit/mL] 7 units SQ QHS 06/10/18 Mirtazapine [Remeron 15 mg Tablet] 15 mg PO QHS 06/10/18 Olanzapine [Zyprexa 5 mg Tablet] 5 mg PO QHS 06/10/18 Omeprazole 40 mg PO DAILY 06/10/18 Prednisolone Acetate [Pred Forte] 1 drop OD QID 06/10/18 Sevelamer HCl [Renagel 800 mg Tablet] 800 mg PO MEALS 06/10/18 Allergies/Adverse Reactions: hydromorphone [From Dilaudid] Allergy (Verified 05/31/18 15:42) morphine Allergy (Verified 05/31/18 15:42) Review of Systems Constitutional: PRESENT: fatigue, weakness. ABSENT: chills, fever(s), headache(s), weight gain, weight loss Eyes: ABSENT: visual disturbances Ears: ABSENT: hearing changes Cardiovascular: ABSENT: chest pain, dyspnea on exertion, edema, orthropnea, palpitations Respiratory: PRESENT: cough. ABSENT: hemoptysis Gastrointestinal: ABSENT: abdominal pain, constipation, diarrhea, hematemesis, hematochezia, nausea, vomiting Genitourinary: ABSENT: dysuria, hematuria Musculoskeletal: ABSENT: joint swelling Integumentary: ABSENT: rash, wounds Neurological: ABSENT: abnormal gait, abnormal speech, confusion, dizziness, focal weakness, syncope Psychiatric: ABSENT: anxiety, depression, homidical ideation, suicidal ideation Endocrine: ABSENT: cold intolerance, heat intolerance, menstrual abnormalities, polydipsia, polyuria Hematologic/Lymphatic: ABSENT: easy bleeding, easy bruising, lymphadenopathy Physical Exam Vital Signs: Temp Pulse Resp BP Pulse Ox 98.6 F 75 15 113/49 L 100 06/10/18 06:44 06/10/18 06:44 06/10/18 11:01 06/10/18 11:01 06/10/18 11:01 Intake & Output 06/09/18 06/10/18 06/11/18 06:59 06:59 06:59 Weight 75.296 kg General appearance: PRESENT: no acute distress Head exam: PRESENT: atraumatic, normocephalic Eye exam: PRESENT: conjunctiva pink, EOMI, PERRLA. ABSENT: scleral icterus Ear exam: PRESENT: normal external ear exam Mouth exam: PRESENT: moist, tongue midline Neck exam: PRESENT: full ROM. ABSENT: carotid bruit, JVD, lymphadenopathy, thyromegaly Respiratory exam: PRESENT: decreased breath sounds Additional comments: Right-sided pleural cath is present the dressing site is clean Cardiovascular exam: PRESENT: RRR. ABSENT: diastolic murmur, rubs, systolic murmur Pulses: PRESENT: normal dorsalis pedis pul, +2 pedal pulses bilateral Vascular exam: PRESENT: normal capillary refill GI/Abdominal exam: PRESENT: normal bowel sounds, soft. ABSENT: distended, guar ding, mass, organolmegaly, rebound, tenderness Rectal exam: PRESENT: deferred Extremities exam: PRESENT: pedal edema Neurological exam: PRESENT: alert, awake, oriented to person, oriented to place, oriented to time, oriented to situation, CN II-XII grossly intact. ABSENT: motor sensory deficit Psychiatric exam: PRESENT: anxious, normal mood. ABSENT: homicidal ideation, suicidal ideation Skin exam: PRESENT: dry, intact, warm. ABSENT: cyanosis, rash Results Laboratory Results: 06/10/18 06:40 06/10/18 05:21 06/10/18 06/10/18 06/10/18 05:21 05:21 05:21 WBC Cancelled RBC Cancelled Hgb Cancelled Hct Cancelled MCV Cancelled MCH Cancelled MCHC Cancelled RDW Cancelled Plt Count Cancelled Seg Neutrophils % Cancelled Lymphocytes % Cancelled Monocytes % Cancelled Eosinophils % Cancelled Basophils % Cancelled Absolute Neutrophils Cancelled Absolute Lymphocytes Cancelled Absolute Monocytes Cancelled Absolute Eosinophils Cancelled Absolute Basophils Cancelled VBG pH 7.44 H VBG pCO2 44.0 VBG HCO3 29.4 VBG Base Excess 4.9 Sodium 135.1 L Potassium 5.1 H Chloride 98 Carbon Dioxide 28 Anion Gap 9 BUN 54 H Creatinine 5.63 H Est GFR ( Amer) 9 L Est GFR (Non-Af Amer) 8 L Glucose 220 H Lactic Acid Calcium 8.7 Total Bilirubin 0.6 AST 31 ALT 27 Alkaline Phosphatase 364 H Total Protein 5.4 L Albumin 2.6 L Fluid Type Fluid Source Fluid Color Fluid Appearance Fluid Viscosity Fluid WBC Fluid RBC 06/10/18 06/10/18 06/10/18 05:21 06:40 08:16 WBC 6.1 RBC 2.63 L Hgb 7.0 L Hct 21.2 L MCV 81 D MCH 26.5 L MCHC 32.9 RDW 16.7 H Plt Count 223 Seg Neutrophils % 69.8 Lymphocytes % 16.3 Monocytes % 12.1 Eosinophils % 1.1 Basophils % 0.7 Absolute Neutrophils 4.3 Absolute Lymphocytes 1.0 Absolute Monocytes 0.7 Absolute Eosinophils 0.1 Absolute Basophils 0.0 VBG pH VBG pCO2 VBG HCO3 VBG Base Excess Sodium Potassium Chloride Carbon Dioxide Anion Gap BUN Creatinine Est GFR ( Amer) Est GFR (Non-Af Amer) Glucose Lactic Acid 0.8 Calcium Total Bilirubin AST ALT Alkaline Phosphatase Total Protein Albumin Fluid Type PLEURAL Fluid Source LUNG Fluid Color RED Fluid Appearance CLOUDY Fluid Viscosity LIQUID Fluid WBC 3263 Fluid RBC 79230 Impressions: Chest X-Ray 06/10/18 04:21 IMPRESSION: Interval line/tube modification. Assessment & Plan - Diagnosis (1) Systemic inflammatory response syndrome (SIRS) Is this a current diagnosis for this admission?: Yes Plan: Most likely possible patient underlying pneumonia We will start the patient on IV antibiotic Get the urine culture blood culture and a fluid culture (2) Chronic diastolic (congestive) heart failure Is this a current diagnosis for this admission?: Yes Plan: We will get the 2D echocardiogram (3) ESRD (end stage renal disease) on dialysis Is this a current diagnosis for this admission?: Yes Plan: Consult to nephrology for further evaluations (4) Metabolic encephalopathy Is this a current diagnosis for this admission?: Yes Plan: Will get the all the cultures start on IV antibiotics (5) Pleural effusion on right Is this a current diagnosis for this admission?: Yes Plan: The general surgery to further assess about the pleural cath (6) Pneumonia Qualifiers: Pneumonia type: due to unspecified organism Laterality: right Is this a current diagnosis for this admission?: Yes Plan: Consult the pulmonary and IV antibiotic (7) Secondary hyperparathyroidism (of renal origin) Is this a current diagnosis for this admission?: Yes (8) Anemia in CKD (chronic kidney disease) Qualifiers: Chronic kidney disease stage: on chronic dialysis Qualified Code(s): N18.6 - End stage renal disease; D63.1 - Anemia in chronic kidney disease; D63.1 - Anemia in chronic kidney disease; Z99.2 - Dependence on renal dialysis; Z99.2 - Dependence on renal dialysis; Z99.2 - Dependence on renal dialysis; Z99.2 - Dependence on renal dialysis Is this a current diagnosis for this admission?: Yes Plan: Discussed with the nephrology we will start the patient on a 1 unit of the blood patient is currently not actively bleeding - Time Time Spent: 50 to 70 Minutes Medications reviewed and adjusted accordingly: Yes Anticipated discharge: Other Within: Other - Inpatient Certification Based on my medical assessment, after consideration of the patient's comorbidities, presenting symptoms, or acuity I expect that the services needed warrant INPATIENT care.: Yes I certify that my determination is in accordance with my understanding of Medicare's requirements for reasonable and necessary INPATIENT services [42 CFR 412.3e].: Yes Medical Necessity: Need Close Monitoring Due to Risk of Patient Decompensation, Need for IV Antibiotics Post Hospital Care: D/C Dog Or Animal Sitter Documentation - Plan Summary Plan Summary: Admit the patient on the telemetry bed Patient's son was stepped out will contact with the patient's son Discussed with the patient's nephrology Discussed with the pulmonary and the surgery
--- NOTE | 2018-06-10 12:46 | Operative Report ---
Operative Report DATE OF SURGERY: 06/10/18 PREOPERATIVE DIAGNOSIS: Chronic right pleural effusion status post Pleurx teresa ter placement POSTOPERATIVE DIAGNOSIS: Same OPERATION: Flushing of Pleurx catheter, and drainage right pleural space under vacuum SURGEON: PRIYANK LIU TISSUE REMOVED OR ALTERED: none COMPLICATIONS: none ESTIMATED BLOOD LOSS: none INTRAOPERATIVE FINDINGS: see below PROCEDURE: Imaging studies reviewed. Patient has a known right recurrent pleural effusion, 1-1/2-month status post Pleurx catheter insertion. Was draining every other day every 3 then every 3 days recently once a week. She drained approximately 500 cc of fluid yesterday. She is now in the emergency department complaining of shortness of breath, and pain in the right chest. Attempt was made to drain the right pleural effusion in the emergency department but was unsuccessful. Patient now being admitted to the internal medicine service for hypoxemia. Surgery consulted to advise on management of right Pleurx catheter. Of note patient complains of pain at the Pleurx catheter insertion site. Summary of procedure: The patient semirecumbent in in the hospital bed in room 2, the Pleurx catheter dressing removed. Insertion site revealed no evidence of erythema drainage or foul smell. An initial attempt was made to drain the right chest by hook and the proprietary connecting tube up to suction container, however there was a fair amount of particulate that got sucked up into the connector. Therefore the in line drain tubing was disconnected, and the proprietary adapter for catheter flushing and aspiration was attached all under sterile conditions. The Pleurx catheter was then flushed of any residual fibrin with heparinized saline. Flushed readily. We now remove the adapter and reattached a new drainage line and vacuum container. Patient now began draining serous fluid from the right chest. She d id have a fair amount of pain and so we diminished the rate of drainage. We had her lay on her right side after applying appropriate sterile dressings to the right Pleurx catheter exit site. Impression: Functional Pleurx catheter patient with chronic right pleural effusion. Pain and exit site out of proportion to physical findings Recommendations: 1. Return to q. 2-4-day drainage episodes or on a as needed basis 2. Highly suggest leaving Pleurx catheter in soon, despite her desire to have a removed. The catheter is not infected, functional, and in optimal position in the right pleural space. 3. Reconsult surgery as needed.
[2018-06-10] MEDS ORDERED: (PENDING PHARMACY ID) (Hydralazine Hcl [Hydralazine Hcl] 100 MG) PO SCH (14:00)
--- NOTE | 2018-06-10 14:18 | EKG REPORT ---
SEVERITY:- ABNORMAL ECG - SINUS RHYTHM PROBABLE LEFT ATRIAL ABNORMALITY RBBB AND LAFB LEFT VENTRICULAR HYPERTROPHY : Confirmed by: Sushma Chu MD 10-Jun-2018 14:18:11
[2018-06-10] MEDS: FAMOTIDINE 20 MG TABLET PO SCH ×2 (14:40→23:21)
[2018-06-10] MEDS: SEVELAMER HCL 800 MG TABLET PO SCH ×2 (14:40→18:08)
[2018-06-10] MEDS: FUROSEMIDE 20 MG TABLET PO SCH ×2 (14:40→18:08)
[2018-06-10] MEDS: AMLODIPINE BESYLATE 5 MG TABLET PO SCH (14:41)
[2018-06-10] MEDS: GABAPENTIN 300 MG CAPSULE PO SCH (14:41)
[2018-06-10] MEDS: INSULIN LISPRO 100 UNIT/ML 3 ML VIAL SUBCUT PRN ×2 (14:41→19:35)
[2018-06-10] MEDS: CLONIDINE HCL 0.2 MG TABLET PO SCH ×2 (14:41→21:49)
[2018-06-10] MEDS: CARVEDILOL 12.5 MG TABLET PO SCH ×2 (14:41→21:49)
[2018-06-10] MEDS: OXYCODONE-ACETAMINOPHEN 5-325 MG TABLET PO PRN (18:08)
[2018-06-10] MEDS: ATROPINE SULFATE 1% OPH SOLN 5 ML BOTTLE OD SCH (18:09)
[2018-06-10] MEDS: PREDNISOLONE ACETATE 1% OPH SUSP 5 ML OD SCH ×2 (18:10→23:23)
--- NOTE | 2018-06-10 18:58 | PDOC CONSULTATION ---
Consultation Consult Date: 06/10/18 Attending physician:: SIDNEY DUPREE Consult reason:: I was asked to see the patient for supervision of hemodialysis while here in hospital. 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 Patient said that the pain in that site is not increasingly getting worse so that prompted her to go to the emergency room. There was also a note of some mental status changes with increasing somnolence by the son at home. The son who is currently at bedside during this examination confirmed that he is collecting about 500 mL of pleural fluid every 5 days from the pleural catheter. In the emergency room patient had a fever of 100.4. Patient said she occasionally have some shortness of breath. According to the son at home when she is at rest her oxygen saturation is around 90-92% but then on minimal exertion it goes down to 86-88%. She does not have any home oxygen. She just had a sleep study done though. She otherwise denies any cough, nausea, vomiting or diarrhea. Son also expressed concern with elevated blood sugars at home ranging around 300-400 for which patient was admitted on May 31 for. Patient also presented with very low hemoglobin of 7.0. She denies noticing any blood in the stool or black stools. The son said there is very minimal blood tinge in the pleural fluid when he drains it at home. Patient has no other complaints otherwise. When I saw her tonight she was awake and communicating normally. She was eating her dinner and seemingly with very good appetite. Past Medical History Cardiac Medical History: Reports: CHF-Systolic, Hypertension-primary Pulmonary Medical History: Reports: Other - Recurrent pleural effusion Endocrine Medical History: Reports: Diabetes Mellitus Type 2 Renal/ Medical History: Reports: End Stage Renal Disease, Renal Osteodystropy Psychiatric Medical History: Reports: Depression - anxiety Hematology Medical History: Reports Anemia of Chronic Kidney Disease Past Surgical History Past Surgical History: Reports: Dialysis Access Surgery AVF, Hysterectomy Social History Information Source: Patient Lives with: Family - She lives with her son Smoking Status: Never Smoker Frequency of Alcohol Use: None Hx Recreational Drug Use: No Drugs: None Hx Prescription Drug Abuse: No Family History Family History: Hypertension Parental Family History Reviewed: Yes Children Family History Reviewed: Yes Sibling(s) Family History Reviewed.: Yes Medication/Allergy Home Medications: Amlodipine Besylate [Norvasc 5 mg Tablet] 5 mg PO DAILY 06/10/18 Atorvastatin Calcium [Lipitor 20 mg Tablet] 20 mg PO QHS 06/10/18 Atropine Sulfate [Atropine 1% Oph Soln 5 ml] 1 drop OD DAILY 06/10/18 Carvedilol [Coreg 12.5 mg Tablet] 12.5 mg PO Q12 06/10/18 Cholecalciferol (Vitamin D3) [Vitamin D3 2000 unit Tablet] 2,000 unit PO DAILY 06/10/18 Clonidine HCl [Catapres 0.2 mg Tablet] 0.2 mg PO Q8 06/10/18 Ferric Citrate [Auryxia] 420 mg PO MEALS 06/10/18 Furosemide [Lasix 20 mg Tablet] 20 mg PO BID 06/10/18 Gabapentin [Neurontin 300 mg Capsule] 300 mg PO DAILY 06/10/18 Hydralazine HCl 100 mg PO Q8 06/10/18 Insulin Glargine,Hum.rec.anlog [Lantus Insulin 100 Unit/mL] 7 units SQ QHS 06/10/18 Mirtazapine [Remeron 15 mg Tablet] 15 mg PO QHS 06/10/18 Olanzapine [Zyprexa 5 mg Tablet] 5 mg PO QHS 06/10/18 Omeprazole 40 mg PO DAILY 06/10/18 Prednisolone Acetate [Pred Forte] 1 drop OD QID 06/10/18 Sevelamer HCl [Renagel 800 mg Tablet] 800 mg PO MEALS 06/10/18 Allergies/Adverse Reactions: hydromorphone [From Dilaudid] Allergy (Verified 05/31/18 15:42) morphine Allergy (Verified 05/31/18 15:42) Review of Systems All systems: reviewed and no additional remarkable complaints except as stated Review of Systems: Constitutional: ABSENT: chills, fatigue, fever(s), headache(s), weight gain, weight loss Eyes: ABSENT: visual disturbances Ears: ABSENT: hearing changes Cardiovascular: ABSENT: Edema, orthropnea, palpitations; admits dyspnea on exertion and right-sided chest pain Respiratory: ABSENT: cough, dyspnea, hemoptysis Gastrointestinal: ABSENT: abdominal pain, constipation, diarrhea, hematemesis, hematochezia, nausea, vomiting Genitourinary: ABSENT: dysuria, hematuria Musculoskeletal: ABSENT: joint swelling Integumentary: ABSENT: rash, wounds Neurological: ABSENT: abnormal gait, abnormal speech, confusion, dizziness, focal weakness, numbness, syncope Psychiatric: ABSENT: anxiety, depression Endocrine: ABSENT: cold intolerance, heat intolerance, polydipsia, polyuria Hematologic/Lymphatic: ABSENT: easy bleeding, easy bruising, lymphadenopathy Physical Exam Vital Signs: Temp Pulse Resp BP Pulse Ox 98.1 F 72 20 118/45 L 98 06/10/18 17:16 06/10/18 17:16 06/10/18 17:16 06/10/18 17:16 06/10/18 17:16 Intake & Output 06/09/18 06/10/18 06/11/18 06:59 06:59 06:59 Weight 75.296 kg Exam: General appearance: No acute distress, cooperative, well-developed, well- nourished Head exam: PRESENT: atraumatic, normocephalic Eye exam: PRESENT: Conjunctiva pale, EOMI, PERRLA. ABSENT: conjunctival injection, scleral icterus Mouth exam: PRESENT: moist, neck supple, tongue midline Neck exam: PRESENT: full ROM. ABSENT: carotid bruit, JVD, lymphadenopathy, thyromegaly Respiratory exam: PRESENT: Diminished to auscultation bilaterally. Right p leural catheter in the right intercostal space under the breast ABSENT: rales, rhonchi, stridor, wheezes Cardiovascular exam: PRESENT: RRR, +S1, +S2. Grade 2/6 systolic murmur Pulses: PRESENT: normal radial pulses, normal dorsalis pedis pulses GI/Abdominal exam: PRESENT: normal bowel sounds, soft. ABSENT: guarding, mass, tenderness Rectal exam: Deferred Extremities exam: PRESENT: full ROM. Mild trace bilateral lower extremity pitting edema dependent portions ABSENT: calf tenderness Musculoskeletal: PRESENT: full ROM. ABSENT: deformity Neurological exam: PRESENT: alert, Awake, Oriented to person, Oriented to place, Oriented to time, reflexes normal, CN II-XII grossly intact. ABSENT: motor sensory deficit Psychiatric exam: PRESENT: appropriate affect, normal mood. ABSENT: homicidal ideation, suicidal ideation Skin exam: PRESENT: intact, dry, warm. ABSENT: rash Results Laboratory Results: 06/10/18 06:40 06/10/18 05:21 06/10/18 06/10/18 06/10/18 05:21 05:21 05:21 WBC Cancelled RBC Cancelled Hgb Cancelled Hct Cancelled MCV Cancelled MCH Cancelled MCHC Cancelled RDW Cancelled Plt Count Cancelled Seg Neutrophils % Cancelled Lymphocytes % Cancelled Monocytes % Cancelled Eosinophils % Cancelled Basophils % Cancelled Absolute Neutrophils Cancelled Absolute Lymphocytes Cancelled Absolute Monocytes Cancelled Absolute Eosinophils Cancelled Absolute Basophils Cancelled VBG pH 7.44 H VBG pCO2 44.0 VBG HCO3 29.4 VBG Base Excess 4.9 Sodium 135.1 L Potassium 5.1 H Chloride 98 Carbon Dioxide 28 Anion Gap 9 BUN 54 H Creatinine 5.63 H Est GFR ( Amer) 9 L Est GFR (Non-Af Amer) 8 L Glucose 220 H Lactic Acid Calcium 8.7 Total Bilirubin 0.6 AST 31 ALT 27 Alkaline Phosphatase 364 H Total Protein 5.4 L Albumin 2.6 L Fluid Type Fluid Source Fluid Color Fluid Appearance Fluid Viscosity Fluid WBC Fluid RBC Blood Type Antibody Screen 06/10/18 06/10/18 06/10/18 05:21 06:40 08:16 WBC 6.1 RBC 2.63 L Hgb 7.0 L Hct 21.2 L MCV 81 D MCH 26.5 L MCHC 32.9 RDW 16.7 H Plt Count 223 Seg Neutrophils % 69.8 Lymphocytes % 16.3 Monocytes % 12.1 Eosinophils % 1.1 Basophils % 0.7 Absolute Neutrophils 4.3 Absolute Lymphocytes 1.0 Absolute Monocytes 0.7 Absolute Eosinophils 0.1 Absolute Basophils 0.0 VBG pH VBG pCO2 VBG HCO3 VBG Base Excess Sodium Potassium Chloride Carbon Dioxide Anion Gap BUN Creatinine Est GFR ( Amer) Est GFR (Non-Af Amer) Glucose Lactic Acid 0.8 Calcium Total Bilirubin AST ALT Alkaline Phosphatase Total Protein Albumin Fluid Type PLEURAL Fluid Source LUNG Fluid Color RED Fluid Appearance CLOUDY Fluid Viscosity LIQUID Fluid WBC 3263 Fluid RBC 42238 Blood Type Antibody Screen 06/10/18 16:25 WBC RBC Hgb Hct MCV MCH MCHC RDW Plt Count Seg Neutrophils % Lymphocytes % Monocytes % Eosinophils % Basophils % Absolute Neutrophils Absolute Lymphocytes Absolute Monocytes Absolute Eosinophils Absolute Basophils VBG pH VBG pCO2 VBG HCO3 VBG Base Excess Sodium Potassium Chloride Carbon Dioxide Anion Gap BUN Creatinine Est GFR ( Amer) Est GFR (Non-Af Amer) Glucose Lactic Acid Calcium Total Bilirubin AST ALT Alkaline Phosphatase Total Protein Albumin Fluid Type Fluid Source Fluid Color Fluid Appearance Fluid Viscosity Fluid WBC Fluid RBC Blood Type A POSITIVE Antibody Screen NEGATIVE Impressions: Chest X-Ray 06/10/18 04:21 IMPRESSION: Interval line/tube modification. Assessment & Plan - Diagnosis (1) Right-sided chest wall pain Is this a current diagnosis for this admission?: Yes Plan: Due to the Pleurx catheter. Surgery was consulted. (2) ESRD (end stage renal disease) on dialysis Is this a current diagnosis for this admission?: Yes Plan: Plan to do dialysis tomorrow. (3) Anemia in CKD (chronic kidney disease) Qualifiers: Chronic kidney disease stage: on chronic dialysis Qualified Code(s): N18.6 - End stage renal disease; D63.1 - Anemia in chronic kidney disease; D63.1 - Anemia in chronic kidney disease; Z99.2 - Dependence on renal dialysis; Z99.2 - Dependence on renal dialysis; Z99.2 - Dependence on renal dialysis; Z99.2 - Dependence on renal dialysis Is this a current diagnosis for this admission?: Yes Plan: Check stool for occult blood. Agree with blood transfusion of 1 unit tonight. Will transfuse another unit of packed RBC tomorrow during dialysis. (4) Hypertension Is this a current diagnosis for this admission?: Yes Plan: Controlled. (5) Pleural effusion on right Is this a current diagnosis for this admission?: Yes Plan: Recurrent with Pleurx catheter. (6) Fever Is this a current diagnosis for this admission?: Yes Plan: Plan cultures pending. - Notes Notes: Thank you very much for this consult. We will follow patient with you. - Time Time Spent: 50 to 70 Minutes
[2018-06-10] MEDS ORDERED: CEFEPIME 1 GM/D5W RTU 1 GM/50 ML RTUPB IV SCH (22:00)
[2018-06-10] MEDS: HYDRALAZINE HCL 50 MG TABLET PO SCH (23:05)
[2018-06-10] MEDS: OLANZAPINE 5 MG TABLET PO SCH (23:20)
[2018-06-10] MEDS: MIRTAZAPINE 15 MG TABLET PO SCH (23:21)
[2018-06-10] MEDS: ATORVASTATIN CALCIUM 20 MG TABLET PO SCH (23:21)
[2018-06-10] MEDS: INSULIN GLARGINE,HUM.REC.ANLOG 300 UNIT/3 ML INSULN.PEN SUBCUT SCH (23:22)
[2018-06-10] MEDS ORDERED: CEFEPIME 1 GM/D5W RTU 1 GM/50 ML RTUPB IV ONE (23:29)
[2018-06-11] MEDS: ACETAMINOPHEN 325 MG TABLET PO PRN ×2 (03:53→22:33)
[2018-06-11] MEDS ORDERED: EPOETIN ALFA INJ 20000 UNIT/1 ML VIAL (RENAL) IV PRN (05:00)
[2018-06-11] MEDS ORDERED: NORMAL SALINE 1000 ML 1,000 ML IV PRN (05:00)
[2018-06-11 05:34] LABS: ABSOLUTE EOSINOPHILS # (AUTO) 0.2 10^3/uL (0.0-0.6); ABSOLUTE LYMPHOCYTES (AUTO) 0.8 10^3/uL (0.5-4.7); ABSOLUTE MONOCYTES (AUTO) 0.6 10^3/uL (0.1-1.4); ABSOLUTE NEUT (AUTO) 6.3 10^3/uL (1.7-8.2); BASOPHILS % (AUTO) 0.5 % (0-2); EOSINOPHILS % (AUTO) 2.6 % (0-6); HEMATOCRIT 25.3 % (36.0-47.0); HEMOGLOBIN 8.3 g/dL (12.0-15.5); MEAN CORPUSCULAR HEMOGLOBIN 27.1 pg (27.0-33.4); MEAN CORPUSCULAR HGB CONC 32.9 g/dL (32.0-36.0); MEAN CORPUSCULAR VOLUME 83 fl (80-97); MONOCYTES % (AUTO) 7.9 % (3-13); PLATELET COUNT 224 10^3/uL (150-450); RED BLOOD COUNT 3.06 10^6/uL (3.72-5.28); RED CELL DISTRIBUTION WIDTH 16.6 % (11.5-14.0); TOTAL CELLS COUNTED % (AUTO) 100 %
[2018-06-11 05:53] LABS: ALANINE AMINOTRANSFERASE 24 U/L (9-52); ALBUMIN 2.5 g/dL (3.5-5.0); ALKALINE PHOSPHATASE 330 U/L (38-126); ANION GAP 11 (5-19); ASPARTATE AMINO TRANSFERASE 19 U/L (14-36); BILIRUBIN,DIRECT 0.6 mg/dL (0.0-0.4); BILIRUBIN,TOTAL 0.7 mg/dL (0.2-1.3); BLOOD UREA NITROGEN 69 mg/dL (7-20); CALCIUM 8.4 mg/dL (8.4-10.2); CARBON DIOXIDE 25 mmol/L (22-30); CHLORIDE 98 mmol/L (98-107); GLUCOSE 121 mg/dL (75-110); SODIUM 133.5 mmol/L (137-145); TOTAL PROTEIN 5.4 g/dL (6.3-8.2)
[2018-06-11] MEDS: CLONIDINE HCL 0.2 MG TABLET PO SCH ×3 (05:54→22:35)
[2018-06-11] MEDS: HYDRALAZINE HCL 50 MG TABLET PO SCH ×3 (05:54→22:35)
[2018-06-11] MEDS: LANSOPRAZOLE 30 MG TAB.RAP.DR PO SCH (05:55)
[2018-06-11 06:23] LABS: POTASSIUM 6.4 mmol/L (3.6-5.0)
[2018-06-11] MEDS: FUROSEMIDE 20 MG TABLET PO SCH ×2 (09:04→17:07)
[2018-06-11] MEDS: CARVEDILOL 12.5 MG TABLET PO SCH ×2 (09:04→22:35)
[2018-06-11] MEDS: AMLODIPINE BESYLATE 5 MG TABLET PO SCH (09:05)
[2018-06-11] MEDS: DOCUSATE SODIUM 100 MG CAPSULE PO SCH (09:21)
[2018-06-11] MEDS: ATROPINE SULFATE 1% OPH SOLN 5 ML BOTTLE OD SCH (09:23)
[2018-06-11] MEDS: PREDNISOLONE ACETATE 1% OPH SUSP 5 ML OD SCH ×4 (09:23→22:39)
[2018-06-11] MEDS: SEVELAMER HCL 800 MG TABLET PO SCH ×3 (09:23→16:29)
[2018-06-11] MEDS: CHOLECALCIFEROL (D3) 1,000 UNIT TABLET PO SCH (09:24)
[2018-06-11] MEDS: FAMOTIDINE 20 MG TABLET PO SCH ×2 (09:24→22:35)
[2018-06-11] MEDS: GABAPENTIN 300 MG CAPSULE PO SCH (09:24)
[2018-06-11] MEDS: INSULIN LISPRO 100 UNIT/ML 3 ML VIAL SUBCUT PRN ×2 (10:34→22:38)
--- NOTE | 2018-06-11 16:29 | PDOC PROGRESS REPORT ---
Subjective Progress Note for:: 06/11/18 Subjective:: I saw the patient during dialysis today. We transfuse her another unit of packed RBC during dialysis. She is still complains of pain around the Pleurx catheter. She is afebrile. Her blood pressure is slightly elevated with the blood transfusion. No other new complaints. Reason For Visit: RT SIDE CHEST PAIN/PLURAL EFFUSION/ANEMIA Physical Exam Vital Signs: Temp Pulse Resp BP Pulse Ox 98.8 F 86 16 180/63 H 96 06/11/18 15:22 06/11/18 15:22 06/11/18 15:22 06/11/18 15:22 06/11/18 15:14 Intake & Output 06/10/18 06/11/18 06/12/18 06:59 06:59 06:59 Intake Total 2207 300 Balance 2207 300 Weight 75.296 kg 75.2 kg Vitals during dialysis: Blood pressure 176/71, heart rate of 86, blood flow rate of 450 mL/min, and dialysate flow rate of 800 mL/min. Exam: General appearance: PRESENT: no acute distress, cooperative, well-developed, well-nourished Head exam: PRESENT: atraumatic, normocephalic Eye exam: PRESENT: conjunctiva pale, PERRLA. ABSENT: scleral icterus Neck exam: ABSENT: JVD Respiratory exam: PRESENT: Diminished breath sounds. ABSENT: crackles, rales, rhonchi, unlabored, wheezes Cardiovascular exam: PRESENT: Regular rate rhythm -+S1, +S2. ABSENT: diastolic murmur, systolic murmur GI/Abdominal exam: PRESENT: normal bowel sounds, soft. ABSENT: guarding, mass, tenderness Extremities exam: Grade 1 bilateral lower extremity pitting edema Neurological exam: PRESENT: alert, awake, oriented to person, place and time. Skin exam: PRESENT: dry, warm, Results Laboratory Results: 06/11/18 05:16 06/11/18 05:16 06/10/18 06/11/18 06/11/18 16:25 05:16 05:16 WBC 8.0 RBC 3.06 L Hgb 8.3 L Hct 25.3 L MCV 83 MCH 27.1 MCHC 32.9 RDW 16.6 H Plt Count 224 Seg Neutrophils % 79.0 H Lymphocytes % 10.0 L Monocytes % 7.9 Eosinophils % 2.6 Basophils % 0.5 Absolute Neutrophils 6.3 Absolute Lymphocytes 0.8 Absolute Monocytes 0.6 Absolute Eosinophils 0.2 Absolute Basophils 0.0 Sodium 133.5 L Potassium 6.4 H* D Chloride 98 Carbon Dioxide 25 Anion Gap 11 BUN 69 H Creatinine 7.04 H Est GFR ( Amer) 7 L Est GFR (Non-Af Amer) 6 L Glucose 121 H Calcium 8.4 Total Bilirubin 0.7 AST 19 ALT 24 Alkaline Phosphatase 330 H Total Protein 5.4 L Albumin 2.5 L Blood Type A POSITIVE Antibody Screen NEGATIVE Impressions: Chest X-Ray 06/10/18 04:21 IMPRESSION: Interval line/tube modification. Assessment & Plan - Diagnosis (1) ESRD (end stage renal disease) on dialysis Is this a current diagnosis for this admission?: Yes Plan: We are doing dialysis today for 3 hours, using the patient's AV fistula, with 2 potassium bath, blood flow rate of 450 mL per minute, dialysate flow rate of 800 mL per minute, ultrafiltration 3 L as tolerated, no heparin and Procrit with 20,000 units during dialysis intravenously. Patient's system unfortunately clotted about 21 minutes before end of treatment so we needed to stop the dialysis treatment. She did completed receiving the blood transfusion. Approximate ultrafiltration is about 3.4 L. (2) Right-sided chest wall pain Is this a current diagnosis for this admission?: Yes Plan: This is likely due to the Pleurx catheter. The pleural fluid culture also comes out positive for gram-positive cocci in clusters, whether this is also exacerbating the pain is a possibility. I discussed with patient her options of keeping the Pleurx catheter so she does not have to be in the hospital all the time due to reaccumulation of her pleural effusion versus being in the hospital all the time during therapeutic thoracentesis she seems to understand that she does need to keep the Pleurx catheter. (3) Anemia in CKD (chronic kidney disease) Qualifiers: Chronic kidney disease stage: on chronic dialysis Qualified Code(s): N18.6 - End stage renal disease; D63.1 - Anemia in chronic kidney disease; D63.1 - Anemia in chronic kidney disease; Z99.2 - Dependence on renal dialysis; Z99.2 - Dependence on renal dialysis; Z99.2 - Dependence on renal dialysis; Z99.2 - Dependence on renal dialysis Is this a current diagnosis for this admission?: Yes Plan: Blood transfusions were given, 1 unit was given last night and 1 unit was given during dialysis today. We also gave Procrit today. (4) Hyperkalemia Is this a current diagnosis for this admission?: Yes Plan: Requires dialysis today. (5) Hypertension Is this a current diagnosis for this admission?: Yes Plan: Slightly elevated with blood transfusion. (6) Pleural effusion on right Is this a current diagnosis for this admission?: Yes Plan: Pleural fluid is positive for gram-positive cocci in clusters. Could be secon aziza to some parapneumonic effusion. Currently on IV antibiotics per primary service. (7) Fever Is this a current diagnosis for this admission?: Yes Plan: Is a stated above and possibly due to parapneumonic pleural effusion currently on antibiotics. - Time Time with patient: 15-25 minutes
[2018-06-11] MEDS: OXYCODONE-ACETAMINOPHEN 5-325 MG TABLET PO PRN (17:10)
--- NOTE | 2018-06-11 20:48 | XCELERA REPORT ---
[address] [address] Transthoracic Echocardiogram Report Name: AHL MERCHANT Age: 57 yrs Gender: Female : 1960 Patient Status: Inpatient Patient Location: [address] [place], [place] [address] Study Date: 06/11/2018 11:05 AM Height: 64 in Weight: 166 lb BSA: 1.8 m2 Procedure: A two-dimensional transthoracic echocardiogram with color flow and Doppler was performed. Study Quality: Fair. Reason For Study: chf History: CHF. Ordering Physician: SIDNEY DUPREE Performed By: Jason Man Interpretation Summary There is normal left ventricular wall thickness. LV EF is 60% Left ventricular systolic function is normal. Doppler measurements suggest impaired left ventricular relaxation, which is associated with grade I/IV or mild diastolic dysfunction The left ventricular wall motion is normal. There is no thrombus. The right ventricle is mildly dilated. The right atrium is mild to moderately dilated. The left atrial size is normal. The interatrial septum is intact with no evidence for an atrial septal defect. There is no Doppler evidence for an interatrial shunt There is no evidence of mitral valve prolapse. There is no vegetation seen on the mitral valve. There is no mitral valve stenosis. There is a mild to moderate amount of mitral regurgitation There is mild aortic stenosis There is a peak gradient of 21 mm of Hg. No aortic regurgitation is present. No hemodynamically significant valvular aortic stenosis. There is no tricuspid stenosis. There is a moderate amount of tricuspid regurgitation There is servere pulmonary hypertension by echo RVSP is 113 to 118 mm of Hg , with RA mean of 10-15. There is a trace amount of pulmonic regurgitation There is no pulmonic valvular stenosis. The aortic root is normal size. The inferior vena cava appeared normal and decreased < 50% with respiration (RAP 10-15 mmHg) Minimal pericardial effusion. There are no echocardiographic or Doppler indications for cardiac tamponade MMode/2D Measurements & Calculations RVDd: 4.7 cm LVIDd: 5.3 cm FS: 36.7 % Ao root diam: 2.6 cm IVSd: 0.98 cm LVIDs: 3.4 cm EDV(Teich): 138.0 ml Ao root area: 5.5 cm2 LVPWd: 1.0 cm ESV(Teich): 46.9 ml LA dimension: 3.8 cm EF(Teich): 66.0 % Doppler Measurements & Calculations MV E max paul: MV P1/2t max paul: Ao V2 max: LV V1 max P.9 cm/sec 123.7 cm/sec 212.0 cm/sec 9.4 mmHg MV A max paul: MV P1/2t: 58.8 msec Ao max PG: LV V1 max: 120.9 cm/sec MVA(P1/2t): 3.7 cm2 18.0 mmHg 153.6 cm/sec MV E/A: 0.93 MV dec slope: LV dP/dt: 1010 mmHg/s 616.2 cm/sec2 MV dec time: 0.20 sec PA V2 max: PI end-d paul: TR max paul: MV P1/2t-pr_phl: 124.0 cm/sec 152.0 cm/sec 508.2 cm/sec 58.8 msec PA max P.2 mmHg TR max P.3 mmHg Left Ventricle The left ventricle is normal in size. There is normal left ventricular wall thickness. LV EF is 60%. Left ventricular systolic function is normal. Doppler measurements suggest impaired left ventricular relaxation, which is associated with grade I/IV or mild diastolic dysfunction. The left ventricular wall motion is normal. There is no thrombus. There is no ventricular septal defect visualized. Right Ventricle The right ventricle is mildly dilated. The right ventricle is not well visualized secondary to technical limitations. Atria The right atrium is mild to moderately dilated. The left atrial size is normal. The interatrial septum is intact with no evidence for an atrial septal defect. There is no Doppler evidence for an interatrial shunt. Mitral Valve There is mild to moderate mitral leaflet calcification. There is no evidence of mitral valve prolapse. There is no vegetation seen on the mitral valve. There is no mitral valve stenosis. There is a mild to moderate amount of mitral regurgitation. Aortic Valve There is no aortic valvular vegetation. There is mild aortic stenosis. There is a peak gradient of 21 mm of Hg. There is no LVOT obstruction. No hemodynamically significant valvular aortic stenosis. No aortic regurgitation is present. Tricuspid Valve There is no tricuspid stenosis. There is a moderate amount of tricuspid regurgitation. There is servere pulmonary hypertension by echo. RVSP is 113 to 118 mm of Hg , with RA mean of 10-15. Pulmonic Valve There is no pulmonic valvular stenosis. There is a trace amount of pulmonic regurgitation. Great Vessels The aortic root is normal size. The inferior vena cava appeared normal and decreased < 50% with respiration (RAP 10-15 mmHg). Effusions Minimal pericardial effusion. There are no echocardiographic or Doppler indications for cardiac tamponade. : SIDNEY DUPREE > Sushma Chu
--- NOTE | 2018-06-11 22:08 | PDOC PROGRESS REPORT ---
Subjective Progress Note for:: 06/11/18 Subjective:: Patient was seen by the bedside, she was admitted over the weekend because of pain at the site of the right chest Pleurx catheter. She has recurrent right pleural effusion of unknown etiology, she is on hemodialysis she had dialysis today Reason For Visit: RT SIDE CHEST PAIN/PLURAL EFFUSION/ANEMIA Physical Exam Vital Signs: Temp Pulse Resp BP Pulse Ox 98.8 F 90 16 180/63 H 96 06/11/18 15:22 06/11/18 19:00 06/11/18 15:22 06/11/18 15:22 06/11/18 15:14 Intake & Output 06/10/18 06/11/18 06/12/18 06:59 06:59 06:59 Intake Total 2207 900 Output Total 3100 Balance 2207 -2200 Weight 75.296 kg 75.2 kg General appearance: PRESENT: no acute distress Eye exam: PRESENT: PERRLA Respiratory exam: PRESENT: clear to auscultation mai Cardiovascular exam: PRESENT: +S1, +S2 GI/Abdominal exam: PRESENT: soft Neurological exam: PRESENT: alert Results Laboratory Results: 06/11/18 05:16 06/11/18 05:16 06/10/18 06/11/18 06/11/18 16:25 05:16 05:16 WBC 8.0 RBC 3.06 L Hgb 8.3 L Hct 25.3 L MCV 83 MCH 27.1 MCHC 32.9 RDW 16.6 H Plt Count 224 Seg Neutrophils % 79.0 H Lymphocytes % 10.0 L Monocytes % 7.9 Eosinophils % 2.6 Basophils % 0.5 Absolute Neutrophils 6.3 Absolute Lymphocytes 0.8 Absolute Monocytes 0.6 Absolute Eosinophils 0.2 Absolute Basophils 0.0 Sodium 133.5 L Potassium 6.4 H* D Chloride 98 Carbon Dioxide 25 Anion Gap 11 BUN 69 H Creatinine 7.04 H Est GFR ( Amer) 7 L Est GFR (Non-Af Amer) 6 L Glucose 121 H Calcium 8.4 Total Bilirubin 0.7 AST 19 ALT 24 Alkaline Phosphatase 330 H Total Protein 5.4 L Albumin 2.5 L Blood Type A POSITIVE Antibody Screen NEGATIVE Impressions: Chest X-Ray 06/10/18 04:21 IMPRESSION: Interval line/tube modification. Assessment & Plan - Diagnosis (1) Recurrent right pleural effusion Is this a current diagnosis for this admission?: Yes Plan: continue. pleurx cath (2) End stage chronic kidney disease Is this a current diagnosis for this admission?: Yes (3) Pneumonia Qualifiers: Pneumonia type: due to unspecified organism Laterality: right Is this a current diagnosis for this admission?: Yes Plan: Continue IV antibiotic
[2018-06-11] MEDS: OLANZAPINE 5 MG TABLET PO SCH (22:35)
[2018-06-11] MEDS: MIRTAZAPINE 15 MG TABLET PO SCH (22:35)
[2018-06-11] MEDS: ATORVASTATIN CALCIUM 20 MG TABLET PO SCH (22:36)
[2018-06-11] MEDS: INSULIN GLARGINE,HUM.REC.ANLOG 300 UNIT/3 ML INSULN.PEN SUBCUT SCH (22:38)
[2018-06-11] MEDS: CEFEPIME HCL 0.5 GM in DEXTROSE 5%-WATER 50 ML IV SCH (22:59)
[2018-06-12 04:57] LABS: ABSOLUTE EOSINOPHILS # (AUTO) 0.2 10^3/uL (0.0-0.6); ABSOLUTE LYMPHOCYTES (AUTO) 0.8 10^3/uL (0.5-4.7); ABSOLUTE MONOCYTES (AUTO) 0.6 10^3/uL (0.1-1.4); ABSOLUTE NEUT (AUTO) 3.8 10^3/uL (1.7-8.2); BASOPHILS % (AUTO) 0.5 % (0-2); EOSINOPHILS % (AUTO) 3.2 % (0-6); HEMATOCRIT 25.4 % (36.0-47.0); HEMOGLOBIN 8.3 g/dL (12.0-15.5); LYMPHOCYTES % (AUTO) 14.9 % (13-45); MEAN CORPUSCULAR HEMOGLOBIN 26.8 pg (27.0-33.4); MEAN CORPUSCULAR HGB CONC 32.7 g/dL (32.0-36.0); MEAN CORPUSCULAR VOLUME 82 fl (80-97); PLATELET COUNT 245 10^3/uL (150-450); RED BLOOD COUNT 3.09 10^6/uL (3.72-5.28); RED CELL DISTRIBUTION WIDTH 17.4 % (11.5-14.0); SEGMENTED NEUTROPHILS % (AUTO) 70.4 % (42-78); TOTAL CELLS COUNTED % (AUTO) 100 %; WHITE BLOOD COUNT 5.4 10^3/uL (4.0-10.5)
[2018-06-12] MEDS: HYDRALAZINE HCL 50 MG TABLET PO SCH ×3 (05:16→22:35)
[2018-06-12] MEDS: CLONIDINE HCL 0.2 MG TABLET PO SCH ×3 (05:16→22:35)
[2018-06-12 05:26] LABS: ANION GAP 10 (5-19); CALCIUM 8.7 mg/dL (8.4-10.2); GLUCOSE 81 mg/dL (75-110)
[2018-06-12] MEDS: LANSOPRAZOLE 30 MG TAB.RAP.DR PO SCH (05:51)
[2018-06-12 06:05] LABS: CARBON DIOXIDE 28 mmol/L (22-30); CHLORIDE 97 mmol/L (98-107); SODIUM 134.9 mmol/L (137-145)
[2018-06-12 06:15] LABS: BLOOD UREA NITROGEN 42 mg/dL (7-20); POTASSIUM 4.4 mmol/L (3.6-5.0)
[2018-06-12] MEDS: CARVEDILOL 12.5 MG TABLET PO SCH ×2 (09:06→22:35)
[2018-06-12] MEDS: FUROSEMIDE 20 MG TABLET PO SCH ×2 (09:06→17:04)
[2018-06-12] MEDS: CHOLECALCIFEROL (D3) 1,000 UNIT TABLET PO SCH (09:06)
[2018-06-12] MEDS: AMLODIPINE BESYLATE 5 MG TABLET PO SCH (09:06)
[2018-06-12] MEDS: FAMOTIDINE 20 MG TABLET PO SCH ×2 (09:06→22:35)
[2018-06-12] MEDS: ATROPINE SULFATE 1% OPH SOLN 5 ML BOTTLE OD SCH (09:06)
[2018-06-12] MEDS: GABAPENTIN 300 MG CAPSULE PO SCH (09:06)
[2018-06-12] MEDS: PREDNISOLONE ACETATE 1% OPH SUSP 5 ML OD SCH ×4 (09:06→22:38)
[2018-06-12] MEDS: DOCUSATE SODIUM 100 MG CAPSULE PO SCH (09:07)
[2018-06-12] MEDS: SEVELAMER HCL 800 MG TABLET PO SCH ×3 (09:08→17:04)
[2018-06-12] MEDS: OXYCODONE-ACETAMINOPHEN 5-325 MG TABLET PO PRN ×2 (11:11→16:53)
--- NOTE | 2018-06-12 11:14 | Physician Advisory Note ---
Physician Advisor ProgressNote .: Pursuant to the plan for [facility], I have reviewed the medical record for this patient. Physician Advisor Statement: Pt w/DM-2, ESRD, chronic diast CHF, recurrent Rt pleural effusion due to ____ requiring Pleurx tube drainage, severe pulm HTN, came in w/fever/somn olence/lethargy, cough, SOB, pain in Rt chest near tube, hypotension, initial tachycardia, hypoxemia w/minimal exertion (new? chronic?). Please consider documenting, if you agree: 1. "Pneumonia, likely MSSA (vs gram-___ type), suspected despite no obvious infiltrate on CXR because of fever/cough/SOB/...." (any sputum? Is CP pleuritic? Any chills? ... - When CXR is not clearly dx-ic, it helps to document every other potential piece of evidence for dx that is present, to avoid retrospective denials.) 2. "chronic (or acute? or [id number]?) hypoxemic respiratory failure, suspect due to "? (By hx, son reports O2 sats drop from 90-92% at rest to 86-88% with minimal exertion. Showing hypoxemia this adm). - If acute, has she shown any evidence of increased work of breathing with it? 3. "severe pulmonary hypertension" (ECHO) 4. "recurrent Rt pleural effusion, suspect due to " Thanks! CK
[2018-06-12] MEDS: INSULIN LISPRO 100 UNIT/ML 3 ML VIAL SUBCUT PRN ×2 (16:43→22:36)
--- NOTE | 2018-06-12 22:09 | PDOC PROGRESS REPORT ---
Subjective Progress Note for:: 06/12/18 Subjective:: She has indwelling Pleurx catheter on the right chest the pleural fluid drained, staph aureus was cultured patient presently on IV antibiotic Reason For Visit: RT SIDE CHEST PAIN/PLURAL EFFUSION/ANEMIA Physical Exam Vital Signs: Temp Pulse Resp BP Pulse Ox 98.4 F 69 16 119/56 L 95 06/12/18 15:24 06/12/18 19:00 06/12/18 15:24 06/12/18 15:24 06/12/18 15:48 Intake & Output 06/11/18 06/12/18 06/13/18 06:59 06:59 06:59 Intake Total 2207 900 430 Output Total 3100 Balance 2207 -2200 430 Weight 75.2 kg 73.2 kg General appearance: PRESENT: no acute distress Eye exam: PRESENT: PERRLA Respiratory exam: PRESENT: decreased breath sounds Cardiovascular exam: PRESENT: +S1, +S2 GI/Abdominal exam: PRESENT: soft Neurological exam: PRESENT: alert Results Laboratory Results: 06/12/18 04:38 06/12/18 04:38 06/12/18 06/12/18 04:38 04:38 WBC 5.4 RBC 3.09 L Hgb 8.3 L Hct 25.4 L MCV 82 MCH 26.8 L MCHC 32.7 RDW 17.4 H Plt Count 245 Seg Neutrophils % 70.4 Lymphocytes % 14.9 Monocytes % 11.0 Eosinophils % 3.2 Basophils % 0.5 Absolute Neutrophils 3.8 Absolute Lymphocytes 0.8 Absolute Monocytes 0.6 Absolute Eosinophils 0.2 Absolute Basophils 0.0 Sodium 134.9 L Potassium 4.4 D Chloride 97 L Carbon Dioxide 28 Anion Gap 10 BUN 42 H D Creatinine 4.82 H Est GFR ( Amer) 11 L Est GFR (Non-Af Amer) 9 L Glucose 81 Calcium 8.7 06/10/18 09:13 Abdomen - Right Side Gram Stain - Final 06/10/18 09:13 Abdomen - Right Side Body Fluid Culture - Final Staphylococcus Aureus No Anaerobic Organisms Impressions: Chest X-Ray 06/10/18 04:21 IMPRESSION: Interval line/tube modification. Assessment & Plan - Diagnosis (1) Recurrent right pleural effusion Is this a current diagnosis for this admission?: Yes (2) End stage chronic kidney disease Is this a current diagnosis for this admission?: Yes (3) Pneumonia Qualifiers: Pneumonia type: due to unspecified organism Laterality: right Is this a current diagnosis for this admission?: Yes (4) Parapneumonic effusion Is this a current diagnosis for this admission?: Yes Plan: Continue IV antibiotic (5) Pulmonary hypertension Is this a current diagnosis for this admission?: Yes (6) Secondary hyperparathyroidism (of renal origin) Is this a current diagnosis for this admission?: Yes
[2018-06-12] MEDS: MIRTAZAPINE 15 MG TABLET PO SCH (22:35)
[2018-06-12] MEDS: ATORVASTATIN CALCIUM 20 MG TABLET PO SCH (22:36)
[2018-06-12] MEDS: OLANZAPINE 5 MG TABLET PO SCH (22:36)
[2018-06-12] MEDS: INSULIN GLARGINE,HUM.REC.ANLOG 300 UNIT/3 ML INSULN.PEN SUBCUT SCH (22:39)
[2018-06-12] MEDS: CEFEPIME HCL 0.5 GM in DEXTROSE 5%-WATER 50 ML IV SCH (23:08)
[2018-06-13] MEDS ORDERED: NORMAL SALINE 1000 ML 1,000 ML IV PRN (05:00)
[2018-06-13] MEDS ORDERED: EPOETIN ALFA INJ 20000 UNIT/1 ML VIAL (RENAL) IV PRN (05:00)
[2018-06-13 05:32] LABS: ABSOLUTE EOSINOPHILS # (AUTO) 0.2 10^3/uL (0.0-0.6); ABSOLUTE LYMPHOCYTES (AUTO) 0.8 10^3/uL (0.5-4.7); ABSOLUTE MONOCYTES (AUTO) 0.6 10^3/uL (0.1-1.4); ABSOLUTE NEUT (AUTO) 3.5 10^3/uL (1.7-8.2); BASOPHILS % (AUTO) 0.5 % (0-2); EOSINOPHILS % (AUTO) 4.7 % (0-6); HEMATOCRIT 26.5 % (36.0-47.0); HEMOGLOBIN 8.8 g/dL (12.0-15.5); LYMPHOCYTES % (AUTO) 16.1 % (13-45); MEAN CORPUSCULAR HEMOGLOBIN 27.2 pg (27.0-33.4); MEAN CORPUSCULAR HGB CONC 33.2 g/dL (32.0-36.0); MEAN CORPUSCULAR VOLUME 82 fl (80-97); MONOCYTES % (AUTO) 11.4 % (3-13); PLATELET COUNT 292 10^3/uL (150-450); RED BLOOD COUNT 3.25 10^6/uL (3.72-5.28); RED CELL DISTRIBUTION WIDTH 17.6 % (11.5-14.0); SEGMENTED NEUTROPHILS % (AUTO) 67.3 % (42-78); TOTAL CELLS COUNTED % (AUTO) 100 %; WHITE BLOOD COUNT 5.3 10^3/uL (4.0-10.5)
[2018-06-13 05:55] LABS: ANION GAP 11 (5-19); BLOOD UREA NITROGEN 55 mg/dL (7-20); CALCIUM 8.8 mg/dL (8.4-10.2); CARBON DIOXIDE 27 mmol/L (22-30); CHLORIDE 93 mmol/L (98-107); GLUCOSE 64 mg/dL (75-110); SODIUM 131.3 mmol/L (137-145)
[2018-06-13 05:56] LABS: ANISOCYTOSIS 1+; PLATELET COMMENT ADEQUATE; POIKILOCYTOSIS SLIGHT; POLYCHROMASIA 1+; TEAR DROP CELLS SLIGHT; TOXIC VACUOLATION PRESENT
[2018-06-13 06:13] LABS: POTASSIUM 5.5 mmol/L (3.6-5.0)
[2018-06-13] MEDS: CLONIDINE HCL 0.2 MG TABLET PO SCH ×3 (06:25→21:33)
[2018-06-13] MEDS: HYDRALAZINE HCL 50 MG TABLET PO SCH ×3 (06:25→21:32)
[2018-06-13] MEDS: LANSOPRAZOLE 30 MG TAB.RAP.DR PO SCH (06:27)
[2018-06-13] MEDS ORDERED: ONDANSETRON HCL INJ/PF 4 MG/2 ML SDV IV PRN (08:00)
[2018-06-13] MEDS: SEVELAMER HCL 800 MG TABLET PO SCH ×3 (08:10→17:20)
[2018-06-13] MEDS: PREDNISOLONE ACETATE 1% OPH SUSP 5 ML OD SCH ×4 (10:10→21:41)
[2018-06-13] MEDS: ATROPINE SULFATE 1% OPH SOLN 5 ML BOTTLE OD SCH (10:10)
[2018-06-13] MEDS: DOCUSATE SODIUM 100 MG CAPSULE PO SCH (10:11)
[2018-06-13] MEDS: GABAPENTIN 300 MG CAPSULE PO SCH (10:11)
[2018-06-13] MEDS: FAMOTIDINE 20 MG TABLET PO SCH ×2 (10:11→21:34)
[2018-06-13] MEDS: CHOLECALCIFEROL (D3) 1,000 UNIT TABLET PO SCH (10:11)
[2018-06-13] MEDS: CARVEDILOL 12.5 MG TABLET PO SCH ×2 (10:12→21:34)
[2018-06-13] MEDS: AMLODIPINE BESYLATE 5 MG TABLET PO SCH (10:13)
[2018-06-13] MEDS: FUROSEMIDE 20 MG TABLET PO SCH ×2 (10:13→17:19)
--- NOTE | 2018-06-13 17:29 | PDOC PROGRESS REPORT ---
Subjective Progress Note for:: 06/13/18 Subjective:: I saw the patient during initiation of dialysis this afternoon. He was doing fine and does not really have any new complaints except for some pain in her right side where the Pleurx catheter is. Apart from that she does not really have any much complaints. Reason For Visit: RT SIDE CHEST PAIN/PLURAL EFFUSION/ANEMIA Physical Exam Vital Signs: Temp Pulse Resp BP Pulse Ox 99.2 F 74 20 129/56 H 92 06/13/18 11:27 06/13/18 13:56 06/13/18 11:27 06/13/18 11:27 06/13/18 11:27 Intake & Output 06/12/18 06/13/18 06/14/18 06:59 06:59 06:59 Intake Total 900 480 532 Output Total 3100 3200 Balance -2200 480 -2668 Weight 73.2 kg 64.7 kg Vitals during initiation of dialysis: Blood pressure 141/73, heart rate of 74, oxygen saturation 93%, blood flow rate of 450 mL/min and dialysate flow rate of 800 mL/min Exam: General appearance: PRESENT: no acute distress, cooperative, well-developed, well-nourished Head exam: PRESENT: atraumatic, normocephalic Eye exam: PRESENT: conjunctiva pale, PERRLA. ABSENT: scleral icterus Neck exam: ABSENT: JVD Respiratory exam: PRESENT: Diminished breath sounds. Pleurx catheter below the right breast ABSENT: crackles, rales, rhonchi, unlabored, wheezes Cardiovascular exam: PRESENT: Regular rate rhythm -+S1, +S2. Grade 2/6 systolic murmur GI/Abdominal exam: PRESENT: normal bowel sounds, soft. ABSENT: guarding, mass, tenderness Extremities exam: Grade 1 bilateral lower extremity pitting edema Neurological exam: PRESENT: alert, awake, oriented to person, place and time. Skin exam: PRESENT: dry, warm, Results Laboratory Results: 06/13/18 04:23 06/13/18 04:23 06/13/18 06/13/18 04:23 04:23 WBC 5.3 RBC 3.25 L Hgb 8.8 L Hct 26.5 L MCV 82 MCH 27.2 MCHC 33.2 RDW 17.6 H Plt Count 292 Seg Neutrophils % 67.3 Lymphocytes % 16.1 Monocytes % 11.4 Eosinophils % 4.7 Basophils % 0.5 Absolute Neutrophils 3.5 Absolute Lymphocytes 0.8 Absolute Monocytes 0.6 Absolute Eosinophils 0.2 Absolute Basophils 0.0 Sodium 131.3 L Potassium 5.5 H D Chloride 93 L Carbon Dioxide 27 Anion Gap 11 BUN 55 H Creatinine 6.57 H Est GFR ( Amer) 8 L Est GFR (Non-Af Amer) 6 L Glucose 64 L Calcium 8.8 Impressions: Chest X-Ray 06/10/18 04:21 IMPRESSION: Interval line/tube modification. Assessment & Plan - Diagnosis (1) ESRD (end stage renal disease) on dialysis Is this a current diagnosis for this admission?: Yes Plan: We did dialysis today for 3 hours, using the patient's AV fistula, with 2 potassium bath, blood flow rate of 450 mL per minute, dialysate flow rate of 800 mL per minute, ultrafiltration 3 L as tolerated, no heparin and Procrit with 20 ,000 units during dialysis intravenously. Patient was monitored toward throughout dialysis treatment and dialysis was uneventful. If the patient is still here on Saturday that will be her next dialysis day otherwise if she gets discharge, then she goes back to [facility] for her regular scheduled outpatient dialysis treatments. (2) Right-sided chest wall pain Is this a current diagnosis for this admission?: Yes Plan: This is likely due to the Pleurx catheter. The pleural fluid culture also comes out positive for gram-positive cocci in clusters, whether this is also exacerbating the pain is a possibility. I discussed with patient her options of keeping the Pleurx catheter so she does not have to be in the hospital all the time due to reaccumulation of her pleural effusion versus being in the hospital all the time during therapeutic thoracentesis she seems to understand that she does need to keep the Pleurx catheter. (3) Anemia in CKD (chronic kidney disease) Qualifiers: Chronic kidney disease stage: on chronic dialysis Qualified Code(s): N18.6 - End stage renal disease; D63.1 - Anemia in chronic kidney disease; D63.1 - Anemia in chronic kidney disease; Z99.2 - Dependence on renal dialysis; Z99.2 - Dependence on renal dialysis; Z99.2 - Dependence on renal dialysis; Z99.2 - Dependence on renal dialysis Is this a current diagnosis for this admission?: Yes Plan: Blood transfusions were given, a total of 2 units 2 days ago. We also gave Procrit today. (4) Hyperkalemia Is this a current diagnosis for this admission?: Yes Plan: Requires dialysis today. (5) Hypertension Is this a current diagnosis for this admission?: Yes Plan: Slightly elevated with blood transfusion. (6) Pleural effusion on right Is this a current diagnosis for this admission?: Yes Plan: Pleural fluid is positive for gram-positive cocci in clusters. Could be secondary to some parapneumonic effusion. Currently on IV antibiotics per primary service. (7) Fever Is this a current diagnosis for this admission?: Yes Plan: Is a stated above and possibly due to parapneumonic pleural effusion currently on antibiotics. - Time Time with patient: 15-25 minutes
[2018-06-13] MEDS: OLANZAPINE 5 MG TABLET PO SCH (21:34)
[2018-06-13] MEDS: MIRTAZAPINE 15 MG TABLET PO SCH (21:34)
[2018-06-13] MEDS: CEFEPIME HCL 0.5 GM in DEXTROSE 5%-WATER 50 ML IV SCH (21:39)
[2018-06-13] MEDS: ATORVASTATIN CALCIUM 20 MG TABLET PO SCH (21:40)
[2018-06-13] MEDS: INSULIN GLARGINE,HUM.REC.ANLOG 300 UNIT/3 ML INSULN.PEN SUBCUT SCH (21:41)
--- NOTE | 2018-06-13 22:27 | PDOC PROGRESS REPORT ---
Subjective Progress Note for:: 06/13/18 Subjective:: She has indwelling Pleurx catheter on the right chest the pleural fluid drained, staph aureus was cultured patient presently on IV antibiotic Reason For Visit: RT SIDE CHEST PAIN/PLURAL EFFUSION/ANEMIA Physical Exam Vital Signs: Temp Pulse Resp BP Pulse Ox 98.4 F 86 16 142/52 H 92 06/13/18 19:58 06/13/18 19:58 06/13/18 19:58 06/13/18 19:58 06/13/18 19:58 Intake & Output 06/12/18 06/13/18 06/14/18 06:59 06:59 06:59 Intake Total 900 480 798 Output Total 3100 3200 Balance -2200 480 -2402 Weight 73.2 kg 64.7 kg General appearance: PRESENT: no acute distress, well-developed, well-nourished Head exam: PRESENT: atraumatic, normocephalic Eye exam: PRESENT: conjunctiva pink, EOMI, PERRLA. ABSENT: scleral icterus Ear exam: PRESENT: normal external ear exam Mouth exam: PRESENT: moist, tongue midline Neck exam: PRESENT: full ROM. ABSENT: carotid bruit, JVD, lymphadenopathy, th yromegaly Cardiovascular exam: PRESENT: RRR. ABSENT: diastolic murmur, rubs, systolic murmur Pulses: PRESENT: normal dorsalis pedis pul, +2 pedal pulses bilateral Vascular exam: PRESENT: normal capillary refill GI/Abdominal exam: PRESENT: normal bowel sounds, soft. ABSENT: distended, guarding, mass, organolmegaly, rebound, tenderness Rectal exam: PRESENT: deferred Neurological exam: PRESENT: alert, awake, oriented to person, oriented to place, oriented to time, oriented to situation, CN II-XII grossly intact. ABSENT: motor sensory deficit Psychiatric exam: PRESENT: appropriate affect, normal mood. ABSENT: homicidal ideation, suicidal ideation Skin exam: PRESENT: dry, intact, warm. ABSENT: cyanosis, rash Results Laboratory Results: 06/13/18 04:23 06/13/18 04:23 06/13/18 06/13/18 04:23 04:23 WBC 5.3 RBC 3.25 L Hgb 8.8 L Hct 26.5 L MCV 82 MCH 27.2 MCHC 33.2 RDW 17.6 H Plt Count 292 Seg Neutrophils % 67.3 Lymphocytes % 16.1 Monocytes % 11.4 Eosinophils % 4.7 Basophils % 0.5 Absolute Neutrophils 3.5 Absolute Lymphocytes 0.8 Absolute Monocytes 0.6 Absolute Eosinophils 0.2 Absolute Basophils 0.0 Sodium 131.3 L Potassium 5.5 H D Chloride 93 L Carbon Dioxide 27 Anion Gap 11 BUN 55 H Creatinine 6.57 H Est GFR ( Amer) 8 L Est GFR (Non-Af Amer) 6 L Glucose 64 L Calcium 8.8 Impressions: Chest X-Ray 06/10/18 04:21 IMPRESSION: Interval line/tube modification. Assessment & Plan - Diagnosis (1) Recurrent right pleural effusion Is this a current diagnosis for this admission?: Yes Plan: continue. pleurx cath (2) End stage chronic kidney disease Is this a current diagnosis for this admission?: Yes (3) Pneumonia Qualifiers: Pneumonia type: due to unspecified organism Laterality: right Is this a current diagnosis for this admission?: Yes Plan: Continue IV antibiotic (4) Parapneumonic effusion Is this a current diagnosis for this admission?: Yes Plan: Continue IV antibiotic (5) Pulmonary hypertension Is this a current diagnosis for this admission?: Yes (6) Secondary hyperparathyroidism (of renal origin) Is this a current diagnosis for this admission?: Yes
[2018-06-13] MEDS: INSULIN LISPRO 100 UNIT/ML 3 ML VIAL SUBCUT PRN (22:51)
[2018-06-14] MEDS: OXYCODONE-ACETAMINOPHEN 5-325 MG TABLET PO PRN ×2 (04:06→22:25)
[2018-06-14] MEDS: HYDRALAZINE HCL 50 MG TABLET PO SCH ×3 (05:30→22:25)
[2018-06-14] MEDS: LANSOPRAZOLE 30 MG TAB.RAP.DR PO SCH (05:30)
[2018-06-14] MEDS: CLONIDINE HCL 0.2 MG TABLET PO SCH ×3 (05:31→22:37)
[2018-06-14] MEDS: GABAPENTIN 300 MG CAPSULE PO SCH (09:23)
[2018-06-14] MEDS: CHOLECALCIFEROL (D3) 1,000 UNIT TABLET PO SCH (09:23)
[2018-06-14] MEDS: FAMOTIDINE 20 MG TABLET PO SCH ×2 (09:23→22:30)
[2018-06-14] MEDS: SEVELAMER HCL 800 MG TABLET PO SCH ×3 (09:23→17:39)
[2018-06-14] MEDS: FUROSEMIDE 20 MG TABLET PO SCH ×2 (09:23→17:39)
[2018-06-14] MEDS: DOCUSATE SODIUM 100 MG CAPSULE PO SCH (09:24)
[2018-06-14] MEDS: AMLODIPINE BESYLATE 5 MG TABLET PO SCH (09:24)
[2018-06-14] MEDS: PREDNISOLONE ACETATE 1% OPH SUSP 5 ML OD SCH ×4 (09:24→22:31)
[2018-06-14] MEDS: ATROPINE SULFATE 1% OPH SOLN 5 ML BOTTLE OD SCH (09:24)
[2018-06-14] MEDS: CARVEDILOL 12.5 MG TABLET PO SCH ×2 (09:24→22:37)
--- NOTE | 2018-06-14 11:47 | PDOC PROGRESS REPORT ---
Subjective Progress Note for:: 06/14/18 Subjective:: Patient reported improvement with her right sided chest pain. Breathing is improving. No significant coughing, fever or chills. No abdominal pain, nausea, or vomiting. Reason For Visit: RT SIDE CHEST PAIN/PLURAL EFFUSION/ANEMIA Physical Exam Vital Signs: Temp Pulse Resp BP Pulse Ox 98.4 F 70 14 126/53 H 97 06/14/18 07:44 06/14/18 07:44 06/14/18 07:44 06/14/18 07:44 06/14/18 07:44 Intake & Output 06/13/18 06/14/18 06/15/18 06:59 06:59 06:59 Intake Total 480 1085 Output Total 3200 Balance 480 -2115 Weight 64.7 kg 94.7 kg General appearance: PRESENT: no acute distress Head exam: PRESENT: atraumatic, normocephalic Eye exam: PRESENT: conjunctiva pink, EOMI, PERRLA. ABSENT: scleral icterus Ear exam: PRESENT: normal external ear exam Mouth exam: PRESENT: moist Respiratory exam: PRESENT: clear to auscultation mai Cardiovascular exam: PRESENT: RRR. ABSENT: diastolic murmur, rubs, systolic murmur Vascular exam: ABSENT: pallor GI/Abdominal exam: PRESENT: normal bowel sounds, soft. ABSENT: mass, tenderness Extremities exam: ABSENT: pedal edema Neurological exam: PRESENT: alert, awake, oriented to person, oriented to place, oriented to time, oriented to situation, CN II-XII grossly intact. ABSENT: motor sensory deficit Psychiatric exam: PRESENT: appropriate affect, normal mood. ABSENT: homicidal ideation, suicidal ideation Skin exam: PRESENT: dry, warm Results Laboratory Results: 06/13/18 04:23 06/13/18 04:23 Impressions: Chest X-Ray 06/10/18 04:21 IMPRESSION: Interval line/tube modification. Assessment & Plan - Diagnosis (1) Pneumonia Qualifiers: Pneumonia type: due to unspecified organism Laterality: right Is this a current diagnosis for this admission?: Yes Plan: Continue IV Cefepime coverage. Continue monitoring of her CBC indices. (2) Parapneumonic effusion Is this a current diagnosis for this admission?: Yes Plan: Improving. Continue current medication management. (3) Right-sided chest wall pain Is this a current diagnosis for this admission?: Yes Plan: Improving. Continue current medication management. (4) End stage chronic kidney disease Is this a current diagnosis for this admission?: Yes Plan: Improving. Continue current medication management. (5) Recurrent right pleural effusion Is this a current diagnosis for this admission?: Yes Plan: Improving. Continue current medication management. - Time Time Spent with patient: 25-34 minutes Medications reviewed and adjusted accordingly: Yes Anticipated discharge: Home with Homehealth Within: Other - Inpatient Certification Based on my medical assessment, after consideration of the patient's comorbidities, presenting symptoms, or acuity I expect that the services needed warrant INPATIENT care.: Yes I certify that my determination is in accordance with my understanding of Medicare's requirements for reasonable and necessary INPATIENT services [42 CFR 412.3e].: Yes Medical Necessity: Need Close Monitoring Due to Risk of Patient Decompensation, Need For IV Fluids, Need For Continuous Telemetry Monitoring, Need for IV Antibiotics, Risk of Complication if Not Cared For in Hospital 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
[2018-06-14] MEDS: INSULIN LISPRO 100 UNIT/ML 3 ML VIAL SUBCUT PRN (17:39)
[2018-06-14] MEDS: ATORVASTATIN CALCIUM 20 MG TABLET PO SCH (22:27)
[2018-06-14] MEDS: OLANZAPINE 5 MG TABLET PO SCH (22:30)
[2018-06-14] MEDS: MIRTAZAPINE 15 MG TABLET PO SCH (22:30)
[2018-06-14] MEDS: INSULIN GLARGINE,HUM.REC.ANLOG 300 UNIT/3 ML INSULN.PEN SUBCUT SCH (22:31)
[2018-06-14] MEDS: CEFEPIME HCL 0.5 GM in DEXTROSE 5%-WATER 50 ML IV SCH (23:48)
[2018-06-15] MEDS: HYDRALAZINE HCL 50 MG TABLET PO SCH ×3 (06:55→21:25)
[2018-06-15] MEDS: LANSOPRAZOLE 30 MG TAB.RAP.DR PO SCH (06:55)
[2018-06-15] MEDS: CLONIDINE HCL 0.2 MG TABLET PO SCH ×3 (06:55→21:26)
[2018-06-15] MEDS: SEVELAMER HCL 800 MG TABLET PO SCH ×3 (08:06→17:41)
[2018-06-15] MEDS: INSULIN LISPRO 100 UNIT/ML 3 ML VIAL SUBCUT PRN ×2 (08:06→11:36)
[2018-06-15] MEDS: GABAPENTIN 300 MG CAPSULE PO SCH (09:23)
[2018-06-15] MEDS: CARVEDILOL 12.5 MG TABLET PO SCH ×2 (09:23→21:25)
[2018-06-15] MEDS: FUROSEMIDE 20 MG TABLET PO SCH ×2 (09:23→17:41)
[2018-06-15] MEDS: PREDNISOLONE ACETATE 1% OPH SUSP 5 ML OD SCH ×4 (09:24→21:26)
[2018-06-15] MEDS: ATROPINE SULFATE 1% OPH SOLN 5 ML BOTTLE OD SCH (09:24)
[2018-06-15] MEDS: AMLODIPINE BESYLATE 5 MG TABLET PO SCH (09:24)
[2018-06-15] MEDS: DOCUSATE SODIUM 100 MG CAPSULE PO SCH (09:24)
[2018-06-15] MEDS: CHOLECALCIFEROL (D3) 1,000 UNIT TABLET PO SCH (09:24)
[2018-06-15] MEDS: FAMOTIDINE 20 MG TABLET PO SCH ×2 (09:24→21:26)
--- NOTE | 2018-06-15 11:44 | PDOC PROGRESS REPORT ---
Subjective Progress Note for:: 06/15/18 Subjective:: Patient reported ongoing exertional shortness of breath. No chest pain. No reported fever or chills. No nausea, vomiting, or abdominal pain. Reason For Visit: RT SIDE CHEST PAIN/PLURAL EFFUSION/ANEMIA Physical Exam Vital Signs: Temp Pulse Resp BP Pulse Ox 97.5 F 63 15 120/52 L 100 06/15/18 07:49 06/15/18 07:49 06/15/18 07:49 06/15/18 07:49 06/15/18 07:49 Intake & Output 06/14/18 06/15/18 06/16/18 06:59 06:59 06:59 Intake Total 1085 720 290 Output Total 3200 Balance -2115 720 290 Weight 94.7 kg 94.7 kg Physical Exam: General appearance: PRESENT: no acute distress Head exam: PRESENT: atraumatic, normocephalic Eye exam: PRESENT: conjunctiva pink, EOMI, PERRLA. ABSENT: pallor, scleral icterus Ear exam: PRESENT: normal external ear exam Mouth exam: PRESENT: moist Respiratory exam: PRESENT: clear to auscultation mai Cardiovascular exam: PRESENT: RRR. ABSENT: diastolic murmur, rubs, systolic mu rmur GI/Abdominal exam: PRESENT: normal bowel sounds, soft. ABSENT: mass, tenderness Extremities exam: ABSENT: pedal edema Neurological exam: PRESENT: alert, awake, oriented to person, oriented to place, oriented to time, oriented to situation, CN II-XII grossly intact. ABSENT: motor sensory deficit Psychiatric exam: PRESENT: appropriate affect, normal mood. ABSENT: homicidal ideation, suicidal ideation Skin exam: PRESENT: dry, warm Results Laboratory Results: 06/13/18 04:23 06/13/18 04:23 06/10/18 06:40 Blood Blood Culture - Final NO GROWTH IN 5 DAYS 06/10/18 05:21 Blood Blood Culture - Final NO GROWTH IN 5 DAYS Impressions: Chest X-Ray 06/10/18 04:21 IMPRESSION: Interval line/tube modification. Assessment & Plan - Diagnosis (1) Pneumonia Qualifiers: Pneumonia type: due to unspecified organism Laterality: right Is this a current diagnosis for this admission?: Yes (2) Parapneumonic effusion Is this a current diagnosis for this admission?: Yes (3) Right-sided chest wall pain Is this a current diagnosis for this admission?: Yes (4) End stage chronic kidney disease Is this a current diagnosis for this admission?: Yes (5) Recurrent right pleural effusion Is this a current diagnosis for this admission?: Yes - Time Time Spent with patient: 25-34 minutes Medications reviewed and adjusted accordingly: Yes Anticipated discharge: Home with Homehealth Within: Other - Inpatient Certification Based on my medical assessment, after consideration of the patient's comorbidities, presenting symptoms, or acuity I expect that the services needed warrant INPATIENT care.: Yes I certify that my determination is in accordance with my understanding of Medicare's requirements for reasonable and necessary INPATIENT services [42 CFR 412.3e].: Yes Medical Necessity: Need Close Monitoring Due to Risk of Patient Decompensation, Need For IV Fluids, Need For Continuous Telemetry Monitoring, Risk of Complication if Not Cared For in Hospital 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 Obtain CBC with diff, CMP, chest X ray PA and Lateral views
[2018-06-15 14:34] LABS: ALANINE AMINOTRANSFERASE 14 U/L (9-52); ALBUMIN 2.5 g/dL (3.5-5.0); ALKALINE PHOSPHATASE 328 U/L (38-126); ANION GAP 10 (5-19); ASPARTATE AMINO TRANSFERASE 12 U/L (14-36); BILIRUBIN,DIRECT 0.4 mg/dL (0.0-0.4); BILIRUBIN,TOTAL 0.4 mg/dL (0.2-1.3); BLOOD UREA NITROGEN 58 mg/dL (7-20); CALCIUM 8.6 mg/dL (8.4-10.2); CARBON DIOXIDE 26 mmol/L (22-30); CHLORIDE 90 mmol/L (98-107); GLUCOSE 164 mg/dL (75-110); POTASSIUM 5.6 mmol/L (3.6-5.0); SODIUM 126.3 mmol/L (137-145); TOTAL PROTEIN 5.3 g/dL (6.3-8.2)
[2018-06-15] MEDS: OXYCODONE-ACETAMINOPHEN 5-325 MG TABLET PO PRN (14:37)
[2018-06-15 14:39] LABS: ABSOLUTE EOSINOPHILS # (AUTO) 0.2 10^3/uL (0.0-0.6); ABSOLUTE LYMPHOCYTES (AUTO) 0.6 10^3/uL (0.5-4.7); ABSOLUTE MONOCYTES (AUTO) 0.4 10^3/uL (0.1-1.4); ABSOLUTE NEUT (AUTO) 3.3 10^3/uL (1.7-8.2); BASOPHILS % (AUTO) 0.4 % (0-2); EOSINOPHILS % (AUTO) 4.3 % (0-6); HEMATOCRIT 25.2 % (36.0-47.0); HEMOGLOBIN 8.4 g/dL (12.0-15.5); MEAN CORPUSCULAR HEMOGLOBIN 26.9 pg (27.0-33.4); MEAN CORPUSCULAR HGB CONC 33.4 g/dL (32.0-36.0); MEAN CORPUSCULAR VOLUME 81 fl (80-97); MONOCYTES % (AUTO) 9.3 % (3-13); PLATELET COUNT 315 10^3/uL (150-450); RED BLOOD COUNT 3.13 10^6/uL (3.72-5.28); RED CELL DISTRIBUTION WIDTH 17.7 % (11.5-14.0); TOTAL CELLS COUNTED % (AUTO) 100 %; WHITE BLOOD COUNT 4.6 10^3/uL (4.0-10.5)
--- NOTE | 2018-06-15 15:54 | RADIOLOGY REPORT (SQ) ---
EXAM DESCRIPTION: CHEST 2 VIEWS COMPLETED DATE/TIME: 06/15/2018 3:39 pm REASON FOR STUDY: shortness of breath, hx effusion COMPARISON: 06/10/2017. EXAM PARAMETERS: NUMBER OF VIEWS: two views TECHNIQUE: Digital Frontal and Lateral radiographic views of the chest acquired. RADIATION DOSE: NA LIMITATIONS: none FINDINGS: LUNGS AND PLEURA: Right basilar airspace infiltrate could represent pulmonary edema or pne umonia. Left basilar discoid atelectasis noted. MEDIASTINUM AND HILAR STRUCTURES: No masses or contour abnormalities. HEART AND VASCULAR STRUCTURES: Persistent enlargement of the cardiopericardial silhouette. Pulmonary vasculature is prominent. Bilateral pleural effusions, right greater than left. BONES: Dorsal scoli osis convex right. OTHER: Right chest tube directed superiorly in medial right upper hemithorax. Right axillary stent n oted. IMPRESSION: Cardiomegaly with pulmonary vascular congestion and pleural effusions. Airspace infiltr ate right lung base could represent pneumonia and/or pulmonary edema. Left basilar discoid atelectas is. TECHNICAL DOCUMENTATION: JOB ID: [id number] MD-69 2010 [employer]- All Rights Reserved Reading location - IP/workstation name: [email or web address]
[2018-06-15] MEDS: ATORVASTATIN CALCIUM 20 MG TABLET PO SCH (21:25)
[2018-06-15] MEDS: OLANZAPINE 5 MG TABLET PO SCH (21:26)
[2018-06-15] MEDS: MIRTAZAPINE 15 MG TABLET PO SCH (21:26)
[2018-06-15] MEDS: CEFEPIME HCL 0.5 GM in DEXTROSE 5%-WATER 50 ML IV SCH (21:27)
[2018-06-15] MEDS: INSULIN GLARGINE,HUM.REC.ANLOG 300 UNIT/3 ML INSULN.PEN SUBCUT SCH (21:27)
[2018-06-16] MEDS ORDERED: EPOETIN ALFA INJ 20000 UNIT/1 ML VIAL (RENAL) IV PRN (05:00)
[2018-06-16] MEDS ORDERED: NORMAL SALINE 1000 ML 1,000 ML IV PRN (05:00)
[2018-06-16 05:31] LABS: ABSOLUTE EOSINOPHILS # (AUTO) 0.2 10^3/uL (0.0-0.6); ABSOLUTE LYMPHOCYTES (AUTO) 0.8 10^3/uL (0.5-4.7); ABSOLUTE MONOCYTES (AUTO) 0.4 10^3/uL (0.1-1.4); ABSOLUTE NEUT (AUTO) 3.8 10^3/uL (1.7-8.2); BASOPHILS % (AUTO) 0.4 % (0-2); HEMATOCRIT 24.7 % (36.0-47.0); MEAN CORPUSCULAR HEMOGLOBIN 26.3 pg (27.0-33.4); MEAN CORPUSCULAR HGB CONC 32.5 g/dL (32.0-36.0); MEAN CORPUSCULAR VOLUME 81 fl (80-97); MONOCYTES % (AUTO) 8.3 % (3-13); PLATELET COUNT 301 10^3/uL (150-450); RED BLOOD COUNT 3.05 10^6/uL (3.72-5.28); SEGMENTED NEUTROPHILS % (AUTO) 72.3 % (42-78); TOTAL CELLS COUNTED % (AUTO) 100 %; WHITE BLOOD COUNT 5.3 10^3/uL (4.0-10.5)
[2018-06-16] MEDS: CLONIDINE HCL 0.2 MG TABLET PO SCH ×3 (05:43→21:13)
[2018-06-16] MEDS: HYDRALAZINE HCL 50 MG TABLET PO SCH ×3 (05:43→21:12)
[2018-06-16] MEDS: LANSOPRAZOLE 30 MG TAB.RAP.DR PO SCH (05:45)
[2018-06-16 05:46] LABS: ANION GAP 15 (5-19); BLOOD UREA NITROGEN 62 mg/dL (7-20); CALCIUM 7.4 mg/dL (8.4-10.2); CARBON DIOXIDE 22 mmol/L (22-30); CHLORIDE 89 mmol/L (98-107); GLUCOSE 103 mg/dL (75-110)
[2018-06-16 05:56] LABS: POTASSIUM 6.1 mmol/L (3.6-5.0)
[2018-06-16] MEDS: SEVELAMER HCL 800 MG TABLET PO SCH ×3 (08:24→17:35)
[2018-06-16] MEDS: DOCUSATE SODIUM 100 MG CAPSULE PO SCH (09:27)
[2018-06-16] MEDS: CARVEDILOL 12.5 MG TABLET PO SCH ×2 (09:27→21:13)
[2018-06-16] MEDS: ATROPINE SULFATE 1% OPH SOLN 5 ML BOTTLE OD SCH (09:27)
[2018-06-16] MEDS: PREDNISOLONE ACETATE 1% OPH SUSP 5 ML OD SCH ×4 (09:27→21:16)
[2018-06-16] MEDS: GABAPENTIN 300 MG CAPSULE PO SCH (09:28)
[2018-06-16] MEDS: FUROSEMIDE 20 MG TABLET PO SCH ×2 (09:28→17:35)
[2018-06-16] MEDS: FAMOTIDINE 20 MG TABLET PO SCH ×2 (09:28→21:13)
[2018-06-16] MEDS: AMLODIPINE BESYLATE 5 MG TABLET PO SCH (09:28)
[2018-06-16] MEDS: CHOLECALCIFEROL (D3) 1,000 UNIT TABLET PO SCH (09:28)
--- NOTE | 2018-06-16 11:03 | PDOC PROGRESS REPORT ---
Subjective Progress Note for:: 06/16/18 Reason For Visit: Patient was seen on hemodialysis today. I had reviewed her chart earlier. She has been readmitted with history of pain in the right chest where she had a Pleurx catheter inserted for her recurring and persistent pleural effusion on her previous admission.She has been diagnosed to have infection of her pleural fluid with MSSA and has been put on antibiotics with improvement. No jaycee evidences of an empyema. She currently denies any such chest pain or shortness of breath or fever or chills. Labs and medications were reviewed. She is undergoing dialysis without any issues. Physical Exam Vital Signs: Temp Pulse Resp BP Pulse Ox 98.8 F 67 16 118/58 L 100 06/16/18 07:36 06/16/18 07:36 06/16/18 07:36 06/16/18 07:36 06/16/18 07:36 Intake & Output 06/15/18 06/16/18 06/17/18 06:59 06:59 06:59 Intake Total 720 681 237 Balance 720 681 237 Weight 94.7 kg 68 kg General appearance: PRESENT: no acute distress Respiratory exam: PRESENT: clear to auscultation mai, decreased breath sounds - Right side.. ABSENT: crackles Cardiovascular exam: PRESENT: +S1, +S2, systolic murmur GI/Abdominal exam: PRESENT: normal bowel sounds, soft. ABSENT: organomegaly, tenderness Extremities exam: PRESENT: pedal edema Neurological exam: PRESENT: alert, awake, oriented to person, oriented to place Skin exam: ABSENT: cyanosis, erythema, rash Results Laboratory Results: 06/16/18 05:08 06/16/18 05:08 06/15/18 06/15/18 06/16/18 13:41 13:41 05:08 WBC 4.6 5.3 RBC 3.13 L 3.05 L Hgb 8.4 L 8.0 L Hct 25.2 L 24.7 L MCV 81 81 MCH 26.9 L 26.3 L MCHC 33.4 32.5 RDW 17.7 H 18.0 H Plt Count 315 301 Seg Neutrophils % 72.0 72.3 Lymphocytes % 14.0 15.0 Monocytes % 9.3 8.3 Eosinophils % 4.3 4.0 Basophils % 0.4 0.4 Absolute Neutrophils 3.3 3.8 Absolute Lymphocytes 0.6 0.8 Absolute Monocytes 0.4 0.4 Absolute Eosinophils 0.2 0.2 Absolute Basophils 0.0 0.0 Sodium 126.3 L Potassium 5.6 H Chloride 90 L Carbon Dioxide 26 Anion Gap 10 BUN 58 H Creatinine 6.54 H Est GFR ( Amer) 8 L Est GFR (Non-Af Amer) 7 L Glucose 164 H Calcium 8.6 Total Bilirubin 0.4 AST 12 L ALT 14 Alkaline Phosphatase 328 H Total Protein 5.3 L Albumin 2.5 L 06/16/18 05:08 WBC RBC Hgb Hct MCV MCH MCHC RDW Plt Count Seg Neutrophils % Lymphocytes % Monocytes % Eosinophils % Basophils % Absolute Neutrophils Absolute Lymphocytes Absolute Monocytes Absolute Eosinophils Absolute Basophils Sodium 126.0 L Potassium 6.1 H* Chloride 89 L Carbon Dioxide 22 Anion Gap 15 BUN 62 H Creatinine 7.03 H Est GFR ( Amer) 7 L Est GFR (Non-Af Amer) 6 L Glucose 103 Calcium 7.4 L Total Bilirubin AST ALT Alkaline Phosphatase Total Protein Albumin 06/10/18 06:40 Blood Blood Culture - Final NO GROWTH IN 5 DAYS Impressions: Chest X-Ray 06/15/18 00:00 IMPRESSION: Cardiomegaly with pulmonary vascular congestion and pleural effusions. Airspace infiltrate right lung base could represent pneumonia and/or pulmonary edema. Left basilar discoid atelectasis. Assessment & Plan - Diagnosis (1) End stage chronic kidney disease Is this a current diagnosis for this admission?: Yes Plan: Patient seen on dialysis. She is undergoing dialysis without any issues. Is being supervised to ensure safe and smooth procedure. Dialysis parameters are in order. Vital signs are stable. Plan to remove between 2-3 L as tolerated. Dialysis orders were reviewed with the treating dialysis nurse. Adjust erythropoietin for anemia. (2) Recurrent right pleural effusion Is this a current diagnosis for this admission?: Yes Plan: As per primary care. Currently she seems to have resolved the problem on current management.Continue on IV antibiotics. (3) Right-sided chest wall pain Is this a current diagnosis for this admission?: Yes Plan: Presently resolved. (4) Anemia in CKD (chronic kidney disease) Qualifiers: Chronic kidney disease stage: on chronic dialysis Qualified Code(s): N18.6 - End stage renal disease; D63.1 - Anemia in chronic kidney disease; D63.1 - Anemia in chronic kidney disease; Z99.2 - Dependence on renal dialysis; Z99.2 - Dependence on renal dialysis; Z99.2 - Dependence on renal dialysis; Z99.2 - Dependence on renal dialysis Is this a current diagnosis for this admission?: Yes Plan: Adjust erythropoietin. (5) Chronic diastolic (congestive) heart failure Is this a current diagnosis for this admission?: Yes Plan: Presently stable. Monitor. (6) Diabetes Qualifiers: Diabetes mellitus type: type 2 Diabetes mellitus roasterman insulin use: unspecified roasterman insulin use status Diabetes mellitus complication status: with unspecified complications Qualified Code(s): E11.8 - Type 2 diabetes mellitus with unspecified complications Plan: Advised on tight diabetic control. (7) Hyperkalemia Is this a current diagnosis for this admission?: Yes Plan: She is on a 2K bath and potassium should respond. We discussed low potassium diet. (8) Hypertension Is this a current diagnosis for this admission?: Yes Plan: Controlled. Monitor.
[2018-06-16] MEDS: INSULIN LISPRO 100 UNIT/ML 3 ML VIAL SUBCUT PRN (17:36)
[2018-06-16] MEDS: OLANZAPINE 5 MG TABLET PO SCH (21:13)
[2018-06-16] MEDS: MIRTAZAPINE 15 MG TABLET PO SCH (21:13)
[2018-06-16] MEDS: CEFEPIME HCL 0.5 GM in DEXTROSE 5%-WATER 50 ML IV SCH (21:13)
[2018-06-16] MEDS: ATORVASTATIN CALCIUM 20 MG TABLET PO SCH (21:13)
[2018-06-16] MEDS: OXYCODONE-ACETAMINOPHEN 5-325 MG TABLET PO PRN (21:13)
[2018-06-16] MEDS: INSULIN GLARGINE,HUM.REC.ANLOG 300 UNIT/3 ML INSULN.PEN SUBCUT SCH (21:25)
--- NOTE | 2018-06-16 21:37 | PDOC PROGRESS REPORT ---
Subjective Progress Note for:: 06/16/18 Subjective:: Patient seen by the bedside she has indwelling Pleurx catheter, she seems to be much improved today, her diabetes is controlled, she is requiring rapidly acting Humalog Reason For Visit: RT SIDE CHEST PAIN/PLURAL EFFUSION/ANEMIA Physical Exam Vital Signs: Temp Pulse Resp BP Pulse Ox 99.5 F 75 19 136/45 H 93 06/16/18 19:42 06/16/18 19:42 06/16/18 19:42 06/16/18 19:42 06/16/18 19:42 Intake & Output 06/15/18 06/16/18 06/17/18 06:59 06:59 06:59 Intake Total 720 681 237 Output Total 4100 Balance 720 861 -3353 Weight 94.7 kg 68 kg General appearance: PRESENT: no acute distress Eye exam: PRESENT: PERRLA Respiratory exam: PRESENT: clear to auscultation mai Cardiovascular exam: PRESENT: +S1, +S2 GI/Abdominal exam: PRESENT: soft Neurological exam: PRESENT: alert Results Laboratory Results: 06/16/18 05:08 06/16/18 05:08 06/16/18 06/16/18 05:08 05:08 WBC 5.3 RBC 3.05 L Hgb 8.0 L Hct 24.7 L MCV 81 MCH 26.3 L MCHC 32.5 RDW 18.0 H Plt Count 301 Seg Neutrophils % 72.3 Lymphocytes % 15.0 Monocytes % 8.3 Eosinophils % 4.0 Basophils % 0.4 Absolute Neutrophils 3.8 Absolute Lymphocytes 0.8 Absolute Monocytes 0.4 Absolute Eosinophils 0.2 Absolute Basophils 0.0 Sodium 126.0 L Potassium 6.1 H* Chloride 89 L Carbon Dioxide 22 Anion Gap 15 BUN 62 H Creatinine 7.03 H Est GFR ( Amer) 7 L Est GFR (Non-Af Amer) 6 L Glucose 103 Calcium 7.4 L Impressions: Chest X-Ray 06/15/18 00:00 IMPRESSION: Cardiomegaly with pulmonary vascular congestion and pleural effusi ons. Airspace infiltrate right lung base could represent pneumonia and/or pulmonary edema. Left basilar discoid atelectasis. Assessment & Plan - Diagnosis (1) Recurrent right pleural effusion Is this a current diagnosis for this admission?: Yes (2) End stage chronic kidney disease Is this a current diagnosis for this admission?: Yes (3) Pneumonia Qualifiers: Pneumonia type: due to unspecified organism Laterality: right Is this a current diagnosis for this admission?: Yes (4) Parapneumonic effusion Is this a current diagnosis for this admission?: Yes (5) Pulmonary hypertension Is this a current diagnosis for this admission?: Yes (6) Secondary hyperparathyroidism (of renal origin) Is this a current diagnosis for this admission?: Yes - Plan Summary Plan Summary: Continue IV antibiotic and other treatment
[2018-06-17] MEDS: LANSOPRAZOLE 30 MG TAB.RAP.DR PO SCH (05:39)
[2018-06-17] MEDS: HYDRALAZINE HCL 50 MG TABLET PO SCH ×3 (05:40→23:48)
[2018-06-17] MEDS: CLONIDINE HCL 0.2 MG TABLET PO SCH ×3 (05:40→23:49)
[2018-06-17] MEDS: OXYCODONE-ACETAMINOPHEN 5-325 MG TABLET PO PRN (05:42)
[2018-06-17] MEDS: SEVELAMER HCL 800 MG TABLET PO SCH ×3 (07:41→17:13)
[2018-06-17] MEDS: INSULIN LISPRO 100 UNIT/ML 3 ML VIAL SUBCUT PRN ×2 (07:43→17:15)
[2018-06-17] MEDS: ATROPINE SULFATE 1% OPH SOLN 5 ML BOTTLE OD SCH (09:43)
[2018-06-17] MEDS: PREDNISOLONE ACETATE 1% OPH SUSP 5 ML OD SCH ×4 (09:43→23:53)
[2018-06-17] MEDS: DOCUSATE SODIUM 100 MG CAPSULE PO SCH (09:43)
[2018-06-17] MEDS: AMLODIPINE BESYLATE 5 MG TABLET PO SCH (09:44)
[2018-06-17] MEDS: FAMOTIDINE 20 MG TABLET PO SCH ×2 (09:44→23:49)
[2018-06-17] MEDS: GABAPENTIN 300 MG CAPSULE PO SCH (09:44)
[2018-06-17] MEDS: FUROSEMIDE 20 MG TABLET PO SCH ×2 (09:44→17:13)
[2018-06-17] MEDS: CARVEDILOL 12.5 MG TABLET PO SCH ×2 (09:44→23:47)
[2018-06-17] MEDS: CHOLECALCIFEROL (D3) 1,000 UNIT TABLET PO SCH (09:45)
--- NOTE | 2018-06-17 15:58 | PDOC PROGRESS REPORT ---
Subjective Progress Note for:: 06/17/18 Subjective:: Patient was seen sleeping comfortably in her bed. When awoken she was A&Ox3 and denied any complaints of chest pain, SOB, n/v/d/c. She claimed that she did not believe that she needed the oxygen anymore. Reason For Visit: RT SIDE CHEST PAIN/PLURAL EFFUSION/ANEMIA Physical Exam Vital Signs: Temp Pulse Resp BP Pulse Ox 98.5 F 72 18 109/45 L 94 06/17/18 12:00 06/17/18 14:00 06/17/18 12:00 06/17/18 12:00 06/17/18 12:00 Intake & Output 06/16/18 06/17/18 06/18/18 06:59 06:59 06:59 Intake Total 681 553 Output Total 2090 Balance 911 -0642 Weight 68 kg 64.5 kg General appearance: PRESENT: no acute distress, disheveled, well-developed Mouth exam: PRESENT: neck supple. ABSENT: dry mucosa Neck exam: ABSENT: JVD, tracheal deviation Respiratory exam: PRESENT: crackles, rales. ABSENT: accessory muscle use, clear to auscultation mai, rhonchi, wheezes Cardiovascular exam: PRESENT: +S1, +S2, systolic murmur GI/Abdominal exam: PRESENT: normal bowel sounds, soft. ABSENT: organomegaly, tenderness Extremities exam: ABSENT: pedal edema, +1 edema, +2 edema Musculoskeletal exam: PRESENT: normal inspection. ABSENT: tenderness Neurological exam: PRESENT: alert, awake, oriented to person, oriented to place, oriented to time Skin exam: PRESENT: dry, intact, warm. ABSENT: cyanosis Results Laboratory Results: 06/16/18 05:08 06/16/18 05:08 Impressions: Chest X-Ray 06/15/18 00:00 IMPRESSION: Cardiomegaly with pulmonary vascular congestion and pleural effusions. Airspace infiltrate right lung base could represent pneumonia and/or pulmonary edema. Left basilar discoid atelectasis. Assessment & Plan - Diagnosis (1) End stage chronic kidney disease Is this a current diagnosis for this admission?: Yes Plan: will look to arrange for dialysis tomorrow (2) Recurrent right pleural effusion Is this a current diagnosis for this admission?: Yes Plan: per primary, currently improved (3) Anemia in CKD (chronic kidney disease) Qualifiers: Chronic kidney disease stage: on chronic dialysis Qualified Code(s): N18.6 - End stage renal disease; D63.1 - Anemia in chronic kidney disease; D63.1 - Anemia in chronic kidney disease; Z99.2 - Dependence on renal dialysis; Z99.2 - Dependence on renal dialysis; Z99.2 - Dependence on renal dialysis; Z99.2 - Dependence on renal dialysis Is this a current diagnosis for this admission?: Yes Plan: will look to arrange a large dose of epogen tomorrow with dialysis (4) CHF (congestive heart failure) Qualifiers: Heart failure type: diastolic Plan: improved (5) Diabetes Qualifiers: Diabetes mellitus type: type 2 Diabetes mellitus chcf insulin use: unspecified chcf insulin use status Diabetes mellitus complication status: with unspecified complications Qualified Code(s): E11.8 - Type 2 diabetes mellitus with unspecified complications (6) Hyperkalemia Is this a current diagnosis for this admission?: Yes Plan: will look to get a BMP to make sure that the potassium bath for dialysis is properly adjusted (7) Hypertension Is this a current diagnosis for this admission?: Yes Plan: controlled
--- NOTE | 2018-06-17 22:08 | PDOC PROGRESS REPORT ---
Subjective Progress Note for:: 06/17/18 Subjective:: She has indwelling Pleurx catheter for drainage of recurrent pleural effusion, etiology of which is not clear Reason For Visit: RT SIDE CHEST PAIN/PLURAL EFFUSION/ANEMIA Physical Exam Vital Signs: Temp Pulse Resp BP Pulse Ox 99.4 F 73 16 123/69 91 L 06/17/18 15:56 06/17/18 15:56 06/17/18 15:56 06/17/18 15:56 06/17/18 15:56 Intake & Output 06/16/18 06/17/18 06/18/18 06:59 06:59 06:59 Intake Total 681 553 Output Total 4100 Balance 681 -5865 Weight 68 kg 64.5 kg General appearance: PRESENT: no acute distress Eye exam: PRESENT: PERRLA Respiratory exam: PRESENT: clear to auscultation mai Cardiovascular exam: PRESENT: +S1, +S2 GI/Abdominal exam: PRESENT: soft Neurological exam: PRESENT: alert Results Laboratory Results: 06/16/18 05:08 06/16/18 05:08 Impressions: Chest X-Ray 06/15/18 00:00 IMPRESSION: Cardiomegaly with pulmonary vascular congestion and pleural effusions. Airspace infiltrate right lung base could represent pneumonia and/or pulmonary edema. Left basilar discoid atelectasis. Assessment & Plan - Diagnosis (1) Recurrent right pleural effusion Is this a current diagnosis for this admission?: Yes Plan: ? pleurix catheter use (2) End stage chronic kidney disease Is this a current diagnosis for this admission?: Yes (3) Pneumonia Qualifiers: Pneumonia type: due to unspecified organism Laterality: right Is this a current diagnosis for this admission?: Yes (4) Parapneumonic effusion Is this a current diagnosis for this admission?: Yes (5) Pulmonary hypertension Is this a current diagnosis for this admission?: Yes (6) Secondary hyperparathyroidism (of renal origin) Is this a current diagnosis for this admission?: Yes
[2018-06-17] MEDS: CEFEPIME HCL 0.5 GM in DEXTROSE 5%-WATER 50 ML IV SCH (23:47)
[2018-06-17] MEDS: ATORVASTATIN CALCIUM 20 MG TABLET PO SCH (23:48)
[2018-06-17] MEDS: OLANZAPINE 5 MG TABLET PO SCH (23:48)
[2018-06-17] MEDS: MIRTAZAPINE 15 MG TABLET PO SCH (23:48)
[2018-06-17] MEDS: INSULIN GLARGINE,HUM.REC.ANLOG 300 UNIT/3 ML INSULN.PEN SUBCUT SCH (23:49)
[2018-06-18] MEDS ORDERED: EPOETIN ALFA INJ 20000 UNIT/1 ML VIAL (RENAL) IV PRN (05:00)
[2018-06-18] MEDS: HYDRALAZINE HCL 50 MG TABLET PO SCH ×3 (05:43→22:56)
[2018-06-18] MEDS: CLONIDINE HCL 0.2 MG TABLET PO SCH ×3 (05:44→22:57)
[2018-06-18] MEDS: LANSOPRAZOLE 30 MG TAB.RAP.DR PO SCH (05:46)
[2018-06-18 07:46] LABS: HEMATOCRIT 23.9 % (36.0-47.0); MEAN CORPUSCULAR HEMOGLOBIN 26.3 pg (27.0-33.4); MEAN CORPUSCULAR HGB CONC 33.1 g/dL (32.0-36.0); MEAN CORPUSCULAR VOLUME 80 fl (80-97); PLATELET COUNT 292 10^3/uL (150-450); RED BLOOD COUNT 3.01 10^6/uL (3.72-5.28); RED CELL DISTRIBUTION WIDTH 17.9 % (11.5-14.0); WHITE BLOOD COUNT 6.2 10^3/uL (4.0-10.5)
[2018-06-18 07:49] LABS: HEMOGLOBIN 7.9 g/dL (12.0-15.5)
[2018-06-18 08:11] LABS: ANION GAP 11 (5-19); BLOOD UREA NITROGEN 56 mg/dL (7-20); CALCIUM 8.7 mg/dL (8.4-10.2); CARBON DIOXIDE 27 mmol/L (22-30); CHLORIDE 91 mmol/L (98-107); GLUCOSE 140 mg/dL (75-110); POTASSIUM 5.4 mmol/L (3.6-5.0); SODIUM 128.7 mmol/L (137-145)
[2018-06-18] MEDS: CHOLECALCIFEROL (D3) 1,000 UNIT TABLET PO SCH (09:09)
[2018-06-18] MEDS: GABAPENTIN 300 MG CAPSULE PO SCH (09:09)
[2018-06-18] MEDS: DOCUSATE SODIUM 100 MG CAPSULE PO SCH (09:09)
[2018-06-18] MEDS: ATROPINE SULFATE 1% OPH SOLN 5 ML BOTTLE OD SCH (09:09)
[2018-06-18] MEDS: PREDNISOLONE ACETATE 1% OPH SUSP 5 ML OD SCH ×4 (09:09→22:56)
[2018-06-18] MEDS: SEVELAMER HCL 800 MG TABLET PO SCH ×3 (09:09→17:29)
[2018-06-18] MEDS: FAMOTIDINE 20 MG TABLET PO SCH ×2 (09:09→22:56)
[2018-06-18] MEDS: FUROSEMIDE 20 MG TABLET PO SCH ×2 (10:00→17:29)
[2018-06-18] MEDS: CARVEDILOL 12.5 MG TABLET PO SCH ×2 (10:00→22:56)
[2018-06-18] MEDS: AMLODIPINE BESYLATE 5 MG TABLET PO SCH (10:00)
[2018-06-18 16:50] LABS: INTERNATIONAL RATION (INR) 1.27; PROTHROMBIN TIME 16.5 SEC (11.4-15.4)
[2018-06-18 16:51] LABS: PARTIAL THROMBOPLASTIN TIME 54.4 SEC (23.5-35.8)
[2018-06-18 17:12] LABS: TOTAL PROTEIN 5.2 g/dL (6.3-8.2)
--- NOTE | 2018-06-18 19:32 | PDOC PROGRESS REPORT ---
Subjective Progress Note for:: 06/18/18 Subjective:: Patient seen by the bedside, she has indwelling Pleurx catheter in place because of recurrent pleural effusion felt to be due to transudate, she has hypoalbuminemia, she is getting dialysis today and also a drain of the pleural effusion. The pleural effusion grew staph aureus , There is no jaycee pus Reason For Visit: RT SIDE CHEST PAIN/PLURAL EFFUSION/ANEMIA Physical Exam Vital Signs: Temp Pulse Resp BP Pulse Ox 98.1 F 65 18 134/61 H 100 06/18/18 14:36 06/18/18 14:36 06/18/18 14:36 06/18/18 14:36 06/18/18 14:36 Intake & Output 06/17/18 06/18/18 06/19/18 06:59 06:59 06:59 Intake Total 553 50 710 Output Total 4100 Balance -3547 50 710 Weight 64.5 kg 69.8 kg General appearance: PRESENT: no acute distress Eye exam: PRESENT: PERRLA Respiratory exam: PRESENT: decreased breath sounds Cardiovascular exam: PRESENT: +S1, +S2 GI/Abdominal exam: PRESENT: soft Neurological exam: PRESENT: alert Results Laboratory Results: 06/18/18 07:33 06/18/18 07:33 06/18/18 06/18/18 06/18/18 07:33 07:33 16:34 WBC 6.2 RBC 3.01 L Hgb 7.9 L Hct 23.9 L MCV 80 MCH 26.3 L MCHC 33.1 RDW 17.9 H Plt Count 292 Sodium 128.7 L Potassium 5.4 H Chloride 91 L Carbon Dioxide 27 Anion Gap 11 BUN 56 H Creatinine 6.57 H Est GFR ( Amer) 8 L Est GFR (Non-Af Amer) 6 L Glucose 140 H Calcium 8.7 Total Protein 5.2 L Impressions: Chest X-Ray 06/15/18 00:00 IMPRESSION: Cardiomegaly with pulmonary vascular congestion and pleural effusions. Airspace infiltrate right lung base could represent pneumonia and/or pulmonary edema. Left basilar discoid atelectasis. Assessment & Plan - Diagnosis (1) Recurrent right pleural effusion Is this a current diagnosis for this admission?: Yes (2) End stage chronic kidney disease Is this a current diagnosis for this admission?: Yes (3) Pneumonia Qualifiers: Pneumonia type: due to unspecified organism Laterality: right Is this a current diagnosis for this admission?: Yes (4) Parapneumonic effusion Is this a current diagnosis for this admission?: Yes (5) Pulmonary hypertension Is this a current diagnosis for this admission?: Yes (6) Secondary hyperparathyroidism (of renal origin) Is this a current diagnosis for this admission?: Yes
--- NOTE | 2018-06-18 20:34 | PDOC PROGRESS REPORT ---
Subjective Progress Note for:: 06/18/18 Reason For Visit: Patient seen today while undergoing hemodialysis. She is undergoing dialysis without any issues. She has got certain amount of fluid overload. Signs are stable. She denies any history of chest pain but has some shortness of breath with exertion. No complaints of any fever or chills. Labs and medications were reviewed with her. Orders were reviewed with the treating dialysis nurse. Physical Exam Vital Signs: Temp Pulse Resp BP Pulse Ox 98.1 F 65 18 134/61 H 100 06/18/18 14:36 06/18/18 14:36 06/18/18 14:36 06/18/18 14:36 06/18/18 14:36 Intake & Output 06/17/18 06/18/18 06/19/18 06:59 06:59 06:59 Intake Total 553 50 710 Output Total 4100 Balance -3547 50 710 Weight 64.5 kg 69.8 kg Respiratory exam: PRESENT: clear to auscultation mai, decreased breath sounds. ABSENT: crackles Cardiovascular exam: PRESENT: +S1, +S2, systolic murmur GI/Abdominal exam: PRESENT: normal bowel sounds, soft. ABSENT: organomegaly, tenderness Extremities exam: PRESENT: pedal edema Neurological exam: PRESENT: alert, awake, oriented to person, oriented to place Psychiatric exam: PRESENT: appropriate affect Skin exam: ABSENT: cyanosis, mottled, rash Results Laboratory Results: 06/18/18 07:33 06/18/18 07:33 06/18/18 06/18/18 06/18/18 07:33 07:33 16:34 WBC 6.2 RBC 3.01 L Hgb 7.9 L Hct 23.9 L MCV 80 MCH 26.3 L MCHC 33.1 RDW 17.9 H Plt Count 292 Sodium 128.7 L Potassium 5.4 H Chloride 91 L Carbon Dioxide 27 Anion Gap 11 BUN 56 H Creatinine 6.57 H Est GFR ( Amer) 8 L Est GFR (Non-Af Amer) 6 L Glucose 140 H Calcium 8.7 Total Protein 5.2 L Impressions: Chest X-Ray 06/15/18 00:00 IMPRESSION: Cardiomegaly with pulmonary vascular congestion and pleural effusions. Airspace infiltrate right lung base could represent pneumonia and/or pulmonary edema. Left basilar discoid atelectasis. Assessment & Plan - Diagnosis (1) End stage chronic kidney disease Is this a current diagnosis for this admission?: Yes Plan: Patient seen on dialysis. She is undergoing dialysis without any issues. Is being supervised to ensure safe and smooth procedure. Dialysis parameters are in order. Vital signs are stable. Plan to remove between 2-3 L as tolerated. Dialysis orders were reviewed with the treating dialysis nurse. Adjust erythropoietin for anemia. (2) Recurrent right pleural effusion Is this a current diagnosis for this admission?: Yes Plan: As per primary care. Has infected pleural effusion.Continue on IV antibiotics. (3) Right-sided chest wall pain Is this a current diagnosis for this admission?: Yes Plan: Presently resolved. (4) Anemia in CKD (chronic kidney disease) Qualifiers: Chronic kidney disease stage: on chronic dialysis Qualified Code(s): N18.6 - End stage renal disease; D63.1 - Anemia in chronic kidney disease; D63.1 - Anemia in chronic kidney disease; Z99.2 - Dependence on renal dialysis; Z99.2 - Dependence on renal dialysis; Z99.2 - Dependence on renal dialysis; Z99.2 - Dependence on renal dialysis Is this a current diagnosis for this admission?: Yes Plan: Adjust erythropoietin. (5) Chronic diastolic (congestive) heart failure Is this a current diagnosis for this admission?: Yes Plan: Presently stable. Monitor. (6) Diabetes Qualifiers: Diabetes mellitus type: type 2 Diabetes mellitus senior care insulin use: unspecified manager terminal insulin use status Diabetes mellitus complication status: with unspecified complications Qualified Code(s): E11.8 - Type 2 diabetes mellitus with unspecified complications Plan: Advised on tight diabetic control. (7) Hyperkalemia Is this a current diagnosis for this admission?: Yes Plan: She is on a 2K bath and potassium should respond. We discussed low potassium diet. (8) Hypertension Is this a current diagnosis for this admission?: Yes Plan: Controlled. Monitor.
[2018-06-18] MEDS: OLANZAPINE 5 MG TABLET PO SCH (22:56)
[2018-06-18] MEDS: MIRTAZAPINE 15 MG TABLET PO SCH (22:56)
[2018-06-18] MEDS: INSULIN GLARGINE,HUM.REC.ANLOG 300 UNIT/3 ML INSULN.PEN SUBCUT SCH (22:56)
[2018-06-18] MEDS: ATORVASTATIN CALCIUM 20 MG TABLET PO SCH (22:56)
[2018-06-19] MEDS: CLONIDINE HCL 0.2 MG TABLET PO SCH ×3 (05:08→21:29)
[2018-06-19] MEDS: HYDRALAZINE HCL 50 MG TABLET PO SCH ×3 (05:08→21:29)
[2018-06-19] MEDS: LANSOPRAZOLE 30 MG TAB.RAP.DR PO SCH (05:08)
[2018-06-19] MEDS: CHOLECALCIFEROL (D3) 1,000 UNIT TABLET PO SCH (09:19)
[2018-06-19] MEDS: FUROSEMIDE 20 MG TABLET PO SCH ×2 (09:20→17:39)
[2018-06-19] MEDS: SEVELAMER HCL 800 MG TABLET PO SCH ×3 (09:20→17:39)
[2018-06-19] MEDS: ATROPINE SULFATE 1% OPH SOLN 5 ML BOTTLE OD SCH (09:20)
[2018-06-19] MEDS: FAMOTIDINE 20 MG TABLET PO SCH (09:20)
[2018-06-19] MEDS: DOCUSATE SODIUM 100 MG CAPSULE PO SCH (09:20)
[2018-06-19] MEDS: PREDNISOLONE ACETATE 1% OPH SUSP 5 ML OD SCH ×4 (09:20→21:30)
[2018-06-19] MEDS: GABAPENTIN 300 MG CAPSULE PO SCH (09:20)
[2018-06-19] MEDS: INSULIN LISPRO 100 UNIT/ML 3 ML VIAL SUBCUT PRN ×2 (09:21→17:44)
[2018-06-19] MEDS: AMLODIPINE BESYLATE 5 MG TABLET PO SCH (10:00)
[2018-06-19] MEDS: CARVEDILOL 12.5 MG TABLET PO SCH ×2 (10:00→21:29)
[2018-06-19] MEDS ORDERED: ACETAMINOPHEN 325 MG TABLET PO PRN (13:49)
--- NOTE | 2018-06-19 16:22 | RADIOLOGY REPORT (SQ) ---
EXAM DESCRIPTION: U/S CHEST COMPLETED DATE/TIME: 06/19/2018 4:04 pm REASON FOR STUDY: pleural effusion COMPARISON: None. TECHNIQUE: Dynamic and static grayscale images acquired of the localized site of clinical concern an d recorded on PACS. Additional selected color Doppler and spectral images recorded. SITE OF CONCERN: Right pleural space. LIMITATIONS: None. FINDINGS: Insufficient pleural fluid for safe thoracentesis. IMPRESSION: Insufficient fluid for safe thoracentesis. TECHNICAL DOCUMENTATION: JOB ID: [id number] [employer]- All Rights Reserved Reading location - IP/workstation name: [email or web address]
--- NOTE | 2018-06-19 20:45 | PDOC PROGRESS REPORT ---
Subjective Progress Note for:: 06/19/18 Subjective:: The patient was seen by the bedside, the Pleurx catheter is no longer draining, consultation will be obtained from the surgeon to remove the catheter, hopefully she will be discharged home tomorrow after dialysis Reason For Visit: RT SIDE CHEST PAIN/PLURAL EFFUSION/ANEMIA Physical Exam Vital Signs: Temp Pulse Resp BP Pulse Ox 97.9 F 70 13 123/57 L 95 06/19/18 19:19 06/19/18 19:19 06/19/18 19:19 06/19/18 19:19 06/19/18 19:19 Intake & Output 06/18/18 06/19/18 06/20/18 06:59 06:59 06:59 Intake Total 50 710 480 Output Total 5400 Balance 50 -4690 480 Weight 69.8 kg 64.1 kg General appearance: PRESENT: no acute distress Eye exam: PRESENT: PERRLA Respiratory exam: PRESENT: clear to auscultation mai Cardiovascular exam: PRESENT: +S1, +S2 GI/Abdominal exam: PRESENT: soft Neurological exam: PRESENT: alert Results Laboratory Results: 06/18/18 07:33 06/18/18 07:33 Impressions: Chest X-Ray 06/15/18 00:00 IMPRESSION: Cardiomegaly with pulmonary vascular congestion and pleural effusions. Airspace infiltrate right lung base could represent pneumonia and/or pulmonary edema. Left basilar discoid atelectasis. Chest Ultrasound 06/19/18 15:36 IMPRESSION: Insufficient fluid for safe thoracentesis. Assessment & Plan - Diagnosis (1) Recurrent right pleural effusion Is this a current diagnosis for this admission?: Yes (2) End stage chronic kidney disease Is this a current diagnosis for this admission?: Yes (3) Pneumonia Qualifiers: Pneumonia type: due to unspecified organism Laterality: right Is this a current diagnosis for this admission?: Yes (4) Parapneumonic effusion Is this a current diagnosis for this admission?: Yes (5) Pulmonary hypertension Is this a current diagnosis for this admission?: Yes (6) Secondary hyperparathyroidism (of renal origin) Is this a current diagnosis for this admission?: Yes
[2018-06-19] MEDS: OLANZAPINE 5 MG TABLET PO SCH (21:29)
[2018-06-19] MEDS: MIRTAZAPINE 15 MG TABLET PO SCH (21:29)
[2018-06-19] MEDS: ATORVASTATIN CALCIUM 20 MG TABLET PO SCH (21:29)
[2018-06-19] MEDS: INSULIN GLARGINE,HUM.REC.ANLOG 300 UNIT/3 ML INSULN.PEN SUBCUT SCH (21:30)
[2018-06-20] MEDS: LANSOPRAZOLE 30 MG TAB.RAP.DR PO SCH (05:00)
[2018-06-20] MEDS: CLONIDINE HCL 0.2 MG TABLET PO SCH ×3 (05:00→22:17)
[2018-06-20] MEDS: HYDRALAZINE HCL 50 MG TABLET PO SCH ×3 (05:00→22:17)
[2018-06-20] MEDS: SEVELAMER HCL 800 MG TABLET PO SCH ×3 (07:38→17:29)
[2018-06-20] MEDS: INSULIN LISPRO 100 UNIT/ML 3 ML VIAL SUBCUT PRN ×3 (07:38→22:16)
[2018-06-20] MEDS ORDERED: EPOETIN ALFA INJ 20000 UNIT/1 ML VIAL (RENAL) IV PRN (08:19)
[2018-06-20] MEDS: DOCUSATE SODIUM 100 MG CAPSULE PO SCH (14:27)
[2018-06-20] MEDS: GABAPENTIN 300 MG CAPSULE PO SCH (14:27)
[2018-06-20] MEDS: CARVEDILOL 12.5 MG TABLET PO SCH ×2 (14:27→22:17)
[2018-06-20] MEDS: FUROSEMIDE 20 MG TABLET PO SCH ×2 (14:27→17:29)
[2018-06-20] MEDS: AMLODIPINE BESYLATE 5 MG TABLET PO SCH (14:27)
[2018-06-20] MEDS: PREDNISOLONE ACETATE 1% OPH SUSP 5 ML OD SCH ×4 (14:28→22:16)
[2018-06-20] MEDS: CHOLECALCIFEROL (D3) 1,000 UNIT TABLET PO SCH (14:28)
[2018-06-20] MEDS: ATROPINE SULFATE 1% OPH SOLN 5 ML BOTTLE OD SCH (14:28)
[2018-06-20] MEDS: FAMOTIDINE 20 MG TABLET PO SCH (14:29)
[2018-06-20] MEDS ORDERED: LIDOCAINE 1% INJ-PF (10 MG/ML) 30 ML SDV INJ PRN (16:26)
--- NOTE | 2018-06-20 16:50 | Operative Report ---
Nonrecallable Operative Report DATE OF SURGERY: 06/20/18 PREOPERATIVE DIAGNOSIS: pleurex catheter, non functional POSTOPERATIVE DIAGNOSIS: pleurex catheter, non functional OPERATION: removal of pleurex catheter SURGEON: MADELEINE LEIGH ANESTHESIA: Local TISSUE REMOVED OR ALTERED: none ESTIMATED BLOOD LOSS: 2cc INTRAOPERATIVE FINDINGS: intact peurix catheter PROCEDURE: skin over catheter cuff was anesthesitized with 1 % lidocaine small incision over cuff was made with #15 scalpel dissection down to cuff freed from surround subcutaneous tissue easily remove wound dressed with xeroform gauze pt meri well.
--- NOTE | 2018-06-20 17:15 | PDOC PROGRESS REPORT ---
Subjective Progress Note for:: 06/20/18 Reason For Visit: Patient is seen on dialysis. She is undergoing dialysis without any issues. Vital signs are stable. She feels some discomfort on the right side where she has the Pleurx catheter. No complaints of any fever or chills. Labs and medications were reviewed with her. Dialysis orders were reviewed with the treating dialysis nurse. Physical Exam Vital Signs: Temp Pulse Resp BP Pulse Ox 98.3 F 75 18 137/51 H 94 06/20/18 15:21 06/20/18 15:21 06/20/18 15:21 06/20/18 15:21 06/20/18 15:21 Intake & Output 06/19/18 06/20/18 06/21/18 06:59 06:59 06:59 Intake Total 710 720 Output Total 9000 Balance -8290 720 Weight 64.1 kg 66.4 kg General appearance: PRESENT: no acute distress Respiratory exam: PRESENT: clear to auscultation mai, crackles, decreased breath sounds - On the right side. Cardiovascular exam: PRESENT: +S1, +S2, systolic murmur GI/Abdominal exam: PRESENT: normal bowel sounds, soft. ABSENT: organomegaly, tenderness Results Laboratory Results: 06/18/18 07:33 06/18/18 07:33 06/15/18 16:25 Blood Blood Culture - Final NO GROWTH IN 5 DAYS 06/15/18 16:40 Blood Blood Culture - Final NO GROWTH IN 5 DAYS Impressions: Chest X-Ray 06/15/18 00:00 IMPRESSION: Cardiomegaly with pulmonary vascular congestion and pleural effusions. Airspace infiltrate right lung base could represent pneumonia and/or pulmonary edema. Left basilar discoid atelectasis. Chest Ultrasound 06/19/18 15:36 IMPRESSION: Insufficient fluid for safe thoracentesis. Assessment & Plan - Diagnosis (1) End stage chronic kidney disease Is this a current diagnosis for this admission?: Yes Plan: Patient seen on dialysis. She is undergoing dialysis without any issues. Is being supervised to ensure safe and smooth procedure. Dialysis parameters are in order. Vital signs are stable. Plan to remove between 2-3 L as tolerated. Dialysis orders were reviewed with the treating dialysis nurse. Adjust erythropoietin for anemia. (2) Recurrent right pleural effusion Is this a current diagnosis for this admission?: Yes Plan: As per primary care. Has infected pleural effusion.Continue on IV antibiotics. (3) Right-sided chest wall pain Is this a current diagnosis for this admission?: Yes Plan: Presently resolved. (4) Anemia in CKD (chronic kidney disease) Qualifiers: Chronic kidney disease stage: on chronic dialysis Qualified Code(s): N18.6 - End stage renal disease; D63.1 - Anemia in chronic kidney disease; D63.1 - Anemia in chronic kidney disease; Z99.2 - Dependence on renal dialysis; Z99.2 - Dependence on renal dialysis; Z99.2 - Dependence on renal dialysis; Z99.2 - Dependence on renal dialysis Is this a current diagnosis for this admission?: Yes Plan: Adjust erythropoietin. (5) Chronic diastolic (congestive) heart failure Is this a current diagnosis for this admission?: Yes Plan: Presently stable. Monitor. (6) Diabetes Qualifiers: Diabetes mellitus type: type 2 Diabetes mellitus mcfp insulin use: unspecified mcfp insulin use status Diabetes mellitus complication status: with unspecified complications Qualified Code(s): E11.8 - Type 2 diabetes mellitus with unspecified complications Plan: Advised on tight diabetic control. (7) Hypertension Is this a current diagnosis for this admission?: Yes Plan: Controlled. Monitor.
--- NOTE | 2018-06-20 20:58 | PDOC DISCHARGE SUMMARY ---
General - Admit/Disc Date/PCP Admission Date/Primary Care Provider: 06/10/18 07:44 CONRADO SOTOMAYOR MD Discharge Date: 06/20/18 - Discharge Diagnosis (1) Pleural drain infection Is this a current diagnosis for this admission?: Yes (2) Recurrent right pleural effusion Is this a current diagnosis for this admission?: Yes (3) End stage chronic kidney disease Is this a current diagnosis for this admission?: Yes (4) Pneumonia Is this a current diagnosis for this admission?: Yes (5) Parapneumonic effusion Is this a current diagnosis for this admission?: Yes (6) Pulmonary hypertension Is this a current diagnosis for this admission?: Yes (7) Secondary hyperparathyroidism (of renal origin) Is this a current diagnosis for this admission?: Yes - Additional Information Prescriptions: Insulin Lispro [Humalog Insulin (Lispro) 100 unit/mL] 0 - 12 unit SUBCUT ACHSP PRN #3 unit PRN Reason: Home Medications: Amlodipine Besylate [Norvasc 5 mg Tablet] 5 mg PO DAILY 06/10/18 Atorvastatin Calcium [Lipitor 20 mg Tablet] 20 mg PO QHS 06/10/18 Atropine Sulfate [Atropine 1% Oph Soln 5 ml] 1 drop OD DAILY 06/10/18 Carvedilol [Coreg 12.5 mg Tablet] 12.5 mg PO Q12 06/10/18 Cholecalciferol (Vitamin D3) [Vitamin D3 2000 unit Tablet] 2,000 unit PO DAILY 06/10/18 Clonidine HCl [Catapres 0.2 mg Tablet] 0.2 mg PO Q8 06/10/18 Ferric Citrate [Auryxia] 420 mg PO MEALS 06/10/18 Furosemide [Lasix 20 mg Tablet] 20 mg PO BID 06/10/18 Gabapentin [Neurontin 300 mg Capsule] 300 mg PO DAILY 06/10/18 Hydralazine HCl 100 mg PO Q8 06/10/18 Insulin Glargine,Hum.rec.anlog [Lantus Insulin 100 Unit/mL] 7 units SQ QHS 06/10/18 Mirtazapine [Remeron 15 mg Tablet] 15 mg PO QHS 06/10/18 Olanzapine [Zyprexa 5 mg Tablet] 5 mg PO QHS 06/10/18 Omeprazole 40 mg PO DAILY 06/10/18 Prednisolone Acetate [Pred Forte] 1 drop OD QID 06/10/18 Sevelamer HCl [Renagel 800 mg Tablet] 800 mg PO MEALS 06/10/18 Insulin Lispro [Humalog Insulin (Lispro) 100 unit/mL] 0 - 12 unit SUBCUT ACHSP PRN #3 unit 06/20/18 History of Present Illness History of Present Illness: HAL MERCHANT is a 57 year old female, Patient was admitted when she presented with right-sided chest pain associated with the Pleurx catheter Hospital Course Hospital Course: She was admitted for the management of pleural drain infection, infected pleural effusion, end-stage renal disease on hemodialysis. She presented with right sided chest pain associated with pleurx catheter. The Pleurx catheter was inserted initially for the management of recurrent transudative pleural effusion. She has end-stage renal disease she was seen in consultation by nep hrology, she underwent hemodialysis on this admission the pleural fluid on this admission grew staph aureus, she was treated with IV antibiotic cefepime, there was no jaycee empyema. Subsequently there was no drainage from the Pleurx catheter. It was felt that it was necessary at this point to discontinue the Pleurx catheter since it has out lived is usefulness.The culture from the pleural fluid grew methicillin sensitive staph aureus.Consultation was obtained from surgery today, the pleurx catheter was removed today.She also has diabetes mellitus, well controlled Physical Exam Vital Signs: Temp Pulse Resp BP Pulse Ox 98.3 F 75 18 137/51 H 94 06/20/18 15:21 06/20/18 15:21 06/20/18 15:21 06/20/18 15:21 06/20/18 15:21 Intake & Output 06/19/18 06/20/18 06/21/18 06:59 06:59 06:59 Intake Total 710 720 Output Total 9000 Balance -8290 720 Weight 64.1 kg 66.4 kg General appearance: PRESENT: no acute distress Head exam: PRESENT: atraumatic, normocephalic Eye exam: PRESENT: conjunctiva pink, EOMI, PERRLA Mouth exam: PRESENT: moist, tongue midline Neck exam: PRESENT: full ROM Respiratory exam: PRESENT: clear to auscultation mai Cardiovascular exam: PRESENT: RRR, +S1, +S2 Pulses: PRESENT: normal dorsalis pedis pul, +2 pedal pulses bilateral Vascular exam: PRESENT: normal capillary refill GI/Abdominal exam: PRESENT: normal bowel sounds, soft Rectal exam: PRESENT: deferred Neurological exam: PRESENT: alert, CN II-XII grossly intact Psychiatric exam: PRESENT: appropriate affect, normal mood Skin exam: PRESENT: dry, intact, warm Results Laboratory Results: 06/18/18 07:33 06/18/18 07:33 06/15/18 16:25 Blood Blood Culture - Final NO GROWTH IN 5 DAYS 06/15/18 16:40 Blood Blood Culture - Final NO GROWTH IN 5 DAYS Impressions: Chest X-Ray 06/15/18 00:00 IMPRESSION: Cardiomegaly with pulmonary vascular congestion and pleural effusions. Airspace infiltrate right lung base could represent pneumonia and/or pulmonary edema. Left basilar discoid atelectasis. Chest Ultrasound 06/19/18 15:36 IMPRESSION: Insufficient fluid for safe thoracentesis. Qualifiers - * PATIENT BEING DISCHARGED WITH ANY OF THE FOLLOWING DIAGNOSIS: No
[2018-06-20 22:09] LABS: ANION GAP 10 (5-19); BLOOD UREA NITROGEN 31 mg/dL (7-20); CALCIUM 8.7 mg/dL (8.4-10.2); CARBON DIOXIDE 31 mmol/L (22-30); CHLORIDE 94 mmol/L (98-107); GLUCOSE 237 mg/dL (75-110); POTASSIUM 3.9 mmol/L (3.6-5.0); SODIUM 134.6 mmol/L (137-145)
[2018-06-20] MEDS: INSULIN GLARGINE,HUM.REC.ANLOG 300 UNIT/3 ML INSULN.PEN SUBCUT SCH (22:16)
[2018-06-20] MEDS: OLANZAPINE 5 MG TABLET PO SCH (22:17)
[2018-06-20] MEDS: ATORVASTATIN CALCIUM 20 MG TABLET PO SCH (22:17)
[2018-06-20] MEDS: MIRTAZAPINE 15 MG TABLET PO SCH (22:17)
[2018-06-21] MEDS: CLONIDINE HCL 0.2 MG TABLET PO SCH ×2 (05:16→14:12)
[2018-06-21] MEDS: HYDRALAZINE HCL 50 MG TABLET PO SCH ×2 (05:16→14:12)
[2018-06-21] MEDS: LANSOPRAZOLE 30 MG TAB.RAP.DR PO SCH (05:17)
[2018-06-21] MEDS: GABAPENTIN 300 MG CAPSULE PO SCH (10:13)
[2018-06-21] MEDS: FAMOTIDINE 20 MG TABLET PO SCH (10:13)
[2018-06-21] MEDS: DOCUSATE SODIUM 100 MG CAPSULE PO SCH (10:13)
[2018-06-21] MEDS: CARVEDILOL 12.5 MG TABLET PO SCH (10:14)
[2018-06-21] MEDS: CHOLECALCIFEROL (D3) 1,000 UNIT TABLET PO SCH (10:14)
[2018-06-21] MEDS: SEVELAMER HCL 800 MG TABLET PO SCH ×3 (10:14→17:54)
[2018-06-21] MEDS: FUROSEMIDE 20 MG TABLET PO SCH ×2 (10:14→17:54)
[2018-06-21] MEDS: AMLODIPINE BESYLATE 5 MG TABLET PO SCH (10:14)
[2018-06-21] MEDS: ATROPINE SULFATE 1% OPH SOLN 5 ML BOTTLE OD SCH (10:15)
[2018-06-21] MEDS: PREDNISOLONE ACETATE 1% OPH SUSP 5 ML OD SCH ×3 (10:15→17:55)
[2018-06-21] MEDS: INSULIN LISPRO 100 UNIT/ML 3 ML VIAL SUBCUT PRN (12:20)
[2018-06-21] MEDS ORDERED: LIDOCAINE 1% INJ-PF (10 MG/ML) 30 ML SDV ONE (12:34)
[2018-06-21 15:10] LABS: HEMATOCRIT 24.1 % (36.0-47.0); MEAN CORPUSCULAR HEMOGLOBIN 25.8 pg (27.0-33.4); MEAN CORPUSCULAR HGB CONC 32.4 g/dL (32.0-36.0); MEAN CORPUSCULAR VOLUME 80 fl (80-97); PLATELET COUNT 348 10^3/uL (150-450); RED BLOOD COUNT 3.02 10^6/uL (3.72-5.28); RED CELL DISTRIBUTION WIDTH 18.3 % (11.5-14.0); WHITE BLOOD COUNT 5.9 10^3/uL (4.0-10.5)
[2018-06-21 15:14] LABS: HEMOGLOBIN 7.8 g/dL (12.0-15.5)
[2018-06-21 15:20] LABS: ANION GAP 10 (5-19); BLOOD UREA NITROGEN 46 mg/dL (7-20); CALCIUM 8.7 mg/dL (8.4-10.2); CARBON DIOXIDE 30 mmol/L (22-30); CHLORIDE 94 mmol/L (98-107); GLUCOSE 202 mg/dL (75-110); POTASSIUM 4.6 mmol/L (3.6-5.0); SODIUM 133.8 mmol/L (137-145)
[2018-06-21 16:43] VITALS: BP 149/58
== END 2018-06-21 19:39 | disposition home health service (06) | DRG 919 ==
LOC: ER 01:53 → EH 07:44 → 4N 12:09
PROVIDERS: ADMIT Internal Medicine; ATTEND Internal Medicine
PROC: 0W9930Z Drainage of Right Pleural Cavity with Drainage Device, Percutaneous Approach (ICD-10-PCS; principal; 2018-06-10)
PROC: 30233N1 Transfusion of Nonautologous Red Blood Cells into Peripheral Vein, Percutaneous Approach (ICD-10-PCS; 2018-06-11)
PROC: 5A1D70Z Performance of Urinary Filtration, Intermittent, Less than 6 Hours Per Day (ICD-10-PCS; 2018-06-11)
PROC: 0WP9X0Z Removal of Drainage Device from Right Pleural Cavity, External Approach (ICD-10-PCS; 2018-06-20)
DX: T85.79XA Infection and inflammatory reaction due to other internal prosthetic devices, implants and grafts, initial encounter (principal); N18.6 End stage renal disease; J18.9 Pneumonia, unspecified organism; J90 Pleural effusion, not elsewhere classified; I13.2 Hypertensive heart and chronic kidney disease with heart failure and with stage 5 chronic kidney disease, or end stage renal disease; I50.32 Chronic diastolic (congestive) heart failure; N25.81 Secondary hyperparathyroidism of renal origin; D63.1 Anemia in chronic kidney disease; E87.5 Hyperkalemia; I27.20 Pulmonary hypertension, unspecified; B95.61 Methicillin susceptible Staphylococcus aureus infection as the cause of diseases classified elsewhere; E11.22 Type 2 diabetes mellitus with diabetic chronic kidney disease; F41.8 Other specified anxiety disorders; Z99.2 Dependence on renal dialysis; Z79.4 Long term (current) use of insulin; Z79.52 Long term (current) use of systemic steroids; Z79.899 Other long term (current) drug therapy
CPT/HCPCS: 36415; 36430; 71045; 71046; 76604; 80048; 80053; 80076; 82803; 82962; 83605; 83615; 84155; 85025; 85027; 85610; 85730; 86850; 86900; 86901; 86920; 87040; 87070; 87075; 87077; 87186; 87205; 87804; 89050; 93005; 93010; 93306; 99285; A4300; J0692; J1815; J1940; J3490; J7030; P9016; Q4081

== ENCOUNTER → 2018-06-26 | Outpatient (CLI) | payer MEDICARE, MEDICAID ==
[2018-06-26 09:35] LABS: ABSOLUTE EOSINOPHILS # (AUTO) 0.1 10^3/uL (0.0-0.6); ABSOLUTE LYMPHOCYTES (AUTO) 0.9 10^3/uL (0.5-4.7); ABSOLUTE MONOCYTES (AUTO) 0.5 10^3/uL (0.1-1.4); ABSOLUTE NEUT (AUTO) 3.6 10^3/uL (1.7-8.2); BASOPHILS % (AUTO) 0.7 % (0-2); EOSINOPHILS % (AUTO) 2.7 % (0-6); HEMATOCRIT 22.8 % (36.0-47.0); LYMPHOCYTES % (AUTO) 17.9 % (13-45); MEAN CORPUSCULAR HEMOGLOBIN 25.9 pg (27.0-33.4); MEAN CORPUSCULAR HGB CONC 32.4 g/dL (32.0-36.0); MEAN CORPUSCULAR VOLUME 80 fl (80-97); MONOCYTES % (AUTO) 9.2 % (3-13); PLATELET COUNT 342 10^3/uL (150-450); RED BLOOD COUNT 2.84 10^6/uL (3.72-5.28); RED CELL DISTRIBUTION WIDTH 18.1 % (11.5-14.0); SEGMENTED NEUTROPHILS % (AUTO) 69.5 % (42-78); TOTAL CELLS COUNTED % (AUTO) 100 %; WHITE BLOOD COUNT 5.2 10^3/uL (4.0-10.5)
[2018-06-26 09:44] LABS: HEMOGLOBIN 7.4 g/dL (12.0-15.5)
== END ==
LOC: DAVITANR 08:23
PROVIDERS: ATTEND Physician Assistant Medical
DX: N18.6 End stage renal disease (principal); D63.1 Anemia in chronic kidney disease
CPT/HCPCS: 85025

== ENCOUNTER 2018-07-15 01:07 | Emergency (ER) | payer MEDICARE, MEDICAID ==
--- NOTE | 2018-07-15 01:54 | ER Document Report ---
ED General - General Chief Complaint: Abdominal Pain Stated Complaint: ABDOMINAL PAIN Time Seen by Provider: 07/15/18 01:54 Primary Care Provider: YUMIKO WEN PA-C [Primary Care Provider] - Follow up as needed Mode of Arrival: Ambulatory Information source: Patient, Relative Notes: HISTORY OF PRESENT ILLNESS: Patient is a 57-year-old female with a past medical history of multiple chronic health conditions including chronic abdominal pain, gastroparesis, end-stage renal disease on dialysis Saturday/Saturday/Saturday, heart failure, and coronary artery disease who presents with acute on chronic abdominal pain with multiple episodes of nonbilious emesis occurring yesterday and getting worse today. Location: Diffuse abdomen Onset: Gradual Alleviation: None Provocation: Movement, food Quality: "A lot of pain" Radiation: None Severity: Severe Timing: Constant History of abdominal surgery: Unsure Associated symptoms: Denies fevers or chills, no chest pain or shortness of breath, multiple episodes of nonbilious emesis Last bowel movement: Earlier today REVIEW OF SYSTEMS: CONSTITUTIONAL : Denies fever or chills, no sweats. Denies recent illness. EENT: Denies eye, ear, throat, or mouth pain or symptoms. Denies nasal or sinus congestion. CARDIOVASCULAR: Denies chest pain. Denies swelling of the legs. RESPIRATORY: Denies cough, cold, or chest congestion. Denies shortness of breath or difficulty breathing. Denies wheezing. GASTROINTESTINAL: Positive for abdominal pain. Positive for nonbloody and nonbilious emesis as well as nonbloody diarrhea. Denies constipation. GENITOURINARY: Denies difficulty urinating, painful urination, burning, f requency, or blood in urine. FEMALE GENITOURINARY: Denies vaginal bleeding, abnormal or irregular periods. MUSCULOSKELETAL: Denies neck or back pain or joint pain or swelling. SKIN: Denies rash or skin lesions. HEMATOLOGIC : Denies easy bruising or bleeding. LYMPHATIC: Denies swollen, enlarged glands. NEUROLOGICAL: Denies altered mental status or loss of consciousness. Denies headache. Denies weakness or paralysis or loss of use of either side. Denies problems with gait or speech. Denies sensory or motor loss. PSYCHIATRIC: Denies anxiety or stress or depression. All other systems reviewed and negative. PHYSICAL EXAMINATION: GENERAL: Anxious-appearing, well-nourished and in mild acute distress from pain. HEAD: Atraumatic, normocephalic. No scalp deformity, depression, or crepitance. EYES: Pupils are 3 mm and equal/round/reactive to light, extraocular movements intact, sclera anicteric, conjunctiva are normal. ENT: Nares patent bilaterally, oropharynx. Moist mucous membranes. No tonsil hypertrophy. NECK: Normal range of motion, supple without lymphadenopathy. LUNGS: Breath sounds present, equal, and clear to auscultation bilaterally. No wheezes, rales, or rhonchi. HEART: Regular rate and rhythm without murmurs, rubs, or gallops. 2+ peripheral pulses. Normal capillary refill. ABDOMEN: Soft and nondistended, moderate diffuse tenderness without peritoneal sign. Normoactive bowel sounds. No guarding, no rebound. No masses appreciated. BACK: Normal contour, no midline tenderness. Rectal exam deferred. GENITAL/PELVIC: Deferred. EXTREMITIES: Normal range of motion, no pitting or edema. No cyanosis. NEUROLOGICAL: No focal neurological deficits. Moves all extremities spontaneously and on command. PSYCH: Anxious mood, normal affect. No suicidal thoughts/ideations. No homocidal thoughts/ideations. No hallucinations. SKIN: Warm, dry, normal turgor, no rashes or lesions noted. ASSESSMENT AND PLAN: This patient is a 57-year-old female who presents with acute on chronic abdominal pain. Patient repeatedly says "I am in pain" and "please help me" but is unable to give information regarding specifics about the pain. Her son states that she has had "many episodes of this stuff" but is unsure of a specific diagnosis other than "first they thought it was ulcers then they thought it was gastroparesis."Unsure etiology but could include gastroparesis versus peptic ulcer disease versus gastroenteritis versus GI bleed versus mesenteric ischemia. 1. Will obtain labs, lactic acid, cardiac enzymes, and CT scan of the abdomen/pelvis. 2. Will give IV Benadryl with Ativan and Reglan. TRAVEL OUTSIDE OF THE [place] IN LAST 30 DAYS: No - Related Data Allergies/Adverse Reactions: hydromorphone [From Dilaudid] Allergy (Verified 05/31/18 15:42) morphine Allergy (Verified 05/31/18 15:42) Past Medical History - General Information source: Patient, Relative - Social History Smoking Status: Former Smoker Chew tobacco use (# tins/day): No Frequency of alcohol use: None Drug Abuse: None Lives with: Family Family History: Reviewed & Not Pertinent, Hypertension Patient has suicidal ideation: No Patient has homicidal ideation: No - Past Medical History Cardiac Medical History: Reports: Hx Congestive Heart Failure, Hx Hypertension Pulmonary Medical History: Reports: None EENT Medical History: Reports: None Neurological Medical History: Reports: None Endocrine Medical History: Reports: Hx Diabetes Mellitus Type 2 Renal/ Medical History: Reports: Hx End Stage Renal Disease. Denies: Hx Peritoneal Dialysis Malignancy Medical History: Reports: None GI Medical History: Reports: Other - History of gastroparesis and chronic abdominal pain Musculoskeletal Medical History: Reports None Skin Medical History: Reports None Psychiatric Medical History: Reports: Hx Depression - anxiety Traumatic Medical History: Reports: None Infectious Medical History: Reports: None Past Surgical History: Reports: Hx Hysterectomy, Hx Vascular Surgery - Immunizations Immunizations up to date: Yes Hx Diphtheria, Pertussis, Tetanus Vaccination: Yes History of Influenza Vaccine for 03/2017 - 08/2017 Season: Unknown Physical Exam - Vital signs Vitals: Temp Pulse Resp BP Pulse Ox 97.7 F 93 18 162/70 H 100 07/15/18 01:19 07/15/18 01:19 07/15/18 01:19 07/15/18 01:19 07/15/18 01:19 Course - Re-evaluation Re-evalutation: 07/15/18 04:23 Labs as far show normal white blood cell count with baseline anemia, negative cardiac enzymes, lactic acid is still pending. - Vital Signs Vital signs: Temp Pulse Resp BP Pulse Ox 97.7 F 93 22 H 208/95 H 96 07/15/18 01:30 07/15/18 01:30 07/15/18 04:11 07/15/18 04:11 07/15/18 04:11 - Laboratory Result Diagrams: 07/15/18 03:39 07/15/18 03:39 Laboratory results interpreted by me: 07/15/18 07/15/18 03:39 03:39 Hgb 10.6 L Hct 32.9 L MCH 26.2 L RDW 21.9 H Seg Neutrophils % 84.5 H Lymphocytes % 9.7 L Chloride 93 L BUN 48 H Creatinine 4.60 H Est GFR ( Amer) 12 L Est GFR (Non-Af Amer) 10 L Glucose 231 H Calcium 10.6 H Direct Bilirubin 0.7 H AST 40 H Alkaline Phosphatase 674 H Total Protein 8.3 H - EKG Interpretation by Me EKG shows normal: Sinus rhythm Rate: Normal Rhythm: NSR [place]/QRS: RBBB Voltage: No: Increased voltage, Consistant with LVH, Decreased voltage, Throughout, Limb leads P Waves: No: RICHELLE, LAE, Absent, AV Dissociation, Other Heart block present: No: 1st Degree, Mobitz 1, Mobitz 2, CHB (3rd degree block) When compared to previous EKG there are: No significant change - Transfer of Care Care transferred to following provider: Dr. Quinteros Notes: 07/15/18 04:08 Plan is to await blood work as well as CT scan and disposition appropriately. Discharge - Discharge Clinical Impression: Chronic abdominal pain, Gastroenteritis Condition: Good Disposition: HOME, SELF-CARE Instructions: Abdominal Pain ([facility]), Gastroenteritis (adult) ([facility]) Additional Instructions: You have been evaluated in the Emergency Department for recurrent episodes of your chronic abdominal pain. While in the emergency department you had blood work as well as a CT scan that did not show acute concerning findings to explain her symptoms. Please follow-up with your primary physician and your manager category as instructed to be rechecked. Return to the Emergency Department if you experience worsening pain, uncontrollable vomiting/diarrhea, chest pain, trouble breathing, or any other concerning symptoms. Prescriptions: Tramadol HCl [Ultram 50 mg Tablet] 50 mg PO Q6HP PRN #28 tablet PRN Reason: For Pain Metoclopramide HCl [Reglan 10 mg Tablet] 1 tab PO ASDIR PRN #30 tablet PRN Reason: Referrals: YUMIKO WEN PA-C [Primary Care Provider] - Follow up as needed Print Language: Nauruan
[2018-07-15] MEDS ORDERED: DIPHENHYDRAMINE HCL 50 MG/ML VIAL IV ONE (02:45)
[2018-07-15] MEDS ORDERED: LORAZEPAM INJ 2 MG/1 ML VIAL IV ONE (02:45)
[2018-07-15] MEDS ORDERED: METOCLOPRAMIDE HCL INJ/PF 10 MG/2 ML SDV IV ONE (02:45)
[2018-07-15] MEDS ORDERED: LORAZEPAM INJ 2 MG/1 ML VIAL IM ONE (03:35)
[2018-07-15 03:53] LABS: ABSOLUTE LYMPHOCYTES (AUTO) 0.6 10^3/uL (0.5-4.7); ABSOLUTE MONOCYTES (AUTO) 0.3 10^3/uL (0.1-1.4); ABSOLUTE NEUT (AUTO) 5.5 10^3/uL (1.7-8.2); BASOPHILS % (AUTO) 0.5 % (0-2); EOSINOPHILS % (AUTO) 0.6 % (0-6); HEMATOCRIT 32.9 % (36.0-47.0); HEMOGLOBIN 10.6 g/dL (12.0-15.5); LYMPHOCYTES % (AUTO) 9.7 % (13-45); MEAN CORPUSCULAR HEMOGLOBIN 26.2 pg (27.0-33.4); MEAN CORPUSCULAR HGB CONC 32.1 g/dL (32.0-36.0); MEAN CORPUSCULAR VOLUME 82 fl (80-97); MONOCYTES % (AUTO) 4.7 % (3-13); PLATELET COUNT 219 10^3/uL (150-450); RED BLOOD COUNT 4.04 10^6/uL (3.72-5.28); RED CELL DISTRIBUTION WIDTH 21.9 % (11.5-14.0); SEGMENTED NEUTROPHILS % (AUTO) 84.5 % (42-78); TOTAL CELLS COUNTED % (AUTO) 100 %; WHITE BLOOD COUNT 6.5 10^3/uL (4.0-10.5)
[2018-07-15 04:13] LABS: ALANINE AMINOTRANSFERASE 28 U/L (9-52); ALBUMIN 4.7 g/dL (3.5-5.0); ALKALINE PHOSPHATASE 674 U/L (38-126); ANION GAP 17 (5-19); ASPARTATE AMINO TRANSFERASE 40 U/L (14-36); BILIRUBIN,DIRECT 0.7 mg/dL (0.0-0.4); BILIRUBIN,TOTAL 1.1 mg/dL (0.2-1.3); BLOOD UREA NITROGEN 48 mg/dL (7-20); CALCIUM 10.6 mg/dL (8.4-10.2); CARBON DIOXIDE 29 mmol/L (22-30); CHLORIDE 93 mmol/L (98-107); GLUCOSE 231 mg/dL (75-110); LIPASE 210.8 U/L (23-300); POTASSIUM 4.7 mmol/L (3.6-5.0); TOTAL PROTEIN 8.3 g/dL (6.3-8.2)
[2018-07-15 04:19] LABS: ALCOHOL < 10 mg/dL (NONE DETECTED)
[2018-07-15] MEDS ORDERED: HALOPERIDOL LACTATE INJ 5 MG/1 ML VIAL IM ONE (05:02)
--- NOTE | 2018-07-15 06:32 | RADIOLOGY REPORT (SQ) ---
EXAM DESCRIPTION: CT ABDOMEN PELVIS WITH IV CONTRAST COMPLETED DATE/TME: 07/15/2018 00:00 CLINICAL HISTORY:57 years Female, Abdominal pain. DIALYSIS PT. CREAT 4.86 Comparison: None TECHNIQUE: Contiguous axial CT images of the abdomen and pelvis were obtained. Sagittal and coronal reformats were reviewed. This exam was performed according to our departmental dose-optimization program, which includes automated exposure control, adjustment of the mA and/or kV according to patient size and/or use of iterative reconstruction technique. FINDINGS: Lung bases: Small right pleural effusion. Cardiomegaly. Mitral valve calcifications. Small pericardial effusion. Liver:Unremarkable. No focal liver lesion. Gallbladder:Unremarkable. No gallstones. No gallbladder wall thickening or pericholecystic fluid. Spleen:Unremarkable Pancreas: Pancreas is unremarkable. Adrenal glands:Within normal limits. Kidneys/ureters:Within normal limits Stomach/small bowel/colon: Stomach is unremarkable. Small bowel is unremarkable. Colon is unremarkable. Appendix: No evidence of appendicitis. Peritoneum: No free fluid. Vascular structures: within normal limits Lymph nodes: No abnormal lymph nodes. Bladder:Unremarkable. Pelvic organs: No acute abnormality Bones: No acute osseous abnormality. Soft tissues: Unremarkable.. IMPRESSION: No acute intra-abdominal abnormality. Small right pleural effusion. Cardiomegaly and small pericardial effusion.
[2018-07-15] MEDS ORDERED: AMLODIPINE BESYLATE 5 MG TABLET PO ONE (06:43)
[2018-07-15] MEDS ORDERED: CLONIDINE HCL 0.2 MG TABLET PO ONE (06:43)
[2018-07-15] MEDS ORDERED: CARVEDILOL 12.5 MG TABLET PO ONE (06:43)
[2018-07-15] MEDS ORDERED: HYDRALAZINE HCL 50 MG TABLET PO ONE (06:44)
[2018-07-15] MEDS ORDERED: CARVEDILOL 6.25 MG TABLET ONE (06:52)
[2018-07-15 07:11] VITALS: BP 210/101
--- NOTE | 2018-07-15 21:30 | EKG REPORT ---
SEVERITY:- ABNORMAL ECG - SINUS RHYTHM FIRST DEGREE AV BLOCK RBBB AND LAFB : Confirmed by: Soledad Peck 15-Jul-2018 21:28:49
== END 2018-07-15 07:11 | disposition home or self-care (01) ==
LOC: ER 01:07
DX: K52.9 Noninfective gastroenteritis and colitis, unspecified (principal); E11.43 Type 2 diabetes mellitus with diabetic autonomic (poly)neuropathy; K31.84 Gastroparesis; I12.0 Hypertensive chronic kidney disease with stage 5 chronic kidney disease or end stage renal disease; E11.22 Type 2 diabetes mellitus with diabetic chronic kidney disease; N18.6 End stage renal disease; D63.1 Anemia in chronic kidney disease; Z99.2 Dependence on renal dialysis; R10.84 Generalized abdominal pain; G89.29 Other chronic pain; I25.10 Atherosclerotic heart disease of native coronary artery without angina pectoris; I45.10 Unspecified right bundle-branch block; Z88.5 Allergy status to narcotic agent; Z87.891 Personal history of nicotine dependence
CPT/HCPCS: 93005; 99284; 96372; 96374; 96375; 36415; 80307; 83690; 85025; 80053; 84484; 83605; 74177; 93010; A9270 ×4; J1200; J1630; J2765; J2060

== ENCOUNTER 2018-07-16 22:13 | Emergency (ER) | payer MEDICARE, MEDICAID ==
--- NOTE | 2018-07-16 23:11 | ER Document Report ---
ED General - General Chief Complaint: Abdominal Pain Stated Complaint: STOMACH PAIN Time Seen by Provider: 07/16/18 23:10 Primary Care Provider: YUMIKO WEN PA-C [Primary Care Provider] - Follow up as needed Mode of Arrival: Ambulatory Information source: Patient, Relative Notes: HISTORY OF PRESENT ILLNESS: Patient is a 57-year-old female with a past medical history of multiple chronic health conditions including chronic abdominal pain, gastroparesis, end-stage renal disease on dialysis Saturday/Saturday/Saturday, heart failure, and coronary artery disease who presents with acute on chronic abdominal pain with multiple episodes of nonbilious emesis for the past 2-3 days. Patient presented for the same complaint 2 days ago and had a full workup. Location: Diffuse abdomen Onset: Gradual Alleviation: None Provocation: Movement, food Quality: "A lot of pain" Radiation: None Severity: Severe Timing: Constant History of abdominal surgery: Unsure Associated symptoms: Denies fevers or chills, no chest pain or shortness of breath, multiple episodes of nonbilious emesis Last bowel movement: Yesterday REVIEW OF SYSTEMS: CONSTITUTIONAL : Denies fever or chills, no sweats. Denies recent illness. EENT: Denies eye, ear, throat, or mouth pain or symptoms. Denies nasal or sinus congestion. CARDIOVASCULAR: Denies chest pain. Denies swelling of the legs. RESPIRATORY: Denies cough, cold, or chest congestion. Denies shortness of breath or difficulty breathing. Denies wheezing. GASTROINTESTINAL: Positive for abdominal pain. Positive for nonbloody and nonbilious emesis as well as nonbloody diarrhea. Denies constipation. GENITOURINARY: Denies difficulty urinating, painful urination, burning, frequency, or blood in urine. FEMALE GENITOURINARY: Denies vaginal bleeding, abnormal or irregular periods. MUSCULOSKELETAL: Denies neck or back pain or joint pain or swelling. SKIN: Denies rash or skin lesions. HEMATOLOGIC : Denies easy bruising or bleeding. LYMPHATIC: Denies swollen, enlarged glands. NEUROLOGICAL: Denies altered mental status or loss of consciousness. Denies headache. Denies weakness or paralysis or loss of use of either side. Denies problems with gait or speech. Denies sensory or motor loss. PSYCHIATRIC: Denies anxiety or stress or depression. All other systems reviewed and negative. PHYSICAL EXAMINATION: GENERAL: Anxious-appearing, well-nourished and in mild acute distress from pain. HEAD: Atraumatic, normocephalic. No scalp deformity, depression, or crepitance. EYES: Pupils are 3 mm and equal/round/reactive to light, extraocular movements intact, sclera anicteric, conjunctiva are normal. ENT: Nares patent bilaterally, oropharynx. Moist mucous membranes. No tonsil hypertrophy. NECK: Normal range of motion, supple without lymphadenopathy. LUNGS: Breath sounds present, equal, and clear to auscultation bilaterally. No wheezes, rales, or rhonchi. HEART: Regular rate and rhythm without murmurs, rubs, or gallops. 2+ peripheral pulses. Normal capillary refill. ABDOMEN: Soft and nondistended, moderate diffuse tenderness without peritoneal sign. Normoactive bowel sounds. No guarding, no rebound. No masses appreciated. BACK: Normal contour, no midline tenderness. Rectal exam deferred. GENITAL/PELVIC: Deferred. EXTREMITIES: Normal range of motion, no pitting or edema. No cyanosis. NEUROLOGICAL: No focal neurological deficits. Moves all extremities spontaneously and on command. PSYCH: Anxious mood, normal affect. No suicidal thoughts/ideations. No homocidal thoughts/ideations. No hallucinations. SKIN: Warm, dry, normal turgor, no rashes or lesions noted. ASSESSMENT AND PLAN: This patient is a 57-year-old female who presents with acute on chronic abdominal pain. Patient repeatedly says "I am in pain" and "please help me" but is unable to give information regarding specifics about the pain. This examiner also saw the patient 2 days ago with her previous presentation and this presentation is identical. I do not feel that a repeat of blood work and imaging is necessary. Most likely etiology is psychosomatic versus emotional/psychiatric given the behavior of the patient 1. Will give intramuscular Ativan along with Toradol and reassess. 2. If no improvement, will consider Haldol. TRAVEL OUTSIDE OF THE [place] IN LAST 30 DAYS: No - Related Data Allergies/Adverse Reactions: hydromorphone [From Dilaudid] Allergy (Verified 05/31/18 15:42) morphine Allergy (Verified 05/31/18 15:42) Past Medical History - General Information source: Patient - Social History Smoking Status: Never Smoker Chew tobacco use (# tins/day): No Frequency of alcohol use: None Drug Abuse: None Lives with: Family Family History: Reviewed & Not Pertinent, Hypertension Patient has suicidal ideation: No Patient has homicidal ideation: No - Past Medical History Cardiac Medical History: Reports: Hx Congestive Heart Failure, Hx Hypertension Pulmonary Medical History: Reports: None EENT Medical History: Reports: None Neurological Medical History: Reports: None Endocrine Medical History: Reports: Hx Diabetes Mellitus Type 2 Renal/ Medical History: Reports: Hx End Stage Renal Disease. Denies: Hx Peritoneal Dialysis Malignancy Medical History: Reports: None GI Medical History: Reports: None Musculoskeletal Medical History: Reports None Skin Medical History: Reports None Psychiatric Medical History: Reports: Hx Depression - anxiety Traumatic Medical History: Reports: None Infectious Medical History: Reports: None Past Surgical History: Reports: Hx Hysterectomy, Hx Vascular Surgery - Immunizations Immunizations up to date: Yes Hx Diphtheria, Pertussis, Tetanus Vaccination: Yes Physical Exam - Vital signs Vitals: Temp Pulse Resp BP Pulse Ox 98.4 F 90 24 H 132/107 H 96 07/16/18 22:21 07/16/18 22:21 07/16/18 22:21 07/16/18 22:21 07/16/18 22:21 Course - Re-evaluation Re-evalutation: 07/17/18 03:23 Patient has improvement and near resolution of symptoms after intramuscular Toradol as well as intramuscular Haldol. She will be discharged home with return precautions and follow-up as needed. But the patient and her son voiced understanding and agreeing with the plan. - Vital Signs Vital signs: Temp Pulse Resp BP Pulse Ox 98.5 F 79 20 135/81 H 97 07/17/18 03:30 07/17/18 03:30 07/17/18 03:30 07/17/18 03:30 07/17/18 03:30 Discharge - Discharge Clinical Impression: Chronic abdominal pain Condition: Good Disposition: HOME, SELF-CARE Instructions: Abdominal Pain ([facility]) Additional Instructions: You have been evaluated in the Emergency Department for chronic abdominal pain that improved after treatment. Please follow-up with your primary physician as instructed in 1 week to be rechecked. Return to the Emergency Department if you experience chest pain, difficulty breathing, bloody stools, or any other concerning symptoms. Prescriptions: Haloperidol [Haldol 5 mg Tablet] 5 mg PO BID PRN #30 tablet PRN Reason: Referrals: YUMIKO WEN PA-C [Primary Care Provider] - Follow up as needed Print Language: Mosotho
[2018-07-16] MEDS ORDERED: LORAZEPAM INJ 2 MG/1 ML VIAL IM ONE (23:55)
[2018-07-16] MEDS ORDERED: KETOROLAC TROMETHAMINE 60 MG/2 ML SDV IM ONE (23:55)
[2018-07-17] MEDS ORDERED: HALOPERIDOL LACTATE INJ 5 MG/1 ML VIAL IM ONE (00:47)
[2018-07-17 03:52] VITALS: BP 135/81
== END 2018-07-17 03:42 | disposition home or self-care (01) ==
LOC: ER 22:13
DX: R10.9 Unspecified abdominal pain (principal); G89.29 Other chronic pain; R11.10 Vomiting, unspecified; I25.10 Atherosclerotic heart disease of native coronary artery without angina pectoris; I50.9 Heart failure, unspecified; I11.0 Hypertensive heart disease with heart failure; E11.9 Type 2 diabetes mellitus without complications
CPT/HCPCS: 99283; 96372; J1885; J1630; J2060

== ENCOUNTER 2018-08-06 10:17 | Emergency (ER) | payer MEDICARE, MEDICAID ==
[2018-08-06 10:56] LABS: ABSOLUTE LYMPHOCYTES (AUTO) 0.5 10^3/uL (0.5-4.7); ABSOLUTE MONOCYTES (AUTO) 0.3 10^3/uL (0.1-1.4); ABSOLUTE NEUT (AUTO) 4.8 10^3/uL (1.7-8.2); BASOPHILS % (AUTO) 0.5 % (0-2); EOSINOPHILS % (AUTO) 0.7 % (0-6); HEMATOCRIT 28.7 % (36.0-47.0); HEMOGLOBIN 9.4 g/dL (12.0-15.5); LYMPHOCYTES % (AUTO) 9.2 % (13-45); MEAN CORPUSCULAR HEMOGLOBIN 26.3 pg (27.0-33.4); MEAN CORPUSCULAR HGB CONC 32.7 g/dL (32.0-36.0); MEAN CORPUSCULAR VOLUME 80 fl (80-97); MONOCYTES % (AUTO) 4.5 % (3-13); PLATELET COUNT 324 10^3/uL (150-450); RED BLOOD COUNT 3.57 10^6/uL (3.72-5.28); RED CELL DISTRIBUTION WIDTH 20.9 % (11.5-14.0); SEGMENTED NEUTROPHILS % (AUTO) 85.1 % (42-78); TOTAL CELLS COUNTED % (AUTO) 100 %; WHITE BLOOD COUNT 5.6 10^3/uL (4.0-10.5)
[2018-08-06 10:59] LABS: APPEARANCE,URINE CLEAR; BILIRUBIN,URINE NEGATIVE (NEGATIVE); COLOR,URINE YELLOW; GLUCOSE, URINE 50 mg/dL (NEGATIVE); KETONES,URINE TRACE mg/dL (NEGATIVE); LEUKOCYTE ESTERASE,URINE NEGATIVE (NEGATIVE); NITRITE,URINE NEGATIVE (NEGATIVE); PROTEIN,URINE >=500 mg/dL (NEGATIVE); URINE SPECIFIC GRAVITY 1.011; UROBILINOGEN,URINE NEGATIVE mg/dL (<2.0)
[2018-08-06] MEDS ORDERED: LIDOCAINE 2% INJ-PF (100 MG/5 ML) SYRINGE IV ONE (11:00)
[2018-08-06] MEDS ORDERED: EPINEPHRINE INJ 1 MG/10 ML DISP.SYRIN ONE (11:02)
[2018-08-06] MEDS ORDERED: LIDOCAINE 2% INJ-PF (100 MG/5 ML) SYRINGE ONE (11:05)
[2018-08-06] MEDS ORDERED: NORMAL SALINE 1000 ML 1,000 ML IV ONE (11:06)
[2018-08-06 11:13] LABS: ALANINE AMINOTRANSFERASE < 6 U/L (9-52); ALBUMIN 4.5 g/dL (3.5-5.0); ALKALINE PHOSPHATASE 551 U/L (38-126); ASPARTATE AMINO TRANSFERASE 43 U/L (14-36); BILIRUBIN,DIRECT 1.2 mg/dL (0.0-0.4); BILIRUBIN,TOTAL 1.3 mg/dL (0.2-1.3); BLOOD UREA NITROGEN 92 mg/dL (7-20); CALCIUM 9.8 mg/dL (8.4-10.2); CREATINE KINASE 65 U/L (30-135); GLUCOSE 168 mg/dL (75-110); POTASSIUM 5.3 mmol/L (3.6-5.0); TOTAL PROTEIN 7.6 g/dL (6.3-8.2)
[2018-08-06 11:16] LABS: ANISOCYTOSIS 3+; BURR CELLS SLIGHT; POIKILOCYTOSIS 2+; POLYCHROMASIA SLIGHT; SCHISTOCYTES 1+; TEAR DROP CELLS 1+
[2018-08-06 11:17] LABS: PLATELET COMMENT ADEQUATE
[2018-08-06 11:20] LABS: CARBON DIOXIDE 18 mmol/L (22-30); CHLORIDE 97 mmol/L (98-107); SODIUM 136.4 mmol/L (137-145)
[2018-08-06 11:21] LABS: ANION GAP 21 (5-19)
[2018-08-06 11:25] LABS: CREATINE KINASE MB 3.19 ng/mL (<4.55)
[2018-08-06] MEDS ORDERED: ETOMIDATE INJ/PF 20 MG/10 ML SDV IV ONE ×2 (11:30→11:31)
[2018-08-06] MEDS ORDERED: SUCCINYLCHOLINE CHLORIDE INJ 200 MG/10 ML VIAL IV ONE (11:31)
--- NOTE | 2018-08-06 11:35 | RADIOLOGY REPORT (SQ) ---
EXAM DESCRIPTION: CT HEAD WITHOUT COMPLETED DATE/TIME: 08/06/2018 11:16 am REASON FOR STUDY: unresponsive COMPARISON: 04/09/2018 TECHNIQUE: Axial images acquired through the brain without intravenous contrast. Images reviewed wi th bone, brain and subdural windows. Additional sagittal and coronal reconstructions were generated. Images stored on PACS. All CT scanners at this facility use dose modulation, iterative reconstruction, and/or weight based d osing when appropriate to reduce radiation dose to as low as reasonably achievable (ALARA). [facility]: Dose Right [facility]: CareDose [facility]: Dose Right [facility]: Teradose 4D [facility]: [employer] RADIATION DOSE: CT Rad equipment meets quality standard of care and radiation dose reduction techniq ues were employed. CTDIvol: 53.2 mGy. DLP: 1124 mGy-cm. mGy. LIMITATIONS: None. FINDINGS: VENTRICLES: Effacement of the right lateral ventricle. Increased size of the left lateral ventricle compared to prior with adjacent hypoattenuation suggestive of transependymal flow. Forame n magnum remains patent. Mild crowding at the ambient cistern on the left. CEREBRUM: There is a large right holo-hemispheric mixed attenuation extra-axial collection most ananya tible with acute subdural hematoma. There is associated midline shift measuring 18 mm with subfalcin e herniation. No evidence of acute large vascular territory infarct. CEREBELLUM: No masses. No hemorrhage. No alteration of density. No evidence for acute infarction. EXTRAAXIAL SPACES: Large right holo-hemispheric mixed attenuation extra-axial collection measuring 15 mm maximally compatible with acute subdural hematoma. ORBITS AND GLOBE: No intra- or extraconal masses. Normal contour of globe without masses. Evidence of prior cataract surgery. CALVARIUM: No acute bony abnormality. No discrete lytic lesions. Diffuse osseous sclerosis possibly related to renal disease. PARANASAL SINUSES: No fluid or mucosal thickening. SOFT TISSUES: No mass or hematoma. OTHER: No other significant finding. IMPRESSION: 1. Large acute right holo-hemispheric subdural hematoma measuring 15 mm maximally. The re is associated 18 mm of leftward midline shift and subfalcine herniation. Foramen magnum remains p atent. 2. Increased size of the left lateral ventricle compared to prior with evidence of transependymal fl ow suggestive of a trapped ventricle. EVIDENCE OF ACUTE STROKE: Subdural hematoma Pertinent positive or negative findings of the imaging study reported as a CRITICAL EXAM to DIANE LARA MD at11:26 on 08/06/2018. Category of Critical Exam: Subdural hematoma and midline shift. COMMENT: Quality ID # [id number]: Final reports with documentation of one or more dose reduction techniques (e.g., Automated exposure control, adjustment of the mA and/or kV according to patient size, use of iterative reconstruction technique) TECHNICAL DOCUMENTATION: JOB ID: [id number] [employer]- All Rights Reserved Reading location - IP/workstation name: [email or web address]
--- NOTE | 2018-08-06 11:37 | RADIOLOGY REPORT (SQ) ---
EXAM DESCRIPTION: CHEST SINGLE VIEW COMPLETED DATE/TIME: 08/06/2018 11:21 am REASON FOR STUDY: unresponsive COMPARISON: None. EXAM PARAMETERS: NUMBER OF VIEWS: One view. TECHNIQUE: Single frontal radiographic view of the chest acquired. RADIATION DOSE: NA LIMITATIONS: None. FINDINGS: LUNGS AND PLEURA: Diffuse bilateral basilar predominant interstitial opacities. Small mai ateral effusions. No appreciable pneumothorax. MEDIASTINUM AND HILAR STRUCTURES: No discrete mass. HEART AND VASCULAR STRUCTURES: Enlarged cardiac silhouette, stable. Atherosclerotic aorta. BONES: No acute findings. HARDWARE: None in the chest. OTHER: No other significant finding. IMPRESSION: Enlarged cardiac silhouette with interstitial opacities, likely edema. Trace bilateral effusions. TECHNICAL DOCUMENTATION: JOB ID: [id number] [employer]- All Rights Reserved Reading location - IP/workstation name: [email or web address]
[2018-08-06 11:39] LABS: TROPONIN I 0.083 ng/mL
[2018-08-06] MEDS ORDERED: PROPOFOL 1,000 MG/100 ML INFUS..BTL IV PRN (11:59)
--- NOTE | 2018-08-06 12:30 | RADIOLOGY REPORT (SQ) ---
EXAM DESCRIPTION: CHEST SINGLE VIEW COMPLETED DATE/TIME: 08/06/2018 12:19 pm REASON FOR STUDY: Post intubation COMPARISON: 08/06/2018 at 1117 hours. EXAM PARAMETERS: NUMBER OF VIEWS: One view. TECHNIQUE: Single frontal radiographic view of the chest acquired. RADIATION DOSE: NA LIMITATIONS: None. FINDINGS: LUNGS AND PLEURA: No opacities, masses or pneumothorax. No pleural effusion. MEDIASTINUM AND HILAR STRUCTURES: No masses. Contour normal. HEART AND VASCULAR STRUCTURES: Cardiomegaly. Vascular congestion. BONES: No acute findings. HARDWARE: Endotracheal tube with the tip located 4 cm proximal to the aretha. Nasogastric tube with the tip in the stomach. Right axillary stent. OTHER: No other significant finding. IMPRESSION: 1. SATISFACTORY POSITION OF THE ENDOTRACHEAL TUBE AND NASOGASTRIC TUBE. 2. CARDIOMEGALY WITH DIFFUSE VASCULAR CONGESTION TECHNICAL DOCUMENTATION: JOB ID: [id number] [employer]- All Rights Reserved Reading location - IP/workstation name: [email or web address]
[2018-08-06] MEDS ORDERED: DESMOPRESSIN ACETATE INJ 4 MCG/1 ML AMPULE IV ONE (12:51)
[2018-08-06 13:06] LABS: INTERNATIONAL RATION (INR) 1.87; PROTHROMBIN TIME 22.4 SEC (11.4-15.4)
[2018-08-06 13:10] LABS: VENOUS BLOOD BASE EXCESS -4.4 mmol/L; VENOUS BLOOD HCO3 21.5 mmol/L (20-32); VENOUS BLOOD PCO2 43.4 mmHg (35-63); VENOUS BLOOD PH 7.31 (7.30-7.42)
[2018-08-06] MEDS ORDERED: LEVETIRACETAM 1000 MG/NACL-ISO 1,000 MG/100 ML RTUPB IV ONE (13:10)
[2018-08-06] MEDS ORDERED: NORMAL SALINE 250 ML IV PRN (13:15)
[2018-08-06] MEDS ORDERED: DESMOPRESSIN ACETATE IV ONE (14:00)
[2018-08-06] MEDS ORDERED: NORMAL SALINE IV ONE (14:00)
--- NOTE | 2018-08-06 14:18 | ER Document Report ---
Entered by NAT PERLA SCRIBE 08/06/18 1047 Acting as scribe for:DIANE LARA MD ED General - General Stated Complaint: ALTERED MENTAL STATUS Time Seen by Provider: 08/06/18 10:30 Mode of Arrival: Medic Information source: Emergency Med Personnel Notes: Patient is a 57 year old female with ESRD (MWF diaylsis), CHF, chronic abdominal pain presents to the emergency department via EMS due to altered mental status. Patient was found by her home health aide this morning, unresponsive. According to nurse, patient did half of her dialysis on 08/01/18 and did not go dialysis on 08/04/2018 or today. She reports the patient was scheduled to have a colonoscopy yesterday but did not have it completed. Patient was recently seen in this ED on 07/15 and 07/16 complaining of abdominal pain and discharged home. Patients PCP is Dr. Bobby. TRAVEL OUTSIDE OF THE [place] IN LAST 30 DAYS: No - Related Data Allergies/Adverse Reactions: hydromorphone [From Dilaudid] Allergy (Verified 05/31/18 15:42) morphine Allergy (Verified 05/31/18 15:42) Past Medical History - General Information source: Emergency Med Personnel, [facility] Records - Social History Smoking Status: Never Smoker Cigarette use (# per day): No Chew tobacco use (# tins/day): No Smoking Education Provided: No Frequency of alcohol use: None Family History: Reviewed & Not Pertinent, Hypertension - Past Medical History Cardiac Medical History: Reports: Hx Congestive Heart Failure, Hx Hypertension Endocrine Medical History: Reports: Hx Diabetes Mellitus Type 2 Renal/ Medical History: Reports: Hx End Stage Renal Disease Psychiatric Medical History: Reports: Hx Depression - anxiety Past Surgical History: Reports: Hx Hysterectomy, Hx Vascular Surgery - Immunizations Immunizations up to date: Yes Hx Diphtheria, Pertussis, Tetanus Vaccination: Yes Review of Systems - Review of Systems -: Yes ROS unobtainable due to patient's medical condition Physical Exam - Vital signs Vitals: Resp BP Pulse Ox 20 173/130 H 93 08/06/18 10:30 08/06/18 10:30 08/06/18 10:30 - Notes Notes: GENERAL:Unresponsive to painful stimuli. Constantly grunting and mumbling, sustains gag reflex. HEAD: Normocephalic, atraumatic. Lays with head to the left side. EYES: Pupils equal, round, and reactive to light. Extraocular movements intact. Chemosis to the left lateral eye. ENT: Oral mucosa dry, cracked lips, tongue midline. Difficulty passively opening mouth. NECK: Full range of motion. Supple. Trachea midline. LUNGS: Clear to auscultation bilaterally, no wheezes, rales, or rhonchi. No respiratory distress. HEART: Regular rate and rhythm. No murmurs, gallops, or rubs. ABDOMEN: Soft. Non-distended. Bowel sounds present in all 4 quadrants. No guarding, rigidity, or rebound. EXTREMITIES: Moves all 4 extremities spontaneously. Non sustained clonus, hyporeflexes. Fistula in the right medial upper arm, palpable thrill. NEUROLOGICAL: Unresponsive to painful stimuli. Constantly grunting and mumbling. PSYCH: Unresponsive. SKIN: Warm, dry, normal turgor. Course - Re-evaluation Re-evalutation: 08/06/18 14:12 PROCEDURE: The patient was intubated using RSI technique. She did have a nasal trumpet in the left nostril. A nasal cannula was placed in the right nostril at 15 L to accomplish the "NO DESAT" . An initial attempt to give succinylcholine through a left wrist IV was unsuccessful as the IV would not flush. 100 mg of succinylcholine was given through a right tibial intraosseous line. The patient was intubated by EMT-P student Mr. Prince under my supervision. A #4 curved blade was used. The intubation was successful on the first attempt to pass the tube. Etomidate 20 mg through the intraosseous line was given after the successful intubation before the succinylcholine wore off. - Vital Signs Vital signs: Temp Pulse Resp BP Pulse Ox 96.8 F L 14 157/68 H 100 08/06/18 14:14 08/06/18 14:14 08/06/18 14:14 08/06/18 14:14 - Laboratory Result Diagrams: 08/06/18 10:40 08/06/18 10:40 Laboratory results interpreted by me: 08/06/18 08/06/18 08/06/18 10:40 10:40 10:40 RBC 3.57 L Hgb 9.4 L Hct 28.7 L MCH 26.3 L RDW 20.9 H Seg Neutrophils % 85.1 H Lymphocytes % 9.2 L PT 22.4 H Sodium 136.4 L Potassium 5.3 H Chloride 97 L Carbon Dioxide 18 L Anion Gap 21 H BUN 92 H Creatinine 9.58 H Est GFR ( Amer) 5 L Est GFR (Non-Af Amer) 4 L Glucose 168 H Direct Bilirubin 1.2 H AST 43 H ALT < 6 L Alkaline Phosphatase 551 H Urine Protein Urine Glucose (UA) Urine Ketones 08/06/18 10:47 RBC Hgb Hct MCH RDW Seg Neutrophils % Lymphocytes % PT Sodium Potassium Chloride Carbon Dioxide Anion Gap BUN Creatinine Est GFR ( Amer) Est GFR (Non-Af Amer) Glucose Direct Bilirubin AST ALT Alkaline Phosphatase Urine Protein >=500 H Urine Glucose (UA) 50 H Urine Ketones TRACE H - Diagnostic Test Radiology reviewed: Reports reviewed - CT scan shows a large acute right lower lobe hemispheric subdural hematoma with 18 mm of leftward midline shift and subfalcine herniation. - EKG Interpretation by Me EKG shows normal: Sinus rhythm, [place], Intervals, QRS Complexes, ST-T Waves Rate: Normal - 88 Rhythm: NSR [place]/QRS: RBBB, LAHB/LAFB P Waves: LAE When compared to previous EKG there are: No significant change - Consults Dr. Matos Time consulted: 12:26 Consulted provider: other - Will accept at [facility]. Requests the patient receive a dose of DDAVP. Critical Care Note - Critical Care Note Total time excluding time spent on procedures (mins): 60 Discharge - Discharge Clinical Impression: Subdural hematoma Coma Qualifiers: Coma depth: [place] coma 3-8 Coma timing: in the field (EMT or ambulance) Qualified Code(s): R40.2431 - [place] coma scale score 3-8, in the field [EMT or ambulance] Chronic renal failure Qualifiers: Chronic kidney disease stage: stage 5 Qualified Code(s): N18.5 - Chronic kidney disease, stage 5 Condition: Good Disposition: [facility] Scribe Attestation: 08/06/18 14:47 I personally performed the services described in the documentation, reviewed and edited the documentation which was dictated to the scribe in my presence, and it accurately records my words and actions. I personally performed the services described in the documentation, reviewed and edited the documentation which was dictated to the scribe in my presence, and it accurately records my words and actions.
[2018-08-06 14:29] VITALS: BP 157/68
[2018-08-06] MEDS ORDERED: SUCCINYLCHOLINE CHLORIDE INJ 200 MG/10 ML VIAL ONE (14:39)
--- NOTE | 2018-08-07 22:07 | EKG REPORT ---
SEVERITY:- ABNORMAL ECG - SINUS RHYTHM LEFT ATRIAL ABNORMALITY RBBB AND LAFB : Confirmed by: Soledad Peck 07-Aug-2018 22:05:59
== END 2018-08-06 14:46 | disposition short-term general hospital (02) ==
LOC: ER 10:17
DX: S06.5X9A Traumatic subdural hemorrhage with loss of consciousness of unspecified duration, initial encounter (principal); X58.XXXA Exposure to other specified factors, initial encounter; I12.0 Hypertensive chronic kidney disease with stage 5 chronic kidney disease or end stage renal disease; E11.22 Type 2 diabetes mellitus with diabetic chronic kidney disease; N18.5 Chronic kidney disease, stage 5; Z99.2 Dependence on renal dialysis; Z91.15 Patient's noncompliance with renal dialysis; I45.2 Bifascicular block; Z88.5 Allergy status to narcotic agent
CPT/HCPCS: 93005; 99291; 51702; 86900; 86901; 36415; 87040; 82553; 36430; 86850; 82550; 85025; 85610; 80053; 81001; 84484; 82803; 83605; 71045; 70450; 94660; 93010; 31500; P9017; J2704; J2001; J0330; J2597; 94002